=== PATIENT | male | born 1950 | race Hispanic/Latino ===

== ENCOUNTER 2016-08-09 18:25 | Observation (INO) | payer MEDICARE, MEDICAID ==
[2016-03-29 21:13] VITALS: BMI 27.3
[2016-08-09 19:19] LABS: BASO # 0.1 K/uL (0.0-0.2); BASO % 0.6 % (0.0-2.0); EOS # 0.2 K/uL (0.0-0.7); EOS % 1.7 % (0.0-4.0); HEMATOCRIT 42.5 % (35.0-51.0); LYMPH % 20.2 % (20.0-40.0); MEAN CELL VOLUME 87.1 fl (80.0-94.0); MEAN CORPUSCULAR HEMOGLOBIN 29.1 pg (27.0-31.0); MEAN CORPUSCULAR HGB CONC 33.4 g/dL (33.0-37.0); MEAN PLATELET VOLUME 8.2 fl (7.2-11.7); MONO # 0.9 K/uL (0.0-0.8); MONO % 9.6 % (0.0-10.0); NEUT # 6.6 K/uL (1.8-7.0); NEUT % 67.9 % (50.0-75.0); RED CELL DISTRIBUTION WIDTH 14.6 % (11.5-14.5); WHITE BLOOD COUNT 9.7 K/uL (4.8-10.8)
[2016-08-09 19:26] LABS: ALB/GLOB RATIO 1.1 (1.0-2.1); ALKALINE PHOSPHATASE 81 U/L (38-126); ALT/SGPT 23 U/L (21-72); AST/SGOT 29 U/L (17-59); BILIRUBIN,TOTAL 1.3 mg/dl (0.2-1.3); BLOOD UREA NITROGEN 17 mg/dl (9-20); CALCIUM 9.6 mg/dL (8.4-10.2); CARBON DIOXIDE 21 mmol/L (22-30); CHLORIDE 104 mmol/L (98-107); GFR AFRICAN-AMERICAN > 60; GLUCOSE,RANDOM 149 mg/dL (75-110); POTASSIUM 4.9 MMOL/L (3.6-5.0); SODIUM 142 mmol/l (132-148); TOTAL PROTEIN 8.2 G/DL (6.3-8.2)
[2016-08-09 19:41] LABS: PARTIAL THROMBOPLASTIN TIME 30.3 SECONDS (23.3-32.5)
[2016-08-09 19:56] LABS: THYROID STIMULATING HORMONE 1.53 mIU/ML (0.46-4.68)
--- NOTE | 2016-08-09 20:02 | ED PDOC ---
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 Pt reports the palpitations felt like his AFib and resolved of its own. Pt reports some associated shortness of breath but denies any chest pain. Of note, pt reports he recently came to [place] from [place], [place] and states he was informed in [place] that he has high Coumadin levels and his medications were discontinued until further notice. Of note, pt states he had a VA few months ago, is currently on Cardizem and Metroprolol. Currently, pt offers no additional medical complaints. Past Medical History Reviewed: Historical Data, Nursing Documentation, Vital Signs Vital Signs: Last Vital Signs Temp 98.6 F 08/10/16 13:00 Pulse 55 L 08/10/16 13:00 Resp 20 08/10/16 13:00 BP 162/85 H 08/10/16 13:00 Pulse Ox 96 08/10/16 13:00 - Medical History PMH: Atrial Fibrillation (Questionable), Diabetes, Deep Vein Thrombosis ( treated in [facility]), HTN, Hypercholesterolemia, Kidney Stones Denies: CVA Other PMH: VA - Family History Family History: States: Unknown Family Hx, Hypertension - Home Medications Home Medications: Ambulatory Orders Medication Instructions Recorded Metoprolol Tartrate [Lopressor] 100 mg PO BID #30 tab 08/10/16 Clopidogrel [Plavix] 75 mg PO DAILY tab 08/14/16 Rosuvastatin Calcium [Crestor] 20 mg PO HS tab 08/14/16 metFORMIN [glucOPHAGE] 1,000 mg PO BID tab 08/14/16 - Allergies Allergies/Adverse Reactions: Allergies Allergy/AdvReac Type Severity Reaction Status Date / Time aspirin Allergy URTICARIA Verified 08/10/16 18:58 Penicillins Allergy URTICARIA Verified 08/10/16 18:58 SONAL Risk Score for UA/NSTEMI - SONAL Risk Score Age > 64: YES 3 or more CAD Risk Factors: YES Known CAD (Stenosis greater than 50%): YES Aspirin use in past 7 days: NO Severe Angina: NO EKG ST changes greater than 0.5mm: NO Positive Cardiac Marker: NO SONAL Score: 3 Risk %: 13% Review of Systems ROS Statement: Except As Marked, All Systems Reviewed And Found Negative Cardiovascular: Positive for: Palpitations. Negative for: Chest Pain Respiratory: Positive for: Shortness of Breath Physical Exam - Reviewed Nursing Documentation Reviewed: Yes Vital Signs Reviewed: Yes - Physical Exam Appears: Positive for: Well, Non-toxic, No Acute Distress Head Exam: Positive for: ATRAUMATIC, NORMAL INSPECTION, NORMOCEPHALIC Skin: Positive for: Normal Color, Warm, DRY Eye Exam: Positive for: Normal appearance Neck: Positive for: Normal, Painless ROM, Supple Cardiovascular/Chest: Positive for: Regular Rate, Rhythm Respiratory: Positive for: Normal Breath Sounds. Negative for: Respiratory Distress Neurologic/Psych: Positive for: Alert, Oriented - Laboratory Results Result Diagrams: 08/10/16 06:00 08/10/16 06:10 - ECG Interpretation Of ECG: NSR @ 60. O2 Sat by Pulse Oximetry: 97 (RA) Pulse Ox Interpretation: Normal - Radiology X-Ray: Read By Radiologist (No active disease. No significant interval change compared to the prior examination(s).) Medical Decision Making Medical Decision Making: Time: 1909 Impression: Palpitations, AFib, ACS Plan: -- EKG -- DDimer -- PTT -- Prothrombin time -- Urinalysis -- CXR --Reassess Scribe Attestation: Documented by Pauline Bhatia acting as a scribe for Melina Dee MD. Provider Attestation: All medical record entries made by the Scribe were at my direction and personally dictated by me. I have reviewed the chart and agree that the record accurately reflects my personal performance of the history, physical exam, medical decision making, and the department course for this patient. I have also personally directed, reviewed, and agree with the discharge instructions and disposition. Disposition - Clinical Impression Clinical Impression: Palpitations, Atrial fibrillation - Disposition Disposition Time: 21:37 Condition: STABLE
--- NOTE | 2016-08-09 23:06 | CP.PCM.HP ---
History of Present Illness - History of Present Illness History of Present Illness: CC: acute onset Palpitations 66 yo male with PMHx of HTN, A-Fib?, DVT, DM, [place] ( s/p stent placement 2016), TIA (per patient) admitted due to sudden onset chest palpitations which started this afternoon. Pt reports the palpitations felt like ''a machine'' resolved on their own. Pt reports some associated shortness of breath but denies any chest pain or chest pressure.Able to walk 30 min without any dyspnea, no chest pain on exertion or rest, no new cough reported, no edema, no orthopnea. Denies HAMIL[place], syncope, n/v/cp/ abd pain/diarrhea/ new rashes/focal weakness. wt loss, night sweats, dysuria/hematuria/hematochezia. Of note: Patient has a history of STEMI on record, he states not following up with any c d area supervisor post his [place] and stent placement at [facility] Mar 2016. States he went to [place] straight after his discharge from the hospital. Saw a PMD in [place] who was giving his prescriptions to Cardizem and Metroprolol, patient denies taking any other medication at present time. Pt reports he recently came to [place] from [place], [place] and states he was informed in [place] that he has ''high Coumadin levels'' and his medications were discontinued until further notice. ED course: VS: bradycardic 57, stable, afebrile, EKG, DDimer ,TSH, CBC ,CMP ,PTT /PT,Troponins, Urinalysis, CXR PMD: [facility], Dr Garcia [place]: none seen after stenting as per patient PMHx - [place]( stent placed 2016), HTN, DM, HLD, TIA (as per patient), LE DVT Meds - currently only taking Cardizem, Metoprolol per patient; per ECW below MetFORMIN HCl ER 500 MG Atorvastatin Calcium 40 MG Hydrochlorothiazide 25 MG Lisinopril 20 MG Allergies - aspirin, PEN - rash from both Fam Hx - dad scleroderma, mom breast cancer Surgery - Cardiac cath w/ stent (2016),prostate surgery, ''bladder stones removed'', sinus surgery Social - homeless in [place] but not in [place] as per patient, denies drug, tobacco , alcohol use Present on Admission - Present on Admission Any Indicators Present on Admission: No History of DVT/PE: Yes Review of Systems - Review of Systems Review of Systems: see hpi Past Patient History - Past Social History Smoking Status: Never Smoked - CARDIAC Hx Atrial Fibrillation: Yes (Questionable) Hx Hypercholesterolemia: Yes Hx Hypertension: Yes - RENAL Hx Kidney Stones: Yes - ENDOCRINE/METABOLIC Hx Diabetes Mellitus Type 2: Yes - INTEGUMENTARY Other/Comment: Scabies - GENITOURINARY/GYNECOLOGICAL Hx Urinary Tract Infection: Yes Other/Comment: Protatectomy - PSYCHIATRIC Hx Substance Use: No - SURGICAL HISTORY Other/Comment: prostate and bladder surgery - ANESTHESIA Hx Anesthesia: Yes Hx Anesthesia Reactions: No Meds Allergies/Adverse Reactions: Allergies Allergy/AdvReac Type Severity Reaction Status Date / Time aspirin Allergy URTICARIA Verified 11/12/15 09:44 Penicillins Allergy URTICARIA Verified 11/12/15 09:44 Physical Exam - Constitutional Appears: No Acute Distress Additional comments: disheveled - Head Exam Head Exam: ATRAUMATIC - Eye Exam Eye Exam: EOMI Pupil Exam: PERRL - ENT Exam ENT Exam: Mucous Membranes Moist - Neck Exam Neck exam: Positive for: Full Rom. Negative for: Lymphadenopathy, Tenderness - Respiratory Exam Respiratory Exam: Clear to Auscultation Bilateral. absent: Rales, Rhonchi, Wheezes - Cardiovascular Exam Cardiovascular Exam: +S1, +S2 - GI/Abdominal Exam GI & Abdominal Exam: Normal Bowel Sounds, Soft. absent: Tenderness - Extremities Exam Extremities exam: Positive for: pedal pulses present. Negative for: calf tenderness, pedal edema - Neurological Exam Neurological exam: Alert, Oriented x3 - Psychiatric Exam Psychiatric exam: Normal Affect, Normal Mood - Skin Skin Exam: Dry, Warm Results - Vital Signs Recent Vital Signs: Last Vital Signs Temp 97.7 F 08/09/16 20:22 Pulse 57 L 08/09/16 20:22 Resp 17 08/09/16 20:22 BP 137/84 08/09/16 20:22 Pulse Ox 99 08/09/16 20:22 - Labs Result Diagrams: 08/09/16 19:00 08/09/16 19:00 Assessment & Plan - Assessment and Plan (Free Text) Plan: 66 yo male with PMHx of HTN, A-Fib, DVT, DM, [place] ( s/p stent 2016), TIA admitted to [facility] for sudden onset chest palpitations New onset Palpitations admit to telemetry cont. cardiac monitoring VS currently stable Pt. has a h/o recent [place] Mar 2016 s/p stent ED course: VS: bradycardic 57, stable, afebrile, EKG, DDimer ,TSH, CBC ,CMP ,PTT /PT,Troponins, Urinalysis, CXR EKG: NSR 1st Troponin WNL, follow troponins Q8 TSH WNL UDS ordered Last ECHO 04/03 ( post cardiac cath): EF 45-50%, mild AR, TR, MR, AK repeat ECHO in lieu of new onset palpitations and possible nonadherence to medication Consider Cardiology consult A Fib, rate controlled currently NSR c/w home meds cardizem consider cardiology if anticoagulation is to be restarted HTN c/w home med metoprolol DM restarted metformin 500 BID as per ECW, patient was non compliant last A1C: 9.6% accuchecks ACHS Ppx DVT - lovenox 40 SC Diet Diabetic, HH diet
[2016-08-10 00:13] LABS: RBC URINE 1 /hpf (0-3); URINE BILIRUBIN NEGATIVE (NEGATIVE); URINE BLOOD NEGATIVE (NEGATIVE); URINE COLOR YELLOW (YELLOW); URINE GLUCOSE (UA) NEG (Normal); URINE KETONE NEGATIVE (NEGATIVE); URINE LEUKOCYTE ESTERASE NEG Leu/uL (Negative); URINE PROTEIN NEGATIVE (NEGATIVE); URINE UROBILINOGEN 0.2-1.0 mg/dL (0.2-1.0); WBC URINE 1 /hpf (0-5)
--- NOTE | 2016-08-10 07:37 | CARD ---
APPROVED REPORT EKG Measurement Heart [id number] <Conclusion> Normal sinus rhythm Septal infarct, age undetermined Abnormal ECG
[2016-08-10 08:00] LABS: BLOOD UREA NITROGEN 14 mg/dL (7-21); GLUCOSE,RANDOM 126 mg/dL (70-110)
[2016-08-10 08:01] LABS: ALB/GLOB RATIO 1.1 (1.1-1.8); ALKALINE PHOSPHATASE 78 U/L (38-133); ALT/SGPT 26 U/L (7-56); AST/SGOT 21 U/L (15-59); BILIRUBIN,TOTAL 1.4 mg/dL (0.2-1.3); CALCIUM 8.9 mg/dL (8.4-10.5); CARBON DIOXIDE 23 mmol/L (21-33); CHLORIDE 105 mmol/L (98-107); GFR AFRICAN-AMERICAN > 60; SODIUM 141 mmol/L (132-148); TOTAL PROTEIN 6.7 g/dL (5.8-8.3)
[2016-08-10 08:21] LABS: HEMATOCRIT 38.8 % (35.0-51.0); MEAN CELL VOLUME 87.1 fl (80.0-94.0); MEAN CORPUSCULAR HEMOGLOBIN 29.2 pg (27.0-31.0); MEAN CORPUSCULAR HGB CONC 33.5 g/dL (33.0-37.0); RED CELL DISTRIBUTION WIDTH 14.6 % (11.5-14.5); WHITE BLOOD COUNT 7.2 K/uL (4.8-10.8)
--- NOTE | 2016-08-10 08:54 | RAD ---
HISTORY: Palpitations. Portable semi upright study 19:45. COMPARISON: 03/29/2016. FINDINGS: LUNGS: No active pulmonary disease. PLEURA: No significant pleural effusion identified, no pneumothorax apparent. CARDIOVASCULAR: No radiographic findings to suggest acute or significant cardiovascular disease. OSSEOUS STRUCTURES: No significant abnormalities. VISUALIZED UPPER ABDOMEN: Normal. OTHER FINDINGS: None. IMPRESSION: No active disease. No significant interval change compared to the prior examination(s).
[2016-08-10] MEDS: Enoxaparin 40 mg Syringe SC SCH ×2 (09:33→09:38)
--- NOTE | 2016-08-10 10:40 | CARD ---
APPROVED REPORT EXAM: Two-dimensional and M-mode echocardiogram with Doppler and color Doppler. Other Information Quality : GoodRhythm : NSR INDICATION Palpitations 2D DIMENSIONS IVSd1.06 (0.7-1.1cm)LVDd4.32 (3.9-5.9cm) LVOT Diameter3.38 (1.8-2.4cm)PWd1.01 (0.7-1.1cm) IVSs1.52 (0.8-1.2cm)LVDs3.51 (2.5-4.0cm) FS (%) 18.7 %PWs1.39 (0.8-1.2cm) M-Mode DIMENSIONS Left Atrium (MM)3.57 (2.5-4.0cm)IVSd1.29 (0.7-1.1cm) Aortic Root3.77 (2.2-3.7cm)LVDd4.50 (4.0-5.6cm) Aortic Cusp Exc.2.12 (1.5-2.0cm)PWd1.39 (0.7-1.1cm) IVSs2.61 cmFS (%) 54 % LVDs2.05 (2.0-3.8cm)PWs1.99 cm Mitral Valve MV E Nfwgnvek20.6cm/sMV DECEL [id number] A Ovoicuxe26.8cm/s MV RUS60aaT/A ratio1.0MVA (PHT)2.51cm2 TDI Lateral E' Peak V6.11cm/sMedial E' Peak V6.36cm/sE/Lateral E'10.1 E/Medial E'9.7 Pulmonary Valve PV Peak Ddcceubr36.0cm/s LEFT VENTRICLE The left ventricle is normal size. There is normal left ventricular wall thickness. Left ventricle systolic function is normal. The Ejection Fraction is >70%. There is normal LV segmental wall motion. Transmitral Doppler flow pattern is Grade I-abnormal relaxation pattern. RIGHT VENTRICLE The right ventricle is normal size. There is normal right ventricular wall thickness. The right ventricular systolic function is normal. ATRIA The left atrium size is normal. The right atrium size is normal. AORTIC VALVE The aortic valve is mildly sclerotic. There is trace aortic regurgitation. There is no aortic valvular stenosis. MITRAL VALVE The mitral valve is normal in structure. There is no evidence of mitral valve prolapse. There is no mitral valve stenosis. Mitral regurgitation is trace. TRICUSPID VALVE The tricuspid valve is normal in structure and function. There is no tricuspid valve regurgitation noted. PULMONIC VALVE The pulmonary valve is normal in structure and function. There is no pulmonic valvular regurgitation. GREAT VESSELS The aortic root is normal in size. Due to poor image quality, the IVC could not be assessed. PERICARDIAL EFFUSION The pericardium appears normal. <Conclusion> The left ventricle is normal size. There is normal left ventricular wall thickness. There is normal LV segmental wall motion. Left ventricle systolic function is normal. The Ejection Fraction is >70%. Transmitral Doppler flow pattern is Grade I-abnormal relaxation pattern.
[2016-08-10 13:11] VITALS: BP 162/85; PULSE 55; RESP 20; TEMP 98.6
--- NOTE | 2016-08-10 13:13 | CP.PCM.DIS ---
Provider - Provider Date of Admission: 08/09/16 21:37 Attending physician: Rhonda Estevez MD Time Spent in preparation of Discharge (in minutes): 35 Diagnosis - Discharge Diagnosis (1) Palpitations Status: Acute Comment: maintained regular sinus rhythm throughout stay, troponins negative, echo within normal limits. No events of Afib noted. Stopped Cardizem, switched to Metoprolol 100mg BID. Hospital Course - Lab Results Lab Results: Most Recent Lab Values WBC 7.2 K/uL (4.8-10.8) 08/10/16 06:00 RBC 4.46 Mil/uL (4.40-5.90) 08/10/16 06:00 Hgb 13.0 g/dL (12.0-18.0) 08/10/16 06:00 Hct 38.8 % (35.0-51.0) 08/10/16 06:00 MCV 87.1 fl (80.0-94.0) 08/10/16 06:00 MCH 29.2 pg (27.0-31.0) 08/10/16 06:00 MCHC 33.5 g/dL (33.0-37.0) 08/10/16 06:00 RDW 14.6 % (11.5-14.5) H 08/10/16 06:00 Plt Count 259 K/uL (130-400) 08/10/16 06:00 MPV 8.2 fl (7.2-11.7) 08/09/16 19:00 Neut % (Auto) 67.9 % (50.0-75.0) 08/09/16 19:00 Lymph % (Auto) 20.2 % (20.0-40.0) 08/09/16 19:00 Johnston % (Auto) 9.6 % (0.0-10.0) 08/09/16 19:00 Eos % (Auto) 1.7 % (0.0-4.0) 08/09/16 19:00 Baso % (Auto) 0.6 % (0.0-2.0) 08/09/16 19:00 Neut # 6.6 K/uL (1.8-7.0) 08/09/16 19:00 Lymph # 2.0 K/uL (1.0-4.3) 04/23/17 19:00 Johnston # 0.9 K/uL (0.0-0.8) H 08/09/16 19:00 Eos # 0.2 K/uL (0.0-0.7) 08/09/16 19:00 Baso # 0.1 K/uL (0.0-0.2) 08/09/16 19:00 PT 14.7 SECONDS (9.6-11.2) H 08/09/16 19:00 INR 1.41 (0.92-1.08) H 08/09/16 19:00 APTT 30.3 SECONDS (23.3-32.5) 08/09/16 19:00 D-Dimer, Quantitative 0.30 mg/L FEU (0-0.50) 08/09/16 19:00 Sodium 141 mmol/L (132-148) 08/10/16 06:10 Potassium 4.0 mmol/L (3.6-5.0) 08/10/16 06:10 Chloride 105 mmol/L (98-107) 08/10/16 06:10 Carbon Dioxide 23 mmol/L (21-33) 08/10/16 06:10 Anion Gap 17 (10-20) 08/10/16 06:10 BUN 14 mg/dL (7-21) 08/10/16 06:10 Creatinine 0.9 mg/dL (0.5-1.4) 08/10/16 06:10 Est GFR ( Amer) > 60 08/10/16 06:10 Est GFR (Non-Af Amer) > 60 08/10/16 06:10 POC Glucose (mg/dL) 115 mg/dL (65-110) H 08/10/16 11:58 Random Glucose 126 mg/dL (70-110) H 08/10/16 06:10 Calcium 8.9 mg/dL (8.4-10.5) 08/10/16 06:10 Total Bilirubin 1.4 mg/dL (0.2-1.3) H 08/10/16 06:10 AST 21 U/L (15-59) 08/10/16 06:10 ALT 26 U/L (7-56) 08/10/16 06:10 Alkaline Phosphatase 78 U/L (38-133) 08/10/16 06:10 Troponin I 0.0120 ng/mL (0.00-0.120) 08/10/16 11:50 Total Protein 6.7 g/dL (5.8-8.3) 08/10/16 06:10 Albumin 3.5 g/dL (3.0-4.8) 08/10/16 06:10 Globulin 3.2 gm/dL 08/10/16 06:10 Albumin/Globulin Ratio 1.1 (1.1-1.8) 08/10/16 06:10 TSH 3rd Generation 1.53 mIU/ML (0.46-4.68) 08/09/16 19:00 Urine Color Yellow (YELLOW) 08/10/16 00:01 Urine Clarity Clear (Clear) 08/10/16 00:01 Urine pH 5.0 (5.0-8.0) 08/10/16 00:01 Ur Specific [place] 1.023 (1.003-1.030) 08/10/16 00:01 Urine Protein Negative mg/dL (NEGATIVE) 08/10/16 00:01 Urine Glucose (UA) Neg mg/dL (Normal) 08/10/16 00:01 Urine Ketones Negative mg/dL (NEGATIVE) 08/10/16 00:01 Urine Blood Negative (NEGATIVE) 08/10/16 00:01 Urine Nitrate Negative (NEGATIVE) 08/10/16 00:01 Urine Bilirubin Negative (NEGATIVE) 08/10/16 00:01 Urine Urobilinogen 0.2-1.0 mg/dL (0.2-1.0) 08/10/16 00:01 Ur Leukocyte Esterase Neg Mago/uL (Negative) 08/10/16 00:01 Urine RBC (Auto) 1 /hpf (0-3) 08/10/16 00:01 Urine Microscopic WBC 1 /hpf (0-5) 08/10/16 00:01 Urine Opiates Screen Negative (NEGATIVE) 08/10/16 00:01 Urine Methadone Screen Negative (NEGATIVE) 08/10/16 00:01 Ur Barbiturates Screen Negative (NEGATIVE) 08/10/16 00:01 Ur Phencyclidine Scrn Negative (NEGATIVE) 08/10/16 00:01 Ur Amphetamines Screen Negative (NEGATIVE) 08/10/16 00:01 U Benzodiazepines Scrn Negative (NEGATIVE) 08/10/16 00:01 U Oth Cocaine Metabols Negative (NEGATIVE) 08/10/16 00:01 U Cannabinoids Screen Negative (NEGATIVE) 08/10/16 00:01 - Hospital Course Hospital Course: 66 yo male with PMHx of HTN, A-Fib (per pt), DVT, DM, [place] ( s/p stent placement 2015), TIA (per patient) admitted due to sudden onset chest palpitations which started the afternoon prior. During his stay, EKG was done, showed NSR with a prior septal infarct. Labs were ordered, and troponins were found to be negative on 3 occasions. Echo was also done, which showed normal LV size, no LVH , and a LVEF of >70%. During the stay, pt was found to dip into bradycardia with HRs of 50-52. Cardizem was discontinued and Metoprolol 50mg was switched to 100mg BID. He was also given Metformin 500mg BID as his HbA1c was 9.6%. After an uneventful hospital stay, he was discharged in stable condition with directions to follow up with [facility] in 2-3 days. Meds on Discharge: Metoprolol 100mg PO BID Metformin 500mg PO BID Discharge Exam - Head Exam Head Exam: ATRAUMATIC - Eye Exam Eye Exam: EOMI Pupil Exam: PERRL - ENT Exam ENT Exam: Mucous Membranes Moist - Respiratory Exam Respiratory Exam: Clear to PA & Lateral, NORMAL BREATHING PATTERN, UNREMARKABLE - Cardiovascular Exam Cardiovascular Exam: Bradycardia, REGULAR RHYTHM, +S1, +S2. absent: JVD, Systolic Murmur - GI/Abdominal Exam GI & Abdominal Exam: Normal Bowel Sounds, Unremarkable - Extremities Exam Extremities exam: normal inspection, pedal pulses present - Back Exam Back exam: NORMAL INSPECTION - Neurological Exam Neurological exam: Alert, CN II-XII Intact Discharge Plan - Discharge Medications Prescriptions: Metoprolol Tartrate [Lopressor] 100 mg PO BID #30 tab metFORMIN [glucOPHAGE] 500 mg PO BIDWM #60 tab - Follow Up Plan Condition: STABLE Disposition: HOME/ ROUTINE Additional Instructions: stop Cardizem start metoprolol 100mg twice daily continue with Metformin 500mg twice daily Follow up with primary medical doctor at the [facility] in 2-3 days calll [phone] to make an appointment if any worsening palpitations associated with Chest pain, shortness of breath, pain radiating to left arm/jaw, with sweating, report to ED. Referrals: Dorene Garcia [Resident] -
[2016-08-15 10:06] VITALS: O2SAT 97
== END 2016-08-10 14:36 | disposition home or self-care (01) ==
LOC: H.ER 18:25 → H.ERHOLD 21:37 → H.TEL 08-10 00:32
PROVIDERS: ADMIT Family Medicine Geriatric Medicine; ATTEND Family Medicine Geriatric Medicine
DX: R00.2 Palpitations (principal); R00.1 Bradycardia, unspecified; I10 Essential (primary) hypertension; E78.00 Pure hypercholesterolemia, unspecified; I48.91 Unspecified atrial fibrillation; I25.2 Old myocardial infarction; E11.9 Type 2 diabetes mellitus without complications; Z95.5 Presence of coronary angioplasty implant and graft; Z86.73 Personal history of transient ischemic attack (TIA), and cerebral infarction without residual deficits; Z87.442 Personal history of urinary calculi; Z87.440 Personal history of urinary (tract) infections; Z59.0 Homelessness; Z91.14 Patient's other noncompliance with medication regimen
CPT/HCPCS: 36415; 71010; 80053; 81003; 82948; 84443; 84484; 85025; 85027; 85378; 85610; 85730; 93005; 93306; 99285; G0378; G0480

== ENCOUNTER 2016-09-08 01:08 | Inpatient (IN) | payer MEDICARE, MEDICAID ==
[2016-09-08 01:09] VITALS: BMI 27.3
[2016-09-08 02:00] LABS: BASO # 0.1 K/uL (0.0-0.2); BASO % 0.9 % (0.0-2.0); EOS # 0.2 K/uL (0.0-0.7); EOS % 2.4 % (0.0-4.0); HEMATOCRIT 41.6 % (35.0-51.0); LYMPH # 1.9 K/uL (1.0-4.3); LYMPH % 20.9 % (20.0-40.0); MEAN CELL VOLUME 88.2 fl (80.0-94.0); MEAN CORPUSCULAR HEMOGLOBIN 29.1 pg (27.0-31.0); MEAN CORPUSCULAR HGB CONC 32.9 g/dL (33.0-37.0); MEAN PLATELET VOLUME 8.1 fl (7.2-11.7); MONO # 0.9 K/uL (0.0-0.8); MONO % 10.1 % (0.0-10.0); NEUT % 65.7 % (50.0-75.0); RED CELL DISTRIBUTION WIDTH 13.9 % (11.5-14.5); WHITE BLOOD COUNT 9.2 K/uL (4.8-10.8)
[2016-09-08 02:34] LABS: ALB/GLOB RATIO 1.5 (1.0-2.1); ALKALINE PHOSPHATASE 82 U/L (38-126); ALT/SGPT 25 U/L (21-72); AST/SGOT 23 U/L (17-59); BILIRUBIN,TOTAL 1.1 mg/dl (0.2-1.3); BLOOD UREA NITROGEN 22 mg/dl (9-20); CALCIUM 9.6 mg/dL (8.4-10.2); CARBON DIOXIDE 23 mmol/L (22-30); CHLORIDE 101 mmol/L (98-107); GFR AFRICAN-AMERICAN > 60; GLUCOSE,RANDOM 164 mg/dL (75-110); POTASSIUM 4.1 MMOL/L (3.6-5.0); SODIUM 138 mmol/l (132-148); TOTAL PROTEIN 7.6 G/DL (6.3-8.2)
--- NOTE | 2016-09-08 02:40 | ED PDOC ---
HPI: Chest Pain Time Seen by Provider: 09/08/16 01:12 Chief Complaint (Nursing): Palpitations Chief Complaint (Provider): Palpitations and Chest pain History Per: Patient History/Exam Limitations: no limitations Onset/Duration Of Symptoms: Hrs Current Symptoms Are (Timing): Still Present Additional Complaint(s): Agapito Feldman, a 66 year old undomiciled male, who has a PMHx of coronary stent, coronary artery disease and tachycardia presents to the ED for episodes of palpitations and chest pain. He reports that the symptoms started while he was at rest and reports that he has had similar episodes in the past. He has no associated nausea and vomiting. Denies shortness of breath. - Risk Factors TAD Risk Factors: Pos: Hypertension Past Medical History Reviewed: Historical Data, Nursing Documentation, Vital Signs Vital Signs: Last Vital Signs Temp 97.8 F 09/08/16 01:10 Pulse 89 09/08/16 01:45 Resp 17 09/08/16 01:10 BP 142/88 09/08/16 01:10 Pulse Ox 95 09/08/16 03:14 - Medical History PMH: Atrial Fibrillation, CAD, Cardia Arrhythmia, Diabetes, Deep Vein Thrombosis ([facility] in [facility]), HTN, Hypercholesterolemia, Kidney Stones Denies: CVA, HIV Other PMH: Coronary Stent; Dyslipidemia;Tachycardia - Surgical History Surgical History: No Surg Hx, Coronary Stent - Family History Family History: States: Unknown Family Hx, Hypertension - Social History Current smoker - smoking cessation education provided: No Ex-Smoker (has not smoked in the last 12 months): No Alcohol: None Drugs: Cannabis - Home Medications Home Medications: Ambulatory Orders Medication Instructions Recorded Metoprolol Tartrate [Lopressor] 100 mg PO BID #30 tab 08/10/16 Clopidogrel [Plavix] 75 mg PO DAILY tab 08/14/16 Rosuvastatin Calcium [Crestor] 20 mg PO HS tab 08/14/16 metFORMIN [glucOPHAGE] 1,000 mg PO BID tab 08/14/16 Warfarin [Coumadin] 5 mg PO 09/08/16 - Allergies Allergies/Adverse Reactions: Allergies Allergy/AdvReac Type Severity Reaction Status Date / Time aspirin Allergy URTICARIA Verified 09/08/16 02:18 Penicillins Allergy URTICARIA Verified 09/08/16 02:18 Review of Systems ROS Statement: Except As Marked, All Systems Reviewed And Found Negative Cardiovascular: Positive for: Chest Pain, Palpitations Respiratory: Negative for: Shortness of Breath Gastrointestinal: Positive for: Nausea, Vomiting Physical Exam - Reviewed Nursing Documentation Reviewed: Yes Vital Signs Reviewed: Yes - Physical Exam Appears: Positive for: Non-toxic, No Acute Distress Head Exam: Positive for: ATRAUMATIC, NORMAL INSPECTION Skin: Positive for: Normal Color, Warm, Dry Eye Exam: Positive for: Normal appearance, EOMI, PERRL ENT: Positive for: Normal ENT Inspection Neck: Positive for: Normal, Painless ROM, Supple Cardiovascular/Chest: Positive for: Regular Rate, Rhythm, Chest Non Tender. Negative for: Tachycardia Respiratory: Positive for: Normal Breath Sounds. Negative for: Wheezing, Respiratory Distress Gastrointestinal/Abdominal: Positive for: Normal Exam, Bowel Sounds, Soft. Negative for: Tenderness Back: Positive for: Normal Inspection. Negative for: L CVA Tenderness, R CVA Tenderness Extremity: Positive for: Normal ROM. Negative for: Tenderness, Deformity, Swelling Neurologic/Psych: Positive for: Alert, Oriented - Laboratory Results Result Diagrams: 09/08/16 01:56 09/08/16 01:56 - ECG O2 Sat by Pulse Oximetry: 95 (RA) Pulse Ox Interpretation: Normal Medical Decision Making Medical Decision Makin Initial Impression: 66 year old male presenting with chest pain and palpitations in known setting of diabetes, CAD, coronary stent, dyslipidemia and tachycardia. Initial Plan: * EKG * CMP * Troponin * CBC * PTT * Prothrombin time * CXR Portable * Urinalysis * Admit [id number] Patient placed on observation status. Case discussed with Dr. Israel, family practice resident on duty. Condition: fair Scribe Attestation Documented by Miracle Lennon acting as a scribe for Percy Harden MD Provider Attestation: All medical record entries made by the Scribe were at my direction and personally dictated by me. I have reviewed the chart and agree that the record accurately reflects my personal performance of the history, physical exam, medical decision making, and the department course for this patient. I have also personally directed, reviewed, and agree with the discharge instructions and disposition. Disposition - Clinical Impression Clinical Impression: Palpitations, Chest pain - Patient ED Disposition Is Patient to be Admitted: Yes Discussed With DrAnahy: Basil Euceda - Disposition Disposition Time: 02:00 Condition: FAIR - Pt Status Changed To: Hospital Disposition Of: Observation
[2016-09-08 02:51] LABS: PARTIAL THROMBOPLASTIN TIME 26.6 SECONDS (23.3-32.5)
--- NOTE | 2016-09-08 05:25 | CP.PCM.HP ---
History of Present Illness - History of Present Illness History of Present Illness: 66 yo male with PMHx of per [facility] (HTN, Type DM and HLD), but according to pt HTN , A-Fib, DVT, DM, IN ( s/p stent placement 2015), TIA admitted due to sudden onset chest pain and palpitations started while at rest with no other associated symptoms. Pt reports the palpitations resolved on its own. Able to walk 30 min without any dyspnea, no chest pain on exertion or rest, no new cough reported, no edema, no orthopnea. Denies HAMILTON, syncope, n/v/cp/ abd pain/diarrhea/ new rashes/focal weakness. wt loss, night sweats, dysuria/hematuria/hematochezia. 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 States he went to [place] straight after his discharge from the hospital. Saw a PMD in [place] who was giving his prescriptions to Cardizem and Metoprolol , patient denies taking any other medication at present time. Pt reports he recently came to [place] from [place], [place] and states he was informed in [place] that he has ''high Coumadin levels'' and his medications were discontinued until further notice. ED course: VS: bradycardic 57, stable, afebrile, EKG, DDimer ,TSH, CBC ,CMP ,PTT /PT,Troponins, Urinalysis, CXR PMD: INDr Jose Barr - last visit 01/2016 Systems Lead: none seen after stenting as per patient PMHx - IN( stent placed 2015), HTN, DM, HLD, TIA (as per patient), LE DVT Meds - currently only taking Cardizem, Metoprolol per patient; per [facility] below MetFORMIN HCl ER 500 MG Atorvastatin Calcium 40 MG Hydrochlorothiazide 25 MG Lisinopril 20 MG Allergies - aspirin, PEN - rash from both Fam Hx - dad scleroderma, mom breast cancer Surgery - Cardiac cath w/ stent (2015),prostate surgery, ''bladder stones removed'', sinus surgery Social - homeless in [place] but not in [place] as per patient, denies drug, tobacco , alcohol use Present on Admission - Present on Admission Any Indicators Present on Admission: Yes History of DVT/PE: Yes History of Uncontrolled Diabetes: Yes Review of Systems - Review of Systems All systems: reviewed and no additional remarkable complaints except Review of Systems: per HPI Past Patient History - Past Medical History & Family History Past Medical History?: Yes - Past Social History Smoking Status: Never Smoked - CARDIAC Hx Atrial Fibrillation: Yes Hx Cardia Arrhythmia: Yes Hx Hypercholesterolemia: Yes Hx Hypertension: Yes - PULMONARY Hx Respiratory Disorders: No - NEUROLOGICAL Hx Neurological Disorder: No - HEENT Hx HEENT Problems: Yes - RENAL Hx Kidney Stones: Yes - ENDOCRINE/METABOLIC Hx Diabetes Mellitus Type 2: Yes - HEMATOLOGICAL/ONCOLOGICAL Hx AIDS: No Hx Human Immunodeficiency Virus (HIV): No - INTEGUMENTARY Other/Comment: hx Scabies - MUSCULOSKELETAL/RHEUMATOLOGICAL Hx Falls: Yes - GASTROINTESTINAL Hx Gastrointestinal Disorders: No - GENITOURINARY/GYNECOLOGICAL Hx Urinary Tract Infection: Yes Other/Comment: Prostatectomy - PSYCHIATRIC Hx Psychophysiologic Disorder: No Hx Substance Use: No - SURGICAL HISTORY Hx Coronary Stent: Yes - ANESTHESIA Hx Anesthesia: Yes Hx Anesthesia Reactions: No Hx Malignant Hyperthermia: No Has any member of the family had a problem w/ anesthesia?: No Meds Allergies/Adverse Reactions: Allergies Allergy/AdvReac Type Severity Reaction Status Date / Time aspirin Allergy URTICARIA Verified 09/08/16 02:18 Penicillins Allergy URTICARIA Verified 09/08/16 02:18 Physical Exam - Constitutional Appears: No Acute Distress - Head Exam Head Exam: NORMOCEPHALIC - Eye Exam Eye Exam: Normal appearance - ENT Exam ENT Exam: Mucous Membranes Moist - Respiratory Exam Respiratory Exam: Clear to Auscultation Bilateral, NORMAL BREATHING PATTERN. absent: Rhonchi, Wheezes - Cardiovascular Exam Cardiovascular Exam: REGULAR RHYTHM, +S1, +S2 - GI/Abdominal Exam GI & Abdominal Exam: Normal Bowel Sounds, Soft. absent: Tenderness - Extremities Exam Extremities exam: Negative for: calf tenderness, pedal edema - Neurological Exam Neurological exam: Alert, CN II-XII Intact, Oriented x3 Results - Vital Signs Recent Vital Signs: Last Vital Signs Temp 97.8 F 09/08/16 05:11 Pulse 56 L 09/08/16 05:11 Resp 18 09/08/16 05:11 BP 143/84 09/08/16 05:11 Pulse Ox 96 09/08/16 05:11 - Labs Result Diagrams: 09/08/16 01:56 09/08/16 01:56 Labs: Laboratory Results - last 24 hr 09/08/16 09/08/16 09/08/16 01:47 01:56 01:56 WBC 9.2 RBC 4.72 Hgb 13.7 Hct 41.6 MCV 88.2 MCH 29.1 MCHC 32.9 L RDW 13.9 Plt Count 289 MPV 8.1 Neut % (Auto) 65.7 Lymph % (Auto) 20.9 [place] % (Auto) 10.1 H Eos % (Auto) 2.4 Baso % (Auto) 0.9 Neut # 6.0 Lymph # 1.9 [place] # 0.9 H Eos # 0.2 Baso # 0.1 PT INR APTT Sodium 138 Potassium 4.1 Chloride 101 Carbon Dioxide 23 Anion Gap 18 BUN 22 H Creatinine 1.1 Est GFR ( Amer) > 60 Est GFR (Non-Af Amer) > 60 POC Glucose (mg/dL) 172 H Random Glucose 164 H Calcium 9.6 Total Bilirubin 1.1 AST 23 ALT 25 Alkaline Phosphatase 82 Troponin I < 0.0120 Total Protein 7.6 Albumin 4.5 Globulin 3.1 Albumin/Globulin Ratio 1.5 09/08/16 09/08/16 01:56 04:59 WBC RBC Hgb Hct MCV MCH MCHC RDW Plt Count MPV Neut % (Auto) Lymph % (Auto) [place] % (Auto) Eos % (Auto) Baso % (Auto) Neut # Lymph # [place] # Eos # Baso # PT 10.5 INR 1.01 APTT 26.6 Sodium Potassium Chloride Carbon Dioxide Anion Gap BUN Creatinine Est GFR ( Amer) Est GFR (Non-Af Amer) POC Glucose (mg/dL) 172 H Random Glucose Calcium Total Bilirubin AST ALT Alkaline Phosphatase Troponin I Total Protein Albumin Globulin Albumin/Globulin Ratio Assessment & Plan - Assessment and Plan (Free Text) Assessment: 66 yo male with PMHx of per [facility] (HTN, Type DM and HLD), but according to pt HTN , A-Fib, DVT, DM, IN ( s/p stent placement 2015), TIA being admitted for chest pain with associated palpitations rule out ACS. Plan: 1. chest pain with associated palpitation first trop neg No acute changes in EKG f/u Trops X2 chest pain improved nitro with returns 2. Previous history of STEMI, followed with cardiac stenting in 03/2016 but according to pt not taking plavix or warfarin restarted pt on plavix 75mg daily consider cardiology consult 3. HTN Continue home medication Lisinopril 20 daily and hCTZ 25mg daily according to pt he is in Metoprolol 50mg BID, that was started by his PMD in [place]. There was a note in [facility] where a pharmacy called to attempt to have metoprolol refilled but was denied given it was never Rx'ed from our clinic, pt was told make appointment for visit to discuss medication changes but never showed up for appointment 4. Type 2 diabetes not insulin-dependent Metformin 500mg daily f/u Hemoglobin A1C accucheck 5. Hyperlipidemia Continue with home medication Atorvastatin 40mg daily 6. Diet- heart healthy diabetic 7. DVT prophylaxis- Lovenox 40mg SC
[2016-09-08] MEDS ORDERED: Dextrose 50% SYRINGE Inj (50 ml) IV PRN (05:42)
[2016-09-08] MEDS ORDERED: Glucagon Recombinant 1 mg Inj IM PRN (05:42)
[2016-09-08 06:48] LABS: CHOLESTEROL 129 mg/dL (0-199)
[2016-09-08] MEDS: Insulin Regular 100 units/ml SC SCH ×4 (08:36→22:54)
[2016-09-08] MEDS: Enoxaparin 40 mg Syringe SC SCH (08:37)
[2016-09-08 10:37] LABS: URINE BILIRUBIN NEGATIVE (NEGATIVE); URINE BLOOD NEGATIVE (NEGATIVE); URINE COLOR YELLOW (YELLOW); URINE GLUCOSE (UA) NEG (Normal); URINE KETONE NEGATIVE (NEGATIVE); URINE LEUKOCYTE ESTERASE NEG Leu/uL (Negative); URINE PROTEIN NEGATIVE (NEGATIVE); URINE UROBILINOGEN 0.2-1.0 mg/dL (0.2-1.0); WBC URINE 1 /hpf (0-5)
--- NOTE | 2016-09-08 11:01 | RAD ---
HISTORY: chest pain COMPARISON: Chest x-ray performed 08/09/16 TECHNIQUE: Chest, one view. FINDINGS: Examination limited by habitus. LUNGS: No focal consolidation. Please note that chest x-ray has limited sensitivity for the detection of pulmonary masses. PLEURA: No significant pleural effusion identified. No definite pneumothorax . CARDIOVASCULAR: Heart size appears within normal limits. Mildly ectatic aorta. Atherosclerotic calcification of the aorta. OSSEOUS STRUCTURES: Degenerative changes. VISUALIZED UPPER ABDOMEN: Unremarkable. OTHER FINDINGS: None. IMPRESSION: No focal consolidation, significant pleural effusion, or definite pneumothorax identified.
[2016-09-09] MEDS: Insulin Regular 100 units/ml SC SCH ×4 (06:30→21:57)
[2016-09-09 06:50] LABS: HEMATOCRIT 39.7 % (35.0-51.0); MEAN CELL VOLUME 87.3 fl (80.0-94.0); MEAN CORPUSCULAR HEMOGLOBIN 29.7 pg (27.0-31.0); RED CELL DISTRIBUTION WIDTH 13.6 % (11.5-14.5); WHITE BLOOD COUNT 6.4 K/uL (4.8-10.8)
[2016-09-09 07:04] LABS: BLOOD UREA NITROGEN 17 mg/dl (9-20); CALCIUM 9.1 mg/dL (8.4-10.2); CARBON DIOXIDE 22 mmol/L (22-30); CHLORIDE 103 mmol/L (98-107); GFR AFRICAN-AMERICAN > 60; GLUCOSE,RANDOM 122 mg/dL (75-110); POTASSIUM 3.6 MMOL/L (3.6-5.0); SODIUM 137 mmol/l (132-148)
[2016-09-09] MEDS: Enoxaparin 40 mg Syringe SC SCH (08:33)
--- NOTE | 2016-09-09 12:47 | CP.PCM.PN ---
Subjective - Date & Time of Evaluation Date of Evaluation: 09/09/16 Time of Evaluation: 08:40 - Subjective Subjective: 66 y/o M admitted for palpitations seen at bedside in [facility]. Patient is more talkative and awake today. He denies having CP before admission but admits palpitations and that why he decided to come to ED. Patient denies CP , palpitations, SOB, calf pain, headache at this time. Patient is homeless and is planning to go to [facility] after dc from hosp. He states he has a sister and an adopted son but he does not get along well with them. Objective - Vital Signs/Intake and Output Vital Signs (last 24 hours): Temp Pulse Resp BP Pulse Ox 98.3 F 76 20 113/79 94 L 09/09/16 12:27 09/09/16 12:27 09/09/16 12:27 09/09/16 12:27 09/09/16 12:27 - Medications Medications: Current Medications Atorvastatin Calcium (Lipitor) 40 mg PO HS [facility] Last Admin: 09/08/16 21:19 Dose: 40 mg Clopidogrel Bisulfate (Plavix) 75 mg PO DAILY [facility] Last Admin: 09/09/16 08:33 Dose: 75 mg Dextrose (Dextrose 50% Inj) 0 ml IV STAT PRN; Protocol PRN Reason: Hyglycemia Protocol Dextrose (Glutose 15) 0 gm PO ONCE PRN; Protocol PRN Reason: Hypoglycemia Protocol Enoxaparin Sodium (Lovenox) 40 mg SC DAILY [facility] PRN Reason: Protocol Last Admin: 09/09/16 08:33 Dose: 40 mg Glucagon (Glucagen Diagnostic Kit) 0 mg IM STAT PRN; Protocol PRN Reason: Hypoglycemia Protocol Hydrochlorothiazide (Hydrodiuril) 25 mg PO DAILY [facility] Last Admin: 09/09/16 09:33 Dose: Not Given Insulin Human Regular (Humulin R) 0 units SC ACHS [facility] PRN Reason: Protocol Last Admin: 09/09/16 12:02 Dose: 2 unit Lisinopril (Zestril) 20 mg PO DAILY [facility] Last Admin: 09/09/16 09:33 Dose: Not Given Metformin HCl (Glucophage) 500 mg PO DAILY [facility] Last Admin: 09/09/16 08:34 Dose: 500 mg - Labs Labs: 09/09/16 05:30 09/09/16 05:30 PT 10.5 SECONDS (9.6-11.2) 09/08/16 01:56 INR 1.01 (0.92-1.08) 09/08/16 01:56 APTT 26.6 SECONDS (23.3-32.5) 09/08/16 01:56 - Constitutional Appears: Non-toxic, No Acute Distress - Eye Exam Eye Exam: PERRL - ENT Exam ENT Exam: Mucous Membranes Moist - Respiratory Exam Respiratory Exam: Clear to Ausculation Bilateral, NORMAL BREATHING PATTERN - Cardiovascular Exam Cardiovascular Exam: +S1, +S2. absent: Gallop, Murmur - GI/Abdominal Exam GI & Abdominal Exam: Soft, Normal Bowel Sounds. absent: Tenderness - Extremities Exam Extremities Exam: Full ROM - Neurological Exam Neurological Exam: Alert, Awake, Oriented x3 - Psychiatric Exam Psychiatric exam: Normal Affect, Normal Mood - Skin Skin Exam: Normal Color, Warm Assessment and Plan - Assessment and Plan (Free Text) Assessment: 66 yo male with PMHx admitted for palpitations to rule out ACS 1. Palpitations rule out cardiac arrhythmia troponin x3 neg UTox ordered No acute changes in EKG Patient denies CP Paroxistic asymptomatic tachycardia in monitor since yesterday evening with episodes lasting less than one minute Cardiology consulted: Waiting for recs 2. CAD Previous history of STEMI, followed with cardiac stenting in 03/2016 c/w plavix 75mg daily Cardiology consulted Dr Aranda: Will f/u recs 3. HTN Continue home medication Lisinopril 20 daily and hCTZ 25mg daily according to pt he is in Metoprolol 50mg BID, that was started by his PMD in [place]. There was a note in [facility] where a pharmacy called to attempt to have metoprolol refilled but was denied given it was never Rx'ed from our clinic, pt was told make appointment for visit to discuss medication changes but never showed up for appointment 4. Type 2 diabetes not insulin-dependent Hold Metformin 500mg daily for now Hemoglobin 6.6 accucheck 5. Hyperlipidemia Continue with home medication Atorvastatin 40mg daily 6. Diet- heart healthy diabetic 7. DVT prophylaxis- Lovenox 40mg SC
--- NOTE | 2016-09-09 20:06 | CON ---
DATE: 09/09/2016 REASON FOR CONSULTATION: Palpitation and atrial tachycardia, as well as history of coronary artery d isease. HISTORY OF PRESENT ILLNESS: The patient is a 66-year-old male who has a history of coronary stenting in March of last year when he presented with ST elevation myocardial infarction to [place] and wa s transferred to [facility]3] for immediate intervention. It is not clear if the patient received a drug-eluting stent or non-drug eluting stent at that time. I will verify that with the cardiac ca th lab at [facility]3]. The patient at that time was found to have low ejection fraction. The pa medina is diabetic and hypertensive. He presents because of palpitation. The patient denies any dizz iness or syncope. The patient denies retrosternal chest pain. SOCIAL HISTORY: The patient is a nonsmoker, nondrinker. MEDICATIONS: Glucophage 500 mg daily, hydrochlorothiazide 25 mg daily, Lipitor 40 mg daily, Lovenox 40 mg subcutaneous once a day, Plavix 75 mg once a day, Zestril 20 mg once a day. HOME MEDICATIONS: Includes Plavix, Coumadin, Crestor, and metformin. ALLERGIES: THE PATIENT IS REPORTED TO BE ALLERGIC TO ASPIRIN. REVIEW OF SYSTEMS: No fever or chills. No vomiting or diarrhea. PHYSICAL EXAMINATION: GENERAL: The patient is an elderly male who does not appear to be in acute distress. VITAL SIGNS: Blood pressure /79, heart rate 76, temperature 98.3, respirations 20. HEENT: Normocephalic. NECK: No JVD. CHEST: Clear. HEART: S1, S2 regular. ABDOMEN: Soft. EXTREMITIES: No edema. LABORATORY DATA: CBC is within normal limits. Today's SMA-7 is within normal limits, except for a g lucose of 122. One set of troponin is negative. PT, PTT is within normal limits. EKG revealed sinu s rhythm at a rate of 70. Echocardiograph study performed last month on 08/10 revealed ejection frac tion estimated at 70%. DIAGNOSTIC DATA: Review of rhythm strips revealed runs of atrial tachycardia in the 120s. ASSESSMENT: 1. Coronary artery disease status post left anterior descending stenting for acute anterior wall juan cardial infarction at that time. 2. Paroxysmal atrial tachycardia. 3. Diabetes mellitus and hypertension. RECOMMENDATIONS: Continue current Plavix at 75 mg once a day, continue Zestril at 20 mg once a day, hydrochlorothiazide 25 mg once a day. Start Cardizem at 30 mg orally t.i.d. It is not clear to me w hat the indication of Coumadin, except for possible paroxysmal atrial fibrillation or for the fact th at the patient was ALLERGIC TO ASPIRIN and Coumadin has to be initiated instead. I will review with the cardiac pathology laboratory technologist at [facility]3] if the patient has received a drug-eluting stent or not. I w ill also obtain TSH level. Jj Aranda MD cc: [id number] TT: 09/09/2016 20:06:02 Confirmation # [id number] Dictation # [id number] mn
[2016-09-10] MEDS: Insulin Regular 100 units/ml SC SCH ×3 (06:35→17:18)
[2016-09-10] MEDS: Enoxaparin 40 mg Syringe SC SCH (08:28)
--- NOTE | 2016-09-10 09:49 | PQF GENQUE ---
Dr. Estveez, After work up completed:ACS ruled in or ruled out? OR: Other explanation of clinical findings Attending progress note of 09/09; Admitted for palpitations to rule out ACS ;1. Palpitations rule out cardiac arrhythmia ,troponin x3 neg ,UTox ordered ,No acute changes in EKG Patient denies CP; Paroxistic asymptomatic tachycardia in monitor since yesterday evening with episodes lasting less than one minute Cardiology consulted: Waiting for recs Cardiology consult; history of coronary stenting in March of last year when he presented with ST elevation myocardial infarction Diagnostic Data: Review of rhythm strips revealed runs of atrial tachycardia in the 120s. Ass: 1. Coronary artery disease status post left anterior descending stenting for acute anterior wall myocardial infarction at that time. 2. Paroxysmal atrial tachycardia. 3. Diabetes mellitus and hypertension. Bed Type: telemetry U/A toxicology: negative This form is a permanent part of the medical record Clarification of your documentation is requested to better reflect the severity of illness and intensity of treatment of your patient. Indicators present [] Specify: [] [] Specify: [] [] Specify: [] [] Specify: [] Location in the medical record that reflects the above clinical findings: [] Treatment Provided: [] PHYSICIAN'S RESPONSE Based on your medical judgment of the clinical indicators outlined above please clarify the following: [] Practitioner response [] If unable to determine, please check the box, sign and date. Present On Admission (POA) Indicator: [] Present at the time of admission [] Not present at the time of admission [] Clinically Undetermined In responding to this query, please exercise your independent professional judgment. The fact that a question is asked does not imply that any particular answer is desired or expected. Thank you for your clarification on this documentation. If you have any questions please call. * Thank you, Francesca Arrington RN BSN ext. #[phone] MTDD
--- NOTE | 2016-09-10 15:23 | CP.PCM.PN ---
Subjective - Date & Time of Evaluation Date of Evaluation: 09/10/16 Time of Evaluation: 06:55 - Subjective Subjective: 66 y/o M admitted for atrial tachycardia seen at bedside in not acute distress. Patient say he is feeling well. Denies CP, palpitations, SOB, vomiting or headache. Spoke with Dr Aranda this morning and patient wont need plavix or anticoagulation anymore(He reviewed past cardiac cath results). Started on Diltiazem. Objective - Vital Signs/Intake and Output Vital Signs (last 24 hours): Temp Pulse Resp BP Pulse Ox 98.0 F 89 20 111/73 95 09/10/16 08:15 09/10/16 13:00 09/10/16 08:15 09/10/16 13:00 09/10/16 08:15 - Medications Medications: Current Medications Atorvastatin Calcium (Lipitor) 40 mg PO HS [facility] Last Admin: 09/09/16 21:57 Dose: 40 mg Clopidogrel Bisulfate (Plavix) 75 mg PO DAILY [facility] Last Admin: 09/10/16 08:28 Dose: 75 mg Dextrose (Dextrose 50% Inj) 0 ml IV STAT PRN; Protocol PRN Reason: Hyglycemia Protocol Dextrose (Glutose 15) 0 gm PO ONCE PRN; Protocol PRN Reason: Hypoglycemia Protocol Diltiazem HCl (Cardizem) 30 mg PO TID [facility] Last Admin: 09/10/16 13:00 Dose: 30 mg Enoxaparin Sodium (Lovenox) 40 mg SC DAILY [facility] PRN Reason: Protocol Last Admin: 09/10/16 08:28 Dose: 40 mg Glucagon (Glucagen Diagnostic Kit) 0 mg IM STAT PRN; Protocol PRN Reason: Hypoglycemia Protocol Hydrochlorothiazide (Hydrodiuril) 25 mg PO DAILY [facility] Last Admin: 09/10/16 08:28 Dose: 25 mg Insulin Human Regular (Humulin R) 0 units SC [facility] PRN Reason: Protocol Last Admin: 09/10/16 12:30 Dose: 2 unit Lisinopril (Zestril) 20 mg PO DAILY [facility] Last Admin: 09/10/16 08:27 Dose: 20 mg Metformin HCl (Glucophage) 500 mg PO DAILY [facility] Last Admin: 09/09/16 08:34 Dose: 500 mg - Labs Labs: PT 10.5 SECONDS (9.6-11.2) 09/08/16 01:56 INR 1.01 (0.92-1.08) 09/08/16 01:56 APTT 26.6 SECONDS (23.3-32.5) 09/08/16 01:56 - Constitutional Appears: Non-toxic, No Acute Distress - Head Exam Head Exam: NORMAL INSPECTION - Eye Exam Eye Exam: PERRL - ENT Exam ENT Exam: Mucous Membranes Moist - Neck Exam Neck Exam: Full ROM - Respiratory Exam Respiratory Exam: Clear to Ausculation Bilateral, NORMAL BREATHING PATTERN - Cardiovascular Exam Cardiovascular Exam: +S1, +S2. absent: Gallop - GI/Abdominal Exam GI & Abdominal Exam: Soft, Normal Bowel Sounds. absent: Tenderness - Extremities Exam Extremities Exam: Normal Inspection. absent: Calf Tenderness - Neurological Exam Neurological Exam: Alert, Awake, Oriented x3 Neuro motor strength exam: Left Upper Extremity: 4, Right Upper Extremity: 4, Left Lower Extremity: 4, Right Lower Extremity: 4 - Psychiatric Exam Psychiatric exam: Normal Affect, Normal Mood - Skin Skin Exam: Normal Color, Warm Assessment and Plan - Assessment and Plan (Free Text) Assessment: 66 yo male with PMHx admitted for palpitations found to have atrial tachycardia 1. Atrial tachycardia unable to determine if new troponin x3 neg UTox WNL No acute changes in EKG Cardiology consulted: As per Dr Aranda patient does not need anticoag or plavix. (He reviewed past cath results) Start Diltiazem 30mg TID PO 2. HTN controlled c/w Lisinopril 20 daily c/w hCTZ 25mg daily 3. Type 2 diabetes not insulin-dependent Controlled Hold Metformin 500mg daily for now Hemoglobin 6.6 accucheck 4. Hyperlipidemia Continue with home medication Atorvastatin 40mg daily 5. Diet- heart healthy diabetic 6. DVT prophylaxis- Lovenox 40mg SC
[2016-09-10 16:22] VITALS: BP 122/74; PULSE 67; RESP 18; TEMP 98.5; O2SAT 96
--- NOTE | 2016-09-10 16:43 | CP.PCM.DIS ---
Provider - Provider Date of Admission: 09/09/16 14:55 Attending physician: Rhonda Estevez MD Primary care physician: Dorene Garcia Consults: Cardiology Dr Aranda Time Spent in preparation of Discharge (in minutes): 30 Diagnosis - Discharge Diagnosis (1) Atrial tachycardia Status: Chronic Comment: recently diagnosed. Patient does not need anticoagulation. (2) Diabetes Status: Chronic Comment: Controlled. C/w home treatment (3) Chest pain Status: Acute Comment: ACS ruled out Hospital Course - Lab Results Lab Results: Most Recent Lab Values WBC 6.4 K/uL (4.8-10.8) 09/09/16 05:30 RBC 4.55 Mil/uL (4.40-5.90) 09/09/16 05:30 Hgb 13.5 g/dL (12.0-18.0) 09/09/16 05:30 Hct 39.7 % (35.0-51.0) 09/09/16 05:30 MCV 87.3 fl (80.0-94.0) 09/09/16 05:30 MCH 29.7 pg (27.0-31.0) 09/09/16 05:30 MCHC 34.0 g/dL (33.0-37.0) 09/09/16 05:30 RDW 13.6 % (11.5-14.5) 09/09/16 05:30 Plt Count 266 K/uL (130-400) 09/09/16 05:30 MPV 8.1 fl (7.2-11.7) 09/08/16 01:56 Neut % (Auto) 65.7 % (50.0-75.0) 09/08/16 01:56 Lymph % (Auto) 20.9 % (20.0-40.0) 09/08/16 01:56 [place] % (Auto) 10.1 % (0.0-10.0) H 09/08/16 01:56 Eos % (Auto) 2.4 % (0.0-4.0) 09/08/16 01:56 Baso % (Auto) 0.9 % (0.0-2.0) 09/08/16 01:56 Neut # 6.0 K/uL (1.8-7.0) 09/08/16 01:56 Lymph # 1.9 K/uL (1.0-4.3) 09/08/16 01:56 [place] # 0.9 K/uL (0.0-0.8) H 09/08/16 01:56 Eos # 0.2 K/uL (0.0-0.7) 09/08/16 01:56 Baso # 0.1 K/uL (0.0-0.2) 09/08/16 01:56 PT 10.5 SECONDS (9.6-11.2) 09/08/16 01:56 INR 1.01 (0.92-1.08) 09/08/16 01:56 APTT 26.6 SECONDS (23.3-32.5) 09/08/16 01:56 Sodium 137 mmol/l (132-148) 09/09/16 05:30 Potassium 3.6 MMOL/L (3.6-5.0) 09/09/16 05:30 Chloride 103 mmol/L (98-107) 09/09/16 05:30 Carbon Dioxide 22 mmol/L (22-30) 09/09/16 05:30 Anion Gap 16 (10-20) 09/09/16 05:30 BUN 17 mg/dl (9-20) 09/09/16 05:30 Creatinine 0.9 mg/dL (0.8-1.5) 09/09/16 05:30 Est GFR ( Amer) > 60 09/09/16 05:30 Est GFR (Non-Af Amer) > 60 09/09/16 05:30 POC Glucose (mg/dL) 128 mg/dL (65-110) H 09/10/16 05:05 Random Glucose 122 mg/dL (75-110) H 09/09/16 05:30 Hemoglobin A1c 6.6 % (4.2-6.5) H 09/08/16 06:11 Calcium 9.1 mg/dL (8.4-10.2) 09/09/16 05:30 Total Bilirubin 1.1 mg/dl (0.2-1.3) 09/08/16 01:56 AST 23 U/L (17-59) 09/08/16 01:56 ALT 25 U/L (21-72) 09/08/16 01:56 Alkaline Phosphatase 82 U/L (38-126) 09/08/16 01:56 Troponin I < 0.0120 ng/mL (0.00-0.120) 09/08/16 12:50 Total Protein 7.6 G/DL (6.3-8.2) 09/08/16 01:56 Albumin 4.5 g/dL (3.5-5.0) 09/08/16 01:56 Globulin 3.1 gm/dL (2.2-3.9) 09/08/16 01:56 Albumin/Globulin Ratio 1.5 (1.0-2.1) 09/08/16 01:56 Triglycerides 155 mg/DL (0-149) H D 09/08/16 05:20 Cholesterol 129 mg/dL (0-199) 09/08/16 05:20 LDL Cholesterol Direct 79 mg/dL (0-129) 09/08/16 05:20 HDL Cholesterol 26 MG/DL (30-70) L 09/08/16 05:20 TSH 3rd Generation 1.47 mIU/ML (0.46-4.68) 09/09/16 05:30 Urine Color Yellow (YELLOW) 09/08/16 10:21 Urine Clarity Clear (Clear) 09/08/16 10:21 Urine pH 5.0 (5.0-8.0) 09/08/16 10:21 Ur Specific [place] 1.017 (1.003-1.030) 09/08/16 10:21 Urine Protein Negative mg/dL (NEGATIVE) 09/08/16 10:21 Urine Glucose (UA) Neg mg/dL (Normal) 09/08/16 10:21 Urine Ketones Negative mg/dL (NEGATIVE) 09/08/16 10:21 Urine Blood Negative (NEGATIVE) 09/08/16 10:21 Urine Nitrate Negative (NEGATIVE) 09/08/16 10:21 Urine Bilirubin Negative (NEGATIVE) 09/08/16 10:21 Urine Urobilinogen 0.2-1.0 mg/dL (0.2-1.0) 09/08/16 10:21 Ur Leukocyte Esterase Neg [place]/uL (Negative) 09/08/16 10:21 Urine Microscopic WBC 1 /hpf (0-5) 09/08/16 10:21 Urine Opiates Screen Negative (NEGATIVE) 09/09/16 19:52 Urine Methadone Screen Negative (NEGATIVE) 09/09/16 19:52 Ur Barbiturates Screen Negative (NEGATIVE) 09/09/16 19:52 Ur Phencyclidine Scrn Negative (NEGATIVE) 09/09/16 19:52 Ur Amphetamines Screen Negative (NEGATIVE) 09/09/16 19:52 U Benzodiazepines Scrn Negative (NEGATIVE) 09/09/16 19:52 U Oth Cocaine Metabols Negative (NEGATIVE) 09/09/16 19:52 U Cannabinoids Screen Negative (NEGATIVE) 09/09/16 19:52 - Hospital Course Hospital Course: 66 y/o M with PMHx of HTN and DM admitted for palpitations and CP, found to have atrial tachycardia and ACS ruled out is decided to DC from [facility] today after discussing case with Cardiology. Dr Aranda reviewed patient cath records at [facility] and considers patient does not need plavix or anticoags, since he is allergic to aspirin patient will be DC home with same home meds and started Diltiazem 30mg TID for rate control. DC meds: Rosuvastatin Calcium [Crestor] 20 mg PO HS metFORMIN [glucOPHAGE] 1,000 mg PO BID Diltiazem 30mg TID 90 tabs(New) Lisinopril 20mg daily HCTZ 25 mg daily Discharge Exam - Head Exam Head Exam: NORMAL INSPECTION Discharge Plan - Discharge Medications Prescriptions: diltiaZEM [Cardizem] 30 mg PO TID #90 tab - Follow Up Plan Condition: GOOD Disposition: HOME/ ROUTINE Additional Instructions: F/U with PMD Dr Meade September 17 2pm at [facility] Patient does not need anticoagulation Referrals: Dorene Garcia [Primary Care Provider] -
--- NOTE | 2016-09-10 16:49 | PN ---
DATE: 09/10/2016 SUBJECTIVE: The patient denies any chest pain or shortness of breath. He denies any palpitation or dizziness. PHYSICAL EXAMINATION: VITAL SIGNS: Blood pressure 122/74, heart rate 67, temperature 98.5, respirations 18. HEENT: Normocephalic. NECK: No JVD. CHEST: Clear. HEART: S1, S2 regular. EXTREMITIES: No edema. LABORATORIES: Urine drug screen is negative. I did review the patient's PCI at [facility] t was performed in March of last year. The patient received a Multi-Link bare mental stent to the LAD at that time. ASSESSMENT: 1. Paroxysmal atrial tachycardia. 2. Coronary artery disease status post acute myocardial infarction and stenting to the left anterior descending in March of last year. 3. Diabetes mellitus and systemic hypertension. RECOMMENDATIONS: Case was discussed with the medical team, including Dr. Estevez. The patient can be maintained on Cardizem 30 mg p.o. t.i.d., Lipitor 20 mg once a day, hydrochlorothiazide 25 mg once a day, subcutaneous Lovenox at 40 mg once a day, Zestril 20 mg once a day. Discontinue Plavix. Jj Aranda MD cc: [id number] TT: 09/10/2016 16:48:56 Confirmation # [id number] Dictation # [id number]
--- NOTE | 2016-09-11 19:06 | CARD ---
APPROVED REPORT EKG Measurement Heart [id number] AR 146P38 [id number] <Conclusion> Normal sinus rhythm Septal infarct, age undetermined Abnormal ECG
--- NOTE | 2016-09-11 19:12 | CARD ---
APPROVED REPORT EKG Measurement Heart [id number] 124P27 [id number] <Conclusion> Normal sinus rhythm Normal ECG
== END 2016-09-10 18:35 | disposition home or self-care (01) | DRG 310 ==
LOC: H.ER 01:08 → H.ERHOLD 01:43 → H.TEL 04:02 → OBSVTOIN 15:29 → INTOOBSV 15:29 → OBSVTOIN 09-09 14:55 → H.TEL 09-10 11:49
PROVIDERS: ADMIT Family Medicine Geriatric Medicine; ATTEND Family Medicine Geriatric Medicine
DX: I47.1 Supraventricular tachycardia (principal); I10 Essential (primary) hypertension; R00.2 Palpitations; I25.2 Old myocardial infarction; Z59.0 Homelessness; Z95.5 Presence of coronary angioplasty implant and graft; E11.9 Type 2 diabetes mellitus without complications; E78.5 Hyperlipidemia, unspecified; I25.10 Atherosclerotic heart disease of native coronary artery without angina pectoris; E78.00 Pure hypercholesterolemia, unspecified; Z87.442 Personal history of urinary calculi; Z86.718 Personal history of other venous thrombosis and embolism; Z79.01 Long term (current) use of anticoagulants; Z88.6 Allergy status to analgesic agent; Z88.0 Allergy status to penicillin; Z79.02 Long term (current) use of antithrombotics/antiplatelets

== ENCOUNTER 2016-09-14 18:30 | Observation (INO) | payer MEDICARE, MEDICAID ==
[2016-09-14 18:30] VITALS: BMI 27.3
[2016-09-14] MEDS ORDERED: Sodium Chloride 0.9% 500 ML IV STA (19:02)
--- NOTE | 2016-09-14 19:08 | ED PDOC ---
HPI: General Adult Time Seen by Provider: 09/14/16 18:55 Chief Complaint (Nursing): Weakness/Neurological Deficit Chief Complaint (Provider): Weakness History Per: Patient History/Exam Limitations: no limitations Onset/Duration Of Symptoms: Days Have you had recent travel within the past 21 days to any of the following countries: [place], [place], [place] or [place]?: No Current Symptoms Are (Timing): Still Present Additional Complaint(s): Pt. has had off and on low back pain with no injury then. No numbness, tingles. No leg pain. Today he felt weak all over and fell to the ground landing on his buttox. Denies hitting his head. No LOC. Needed help getting up. Denies any vision changes, headaches, dizziness, chest pain, dyspnea, abd pain, nausea, vomit. On coumadin. No dysuria. NIHSS Stroke Scale - Date/Time Evaluation Performed Date Performed: 09/14/16 Time Performed: 19:00 When Was NIHSS Performed: Baseline - How Severe is the Stroke Level of Consciousness: 0=Alert LOC to Questions: 0=Both comments correct LOC to commands: 0=Obeys both correctly Best Gaze: 0=Normal Visual: 0=No visual loss Facial: 0=Normal Motor Arm - Left: 0=No drift Motor Arm - Right: 0=No drift Motor Leg - Left: 0=No drift Motor Leg - Right: 0=No drift Limb Ataxia: 0=Absent Sensory: 0=Normal Best Language: 0=No aphasia Dysarthia: 0=Normal articulation Extinction & Inattention (Neglect): 0=Normal, no object Score: 0 Past Medical History Reviewed: Nursing Documentation, Vital Signs Vital Signs: Last Vital Signs Temp 97.7 F 09/14/16 18:45 Pulse 148 H 09/14/16 18:45 Resp 18 09/14/16 18:45 BP 141/87 09/14/16 18:45 Pulse Ox 99 09/14/16 19:09 - Medical History PMH: Atrial Fibrillation, CAD, Cardia Arrhythmia, Diabetes, HTN, Hypercholesterolemia, Kidney Stones, TIA Denies: CVA, HIV Other PMH: MD - Surgical History Surgical History: Coronary Stent - Family History Family History: States: Unknown Family Hx, Hypertension - Social History Current smoker - smoking cessation education provided: No Alcohol: None Drugs: Denies - Home Medications Home Medications: Ambulatory Orders Medication Instructions Recorded Rosuvastatin Calcium [Crestor] 20 mg PO HS tab 08/14/16 metFORMIN [glucOPHAGE] 1,000 mg PO BID tab 08/14/16 Lisinopril [Zestril] 20 mg PO DAILY tab 09/10/16 diltiaZEM [Cardizem] 30 mg PO TID #90 tab 09/10/16 hydroCHLOROthiazide [Hydrodiuril] 25 mg PO DAILY tab 09/10/16 metFORMIN [glucOPHAGE] 500 mg PO DAILY tab 09/10/16 - Allergies Allergies/Adverse Reactions: Allergies Allergy/AdvReac Type Severity Reaction Status Date / Time aspirin Allergy URTICARIA Verified 09/08/16 02:18 Penicillins Allergy URTICARIA Verified 09/08/16 02:18 Review of Systems ROS Statement: Except As Marked, All Systems Reviewed And Found Negative Constitutional: Positive for: Weakness Musculoskeletal: Positive for: Back Pain Neurological: Positive for: Weakness Physical Exam - Reviewed Nursing Documentation Reviewed: Yes Vital Signs Reviewed: Yes - Physical Exam Appears: Positive for: Non-toxic, No Acute Distress Head Exam: Positive for: ATRAUMATIC, NORMAL INSPECTION, NORMOCEPHALIC Skin: Positive for: Normal Color, Warm, DRY Eye Exam: Positive for: EOMI, Normal appearance, PERRL ENT: Positive for: Normal ENT Inspection Neck: Positive for: Normal, Painless ROM Cardiovascular/Chest: Positive for: Regular Rate, Rhythm. Negative for: Edema Respiratory: Positive for: CNT, Normal Breath Sounds Gastrointestinal/Abdominal: Positive for: Normal Exam, Bowel Sounds, Soft. Negative for: Tenderness Back: Positive for: Normal Inspection. Negative for: L CVA Tenderness, R CVA Tenderness Extremity: Positive for: Normal ROM. 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 Negative for: Motor/Sensory Deficits - Laboratory Results Result Diagrams: 09/14/16 19:44 Interpretation Of Abn Labs: no acute - ECG ECG: Positive for: Interpreted By Me, Viewed By Me ECG Rhythm: Positive for: Normal QRS, Normal ST Segment, Sinus Rhythm O2 Sat by Pulse Oximetry: 99 Pulse Ox Interpretation: Normal - Radiology X-Ray: Interpreted by Me, Viewed By Me X-Ray Interpretation: No Acute Disease - CT Scan/US ct Other Rad Studies (CT/US): Read By Radiologist Other Rad Interpretation: no acute - Progress ED Course And Treament: 2131: Stable. AAOx3. Spoke with [facility] resident. Will admit tele obs. Disposition - Clinical Impression Clinical Impression: Weakness - Patient ED Disposition Is Patient to be Admitted: Yes Counseled Patient/Family Regarding: Studies Performed, Diagnosis - Disposition Disposition Time: 22:12 Condition: FAIR - Pt Status Changed To: Hospital Disposition Of: Observation - POA Present On Arrival: None
[2016-09-14 19:53] LABS: BASO % 0.6 % (0.0-2.0); EOS # 0.2 K/uL (0.0-0.7); EOS % 2.4 % (0.0-4.0); HEMATOCRIT 38.8 % (35.0-51.0); MEAN CELL VOLUME 87.8 fl (80.0-94.0); MEAN CORPUSCULAR HEMOGLOBIN 29.6 pg (27.0-31.0); MEAN CORPUSCULAR HGB CONC 33.8 g/dL (33.0-37.0); MEAN PLATELET VOLUME 7.9 fl (7.2-11.7); MONO # 0.8 K/uL (0.0-0.8); MONO % 10.3 % (0.0-10.0); NEUT # 5.2 K/uL (1.8-7.0); NEUT % 62.7 % (50.0-75.0); NRBC % 0.1 % (0.0-0.0); RED CELL DISTRIBUTION WIDTH 13.7 % (11.5-14.5); WHITE BLOOD COUNT 8.2 K/uL (4.8-10.8)
[2016-09-14 20:28] LABS: PARTIAL THROMBOPLASTIN TIME 26.2 SECONDS (23.3-32.5)
--- NOTE | 2016-09-14 20:32 | CT ---
EXAM: CT Head Without Intravenous Contrast CLINICAL HISTORY: 66 years old, male; Signs and symptoms; Weakness, extremity; Bilateral; Additional info: Headache TECHNIQUE: Axial computed tomography images of the head/brain without intravenous contrast. This CT exam was performed using one or more of the following dose reduction techniques: automated exposure control, adjustment of the mA and/or kV according to patient size, and/or use of iterative reconstruction technique. Coronal and sagittal reformatted images were created and reviewed. EXAM DATE/TIME: 09/14/2016 7:02 PM COMPARISON: There are no prior studies for comparison. FINDINGS: Brain: There is dilatation of sulci gyri and ventricles. There is no midline shift. There is decreased attenuation in periventricular white matter. There are age-indeterminate infarcts in the basal ganglia. There basal ganglia calcifications. There are no focal masses. There are no focal hemorrhages. Cox-white differentiation is visualized. Ventricles: See above Bones: Cranial vault is intact. Soft tissues: unremarkable Sinuses: There is no acute sinusitis. There are bilateral medial antrectomies. Ears and mastoids: Middle ears and left mastoid are unremarkable. There is clouding of the right mastoid tip Orbits: Orbital contents are unremarkable. IMPRESSION: Atrophy and small vessel disease; age indeterminate basal ganglia infarcts, no bleed
--- NOTE | 2016-09-14 21:32 | CP.PCM.HP ---
History of Present Illness - History of Present Illness History of Present Illness: Pt is a 66 y/o male with history of HTN, HLD and Type II diabetes and previous cardiac stent in 2016, pt was recently discharged from [facility] 09/10/16, after a day stay for observation for ACS rule out. Pt presented to ED today with reports of feeling weak all over and back pain as he fell down onto his butt and did not hit his word. During my evaluation of pt, pt reports he fell onto his butt around 2pm today, but decided to come to the ER to be checked out now because he still feel weak all over, he also has not been taking his medications since he was discharged. denies any chest pain, numbness, tingling, visual changes, change in bowel habits. PMD: Present on Admission - Present on Admission Any Indicators Present on Admission: Yes History of Uncontrolled Diabetes: Yes Review of Systems - Review of Systems All systems: reviewed and no additional remarkable complaints except Past Patient History - Past Medical History & Family History Past Medical History?: Yes - Past Social History Alcohol: None Drugs: Denies - CARDIAC Hx Atrial Fibrillation: Yes Hx Cardia Arrhythmia: Yes Hx Hypercholesterolemia: Yes Hx Hypertension: Yes - PULMONARY Hx Respiratory Disorders: No - NEUROLOGICAL Hx Transient Ischemic Attacks (TIA): Yes - HEENT Hx HEENT Problems: Yes - RENAL Hx Kidney Stones: Yes - ENDOCRINE/METABOLIC Hx Diabetes Mellitus Type 2: Yes - HEMATOLOGICAL/ONCOLOGICAL Hx Human Immunodeficiency Virus (HIV): No - INTEGUMENTARY Other/Comment: hx Scabies - MUSCULOSKELETAL/RHEUMATOLOGICAL Hx Falls: Yes - GASTROINTESTINAL Hx Gastrointestinal Disorders: No - GENITOURINARY/GYNECOLOGICAL Hx Urinary Tract Infection: Yes Other/Comment: Prostatectomy - PSYCHIATRIC Hx Psychophysiologic Disorder: No Hx Substance Use: No - SURGICAL HISTORY Hx Coronary Stent: Yes - ANESTHESIA Hx Anesthesia: Yes Hx Anesthesia Reactions: No Hx Malignant Hyperthermia: No Meds Allergies/Adverse Reactions: Allergies Allergy/AdvReac Type Severity Reaction Status Date / Time aspirin Allergy URTICARIA Verified 09/08/16 02:18 Penicillins Allergy URTICARIA Verified 09/08/16 02:18 Physical Exam - Constitutional Appears: Non-toxic, No Acute Distress - Head Exam Head Exam: NORMOCEPHALIC - Eye Exam Eye Exam: Normal appearance - ENT Exam ENT Exam: Mucous Membranes Moist - Respiratory Exam Respiratory Exam: Clear to Auscultation Bilateral, NORMAL BREATHING PATTERN. absent: Rhonchi, Wheezes - Cardiovascular Exam Cardiovascular Exam: REGULAR RHYTHM, +S1, +S2 - GI/Abdominal Exam GI & Abdominal Exam: Normal Bowel Sounds, Soft. absent: Tenderness - Extremities Exam Extremities exam: Negative for: calf tenderness, pedal edema - Neurological Exam Neurological exam: Alert, CN II-XII Intact, Oriented x3 Additional comments: Strength testing- 5/5 in Upper and lower extremity Reflex-intact Results - Vital Signs Recent Vital Signs: Last Vital Signs Temp 97.7 F 09/14/16 18:45 Pulse 148 H 09/14/16 18:45 Resp 18 09/14/16 18:45 BP 141/87 09/14/16 18:45 Pulse Ox 99 09/14/16 21:32 - Labs Result Diagrams: 09/14/16 19:44 09/14/16 19:44 Labs: Laboratory Results - last 24 hr 09/14/16 09/14/16 19:44 19:44 WBC 8.2 RBC 4.42 Hgb 13.1 Hct 38.8 MCV 87.8 MCH 29.6 MCHC 33.8 RDW 13.7 Plt Count 271 MPV 7.9 Neut % (Auto) 62.7 Lymph % (Auto) 24.0 [place] % (Auto) 10.3 H Eos % (Auto) 2.4 Baso % (Auto) 0.6 Neut # 5.2 Lymph # 2.0 [place] # 0.8 Eos # 0.2 Baso # 0.0 PT 10.3 INR 0.99 APTT 26.2 Assessment & Plan - Assessment and Plan (Free Text) Assessment: 66 y/o male with history of HTN, HLD and Type II non-insulin dependent diabetes being admitted for weakness and back pain Plan: weakness PE exam wnl CMP with exception of elevated glucose wnl Pt does not appear dehydrated Ct head-negative for any acute disease process consider PT eval Monitor Acute on Chronic back pain Xray does not show any evidence of fracture in lumbar region pain management as ordered consider PT eval HTN Resume home medication of lisinopril 20mg daily and HCTZ 25mg daily monitor BP HLD Crestor 20mg PO HS Type II Non-Insulin Dependent diabetic Resume home medication Metformin 1000mg BID Accucheck ISS - low dose Previous history of cardiac stent From discharge note on 09/10/16 - pt is no longer on anticoagulation Diet- Heart healthy diabetic DVT prophylaxis- Lovenox 40mg SC
[2016-09-14 21:40] LABS: ALB/GLOB RATIO 1.4 (1.0-2.1); ALKALINE PHOSPHATASE 82 U/L (38-126); ALT/SGPT 21 U/L (21-72); AST/SGOT 28 U/L (17-59); BILIRUBIN,TOTAL 0.6 mg/dl (0.2-1.3); BLOOD UREA NITROGEN 15 mg/dl (9-20); CALCIUM 9.2 mg/dL (8.4-10.2); CARBON DIOXIDE 23 mmol/L (22-30); CHLORIDE 102 mmol/L (98-107); GFR AFRICAN-AMERICAN > 60; GLUCOSE,RANDOM 156 mg/dL (75-110); POTASSIUM 3.9 MMOL/L (3.6-5.0); SODIUM 137 mmol/l (132-148); TOTAL PROTEIN 7.1 G/DL (6.3-8.2)
[2016-09-14] MEDS ORDERED: Dextrose 50% SYRINGE Inj (50 ml) IV PRN (23:20)
[2016-09-14] MEDS ORDERED: Glucagon Recombinant 1 mg Inj IM PRN (23:20)
[2016-09-15 07:08] LABS: HEMATOCRIT 36.9 % (35.0-51.0); MEAN CELL VOLUME 87.9 fl (80.0-94.0); MEAN CORPUSCULAR HEMOGLOBIN 29.1 pg (27.0-31.0); MEAN CORPUSCULAR HGB CONC 33.1 g/dL (33.0-37.0); RED CELL DISTRIBUTION WIDTH 13.4 % (11.5-14.5); WHITE BLOOD COUNT 6.8 K/uL (4.8-10.8)
[2016-09-15] MEDS ORDERED: Insulin Regular 100 units/ml SC SCH (07:30)
[2016-09-15 07:32] LABS: ALB/GLOB RATIO 1.4 (1.0-2.1); ALKALINE PHOSPHATASE 71 U/L (38-126); ALT/SGPT 26 U/L (21-72); AST/SGOT 17 U/L (17-59); BILIRUBIN,TOTAL 0.6 mg/dl (0.2-1.3); BLOOD UREA NITROGEN 12 mg/dl (9-20); CALCIUM 8.5 mg/dL (8.4-10.2); CARBON DIOXIDE 22 mmol/L (22-30); CHLORIDE 106 mmol/L (98-107); GFR AFRICAN-AMERICAN > 60; GLUCOSE,RANDOM 141 mg/dL (75-110); POTASSIUM 3.5 MMOL/L (3.6-5.0); SODIUM 138 mmol/l (132-148); TOTAL PROTEIN 6.4 G/DL (6.3-8.2)
--- NOTE | 2016-09-15 08:05 | CARD ---
APPROVED REPORT EKG Measurement Heart [id number] <Conclusion> Normal sinus rhythm Septal infarct, age undetermined Abnormal ECG
[2016-09-15 08:34] VITALS: BP 120/87; PULSE 67; RESP 16; TEMP 98.3
[2016-09-15 08:35] VITALS: O2SAT 95
[2016-09-15] MEDS ORDERED: Enoxaparin 40 mg Syringe SC SCH (09:00)
[2016-09-15] MEDS ORDERED: Potassium Chloride 20 mEq ER Tab PO ONE ×2 (09:41→09:43)
--- NOTE | 2016-09-15 12:32 | CP.PCM.DIS ---
Provider - Provider Date of Admission: 09/14/16 21:00 Attending physician: Rhonda Estevez MD Primary care physician: Dr Garcia [facility] Time Spent in preparation of Discharge (in minutes): 30 Diagnosis - Discharge Diagnosis (1) Status post fall Status: Acute Comment: head CT, CXR, LUmbar/Spine Xray in ED WNL (2) Weakness Status: Acute Comment: Resolved (3) Atrial tachycardia Status: Chronic Comment: Stable. Cont DIltiazem 30mg TID as prescribed Hospital Course - Lab Results Lab Results: Most Recent Lab Values WBC 6.8 K/uL (4.8-10.8) 09/15/16 06:57 RBC 4.20 Mil/uL (4.40-5.90) L 09/15/16 06:57 Hgb 12.2 g/dL (12.0-18.0) 09/15/16 06:57 Hct 36.9 % (35.0-51.0) 09/15/16 06:57 MCV 87.9 fl (80.0-94.0) 09/15/16 06:57 MCH 29.1 pg (27.0-31.0) 09/15/16 06:57 MCHC 33.1 g/dL (33.0-37.0) 09/15/16 06:57 RDW 13.4 % (11.5-14.5) 09/15/16 06:57 Plt Count 254 K/uL (130-400) 09/15/16 06:57 MPV 7.9 fl (7.2-11.7) 09/14/16 19:44 Neut % (Auto) 62.7 % (50.0-75.0) 09/14/16 19:44 Lymph % (Auto) 24.0 % (20.0-40.0) 09/14/16 19:44 [place] % (Auto) 10.3 % (0.0-10.0) H 09/14/16 19:44 Eos % (Auto) 2.4 % (0.0-4.0) 09/14/16 19:44 Baso % (Auto) 0.6 % (0.0-2.0) 09/14/16 19:44 Neut # 5.2 K/uL (1.8-7.0) 09/14/16 19:44 Lymph # 2.0 K/uL (1.0-4.3) 09/14/16 19:44 [place] # 0.8 K/uL (0.0-0.8) 09/14/16 19:44 Eos # 0.2 K/uL (0.0-0.7) 09/14/16 19:44 Baso # 0.0 K/uL (0.0-0.2) 09/14/16 19:44 PT 10.3 SECONDS (9.6-11.2) 09/14/16 19:44 INR 0.99 (0.92-1.08) 09/14/16 19:44 APTT 26.2 SECONDS (23.3-32.5) 09/14/16 19:44 Sodium 138 mmol/l (132-148) 09/15/16 06:57 Potassium 3.5 MMOL/L (3.6-5.0) L 09/15/16 06:57 Chloride 106 mmol/L (98-107) 09/15/16 06:57 Carbon Dioxide 22 mmol/L (22-30) 09/15/16 06:57 Anion Gap 14 (10-20) 09/15/16 06:57 BUN 12 mg/dl (9-20) 09/15/16 06:57 Creatinine 0.8 mg/dL (0.8-1.5) 09/15/16 06:57 Est GFR ( Amer) > 60 09/15/16 06:57 Est GFR (Non-Af Amer) > 60 09/15/16 06:57 Random Glucose 141 mg/dL (75-110) H 09/15/16 06:57 Calcium 8.5 mg/dL (8.4-10.2) 09/15/16 06:57 Total Bilirubin 0.6 mg/dl (0.2-1.3) 09/15/16 06:57 AST 17 U/L (17-59) D 09/15/16 06:57 ALT 26 U/L (21-72) 09/15/16 06:57 Alkaline Phosphatase 71 U/L (38-126) 09/15/16 06:57 Troponin I < 0.0120 ng/mL (0.00-0.120) 09/14/16 19:44 Total Protein 6.4 G/DL (6.3-8.2) 09/15/16 06:57 Albumin 3.7 g/dL (3.5-5.0) 09/15/16 06:57 Globulin 2.7 gm/dL (2.2-3.9) 09/15/16 06:57 Albumin/Globulin Ratio 1.4 (1.0-2.1) 09/15/16 06:57 - Hospital Course Hospital Course: 66 y/o M with PMhx of atrial tachycardia, HTN, DM presented to ED trey [facility] after a fall because according to him "1 leg failed". Denies CP, Syncope, palpitations, SOB. Patient states he was not taking his meds but he states he would by them tomorrow. He was also feeling week yesterday but it resolved today. Head CT, EKG, Lumbar spine Xray and CXR did not show signs of acute events or fractures. He is homeless but states he was staying at a hotel. Patient does not meet criteria of admission at this time and is decided to DC home after encouraging taking home meds and F/U with PMD and [employer] DC meds: Rosuvastatin Calcium [Crestor] 20 mg PO HS tab metFORMIN [glucOPHAGE] 1,000 mg PO BID tab Lisinopril [Zestril] 20 mg PO DAILY tab diltiaZEM [Cardizem] 30 mg PO TID hydroCHLOROthiazide [Hydrodiuril] 25 mg PO DAILY tab metFORMIN [glucOPHAGE] 500 mg PO DAILY tab Discharge Exam - Head Exam Head Exam: NORMOCEPHALIC - Eye Exam Eye Exam: PERRL - Respiratory Exam Respiratory Exam: Clear to PA & Lateral, NORMAL BREATHING PATTERN - Cardiovascular Exam Cardiovascular Exam: REGULAR RHYTHM, +S1, +S2. absent: Gallop - GI/Abdominal Exam GI & Abdominal Exam: Normal Bowel Sounds, Unremarkable. absent: Distended - Extremities Exam Extremities exam: normal capillary refill - Neurological Exam Neurological exam: Alert, Oriented x3 - Psychiatric Exam Psychiatric exam: Normal Affect, Normal Mood - Skin Skin Exam: Normal Color, Warm Discharge Plan - Follow Up Plan Condition: FAIR Disposition: HOME/ ROUTINE Additional Instructions: F/U with PMD Dr Garcia within 1 week Instructed to take meds as prescribed
--- NOTE | 2016-09-15 14:13 | RAD ---
HISTORY: weakness COMPARISON: 09/08/2016. FINDINGS: LUNGS: The lungs are well inflated and clear. PLEURA: No significant pleural effusion identified, no pneumothorax apparent. CARDIOVASCULAR: The heart is normal in size. Atherosclerotic aortic arch calcifications are present. OSSEOUS STRUCTURES: No significant abnormalities. VISUALIZED UPPER ABDOMEN: Normal. OTHER FINDINGS: None. IMPRESSION: No active pulmonary disease.
--- NOTE | 2016-09-15 15:05 | RAD ---
PROCEDURE: Radiographs of the Lumbar Spine. HISTORY: back pain Posttraumatic event. COMPARISON: No prior. FINDINGS: BONES: No acute fracture. DISC SPACES: Mild multilevel degenerative change. OTHER FINDINGS: Calcified nonaneurysmal abdominal aorta. IMPRESSION: No significant or acute findings to account for/ related to the clinical presentation.
== END 2016-09-15 14:40 | disposition home or self-care (01) ==
LOC: H.ER 18:30 → H.ERHOLD 21:00
PROVIDERS: ADMIT Family Medicine Geriatric Medicine; ATTEND Family Medicine Geriatric Medicine
DX: R53.1 Weakness (principal); E11.9 Type 2 diabetes mellitus without complications; M54.9 Dorsalgia, unspecified; E78.00 Pure hypercholesterolemia, unspecified; E78.5 Hyperlipidemia, unspecified; I10 Essential (primary) hypertension; I25.10 Atherosclerotic heart disease of native coronary artery without angina pectoris; Z95.5 Presence of coronary angioplasty implant and graft; I47.1 Supraventricular tachycardia; Z59.0 Homelessness; W19.XXXA Unspecified fall, initial encounter; Y93.9 Activity, unspecified; Y92.9 Unspecified place or not applicable; Y99.9 Unspecified external cause status; Z91.14 Patient's other noncompliance with medication regimen; I48.91 Unspecified atrial fibrillation; Z87.442 Personal history of urinary calculi
CPT/HCPCS: 70450; 71010; 72114; 80053; 82948; 84484; 85025; 85027; 85610; 85730; 93005; 96360; 96361; 96372; 99284; G0378; J1650; J7040

== ENCOUNTER 2016-09-22 16:59 | Emergency (ER) | payer MEDICARE, MEDICAID ==
[2016-09-22 16:59] VITALS: BMI 27.3
[2016-09-22 17:19] VITALS: O2SAT 99
--- NOTE | 2016-09-22 17:48 | ED PDOC ---
HPI: Psych/Substance Abuse Time Seen by Provider: 09/22/16 17:46 Chief Complaint (Nursing): Psychiatric Evaluation Chief Complaint (Provider): SUICIDAL IDEATION History Per: Patient (66 Y/O MALE H/O DM/CAD/UNDOMICILED HERE FOR SUICIDAL IDEATION. STATES HE HAS NO H/O ATTEMPT IN PAST. IS NOT ON ANY ANTIDEPRESSANT/ ANTI-PSYCHOTIC. STATES HE HAS HAD PLAN OF ATTEMPTED OVERDOSE WITH HEROINE. STATES SYMPTOMS TRIGGERED BY REJECTION BY SISTER. ) Past Medical History Reviewed: Historical Data, Nursing Documentation, Vital Signs Vital Signs: Last Vital Signs Temp 99 F 09/22/16 17:16 Pulse 92 H 09/22/16 17:16 Resp 18 09/22/16 17:16 BP 151/99 H 09/22/16 17:16 Pulse Ox 99 09/22/16 17:16 - Medical History PMH: Atrial Fibrillation, CAD, Cardia Arrhythmia, Diabetes, Deep Vein Thrombosis (treated in [facility]), HTN, Hypercholesterolemia, Kidney Stones, TIA Denies: CVA, HIV - Surgical History Surgical History: Coronary Stent - Family History Family History: States: Unknown Family Hx, Hypertension - Home Medications Home Medications: Ambulatory Orders Medication Instructions Recorded Rosuvastatin Calcium [Crestor] 20 mg PO HS tab 08/14/16 metFORMIN [glucOPHAGE] 1,000 mg PO BID tab 08/14/16 Lisinopril [Zestril] 20 mg PO DAILY tab 09/10/16 diltiaZEM [Cardizem] 30 mg PO TID #90 tab 09/10/16 hydroCHLOROthiazide [Hydrodiuril] 25 mg PO DAILY tab 09/10/16 - Allergies Allergies/Adverse Reactions: Allergies Allergy/AdvReac Type Severity Reaction Status Date / Time aspirin Allergy URTICARIA Verified 09/08/16 02:18 Penicillins Allergy URTICARIA Verified 09/08/16 02:18 Review of Systems ROS Statement: Except As Marked, All Systems Reviewed And Found Negative Physical Exam - Reviewed Nursing Documentation Reviewed: Yes Vital Signs Reviewed: Yes - Physical Exam Appears: Positive for: Well, Non-toxic, No Acute Distress Head Exam: Positive for: ATRAUMATIC, NORMAL INSPECTION, NORMOCEPHALIC Skin: Positive for: Normal Color, Warm, DRY Eye Exam: Positive for: EOMI, Normal appearance, PERRL ENT: Positive for: Normal ENT Inspection Neck: Positive for: Normal, Painless ROM Cardiovascular/Chest: Positive for: Regular Rate, Rhythm Respiratory: Positive for: CNT, Normal Breath Sounds Gastrointestinal/Abdominal: Positive for: Normal Exam, Bowel Sounds, Soft Back: Positive for: Normal Inspection Extremity: Positive for: Normal ROM Neurologic/Psych: Positive for: Alert, Oriented - Laboratory Results Result Diagrams: 09/22/16 17:48 09/22/16 17:48 - ECG O2 Sat by Pulse Oximetry: 99 - Progress ED Course And Treament: seen by Crisis Cleared by Dr. Abraham Diagnosis Adjustment Disorder Disposition - Clinical Impression Clinical Impression: Adjustment disorder - Patient ED Disposition Is Patient to be Admitted: No - Disposition Referrals: [facility] [Outside] Disposition: Routine/Home Disposition Time: 19:35 Condition: FAIR Instructions: Normal Exam (ED), Stress (ED)
[2016-09-22 17:52] LABS: BASO # 0.1 K/uL (0.0-0.2); EOS # 0.1 K/uL (0.0-0.7); EOS % 1.4 % (0.0-4.0); LYMPH # 1.7 K/uL (1.0-4.3); LYMPH % 19.9 % (20.0-40.0); MEAN CELL VOLUME 88.5 fl (80.0-94.0); MEAN CORPUSCULAR HEMOGLOBIN 29.5 pg (27.0-31.0); MEAN CORPUSCULAR HGB CONC 33.3 g/dL (33.0-37.0); MEAN PLATELET VOLUME 7.7 fl (7.2-11.7); MONO # 0.8 K/uL (0.0-0.8); MONO % 9.3 % (0.0-10.0); NEUT # 5.7 K/uL (1.8-7.0); NEUT % 68.4 % (50.0-75.0); WHITE BLOOD COUNT 8.4 K/uL (4.8-10.8)
[2016-09-22 18:08] LABS: ALB/GLOB RATIO 1.3 (1.0-2.1); ALCOHOL SERUM < 10 mg/dl (0-10); ALKALINE PHOSPHATASE 79 U/L (38-126); ALT/SGPT 28 U/L (21-72); AST/SGOT 17 U/L (17-59); BLOOD UREA NITROGEN 13 mg/dl (9-20); CALCIUM 9.2 mg/dL (8.4-10.2); CARBON DIOXIDE 24 mmol/L (22-30); CHLORIDE 104 mmol/L (98-107); GFR AFRICAN-AMERICAN > 60; GLUCOSE,RANDOM 113 mg/dL (75-110); POTASSIUM 3.9 MMOL/L (3.6-5.0); SODIUM 141 mmol/l (132-148); TOTAL PROTEIN 7.9 G/DL (6.3-8.2)
[2016-09-22 20:09] VITALS: BP 144/85; PULSE 81; RESP 17; TEMP 98.2
== END 2016-09-22 19:59 | disposition home or self-care (01) ==
LOC: H.ER 16:59
DX: F43.20 Adjustment disorder, unspecified (principal); Z00.8 Encounter for other general examination
CPT/HCPCS: 80053; 85025; 99283; G0480

== ENCOUNTER 2016-09-24 15:46 | Emergency (ER) | payer MEDICARE, MEDICAID ==
[2016-09-24 15:46] VITALS: BMI 27.3
[2016-09-24 16:03] VITALS: BP 140/85; PULSE 77; RESP 20; TEMP 97.9; O2SAT 97
--- NOTE | 2016-09-24 16:17 | ED PDOC ---
HPI: Back Time Seen by Provider: 09/24/16 16:05 Chief Complaint (Nursing): Back Pain Chief Complaint (Provider): Back pain s/p fall History Per: Patient History/Exam Limitations: no limitations Onset/Duration Of Symptoms: Mins Current Symptoms Are (Timing): Still Present Full Body Front + Back: 1 - Pain Quality Of Discomfort: Sharp Description Of Injury (Context): Slipped on paper and fell Severity: Moderate Pain Scale Rating Of: 7 Previous Symptoms: None Additional Complaint(s): Pt states he was at [employer] and slipped on paper and fell. Pt states he is having low back pain, no similar in the past. PT denies numbness/tingling. Bladder or bowel incontinence. Pt denies pain pain in the past. Denies head injury. Past Medical History Reviewed: Historical Data, Nursing Documentation, Vital Signs Vital Signs: Last Vital Signs Temp 97.9 F 09/24/16 15:59 Pulse 77 09/24/16 15:59 Resp 20 09/24/16 15:59 BP 140/85 09/24/16 15:59 Pulse Ox 97 09/24/16 15:59 - Medical History PMH: Atrial Fibrillation, CAD, Cardia Arrhythmia, Diabetes, Deep Vein Thrombosis (treated in [facility]), HTN, Hypercholesterolemia, Kidney Stones, TIA Denies: CVA, HIV - Surgical History Surgical History: Coronary Stent - Family History Family History: States: Unknown Family Hx, Hypertension - Living Arrangements Living Arrangements: With Family - Social History Current smoker - smoking cessation education provided: No Alcohol: None Drugs: Denies - Home Medications Home Medications: Ambulatory Orders Medication Instructions Recorded Rosuvastatin Calcium [Crestor] 20 mg PO HS tab 08/14/16 metFORMIN [glucOPHAGE] 1,000 mg PO BID tab 08/14/16 Lisinopril [Zestril] 20 mg PO DAILY tab 09/10/16 diltiaZEM [Cardizem] 30 mg PO TID #90 tab 09/10/16 hydroCHLOROthiazide [Hydrodiuril] 25 mg PO DAILY tab 09/10/16 - Allergies Allergies/Adverse Reactions: Allergies Allergy/AdvReac Type Severity Reaction Status Date / Time aspirin Allergy URTICARIA Verified 09/24/16 15:59 Penicillins Allergy URTICARIA Verified 09/24/16 15:59 Review of Systems ROS Statement: Except As Marked, All Systems Reviewed And Found Negative Musculoskeletal: Positive for: Back Pain Physical Exam - Reviewed Nursing Documentation Reviewed: Yes Vital Signs Reviewed: Yes - Physical Exam Appears: Positive for: Well, Non-toxic, No Acute Distress Head Exam: Positive for: ATRAUMATIC, NORMAL INSPECTION, NORMOCEPHALIC Skin: Positive for: Normal Color, Warm, DRY Eye Exam: Positive for: Normal appearance ENT: Positive for: Normal ENT Inspection Neck: Positive for: Normal, Painless ROM Cardiovascular/Chest: Positive for: Regular Rate, Rhythm Respiratory: Positive for: Normal Breath Sounds. Negative for: Accessory Muscle Use, Respiratory Distress Back: Positive for: Vertebral Tenderness. Negative for: Normal Inspection Extremity: Positive for: Normal ROM Neurologic/Psych: Positive for: Alert, Oriented - ECG O2 Sat by Pulse Oximetry: 97 Medical Decision Making Medical Decision Making: LS (-) acute fracture, joint height and space maintained. (+) plaques seen in vessels Disposition - Clinical Impression Clinical Impression: Low back pain - Patient ED Disposition Is Patient to be Admitted: No Counseled Patient/Family Regarding: Diagnosis, Need For Followup, Rx Given - Disposition Referrals: [facility] [Outside] Disposition: Routine/Home Disposition Time: 17:08 Condition: GOOD Additional Instructions: Tylenol for pain. Instructions: Back Pain (ED)
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
== END 2016-09-24 17:32 | disposition home or self-care (01) ==
LOC: H.ER 15:46
DX: M54.5 Low back pain (principal)

== ENCOUNTER 2016-09-24 23:47 | Emergency (ER) | payer MEDICARE, MEDICAID ==
[2016-09-25 00:05] VITALS: BMI 27.0
[2016-09-25 00:08] VITALS: BP 162/101; RESP 16; TEMP 98.5; O2SAT 97
--- NOTE | 2016-09-25 01:08 | ED PDOC ---
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 Patient is well known to the provider from multiple previous visits and is known to show bed seeking behavior. Patient was seen for the same complaints in the ED several hours ago and was discharged. Patient is homeless and notes that he is asymptomatic upon presentation. PCP: Clinic Past Medical History Reviewed: Historical Data, Nursing Documentation, Vital Signs Vital Signs: Last Vital Signs Temp 98.5 F 09/25/16 00:05 Pulse 76 09/25/16 00:05 Resp 16 09/25/16 00:05 BP 162/101 H 09/25/16 00:05 Pulse Ox 97 09/25/16 00:05 - Medical History PMH: Atrial Fibrillation, CAD, Cardia Arrhythmia, Diabetes, Deep Vein Thrombosis (treated in [facility]), HTN, Hypercholesterolemia, Kidney Stones, TIA Denies: CVA, HIV - Surgical History Surgical History: Coronary Stent - Family History Family History: States: Hypertension - Living Arrangements Living Arrangements: Other (Homeless) - Home Medications Home Medications: Ambulatory Orders Medication Instructions Recorded Rosuvastatin Calcium [Crestor] 20 mg PO HS tab 08/14/16 metFORMIN [glucOPHAGE] 1,000 mg PO BID tab 08/14/16 Lisinopril [Zestril] 20 mg PO DAILY tab 09/10/16 diltiaZEM [Cardizem] 30 mg PO TID #90 tab 09/10/16 hydroCHLOROthiazide [Hydrodiuril] 25 mg PO DAILY tab 09/10/16 - Allergies Allergies/Adverse Reactions: Allergies Allergy/AdvReac Type Severity Reaction Status Date / Time aspirin Allergy URTICARIA Verified 09/25/16 00:05 Penicillins Allergy URTICARIA Verified 09/25/16 00:05 Review of Systems ROS Statement: Except As Marked, All Systems Reviewed And Found Negative Cardiovascular: Positive for: Palpitations Physical Exam - Reviewed Nursing Documentation Reviewed: Yes Vital Signs Reviewed: Yes - Physical Exam Appears: Positive for: Non-toxic, No Acute Distress Skin: Positive for: Normal Color Cardiovascular/Chest: Positive for: Regular Rate, Rhythm. Negative for: Murmur Respiratory: Negative for: Respiratory Distress Gastrointestinal/Abdominal: Positive for: Normal Exam Extremity: Positive for: Normal ROM. Negative for: Deformity Neurologic/Psych: Positive for: Alert, Oriented - ECG ECG: Positive for: Interpreted By Me, Viewed By Me ECG Rhythm: Positive for: Sinus Rhythm Rate: 73 O2 Sat by Pulse Oximetry: 97 (RA) Pulse Ox Interpretation: Normal Medical Decision Making Medical Decision Makin Initial impression: palpitations in setting of known AFIB Initial plan: * EKG 0137 Patient is medically stable for discharge. Dx: palpitations Counseling has been provided and patient is in agreement. Return if symptoms persist or acutely worsen. Scribe Attestation: Documented by Araceli Alcala acting as a scribe for Percy Harden MD. Scribe Attestation: All medical record entries made by the Scribe were at my direction and personally dictated by me. I have reviewed the chart and agree that the record accurately reflects my personal performance of the history, physical exam, medical decision making, and the department course for this patient. I have also personally directed, reviewed, and agree with the discharge instructions and disposition. Disposition - Clinical Impression Clinical Impression: Palpitations, Atrial fibrillation - Patient ED Disposition Is Patient to be Admitted: No Counseled Patient/Family Regarding: Studies Performed, Diagnosis - Disposition Disposition: Routine/Home Disposition Time: 01:37 Condition: STABLE Instructions: Palpitations (ED)
[2016-09-25 01:11] VITALS: PULSE 73
--- NOTE | 2016-09-25 14:33 | CARD ---
APPROVED REPORT EKG Measurement Heart [id number] <Conclusion> Normal sinus rhythm Left axis deviation Abnormal ECG
== END 2016-09-25 06:09 | disposition home or self-care (01) ==
LOC: H.ER 23:47
DX: R00.2 Palpitations (principal); I48.91 Unspecified atrial fibrillation

== ENCOUNTER 2016-09-29 16:55 | Emergency (ER) | payer MEDICARE, MEDICAID ==
[2016-09-29 16:55] VITALS: BMI 27.0
[2016-09-29 17:25] VITALS: BP 148/99; PULSE 75; RESP 16; TEMP 98.1; O2SAT 100
--- NOTE | 2016-09-29 18:55 | ED PDOC ---
Lower Extremity Pain/Injury Time Seen by Provider: 09/29/16 17:33 Chief Complaint (Nursing): Hip Pain Chief Complaint (Provider): hip pain History Per: Patient History/Exam Limitations: no limitations Additional Complaint(s): 66yo M in ED for eval of right hip pain x 1 week without acute injury/fall no abd pain, dysuria, hematuira, CP, SOB. pt denies [id number] injury to hip Past Medical History Reviewed: Historical Data, Nursing Documentation, Vital Signs Vital Signs: Last Vital Signs Temp 98.1 F 09/29/16 17:22 Pulse 75 09/29/16 17:22 Resp 16 09/29/16 17:22 BP 148/99 H 09/29/16 17:22 Pulse Ox 100 09/29/16 17:22 - Medical History PMH: Atrial Fibrillation, CAD, Cardia Arrhythmia, Diabetes, Deep Vein Thrombosis (treated in [facility]), HTN, Hypercholesterolemia, Kidney Stones, TIA Denies: CVA, HIV - Surgical History Surgical History: Coronary Stent - Family History Family History: States: Unknown Family Hx, Hypertension - Home Medications Home Medications: Ambulatory Orders Medication Instructions Recorded Rosuvastatin Calcium [Crestor] 20 mg PO HS tab 08/14/16 metFORMIN [glucOPHAGE] 1,000 mg PO BID tab 08/14/16 Lisinopril [Zestril] 20 mg PO DAILY tab 09/10/16 diltiaZEM [Cardizem] 30 mg PO TID #90 tab 09/10/16 hydroCHLOROthiazide [Hydrodiuril] 25 mg PO DAILY tab 09/10/16 Cane 1 each MC DAILY #1 each 09/29/16 - Allergies Allergies/Adverse Reactions: Allergies Allergy/AdvReac Type Severity Reaction Status Date / Time aspirin Allergy URTICARIA Verified 09/25/16 00:05 Penicillins Allergy URTICARIA Verified 09/25/16 00:05 Wells Criteria for PE - Wells Criteria for Pulmonary Embolism Clinical Signs and Symptoms of DVT: No P.E is #1 Diagnosis, or Equally Likely: No Heart Rate >100: No Immobilization at least 3 days;Surgery previous 4 weeks: No Previous, objectively diagnosed PE or DVT: No Hemoptysis: No Malignancy w/treatment within 6 months, or palliative: No Total Score: 0 Review of Systems ROS Statement: Except As Marked, All Systems Reviewed And Found Negative Musculoskeletal: Positive for: Other (hip pain) Physical Exam - Reviewed Nursing Documentation Reviewed: Yes Vital Signs Reviewed: Yes - Physical Exam Appears: Positive for: Well, Non-toxic, No Acute Distress Head Exam: Positive for: ATRAUMATIC, NORMAL INSPECTION, NORMOCEPHALIC Skin: Positive for: Normal Color, Warm, DRY Gastrointestinal/Abdominal: Positive for: Normal Exam, Bowel Sounds, Soft. Negative for: Tenderness Extremity: Positive for: Other (right hip: FROM of HIP no point tenderness. no bruising noted (-) mat test). no calf test. nuerovasc intact) Neurologic/Psych: Positive for: Alert, Oriented - ECG O2 Sat by Pulse Oximetry: 100 - Radiology X-Ray: Interpreted by Dc X-Ray Interpretation: No Acute Disease Medical Decision Making Medical Decision Making: pt with hip injury however no fx noted no discolocation PT will be d/c with Rx for cane. Disposition - Clinical Impression Clinical Impression: Hip pain - Patient ED Disposition Is Patient to be Admitted: No Counseled Patient/Family Regarding: Studies Performed, Diagnosis, Need For Followup, Rx Given - Disposition Referrals: Alicia Bernard MD [Primary Care Provider] - Disposition: Routine/Home Disposition Time: 18:58 Condition: STABLE Prescriptions: Cane 1 each MC DAILY #1 each Instructions: Hip Pain (ED)
--- NOTE | 2016-09-30 11:54 | RAD ---
PROCEDURE: Right Hip Radiographs. HISTORY: Pain. No history of recent/ related trauma provided COMPARISON: September 29, 2016. FINDINGS: BONES: Normal. No fracture. JOINTS: Mild degenerative changes left hip. SOFT TISSUES: Normal. OTHER FINDINGS: None. IMPRESSION: No significant or acute findings to account for/ related to the clinical presentation.
--- NOTE | 2016-09-30 11:54 | RAD ---
PROCEDURE: Left Hip X-ray Radiographs. HISTORY: Pain. No history of recent/ related trauma provided COMPARISON: September 29, 2016. Right hip reported separately FINDINGS: BONES: No acute fracture. JOINTS: Symmetrical degenerative changes both hips without evidence of protrusio, subluxation or dislocation. SOFT TISSUES: Normal. OTHER FINDINGS: Incompletely visualized degenerative changes lumbar spine. IMPRESSION: No acute findings related to/accounting for the clinical presentation.
== END 2016-09-29 19:19 | disposition home or self-care (01) ==
LOC: H.ER 16:55
DX: M25.551 Pain in right hip (principal)

== ENCOUNTER 2017-01-05 08:13 | Emergency (ER) | payer MEDICAID, MEDICARE ==
[2017-01-05 08:14] VITALS: BMI 27.0
[2017-01-05 08:19] VITALS: BP 147/91; PULSE 83; RESP 20; TEMP 99.1; O2SAT 95
[2017-01-05 09:36] LABS: BASO % 0.5 % (0.0-2.0); EOS % 0.2 % (0.0-4.0); HEMATOCRIT 43.6 % (35.0-51.0); LYMPH # 1.2 K/uL (1.0-4.3); LYMPH % 11.5 % (20.0-40.0); MEAN CELL VOLUME 86.2 fl (80.0-94.0); MEAN CORPUSCULAR HEMOGLOBIN 29.3 pg (27.0-31.0); MEAN PLATELET VOLUME 9.3 fl (7.2-11.7); MONO # 0.7 K/uL (0.0-0.8); MONO % 6.3 % (0.0-10.0); NEUT # 8.5 K/uL (1.8-7.0); NEUT % 81.5 % (50.0-75.0); NRBC % 0.1 % (0.0-0.0); RED CELL DISTRIBUTION WIDTH 13.2 % (11.5-14.5); WHITE BLOOD COUNT 10.5 K/uL (4.8-10.8)
[2017-01-05 09:50] LABS: ALB/GLOB RATIO 1.4 (1.0-2.1); ALKALINE PHOSPHATASE 89 U/L (38-126); ALT/SGPT 21 U/L (21-72); AST/SGOT 20 U/L (17-59); BILIRUBIN,TOTAL 1.3 mg/dl (0.2-1.3); BLOOD UREA NITROGEN 13 mg/dl (9-20); CALCIUM 9.4 mg/dL (8.4-10.2); CARBON DIOXIDE 21 mmol/L (22-30); CHLORIDE 102 mmol/L (98-107); GFR AFRICAN-AMERICAN > 60; GLUCOSE,RANDOM 147 mg/dL (75-110); LIPASE 164 U/L (23-300); POTASSIUM 4.2 MMOL/L (3.6-5.0); SODIUM 136 mmol/l (132-148); TOTAL PROTEIN 7.6 G/DL (6.3-8.2)
--- NOTE | 2017-01-05 09:53 | ED PDOC ---
HPI:Nausea, Vomiting, Diarrhea Time Seen by Provider: 01/05/17 09:06 Chief Complaint (Nursing): Headache Chief Complaint (Provider): nausea and vomiting History Per: Patient History/Exam Limitations: no limitations Onset/Duration Of Symptoms: Days (x 1) Additional Complaint(s): Agapito Feldman is a 66 year old non-domiciled male, with a previous medical history of hypertension, CAD and diabetes, who presents to the ED for evaluation after experiencing nausea and vomiting secondary to eating a bad burger. Patient reports symptoms have since resolved and is currently requesting to eat. Patient denies any shortness of breath, nausea, vomiting, chest pain, abdominal pain, headache, dizziness, numbness or tingling. Past Medical History Reviewed: Historical Data, Nursing Documentation, Vital Signs Vital Signs: Last Vital Signs Temp 99.1 F 01/05/17 08:18 Pulse 83 01/05/17 08:18 Resp 20 01/05/17 08:18 BP 147/91 H 01/05/17 08:18 Pulse Ox 95 01/05/17 08:18 - Medical History PMH: Atrial Fibrillation, CAD, Cardia Arrhythmia, Diabetes, Deep Vein Thrombosis (treated in [facility]), HTN, Hypercholesterolemia, Kidney Stones, TIA Denies: CVA, HIV - Surgical History Surgical History: Coronary Stent - Family History Family History: States: Unknown Family Hx, Hypertension - Home Medications Home Medications: Ambulatory Orders Medication Instructions Recorded Rosuvastatin Calcium [Crestor] 20 mg PO HS tab 08/14/16 metFORMIN [glucOPHAGE] 1,000 mg PO BID tab 08/14/16 Lisinopril [Zestril] 20 mg PO DAILY tab 09/10/16 diltiaZEM [Cardizem] 30 mg PO TID #90 tab 09/10/16 hydroCHLOROthiazide [Hydrodiuril] 25 mg PO DAILY tab 09/10/16 Cane 1 each MC DAILY #1 each 09/29/16 - Allergies Allergies/Adverse Reactions: Allergies Allergy/AdvReac Type Severity Reaction Status Date / Time aspirin Allergy URTICARIA Verified 01/05/17 08:24 Penicillins Allergy URTICARIA Verified 01/05/17 08:24 Review of Systems ROS Statement: Except As Marked, All Systems Reviewed And Found Negative Cardiovascular: Negative for: Chest Pain Respiratory: Negative for: Cough, Shortness of Breath Gastrointestinal: Positive for: Nausea, Vomiting. Negative for: Abdominal Pain , Diarrhea Neurological: Negative for: Headache, Dizziness Physical Exam - Reviewed Nursing Documentation Reviewed: Yes Vital Signs Reviewed: Yes - Physical Exam Appears: Positive for: Well, Non-toxic, No Acute Distress Head Exam: Positive for: ATRAUMATIC, NORMAL INSPECTION, NORMOCEPHALIC Skin: Positive for: Normal Color, Warm, DRY Eye Exam: Positive for: EOMI, Normal appearance, PERRL ENT: Positive for: Normal ENT Inspection Neck: Positive for: Normal, Painless ROM Cardiovascular/Chest: Positive for: Regular Rate, Rhythm Respiratory: Positive for: CNT, Normal Breath Sounds Gastrointestinal/Abdominal: Positive for: Normal Exam, Bowel Sounds, Soft Back: Positive for: Normal Inspection Extremity: Positive for: Normal ROM Neurologic/Psych: Positive for: Alert, Oriented - Laboratory Results Result Diagrams: 01/05/17 09:28 01/05/17 09:28 - ECG O2 Sat by Pulse Oximetry: 95 (RA) Pulse Ox Interpretation: Normal - Progress Re-evaluation Time: 11:29 Condition: Re-examined, Improved Medical Decision Making Medical Decision Making: Initial impression: Nausea and vomiting which resolved. Differentials include gastritis and less likely pancreatitis Initial Plan: * labs * lipase * reevaluation --------- Scribe Attestation: Documented by Melina Austin, acting as a scribe for Nieves Wright MD. Provider Scribe Attestation: All medical record entries made by the Scribe were at my direction and personally dictated by me. I have reviewed the chart and agree that the record accurately reflects my personal performance of the history, physical exam, medical decision making, and the department course for this patient. I have also personally directed, reviewed, and agree with the discharge instructions and disposition Disposition - Clinical Impression Clinical Impression: Nausea and vomiting - Patient ED Disposition Is Patient to be Admitted: No Doctor Will See Patient In The: Office Counseled Patient/Family Regarding: Studies Performed, Diagnosis, Need For Followup - Disposition Referrals: [facility] [Outside] Disposition: Routine/Home Disposition Time: 11:30 Condition: GOOD Additional Instructions: Return for worsening. Take your medications. Follow up with your PCP in 2-3 days. Instructions: Acute Nausea and Vomiting (ED)
== END 2017-01-05 13:44 | disposition home or self-care (01) ==
LOC: H.ER 08:13
DX: R11.2 Nausea with vomiting, unspecified (principal); E11.9 Type 2 diabetes mellitus without complications; I10 Essential (primary) hypertension; Z87.442 Personal history of urinary calculi; Z95.5 Presence of coronary angioplasty implant and graft

== ENCOUNTER 2017-03-16 15:44 | Emergency (ER) | payer MEDICARE, MEDICAID ==
[2017-03-16 15:44] VITALS: BMI 27.0
[2017-03-16 15:53] VITALS: BP 163/96; PULSE 76; RESP 18; TEMP 97.6; O2SAT 98
--- NOTE | 2017-03-16 16:30 | ED PDOC ---
HPI: Skin/Bite Injury Time Seen by Provider: 03/16/17 16:03 Chief Complaint (Nursing): Abnormal Skin Integrity Chief Complaint (Provider): rash History Per: Patient Additional Complaint(s): 67 year old male presents with itchy rash to entire body x 1 week. He is currently non-domiciled and states he has had scabies rash in the past and believes he has this now. He states he has noticed small mites on skin as well as bite biswas. He denies fever or chills. Past Medical History Reviewed: Historical Data, Nursing Documentation, Vital Signs Vital Signs: Last Vital Signs Temp 97.6 F 03/16/17 15:49 Pulse 76 03/16/17 15:49 Resp 18 03/16/17 15:49 BP 163/96 H 03/16/17 15:49 Pulse Ox 98 03/16/17 16:42 - Medical History PMH: Atrial Fibrillation, CAD, Cardia Arrhythmia, Diabetes, Deep Vein Thrombosis (treated in [facility]), HTN, Hypercholesterolemia, Kidney Stones, Chronic Kidney Disease, TIA - Surgical History Surgical History: Coronary Stent - Family History Family History: States: No Known Family Hx - Living Arrangements Living Arrangements: Other (non domiciled) - Social History Current smoker - smoking cessation education provided: No Alcohol: None Drugs: Denies - Home Medications Home Medications: Ambulatory Orders Medication Instructions Recorded Atorvastatin [Lipitor] 40 mg PO HS 30 Days tab 02/26/17 Clopidogrel [Plavix] 75 mg PO DAILY 30 Days #30 tab 02/26/17 Lisinopril [Zestril] 20 mg PO DAILY 30 Days tab 02/26/17 MetFORMIN [glucoPHAGE] 1,000 mg PO BID 30 Days #60 tab 02/26/17 diltiaZEM CD [Cardizem CD] 120 mg PO DAILY 30 Days cap 02/26/17 Permethrin [Elimite] 60 gm TP ONCE #1 bottle 03/16/17 - Allergies Allergies/Adverse Reactions: Allergies Allergy/AdvReac Type Severity Reaction Status Date / Time aspirin Allergy URTICARIA Verified 01/05/17 08:24 Penicillins Allergy URTICARIA Verified 01/05/17 08:24 Review of Systems ROS Statement: Except As Marked, All Systems Reviewed And Found Negative Constitutional: Negative for: Fever Skin: Positive for: Rash Physical Exam - Reviewed Nursing Documentation Reviewed: Yes Vital Signs Reviewed: Yes - Physical Exam Appears: Positive for: Well, Non-toxic, No Acute Distress Skin: Positive for: Rash (Maculopapular lesions noted to the entire body with skin excoriations) Cardiovascular/Chest: Positive for: Regular Rate, Rhythm Respiratory: Positive for: Normal Breath Sounds Extremity: Positive for: Normal ROM. Negative for: Pedal Edema Neurologic/Psych: Positive for: Alert, Oriented - ECG O2 Sat by Pulse Oximetry: 98 Pulse Ox Interpretation: Normal Medical Decision Making Medical Decision Making: Impression: scabies rash Plan: Rx elimite cream and benadryl. Advised clinic follow up. Disposition - Clinical Impression Clinical Impression: Scabies - Patient ED Disposition Is Patient to be Admitted: No Counseled Patient/Family Regarding: Diagnosis, Need For Followup, Rx Given - Disposition Referrals: [facility] [Outside] Disposition: Routine/Home Disposition Time: 16:45 Condition: STABLE Additional Instructions: Take prescription medications as directed. Follow-up with clinic. Prescriptions: Permethrin [Elimite] 60 gm TP ONCE #1 bottle Instructions: Scabies (ED) Forms: [employer] (Ukrainian)
== END 2017-03-16 18:12 | disposition home or self-care (01) ==
LOC: H.ER 15:44
DX: B86 Scabies (principal)

== ENCOUNTER 2017-03-25 01:16 | Emergency (ER) | payer MEDICARE, MEDICAID ==
[2017-03-25 01:40] VITALS: BMI 26.6
[2017-03-25 01:48] VITALS: BP 142/104; PULSE 120; RESP 16; TEMP 100.7; O2SAT 96
[2017-03-25] MEDS ORDERED: Permethrin 5% CREAM TOP ONE (02:00)
[2017-03-25] MEDS ORDERED: Sodium Chloride 0.9% 500 ML IV STA (02:20)
[2017-03-25 02:21] LABS: BASO # 0.1 K/uL (0.0-0.2); BASO % 0.4 % (0.0-2.0); EOS # 0.1 K/uL (0.0-0.7); EOS % 0.4 % (0.0-4.0); HEMATOCRIT 45.2 % (35.0-51.0); LYMPH % 6.6 % (20.0-40.0); MEAN CELL VOLUME 87.3 fl (80.0-94.0); MEAN CORPUSCULAR HEMOGLOBIN 28.9 pg (27.0-31.0); MEAN CORPUSCULAR HGB CONC 33.1 g/dL (33.0-37.0); MEAN PLATELET VOLUME 7.6 fl (7.2-11.7); MONO % 6.5 % (0.0-10.0); NEUT # 12.8 K/uL (1.8-7.0); NEUT % 86.1 % (50.0-75.0); PLATELET COUNT 255 K/uL (130-400); RED CELL DISTRIBUTION WIDTH 14.1 % (11.5-14.5); WHITE BLOOD COUNT 14.8 K/uL (4.8-10.8)
--- NOTE | 2017-03-25 02:29 | ED PDOC ---
Syncope/Near Syncope/Dizziness Time Seen by Provider: 03/25/17 01:40 Chief Complaint (Nursing): Weakness/Neurological Deficit Chief Complaint (Provider): Weakness History Per: Patient History/Exam Limitations: no limitations Additional Complaint(s): Agapito Feldman is a 67 year old male with a history of atrial fibrillation, diabetes, CAD, GA, and CVA that presents to the ED after experiencing an episode of weakness, causing him to fall. Patient states that he went to the bathroom and suddenly felt weak, but denies loss of consciousness , nausea, vomiting, diarrhea, or fever. Of Note: Patient was seen in ED 10 days ago and was diagnosed with scabies, but reports that he did not take the Permethrin that he was prescribed. Past Medical History Reviewed: Historical Data, Nursing Documentation, Vital Signs Vital Signs: Last Vital Signs Temp 100.7 F H 03/25/17 01:43 Pulse 120 H 03/25/17 01:43 Resp 16 03/25/17 01:43 BP 142/104 H 03/25/17 01:43 Pulse Ox 96 03/25/17 01:43 - Medical History PMH: Atrial Fibrillation, CAD, Cardia Arrhythmia, Diabetes, Deep Vein Thrombosis (treated in [facility]), HTN, Hypercholesterolemia, Kidney Stones, Chronic Kidney Disease, TIA Denies: CVA, HIV - Surgical History Surgical History: Coronary Stent - Family History Family History: States: Unknown Family Hx, Hypertension - Home Medications Home Medications: Ambulatory Orders Medication Instructions Recorded Atorvastatin [Lipitor] 40 mg PO HS 30 Days tab 02/26/17 Clopidogrel [Plavix] 75 mg PO DAILY 30 Days #30 tab 02/26/17 Lisinopril [Zestril] 20 mg PO DAILY 30 Days tab 02/26/17 MetFORMIN [glucoPHAGE] 1,000 mg PO BID 30 Days #60 tab 02/26/17 diltiaZEM CD [Cardizem CD] 120 mg PO DAILY 30 Days cap 02/26/17 Permethrin [Elimite] 60 gm TP ONCE #1 bottle 03/16/17 - Allergies Allergies/Adverse Reactions: Allergies Allergy/AdvReac Type Severity Reaction Status Date / Time aspirin Allergy URTICARIA Verified 03/25/17 01:40 Penicillins Allergy URTICARIA Verified 03/25/17 01:40 Review of Systems Gastrointestinal: Negative for: Nausea, Vomiting, Diarrhea Neurological: Positive for: Weakness. Negative for: Other (denies LOC) Physical Exam - Reviewed Nursing Documentation Reviewed: Yes Vital Signs Reviewed: Yes - Physical Exam Appears: Positive for: Non-toxic, No Acute Distress Head Exam: Positive for: ATRAUMATIC, NORMOCEPHALIC Skin: Positive for: Normal Color, Warm (Patient is febrile) Eye Exam: Positive for: Normal appearance, EOMI, PERRL Cardiovascular/Chest: Positive for: Regular Rate, Rhythm, Tachycardia. Negative for: Murmur Respiratory: Positive for: Normal Breath Sounds. Negative for: Wheezing Gastrointestinal/Abdominal: Positive for: Normal Exam, Soft. Negative for: Tenderness Back: Positive for: Normal Inspection. Negative for: L CVA Tenderness, R CVA Tenderness Extremity: Positive for: Normal ROM. Negative for: Deformity, Swelling Neurologic/Psych: Positive for: Alert, Oriented. Negative for: Motor/Sensory Deficits - Laboratory Results Result Diagrams: 03/25/17 02:15 03/25/17 02:15 - ECG O2 Sat by Pulse Oximetry: 96 (RA) Pulse Ox Interpretation: Normal Medical Decision Making Medical Decision Making: Impression: 67 year old male with episode of weakness Plan: * EKG * CMP * CBC * PTT * PT * Lactic Acid Plasma * Urine dip * Urinalysis * Blood Culture * Flu Swab * Tylenol 975 mg PO * NaCl 500 mLs at 500 mLs/hr * Permethrin 5% * Reevaluation 4:40 Labs reviewed, no clinically significant abnormalities. Chest X-Ray showed no acute disease. Patient is stable for discharge home. Clinical Impression: Viral Illness Scribe Attestation: Documented by Keira Babin, acting as a scribe for Percy Harden MD. Provider Scribe Attestation: All medical record entries made by the Scribe were at my direction and personally dictated by me. I have reviewed the chart and agree that the record accurately reflects my personal performance of the history, physical exam, medical decision making, and the department course for this patient. I have also personally directed, reviewed, and agree with the discharge instructions and disposition. Disposition - Clinical Impression Clinical Impression: Scabies, Viral illness - Patient ED Disposition Is Patient to be Admitted: No - Disposition Disposition: Routine/Home Disposition Time: 04:40 Condition: STABLE Instructions: Scabies (ED), Viral Syndrome (ED) Forms: [employer] (Somali)
[2017-03-25 02:31] LABS: PARTIAL THROMBOPLASTIN TIME 29.8 Seconds (25.6-37.1)
[2017-03-25 02:54] LABS: ALB/GLOB RATIO 1.2 (1.0-2.1); ALKALINE PHOSPHATASE 90 U/L (38-126); ALT/SGPT 42 U/L (21-72); AST/SGOT 22 U/L (17-59); BILIRUBIN,TOTAL 1.6 mg/dl (0.2-1.3); BLOOD UREA NITROGEN 14 mg/dl (9-20); CALCIUM 8.7 mg/dL (8.4-10.2); CARBON DIOXIDE 24 mmol/L (22-30); CHLORIDE 103 mmol/L (98-107); GFR AFRICAN-AMERICAN > 60; GLUCOSE,RANDOM 149 mg/dL (75-110); POTASSIUM 3.8 MMOL/L (3.6-5.0); SODIUM 137 mmol/l (132-148); TOTAL PROTEIN 7.6 G/DL (6.3-8.2)
[2017-03-25 05:15] LABS: NEUTROPHIL 79 % (42-75); TOTAL CELLS COUNTED 100
[2017-03-25 05:16] LABS: EOSINOPHIL 1 % (0-7)
[2017-03-25 05:23] LABS: RBC URINE 3 /hpf (0-3); URINE BILIRUBIN NEGATIVE (NEGATIVE); URINE BLOOD NEGATIVE (NEGATIVE); URINE COLOR YELLOW (YELLOW); URINE GLUCOSE (UA) NEG (Normal); URINE KETONE TRACE mg/dL (NEGATIVE); URINE LEUKOCYTE ESTERASE NEG Leu/uL (Negative); URINE PROTEIN NEGATIVE (NEGATIVE); URINE UROBILINOGEN 0.2-1.0 mg/dL (0.2-1.0); WBC URINE < 1 /hpf (0-5)
--- NOTE | 2017-03-25 09:13 | RAD ---
HISTORY: weakness COMPARISON: 02/25/2017 FINDINGS: LUNGS: No active pulmonary disease. PLEURA: No significant pleural effusion identified, no pneumothorax apparent. CARDIOVASCULAR: Normal. OSSEOUS STRUCTURES: No significant abnormalities. VISUALIZED UPPER ABDOMEN: Normal. OTHER FINDINGS: None. IMPRESSION: No active disease.
--- NOTE | 2017-03-25 10:43 | CARD ---
APPROVED REPORT EKG Measurement Heart [id number] <Conclusion> Sinus tachycardia Possible Left atrial enlargement Possible septal infarct, age undetermined Abnormal ECG artefact present
== END 2017-03-25 06:00 | disposition home or self-care (01) ==
LOC: H.ER 01:16
DX: R53.1 Weakness (principal)

== ENCOUNTER 2017-03-25 22:11 | Inpatient (IN) | payer MEDICARE, MEDICAID ==
[2017-03-25 22:12] VITALS: BMI 26.6
[2017-03-25 23:03] LABS: BASO % 0.3 % (0.0-2.0); EOS % 0.2 % (0.0-4.0); HEMATOCRIT 41.2 % (35.0-51.0); LYMPH # 1.2 K/uL (1.0-4.3); LYMPH % 8.7 % (20.0-40.0); MEAN CELL VOLUME 87.5 fl (80.0-94.0); MEAN CORPUSCULAR HEMOGLOBIN 28.6 pg (27.0-31.0); MEAN CORPUSCULAR HGB CONC 32.7 g/dL (33.0-37.0); MEAN PLATELET VOLUME 8.1 fl (7.2-11.7); MONO # 1.1 K/uL (0.0-0.8); MONO % 7.6 % (0.0-10.0); NEUT # 11.8 K/uL (1.8-7.0); NEUT % 83.2 % (50.0-75.0); RED CELL DISTRIBUTION WIDTH 14.2 % (11.5-14.5); WHITE BLOOD COUNT 14.1 K/uL (4.8-10.8)
[2017-03-25 23:21] LABS: PARTIAL THROMBOPLASTIN TIME 28.8 Seconds (25.6-37.1)
[2017-03-25] MEDS ORDERED: Sodium Chloride 0.9% 1,000 ML IV STA (23:25)
[2017-03-25 23:27] LABS: RBC URINE 2 /hpf (0-3); URINE BILIRUBIN NEGATIVE (NEGATIVE); URINE BLOOD NEGATIVE (NEGATIVE); URINE COLOR YELLOW (YELLOW); URINE GLUCOSE (UA) 50 mg/dL (Normal); URINE KETONE NEGATIVE (NEGATIVE); URINE LEUKOCYTE ESTERASE NEG Leu/uL (Negative); URINE PROTEIN 30 mg/dL (NEGATIVE); URINE UROBILINOGEN 0.2-1.0 mg/dL (0.2-1.0); WBC URINE 2 /hpf (0-5)
[2017-03-25 23:32] LABS: ALB/GLOB RATIO 1.3 (1.0-2.1); ALCOHOL SERUM < 10 mg/dl (0-10); ALKALINE PHOSPHATASE 80 U/L (38-126); ALT/SGPT 24 U/L (21-72); AST/SGOT 18 U/L (17-59); BILIRUBIN,TOTAL 1.7 mg/dl (0.2-1.3); BLOOD UREA NITROGEN 17 mg/dl (9-20); CALCIUM 8.8 mg/dL (8.4-10.2); CARBON DIOXIDE 22 mmol/L (22-30); CHLORIDE 102 mmol/L (98-107); GFR AFRICAN-AMERICAN > 60; GLUCOSE,RANDOM 148 mg/dL (75-110); POTASSIUM 3.6 MMOL/L (3.6-5.0); SODIUM 136 mmol/l (132-148); TOTAL PROTEIN 7.2 G/DL (6.3-8.2)
[2017-03-25 23:51] LABS: ABG ALLEN TEST YES; ARTERIAL BLOOD GAS HCO3 25.6 mmol/L (21-28); ARTERIAL BLOOD GAS MODE ROOM AIR; ARTERIAL BLOOD GAS PH 7.48 (7.35-7.45); ARTERIAL BLOOD GAS PO2 68 mm/Hg (80-100)
[2017-03-26] MEDS ORDERED: Iodixanol 320 MG/ML 100 ML BOTTLE IV ONE (00:20)
--- NOTE | 2017-03-26 00:56 | ED PDOC ---
HPI: Neurologic - General Time Seen by Provider: 03/25/17 22:15 Chief Complaint (Nursing): Weakness/Neurological Deficit Chief Complaint (Provider): generalized weakness - History of Present Illness Timing/Duration: episodic Severity: mild Associated Symptoms: denies symptoms Allergies/Adverse Reactions: Allergies aspirin Allergy (Verified 03/25/17 01:40) URTICARIA Penicillins Allergy (Verified 03/25/17 01:40) URTICARIA Home Medications: Ambulatory Orders Atorvastatin [Lipitor] 40 mg PO HS 30 Days tab 02/26/17 Clopidogrel [Plavix] 75 mg PO DAILY 30 Days #30 tab 02/26/17 Lisinopril [Zestril] 20 mg PO DAILY 30 Days tab 02/26/17 MetFORMIN [glucoPHAGE] 1,000 mg PO BID 30 Days #60 tab 02/26/17 diltiaZEM CD [Cardizem CD] 120 mg PO DAILY 30 Days cap 02/26/17 Additional Complaint(s): Patients is a 67 year old male with PMHx A Fib, CAD, DM presents to ED for generalized weakness. Patient was seen this am and had extensive work up that was negative. He was thereafter discharged. No associated N/V, fever, cough or SOB. Pt is homeless and admits to not eating "all day." Past Medical History Reviewed: Historical Data, Nursing Documentation, Vital Signs Vital Signs: Last Vital Signs Temp 98.0 F 03/25/17 23:11 Pulse 148 H 03/25/17 23:11 Resp 16 03/25/17 23:11 BP 116/66 03/25/17 23:11 Pulse Ox 97 03/25/17 23:11 - Medical History PMH: Atrial Fibrillation, CAD, Cardia Arrhythmia, Diabetes, Deep Vein Thrombosis (treated in [facility] [place]Note 2]), HTN, Hypercholesterolemia, Kidney Stones, Chronic Kidney Disease, TIA Denies: CVA, HIV - Surgical History Surgical History: Coronary Stent - Family History Family History: States: Unknown Family Hx, Hypertension - Living Arrangements Living Arrangements: Other (undomiciled) - Social History Current smoker - smoking cessation education provided: No Ex-Smoker (has not smoked in the last 12 months): No Alcohol: None Drugs: Denies - Home Medications Home Medications: Ambulatory Orders Medication Instructions Recorded Atorvastatin [Lipitor] 40 mg PO HS 30 Days tab 02/26/17 Clopidogrel [Plavix] 75 mg PO DAILY 30 Days #30 tab 02/26/17 Lisinopril [Zestril] 20 mg PO DAILY 30 Days tab 02/26/17 MetFORMIN [glucoPHAGE] 1,000 mg PO BID 30 Days #60 tab 02/26/17 diltiaZEM CD [Cardizem CD] 120 mg PO DAILY 30 Days cap 02/26/17 - Allergies Allergies/Adverse Reactions: Allergies Allergy/AdvReac Type Severity Reaction Status Date / Time aspirin Allergy URTICARIA Verified 03/25/17 01:40 Penicillins Allergy URTICARIA Verified 03/25/17 01:40 Review of Systems ROS Statement: Except As Marked, All Systems Reviewed And Found Negative Neurological: Positive for: Weakness Physical Exam - Reviewed Nursing Documentation Reviewed: Yes Vital Signs Reviewed: Yes - Physical Exam Appears: Positive for: Well Head Exam: Positive for: ATRAUMATIC, NORMOCEPHALIC Skin: Positive for: Normal Color, Warm, Dry Eye Exam: Positive for: Normal appearance, EOMI, PERRL ENT: Positive for: Normal ENT Inspection Neck: Positive for: Normal, Painless ROM, Supple Cardiovascular/Chest: Positive for: Regular Rate, Rhythm. Negative for: Edema, JVD Respiratory: Positive for: Normal Breath Sounds. Negative for: Crackles, Rales , Wheezing Gastrointestinal/Abdominal: Positive for: Normal Exam, Bowel Sounds, Soft. Negative for: Tenderness Back: Positive for: Normal Inspection. Negative for: L CVA Tenderness, R CVA Tenderness Extremity: Positive for: Normal ROM. Negative for: Tenderness, Pedal Edema Neurologic/Psych: Positive for: Alert, Oriented. Negative for: Motor/Sensory Deficits - Laboratory Results Result Diagrams: 03/25/17 22:59 03/25/17 22:59 - ECG O2 Sat by Pulse Oximetry: 97 - Critical Care Total Time (In Min): 30 Medical Decision Making Medical Decision Makin yo male with generalized weakness Labs, EKG, Chest Xray EKG demonstrates sinus tachcardia 149bpm; ABG CT angio ordered CT Chest Angio shows no PE Pt admist to noncompliance with Cardizem; will initiate Cardizem for tachyarrythmia that is likely SVT however rate remains below 160. DX Tachyarrythmia,A Fib RVR vs PSVT Fair Disposition - Clinical Impression Clinical Impression: Atrial fibrillation, Tachycardia - Patient ED Disposition Is Patient to be Admitted: Yes Discussed With : Marcie Florez - Disposition Disposition Time: 02:00 Condition: FAIR
--- NOTE | 2017-03-26 01:10 | CT ---
EXAM: CT Angiography Chest With Intravenous Contrast CLINICAL HISTORY: 67 years old, male; Pain; Chest pain; Prior surgery; Surgery date: 6+ months; Surgery type: Cardiac stent per patient; Additional info: Chest pain R/O pe TECHNIQUE: Axial computed tomographic angiography images of the chest with intravenous contrast using pulmonary embolism protocol. All CT scans at this facility use one or more dose reduction techniques, viz.: automated exposure control; ma/kV adjustment per patient size (including targeted exams where dose is matched to indication; i.e. head); or iterative reconstruction technique. MIP reconstructed images were created and reviewed. Coronal and sagittal reformatted images were created and reviewed. CONTRAST: 95 mL of [id number] administered intravenously. COMPARISON: No relevant prior studies available. FINDINGS: Limitations: No locksmith view. Motion artifact - mild. Pulmonary arteries: No definite pulmonary embolism. Aorta: [id number] atherosclerotic disease. Ectasia of ascending thoracic aorta, up to 4.6 cm in diameter. Lungs: Mild atelectasis/scarring. No consolidation. 0.5 cm LEFT lower lobe nodule. Pleural space: No significant effusion. No pneumothorax. Heart: Borderline cardiomegaly. No significant pericardial effusion. Coronary artery calcifications/stent. Bones/joints: Degenerative changes of spine. No acute fracture. Soft tissues: Unremarkable. Lymph nodes: No pathologically enlarged lymph nodes. Gallbladder and bile ducts: Gallstones. Kidneys and ureters: Mild scarring LEFT kidney. Probable LEFT renal cyst vs calyceal dilatation/diverticulum. Too small to characterize lesion within LEFT kidney. IMPRESSION: 1. No definite CT evidence of pulmonary embolism. 2. Pulmonary nodules. For low-risk patients, no follow-up is necessary. For high-risk patients (smoking history or other known risk factors) an optional CT at 12 months could be performed. 3. Incidental/non-acute findings are described above.
--- NOTE | 2017-03-26 04:46 | CP.PCM.HP ---
History of Present Illness - History of Present Illness History of Present Illness: 67 year old male presents to ED with complaints of weakness for past few days. He was seen in [place] ED yesterday with similar complaints. He denies recent illness, any headaches, dizziness, changes in vision, chest pain, dyspnea, nausea, vomiting, diarrhea, constipation or pedal edema. He was seen in ED 03/16 dx with scabies, and treated with permethrin during ED visit on 03/25/17. He does not take any medications. He reports hx of hypertension, diabetes. He had stent placed last year at [facility]. He followed up 'a while ago' with a outreach team member in [place]. Does not remember where or the name of the outreach team member. He went to [place] for the winter and that's why he followed up there. PMH: NIDDM2, HTN, HLD, CO, s/p stent in Mar, nephrolithiasis Medications: as per last med rec have been resumed. patient is noncompliant with his medications Allergies: reviewed. Social: nonsmoker, no etoh or illicit drug use. No personal hx of cancer Surgical hx: cardiac cath Apr 03, bladder sx-stone removal, prostate unknown procedure Family Hx: Brother has scleroderma, Mother had breast cancer Present on Admission - Present on Admission Any Indicators Present on Admission: No Review of Systems - Constitutional Constitutional: Frequent Falls, Weakness. absent: Chills, Fever - EENT Eyes: absent: Change in Vision Nose/Mouth/Throat: absent: Nasal Discharge - Cardiovascular Cardiovascular: Dyspnea. absent: Chest Pain, Chest Pain at Rest, Diaphoresis, Dyspnea on Exertion, Edema, Irregular Heart Rhythm, Syncope - Respiratory Respiratory: absent: Cough, Dyspnea - Gastrointestinal Gastrointestinal: absent: Abdominal Pain, Constipation, Diarrhea, Nausea, Vomiting - Genitourinary Genitourinary: absent: Difficulty Urinating, Nocturia - Musculoskeletal Musculoskeletal: absent: Muscle Cramps - Integumentary Integumentary: Rash. absent: Pruritus - Neurological Neurological: Weakness. absent: Burning Sensations, Focal Weakness, Headaches, Syncope Past Patient History - Past Medical History & Family History Past Medical History?: Yes - Past Social History Alcohol: None Drugs: Denies - CARDIAC Hx Cardiac Disorders: Yes (Afib/HTN/cardiac stent/STEMI) - PULMONARY Hx Respiratory Disorders: No - NEUROLOGICAL Hx Transient Ischemic Attacks (TIA): Yes - HEENT Hx HEENT Problems: No - RENAL Hx Chronic Kidney Disease: Yes (kidney stones/ lithotripsy) - ENDOCRINE/METABOLIC Hx Endocrine Disorders: Yes (Type !! DM) - HEMATOLOGICAL/ONCOLOGICAL Hx Human Immunodeficiency Virus (HIV): No - INTEGUMENTARY Hx Dermatological Problems: Yes (scabies (treated 04/04)) - MUSCULOSKELETAL/RHEUMATOLOGICAL Hx Musculoskeletal Disorders: Yes (back pain/ hip pain) - GASTROINTESTINAL Hx Gastrointestinal Disorders: No - GENITOURINARY/GYNECOLOGICAL Hx Genitourinary Disorders: Yes (Enlarged Prostate/Prostate surgery) - PSYCHIATRIC Hx Psychophysiologic Disorder: No Hx Substance Use: No - SURGICAL HISTORY Hx Coronary Stent: Yes - ANESTHESIA Hx Anesthesia: Yes Hx Anesthesia Reactions: No Hx Malignant Hyperthermia: No Meds Allergies/Adverse Reactions: Allergies Allergy/AdvReac Type Severity Reaction Status Date / Time aspirin Allergy URTICARIA Verified 03/25/17 01:40 Penicillins Allergy URTICARIA Verified 03/25/17 01:40 Results - Vital Signs Recent Vital Signs: Last Vital Signs Temp 99.1 F 03/26/17 04:29 Pulse 89 03/26/17 04:29 Resp 20 03/26/17 04:29 BP 144/89 03/26/17 04:29 Pulse Ox 94 L 03/26/17 04:29 - Labs Result Diagrams: 03/25/17 22:59 03/25/17 22:59 Labs: Laboratory Results - last 24 hr 03/25/17 03/25/17 03/25/17 22:59 22:59 22:59 WBC 14.1 H RBC 4.71 Hgb 13.5 Hct 41.2 MCV 87.5 MCH 28.6 MCHC 32.7 L RDW 14.2 Plt Count 232 MPV 8.1 Neut % (Auto) 83.2 H Lymph % (Auto) 8.7 L [place] % (Auto) 7.6 Eos % (Auto) 0.2 Baso % (Auto) 0.3 Neut # 11.8 H Lymph # 1.2 [place] # 1.1 H Eos # 0.0 Baso # 0.0 PT 12.8 INR 1.2 APTT 28.8 pCO2 pO2 HCO3 ABG pH ABG Total CO2 ABG O2 Saturation ABG Base Excess Scott Test ABG Potassium A-a O2 Difference Glucose Lactate Vent Mode FiO2 Sodium 136 Potassium 3.6 Chloride 102 Carbon Dioxide 22 Anion Gap 16 BUN 17 Creatinine 1.1 Est GFR ( Amer) > 60 Est GFR (Non-Af Amer) > 60 Random Glucose 148 H Calcium 8.8 Total Bilirubin 1.7 H AST 18 ALT 24 Alkaline Phosphatase 80 Troponin I 0.0170 Total Protein 7.2 Albumin 4.0 Globulin 3.2 Albumin/Globulin Ratio 1.3 Arterial Blood Potassium Urine Color Urine Clarity Urine pH Ur Specific [place] Urine Protein Urine Glucose (UA) Urine Ketones Urine Blood Urine Nitrate Urine Bilirubin Urine Urobilinogen Ur Leukocyte Esterase Urine RBC (Auto) Urine Microscopic WBC Ur Squamous Epith Cells Urine Opiates Screen Urine Methadone Screen Ur Barbiturates Screen Ur Phencyclidine Scrn Ur Amphetamines Screen U Benzodiazepines Scrn U Oth Cocaine Metabols U Cannabinoids Screen Alcohol, Quantitative < 10 03/25/17 03/25/17 03/25/17 23:20 23:30 23:42 WBC RBC Hgb Hct MCV MCH MCHC RDW Plt Count MPV Neut % (Auto) Lymph % (Auto) [place] % (Auto) Eos % (Auto) Baso % (Auto) Neut # Lymph # [place] # Eos # Baso # PT INR APTT pCO2 32 L pO2 68 L HCO3 25.6 ABG pH 7.48 H ABG Total CO2 24.8 ABG O2 Saturation 98.7 H ABG Base Excess 0.9 Scott Test Yes ABG Potassium 3.3 L A-a O2 Difference 42.0 Glucose 148 H Lactate 0.8 Vent Mode Room air FiO2 21.0 Sodium 132.0 Potassium Chloride 104.0 Carbon Dioxide Anion Gap BUN Creatinine Est GFR ( Amer) Est GFR (Non-Af Amer) Random Glucose Calcium Total Bilirubin AST ALT Alkaline Phosphatase Troponin I Total Protein Albumin Globulin Albumin/Globulin Ratio Arterial Blood Potassium 3.3 L Urine Color Yellow Urine Clarity Clear Urine pH 5.0 Ur Specific [place] 1.024 Urine Protein 30 Urine Glucose (UA) 50 Urine Ketones Negative Urine Blood Negative Urine Nitrate Negative Urine Bilirubin Negative Urine Urobilinogen 0.2-1.0 Ur Leukocyte Esterase Neg Urine RBC (Auto) 2 Urine Microscopic WBC 2 Ur Squamous Epith Cells < 1 Urine Opiates Screen Negative Urine Methadone Screen Negative Ur Barbiturates Screen Negative Ur Phencyclidine Scrn Negative Ur Amphetamines Screen Negative U Benzodiazepines Scrn Negative U Oth Cocaine Metabols Negative U Cannabinoids Screen Negative Alcohol, Quantitative - EKG Data EKG shows normal: Sinus rhythm Rate: Tachycardia - Imaging and Cardiology CT scan - chest Status: Image reviewed by me, Report reviewed by me Additional comment: FINDINGS: Limitations: No heater operator helper view. Motion artifact - mild. Pulmonary arteries: No definite pulmonary embolism. Aorta: [id number] atherosclerotic disease. Ectasia of ascending thoracic aorta, up to 4.6 cm in diameter. Lungs: Mild atelectasis/scarring. No consolidation. 0.5 cm LEFT lower lobe nodule. Pleural space: No significant effusion. No pneumothorax. Heart: Borderline cardiomegaly. No significant pericardial effusion. Coronary artery calcifications/stent. Bones/joints: Degenerative changes of spine. No acute fracture. Soft tissues: Unremarkable. Lymph nodes: No pathologically enlarged lymph nodes. Gallbladder and bile ducts: Gallstones. Kidneys and ureters: Mild scarring LEFT kidney. Probable LEFT renal cyst vs calyceal dilatation/diverticulum. Too small to characterize lesion within LEFT kidney. IMPRESSION: 1. No definite CT evidence of pulmonary embolism. 2. Pulmonary nodules. For low-risk patients, no follow-up is necessary. For high-risk patients (smoking history or other known risk factors) an optional CT at 12 months could be performed. 3. Incidental/non-acute findings are described above. Assessment & Plan (1) SVT (supraventricular tachycardia) Assessment and Plan: 67 year old male presented with complaints of weakness, found to be tachycardia HR 140s. Started on Cardizem drip. CTA of chest was negative for PE. He has mild leukocytosis. Flu was negative. Patient is hemodynamically stable and lying in bed comfortably. HR 80-90s He has cardiac history significant for CAD s/p stent placement, and is non compliant with his medications. Patients weakness likely 2' to tachyarrythmia, rule out thyroid disease , rule out ACS. Last echo was in July: EF >65% Patient does not have outreach team member. Last seen by Manoj Hagan during a previous admission. Admit to telemetry for further cardiac monitoring. Status: Acute (2) Weakness Status: Acute (3) CAD (coronary artery disease) Assessment and Plan: not on medications resume statin, plavix Status: Chronic (4) Non-insulin dependent type 2 diabetes mellitus Assessment and Plan: repeat hga1c, last was 7.5 in Nov '17 resume metformin accuchecks Status: Chronic (5) Hypertension Status: Chronic
--- NOTE | 2017-03-26 08:58 | CARD ---
APPROVED REPORT EKG Measurement Heart [id number] [place] 156P [id number] <Conclusion> Sinus tachycardia Low voltage QRS Borderline ECG
--- NOTE | 2017-03-26 08:59 | CARD ---
APPROVED REPORT EKG Measurement Heart [id number] SC 142P [id number] <Conclusion> Sinus tachycardia Septal infarct, age undetermined Abnormal ECG
--- NOTE | 2017-03-26 08:59 | CARD ---
APPROVED REPORT EKG Measurement Heart [id number] [place] 144P [id number] <Conclusion> Sinus tachycardia Left axis deviation Abnormal ECG
[2017-03-26] MEDS ORDERED: Enoxaparin 40 mg Syringe SC SCH (09:00)
[2017-03-26 10:01] LABS: ALCOHOL SERUM < 10 mg/dl (0-10); MAGNESIUM 1.8 MG/DL (1.6-2.3); PHOSPHOROUS 2.6 mg/dl (2.5-4.5)
[2017-03-26 16:25] LABS: BASO # 0.1 K/uL (0.0-0.2); BASO % 0.7 % (0.0-2.0); EOS # 0.1 K/uL (0.0-0.7); EOS % 0.7 % (0.0-4.0); HEMATOCRIT 40.7 % (35.0-51.0); LYMPH % 10.9 % (20.0-40.0); MEAN CELL VOLUME 87.2 fl (80.0-94.0); MEAN CORPUSCULAR HEMOGLOBIN 29.2 pg (27.0-31.0); MEAN CORPUSCULAR HGB CONC 33.5 g/dL (33.0-37.0); MEAN PLATELET VOLUME 8.1 fl (7.2-11.7); MONO # 0.8 K/uL (0.0-0.8); MONO % 8.8 % (0.0-10.0); NEUT # 7.3 K/uL (1.8-7.0); NEUT % 78.9 % (50.0-75.0); NRBC % 0.1 % (0.0-0.0); WHITE BLOOD COUNT 9.2 K/uL (4.8-10.8)
[2017-03-26 16:52] LABS: ALB/GLOB RATIO 1.1 (1.0-2.1); ALKALINE PHOSPHATASE 76 U/L (38-126); ALT/SGPT 28 U/L (21-72); AST/SGOT 16 U/L (17-59); BILIRUBIN,TOTAL 1.8 mg/dl (0.2-1.3); BLOOD UREA NITROGEN 13 mg/dl (9-20); CALCIUM 8.4 mg/dL (8.4-10.2); CARBON DIOXIDE 24 mmol/L (22-30); CHLORIDE 103 mmol/L (98-107); GFR AFRICAN-AMERICAN > 60; GLUCOSE,RANDOM 124 mg/dL (75-110); POTASSIUM 3.4 MMOL/L (3.6-5.0); SODIUM 137 mmol/l (132-148); TOTAL PROTEIN 6.7 G/DL (6.3-8.2)
[2017-03-26] MEDS ORDERED: Enoxaparin 80 mg Syringe SC SCH (17:00)
--- NOTE | 2017-03-26 21:04 | CON ---
CARDIOLOGY CONSULTATION REASON FOR CONSULTATION: Rapid atrial fibrillation. HISTORY OF PRESENT ILLNESS: The patient is 67 years old male who is unfortunately homeless, has a history of coronary artery disease, underwent a bare metal stenting to the LAD in 03/2016 after he sustained an anterior wall ST-elevation myocardial infarction. The patient presents because of generalized weakness and monitor revealed atrial flutter with 2:1 conduction. The patient denies any chest pain at this time. PAST MEDICAL HISTORY: Hypertension; diabetes mellitus; coronary artery disease, status post LAD stenting last year. SOCIAL HISTORY: The patient is a smoker and occasional drinker. MEDICATIONS: Cardizem infusion at 7 mL per hour, Glucophage 1 g twice a day, Lipitor 40 mg once a day, Lovenox 40 mg subcutaneous once a day, Plavix 75 mg once a day, Zestril 20 mg once a day. REVIEW OF SYSTEMS: No nausea or vomiting. No fever or chills. No productive cough. PHYSICAL EXAMINATION: GENERAL: The patient is an elderly male who does not appear to be in any acute distress. VITAL SIGNS: Blood pressure 125/73, heart rate 82, temperature 99.2. HEENT: Normocephalic. CHEST: Clear. HEART: S1 and S2 regular. ABDOMEN: Soft. EXTREMITIES: Trace leg edema. LABORATORY DATA: SMA-7: Sodium 136, potassium 3.6, chloride 102, CO2 of 22, glucose 148, BUN 17, creatinine 1.1. A total of 2 sets of troponin are not in the elevated range. CBC: WBC 14.1, hemoglobin 15.5, hematocrit 41.2, platelet count 232,000. PT, PTT and INR are within normal limit. A chest CT angio revealed no evidence of pulmonary embolism. Pulmonary nodules were noted. EKGs were read as sinus tachycardia; however, the possibility of atrial flutter with 2:1 conduction cannot be completely ruled out. Echocardiography study performed in 07/2016 revealed normal ejection fraction. ASSESSMENT: 1. Atrial flutter with 2:1 conduction. 2. Coronary artery disease, status post LAD stenting in 03/2016. 3. Hypertension and diabetes mellitus. RECOMMENDATIONS: Continue Plavix 75 mg once a day, Cardizem infusion, Lipitor 40 mg once a day. Change Lovenox to a therapeutic regimen. Obtain TSH level. Jj Aranda MD
[2017-03-26] MEDS: Enoxaparin 80 mg Syringe SC SCH (21:45)
[2017-03-27 07:49] LABS: ALB/GLOB RATIO 1.1 (1.0-2.1); ALKALINE PHOSPHATASE 68 U/L (38-126); ALT/SGPT 29 U/L (21-72); AST/SGOT 19 U/L (17-59); BILIRUBIN,TOTAL 1.5 mg/dl (0.2-1.3); BLOOD UREA NITROGEN 16 mg/dl (9-20); CALCIUM 8.2 mg/dL (8.4-10.2); CARBON DIOXIDE 26 mmol/L (22-30); CHLORIDE 103 mmol/L (98-107); CHOLESTEROL 159 mg/dL (0-199); GFR AFRICAN-AMERICAN > 60; GLUCOSE,RANDOM 124 mg/dL (75-110); POTASSIUM 3.4 MMOL/L (3.6-5.0); SODIUM 136 mmol/l (132-148); TOTAL PROTEIN 6.5 G/DL (6.3-8.2)
[2017-03-27 07:58] LABS: BASO % 0.6 % (0.0-2.0); EOS # 0.1 K/uL (0.0-0.7); EOS % 2.2 % (0.0-4.0); HEMATOCRIT 38.9 % (35.0-51.0); LYMPH # 0.9 K/uL (1.0-4.3); LYMPH % 13.5 % (20.0-40.0); MEAN CELL VOLUME 87.7 fl (80.0-94.0); MEAN CORPUSCULAR HEMOGLOBIN 29.1 pg (27.0-31.0); MEAN CORPUSCULAR HGB CONC 33.2 g/dL (33.0-37.0); MEAN PLATELET VOLUME 8.3 fl (7.2-11.7); MONO # 0.9 K/uL (0.0-0.8); MONO % 13.7 % (0.0-10.0); NEUT # 4.4 K/uL (1.8-7.0); RED CELL DISTRIBUTION WIDTH 14.1 % (11.5-14.5); WHITE BLOOD COUNT 6.3 K/uL (4.8-10.8)
[2017-03-27 08:01] LABS: T4 5.39 ug/dl (5.5-11.0)
[2017-03-27 08:15] LABS: THYROID STIMULATING HORMONE 2.34 mIU/ML (0.46-4.68)
[2017-03-27] MEDS ORDERED: Potassium Chloride 20 mEq ER Tab PO ONE ×2 (08:36→12:54)
[2017-03-27] MEDS: Enoxaparin 80 mg Syringe SC SCH ×2 (09:23→21:21)
--- NOTE | 2017-03-27 10:13 | CP.PCM.PN ---
Subjective - Date & Time of Evaluation Date of Evaluation: 03/27/17 Time of Evaluation: 10:13 - Subjective Subjective: 67 YO M is seen at bedside. Appears to be doing much better and awake today. He is very talkitive. Denies any chest pain , SOB, N/V/D. Has been eating well , denies any overnight events. Objective - Vital Signs/Intake and Output Vital Signs (last 24 hours): Temp Pulse Resp BP Pulse Ox 97.8 F 76 18 102/57 L 94 L 03/27/17 08:00 03/27/17 09:24 03/27/17 08:00 03/27/17 09:24 03/27/17 08:00 Intake and Output: 03/27/17 03/27/17 06:59 18:59 Intake Total 125 Balance 125 - Medications Medications: Current Medications Atorvastatin Calcium (Lipitor) 40 mg PO HS [facility] Last Admin: 03/26/17 21:45 Dose: 40 mg Clopidogrel Bisulfate (Plavix) 75 mg PO DAILY [facility] Last Admin: 03/27/17 09:24 Dose: 75 mg Enoxaparin Sodium (Lovenox) 80 mg SC Q12 [facility] PRN Reason: Protocol Last Admin: 03/27/17 09:23 Dose: 80 mg Diltiazem HCl 125 mg/ Sodium (Chloride) 125 mls @ 7 mls/hr IV .[id number] ONE; 7 MG/HR PRN Reason: Protocol Stop: 03/27/17 17:07 Last Admin: 03/26/17 23:45 Dose: Not Given Lisinopril (Zestril) 20 mg PO DAILY [facility] Last Admin: 03/27/17 09:24 Dose: 20 mg Metformin HCl (Glucophage) 1,000 mg PO BID [facility] Last Admin: 03/27/17 09:23 Dose: 1,000 mg - Labs Labs: 03/27/17 05:30 03/27/17 05:30 PT 12.8 Seconds (9.8-13.1) 03/25/17 22:59 INR 1.2 (0.9-1.2) 03/25/17 22:59 APTT 28.8 Seconds (25.6-37.1) 03/25/17 22:59 - Head Exam Head Exam: NORMAL INSPECTION - Respiratory Exam Respiratory Exam: Clear to Ausculation Bilateral, NORMAL BREATHING PATTERN. absent: Rhonchi, Wheezes - Cardiovascular Exam Cardiovascular Exam: REGULAR RHYTHM, +S1, +S2 - GI/Abdominal Exam GI & Abdominal Exam: Soft, Normal Bowel Sounds. absent: Tenderness - Neurological Exam Neurological Exam: Alert, Awake, Oriented x3 - Skin Additional comments: Lesions noted all over , skin from the previous scabies which he was treated for Assessment and Plan - Assessment and Plan (Free Text) Assessment: 67 year old male presented with complaints of weakness, found to be tachycardia HR 140s. Started on Cardizem drip. Heart rate has came down to the 60's however , seems to have A flutter. CTA of chest was negative for PE. He has mild leukocytosis. Flu was negative. (1)Atrial flutter - Patient has a history of A Fib - Cardiology is on board - Hemodynamically stable resting comfortably with heart rate in 60-70's - Cardizam drip at 7 - Last echo was in July 2016, EF:65 - Continue telemetry - Lovenox 80 SC Q12 - Will follow up with cardiology recommendations (2) Weakness ( improved) Status: Acute - No blood growth in 24 hours. WBC trending down (3) CAD (coronary artery disease) Assessment and Plan: He has cardiac history significant for CAD s/p stent placement, 03/2016. not on medications resume statin, plavix Status: Chronic (4) Non-insulin dependent type 2 diabetes mellitus Assessment and Plan: repeat hga1c, last was 7.5 in Feb resume metformin accuchecks Status: Chronic (5) Hypertension Status: Chronic - Continue home meds (6) Hypokalemia - K+ : 3.4 - 20 KDUR PO dose given - F/U with K+
--- NOTE | 2017-03-28 00:52 | PN ---
DATE: SUBJECTIVE: The patient is currently in sinus rhythm. He denies chest pain. PHYSICAL EXAMINATION: VITAL SIGNS: Blood pressure 110/67, heart rate 59, temperature 97.8, respirations 16. HEENT: Normocephalic. CHEST: Bilateral rhonchi. HEART: S1 and S2 regular. EXTREMITIES: No edema. LABORATORY DATA: SMA-7 is within normal limits except for glucose of 124 and potassium of 3.4. Hemoglobin, hematocrit, white count, and platelet count are within normal limit. ASSESSMENT: 1. Paroxysmal atrial fibrillation/atrial flutter. 2. History of coronary artery disease status post left anterior descending stenting in 03/2016. 3. Hypertension and diabetes mellitus. RECOMMENDATIONS: Continue current therapeutic subcutaneous Lovenox at 80 mg twice a day. Continue Lopressor 25 mg q. 8 hours, Lipitor at 40 mg once a day, Zestril 20 mg once a day. The patient will be evaluated by litigation docket manager. Jj Aranda MD
[2017-03-28 07:52] LABS: HEMATOCRIT 39.1 % (35.0-51.0); MEAN CELL VOLUME 87.8 fl (80.0-94.0); MEAN CORPUSCULAR HEMOGLOBIN 29.3 pg (27.0-31.0); MEAN CORPUSCULAR HGB CONC 33.4 g/dL (33.0-37.0); RED CELL DISTRIBUTION WIDTH 13.8 % (11.5-14.5); WHITE BLOOD COUNT 5.6 K/uL (4.8-10.8)
[2017-03-28 07:58] LABS: BLOOD UREA NITROGEN 15 mg/dl (9-20); CALCIUM 8.3 mg/dL (8.4-10.2); CARBON DIOXIDE 26 mmol/L (22-30); CHLORIDE 104 mmol/L (98-107); GFR AFRICAN-AMERICAN > 60; GLUCOSE,RANDOM 115 mg/dL (75-110); POTASSIUM 3.6 MMOL/L (3.6-5.0); SODIUM 136 mmol/l (132-148)
[2017-03-28] MEDS: Enoxaparin 80 mg Syringe SC SCH ×2 (09:04→21:23)
--- NOTE | 2017-03-28 09:59 | CP.PCM.PN ---
Subjective - Date & Time of Evaluation Date of Evaluation: 03/28/17 Time of Evaluation: 08:56 - Subjective Subjective: Patient seen and examined at bedside. Episode of tachycardia overnight, asymptomatic. Denies any chest pain, palpitations, SOB, N/V/D. Has been eating well. Cardio following patient. Pending EPS consult and Echocardiogram. Drip d/c 'ed yesterday Objective - Vital Signs/Intake and Output Vital Signs (last 24 hours): Temp Pulse Resp BP Pulse Ox 98.0 F 60 18 114/63 96 03/28/17 08:00 03/28/17 09:06 03/28/17 08:00 03/28/17 09:06 03/28/17 08:00 - Medications Medications: Current Medications Atorvastatin Calcium (Lipitor) 40 mg PO HS [facility] Last Admin: 03/27/17 21:17 Dose: 40 mg Clopidogrel Bisulfate (Plavix) 75 mg PO DAILY [facility] Last Admin: 03/28/17 09:05 Dose: 75 mg Enoxaparin Sodium (Lovenox) 80 mg SC Q12 [facility] PRN Reason: Protocol Last Admin: 03/28/17 09:04 Dose: 80 mg Lisinopril (Zestril) 20 mg PO DAILY [facility] Last Admin: 03/28/17 09:06 Dose: 20 mg Metformin HCl (Glucophage) 1,000 mg PO BID [facility] Last Admin: 03/28/17 09:04 Dose: 1,000 mg Metoprolol Tartrate (Lopressor) 25 mg PO Q8@0500,1300,2100 [facility] Last Admin: 03/28/17 04:30 Dose: 25 mg - Labs Labs: 03/28/17 06:30 03/28/17 06:30 PT 12.8 Seconds (9.8-13.1) 03/25/17 22:59 INR 1.2 (0.9-1.2) 03/25/17 22:59 APTT 28.8 Seconds (25.6-37.1) 03/25/17 22:59 - Constitutional Appears: Well, Non-toxic, No Acute Distress - Head Exam Head Exam: ATRAUMATIC, NORMAL INSPECTION, NORMOCEPHALIC - Respiratory Exam Respiratory Exam: Clear to Ausculation Bilateral, NORMAL BREATHING PATTERN - Cardiovascular Exam Cardiovascular Exam: REGULAR RHYTHM, +S1, +S2. absent: Murmur - GI/Abdominal Exam GI & Abdominal Exam: Soft, Normal Bowel Sounds. absent: Tenderness - Neurological Exam Neurological Exam: Alert, Awake, Oriented x3 - Psychiatric Exam Psychiatric exam: Normal Affect, Normal Mood - Skin Skin Exam: Dry, Intact, Normal Color, Warm Assessment and Plan - Assessment and Plan (Free Text) Assessment: 67 year old male presented with complaints of weakness, found to be tachycardia HR 140s. Started on Cardizem drip. Heart rate normalized however, seems to have A flutter. CTA of chest was negative for PE. (1) Atrial flutter - Patient has a history of A Fib - Cardiology is on board - Hemodynamically stable resting comfortably with heart rate in 60-70's - Cardizam drip discontinued yesterday - Last echo was in July 2016, EF:65, repeat pending - Continue telemetry - Lovenox 80 SC Q12 - Will follow up with cardiology recommendations as well as EPS consult, Dr. Mchugh (2) CAD (coronary artery disease) - s/p stent placement, 03/2016. - c/w statin, plavix - heart healthy diet (3) Non-insulin dependent type 2 diabetes mellitus - repeat hga1c pending, last was 7.5 in Feb - c/w metformin - accuchecks - diabetic diet (4) Hypertension - Chronic, stable - Continue home meds (5) Hypokalemia - K+ : 3.6, resolved s/p kdur 20 - continue to monitor
--- NOTE | 2017-03-28 17:33 | PN ---
DATE: SUBJECTIVE: The patient developed rapid atrial fibrillation early this morning that required digoxin 0.25 mg intravenously. PHYSICAL EXAMINATION: VITAL SIGNS: Blood pressure 119/74, heart rate 62, temperature 97.6, respirations 18. HEENT: Normocephalic. CHEST: Minimal rhonchi. HEART: S1 and S2 regular. EXTREMITIES: No edema. LABORATORY DATA: Today's CBC is within normal limits. Today's SMA-7 is within normal limits except for glucose of 115. ASSESSMENT: 1. Paroxysmal atrial fibrillation/atrial flutter. 2. History of coronary artery disease, status post left anterior descending artery stenting in March of last year. 3. Hypertension and diabetes mellitus. RECOMMENDATIONS: Continue current Plavix 75 mg once a day, therapeutic subcutaneous Lovenox 80 mg twice a day, Zestril 20 mg once a day, Lipitor 40 mg once a day. Obtain a 12-lead EKG. Awaiting electrophysiology evaluation. Jj Aranda MD
--- NOTE | 2017-03-29 07:38 | CP.PCM.PN ---
Subjective - Date & Time of Evaluation Date of Evaluation: 03/29/17 Time of Evaluation: 15:41 - Subjective Subjective: 67 YO M seen at bedside resting comfortably. States he is doing well. Slept well and has been eating well. - No overnight events reported - Denies chest pain, SOB, N/V/D Objective - Vital Signs/Intake and Output Vital Signs (last 24 hours): Temp Pulse Resp BP Pulse Ox 98.2 F 54 L 18 118/81 96 03/29/17 04:56 03/29/17 05:00 03/29/17 04:56 03/29/17 05:00 03/29/17 04:56 - Medications Medications: Current Medications Atorvastatin Calcium (Lipitor) 40 mg PO HS [facility] Last Admin: 03/28/17 21:23 Dose: 40 mg Clopidogrel Bisulfate (Plavix) 75 mg PO DAILY [facility] Last Admin: 03/28/17 09:05 Dose: 75 mg Enoxaparin Sodium (Lovenox) 80 mg SC Q12 [facility] PRN Reason: Protocol Last Admin: 03/28/17 21:23 Dose: 80 mg Lisinopril (Zestril) 20 mg PO DAILY [facility] Last Admin: 03/28/17 09:06 Dose: 20 mg Metformin HCl (Glucophage) 1,000 mg PO BID [facility] Last Admin: 03/28/17 17:53 Dose: 1,000 mg Metoprolol Tartrate (Lopressor) 25 mg PO Q8@0500,1300,2100 [facility] Last Admin: 03/29/17 05:00 Dose: Not Given - Labs Labs: 03/28/17 06:30 03/28/17 06:30 PT 12.8 Seconds (9.8-13.1) 03/25/17 22:59 INR 1.2 (0.9-1.2) 03/25/17 22:59 APTT 28.8 Seconds (25.6-37.1) 03/25/17 22:59 - Constitutional Appears: In Acute Distress - Respiratory Exam Respiratory Exam: Clear to Ausculation Bilateral, NORMAL BREATHING PATTERN. absent: Rales, Rhonchi - Cardiovascular Exam Cardiovascular Exam: REGULAR RHYTHM, +S1, +S2 - GI/Abdominal Exam GI & Abdominal Exam: Soft, Normal Bowel Sounds - Extremities Exam Extremities Exam: Full ROM - Neurological Exam Neurological Exam: Alert, Awake, CN II-XII Intact - Skin Skin Exam: Dry, Warm Assessment and Plan - Assessment and Plan (Free Text) Assessment: 67 year old male presented with complaints of weakness, found to be tachycardia HR 140s. Started on Cardizem drip. Heart rate normalized however, seems to have A flutter. CTA of chest was negative for PE. (1) Atrial flutter - Patient has a history of A Fib - Cardiology is on board - Hemodynamically stable resting comfortably with heart rate in 60-70's - Last echo was in July 2016, EF:65, Awaiting repeat ECHO - Continue telemetry - Lovenox 80 SC Q12 - Warfarin 5mg Started - Metoprolol 25 mg Q8 - Will follow up with cardiology recommendations - Electrophysiology consult appreciated - Will most likely discharge home tomorrow on warfarin. F/U with echo (2) CAD (coronary artery disease) - s/p stent placement, 03/2016. - c/w statin, plavix - heart healthy diet (3) Non-insulin dependent type 2 diabetes mellitus - HBA1C: 6.9 - c/w metformin - accuchecks - diabetic diet (4) Hypertension - Chronic, stable - Continue home meds (5) Hypokalemia ( resolved) - K+ : 4.1 (6) DVT prophylaxis On therapeutic lovenox
--- NOTE | 2017-03-29 09:12 | CON ---
DATE: INPATIENT ELECTROPHYSIOLOGY CONSULTATION REASON FOR EVALUATION: 1. Atrial tachycardia. 2. History of atrial fibrillation. REFERRING PHYSICIAN: I was asked to see the patient by Dr. Aranda for the above reasons. HISTORY OF PRESENT ILLNESS: Mr. Gaston Altman is a 67-year-old male with past medical history significant for hypertension, diabetes, coronary artery disease, status post anterior wall myocardial infarction in 03/2016, requiring LAD stenting, who presents to [facility] with tachycardia and chest discomfort. The patient detailed a history of having atrial fibrillation, had been on Coumadin in the past, but is no longer Coumadin secondary to his circumstances. The patient had been living in [place] all his life. Unfortunately, he now is homeless and he is currently requiring living in various shelters. EKG shows narrow complex tachycardia in 140 to 150s, which is currently controlled on Cardizem drip. I have been asked to see him in regards to further evaluation and management. Initial EKGs were thought to be consistent with atrial flutter. The patient is currently without palpitations or chest pains and feels well. He admittedly has not been complaint with medications. SOCIAL HISTORY: The patient is currently nonsmoker, occasionally drinks. No drug abuse. 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 MEDICATIONS: Currently, include Cardizem at a low dose 7 mL/hour, Glucophage 1 g b.i.d., Lipitor 40 mg p.o. at bedtime, Lovenox 40 mg subQ daily, Plavix 75 mg p.o. daily, and Vistaril 20 mg p.o. daily. ALLEGIES: THE PATIENT IS ALLERGIC TO ASPIRIN AND DEVELOPS A SEVERE RASH. REVIEW OF SYSTEMS: Denies any fevers, chills, change in appetite, weight gain, weight loss, visual disturbances, diplopia, blurry vision, nasal discharge, epistaxis, cough, wheezes, sputum production, heat or cold intolerance, polydipsia, or polyphagia. Denies any current chest pain or palpitations. No history of syncope. Abdomen is soft, nontender, and nondistended. Positive bowel sounds. Extremities, no cyanosis or clubbing. Trace lower extremity edema. Peripheral pulses are 2+ and symmetrical in bilateral upper and lower extremities. PHYSICAL EXAMINATION: GENERAL: He is a well-developed, well-nourished, somewhat unkempt, but a very pleasant male, no acute distress. VITAL SIGNS: Pulse rate is 74, blood pressure is 102/57, temperature 97.8. HEENT: Examination of his head is normocephalic and atraumatic. There is no sravan facial asymmetry. Mucous membranes appear moist. NECK: Supple. No jugular venous distention. No carotid bruits. CHEST: Clear to auscultation bilaterally. CARDIOVASCULAR: Regular rate and rhythm. S1 and S2. No S3 or S4. ABDOMEN: Soft, nontender, and nondistended. Positive bowel sounds. EXTREMITIES: No cyanosis or clubbing. Trace lower extremity edema. Peripheral pulses are 2+ and symmetric in bilateral upper and lower extremities. LABORATORY DATA: On review of relevant lab work, the patient has a white count of 6.3, H and H of 12.9 and 38.9, platelets of 219. Potassium 3.4, sodium of 136, BUN and creatinine of 16 and 1.1. Calcium is 8.2, total bilirubin 1.5, ALT and AST are 19 and 29 respectively, alkaline phosphatase is 68, albumin is 3.4. Triglyceride of 161, LDL of 109, HDL of 22, thyroxine is 5.39, but the TSH is within normal limits. The patient is currently in normal sinus rhythm. On telemetry, there are periods of brief tachycardia into the 130s. EKG on presentation shows narrow complex tachycardia at 149 beats per minute. There are superiorly T waves that are likely consistent with a low atrial tachycardia or atypical AVNRT at 149 beats per minute. There are no map-able rhythms that are consistent with flutter at this point, although there is baseline artifact. There is borderline R-wave progression with appearance of R-waves and V3, which may be considered anteroseptal infarct, nonspecific ST-T-wave changes are noted, QT and QTc are 304 and 478 respectively. ASSESSMENT AND PLAN: 1. 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 At this point, we would suggest continue management with medical therapy. I have put in an order to transition from Cardizem to divided-dose metoprolol, being that the blood pressure is somewhat marginal. If the patient's arrhythmia appears to be controlled with medical therapy, which is necessary for coronary artery disease and medical management anyway, we will consider an ablation. I have discussed this with the patient in detail. 2. History of atrial fibrillation. The patient gave the history of being on Coumadin in the past. At this point, given his current situation, anticoagulation will be difficult given his situation despite having an elevated JOVANA VASC score. The patient is atrial tachycardic, which will certainly put him into atrial fibrillation. Further documentation of prior episodes may be necessary. 3. Hypokalemia. We will replace potassium to keep greater than 4.0. 4. History of coronary artery disease and atherosclerotic heart disease. Management as per Dr. Jj Aranda. Thank you for allowing me to participate in the care of your patient. Please do not hesitate to call if you have any questions in regards to his care. Sincerely, Pepe Thayer MD cc: Jj Aranda MD
[2017-03-29] MEDS: Enoxaparin 80 mg Syringe SC SCH ×2 (11:13→20:59)
[2017-03-29 13:50] LABS: BASO # 0.1 K/uL (0.0-0.2); BASO % 1.3 % (0.0-2.0); EOS # 0.2 K/uL (0.0-0.7); EOS % 3.5 % (0.0-4.0); LYMPH # 1.3 K/uL (1.0-4.3); LYMPH % 26.1 % (20.0-40.0); MEAN CELL VOLUME 87.5 fl (80.0-94.0); MEAN CORPUSCULAR HEMOGLOBIN 29.1 pg (27.0-31.0); MEAN CORPUSCULAR HGB CONC 33.3 g/dL (33.0-37.0); MEAN PLATELET VOLUME 8.3 fl (7.2-11.7); MONO # 0.7 K/uL (0.0-0.8); MONO % 14.1 % (0.0-10.0); NEUT # 2.8 K/uL (1.8-7.0); NRBC % 0.2 % (0.0-0.0); WHITE BLOOD COUNT 5.1 K/uL (4.8-10.8)
[2017-03-29 13:55] LABS: ALB/GLOB RATIO 1.1 (1.0-2.1); ALKALINE PHOSPHATASE 77 U/L (38-126); ALT/SGPT 29 U/L (21-72); AST/SGOT 22 U/L (17-59); BLOOD UREA NITROGEN 16 mg/dl (9-20); CALCIUM 9.2 mg/dL (8.4-10.2); CARBON DIOXIDE 22 mmol/L (22-30); CHLORIDE 106 mmol/L (98-107); GFR AFRICAN-AMERICAN > 60; GLUCOSE,RANDOM 106 mg/dL (75-110); POTASSIUM 4.1 MMOL/L (3.6-5.0); SODIUM 138 mmol/l (132-148); TOTAL PROTEIN 7.3 G/DL (6.3-8.2)
--- NOTE | 2017-03-29 19:14 | CARD ---
APPROVED REPORT EXAM: Two-dimensional and M-mode echocardiogram with Doppler and color Doppler. Other Information Quality : GoodRhythm : NSR INDICATION Abnormal EKG/Arrhythmia 2D DIMENSIONS IVSd1.43 (0.7-1.1cm)LVDd4.78 (3.9-5.9cm) LVOT Diameter2.53 (1.8-2.4cm)PWd0.74 (0.7-1.1cm) IVSs1.52 (0.8-1.2cm)LVDs2.91 (2.5-4.0cm) FS (%) 39.1 %PWs1.33 (0.8-1.2cm) LVEF (%)55.0 (>50%) M-Mode DIMENSIONS Left Atrium (MM)3.74 (2.5-4.0cm)IVSd1.29 (0.7-1.1cm) Aortic Root3.82 (2.2-3.7cm)LVDd5.26 (4.0-5.6cm) Aortic Cusp Exc.2.21 (1.5-2.0cm)PWd1.24 (0.7-1.1cm) IVSs2.06 cmFS (%) 47 % LVDs2.76 (2.0-3.8cm)PWs1.71 cm Mitral Valve MV E Jnjvosvp14.5cm/sMV DECEL [id number] A Gugyhdpw06.4cm/s MV [id number]/A ratio0.8MVA (PHT)1.88cm2 TDI Lateral E' Peak V7.01cm/sMedial E' Peak V4.97cm/sE/Lateral E'6.5 E/Medial E'9.2 Pulmonary Valve PV Peak Znblfunt17.4cm/s LEFT VENTRICLE The left ventricle is normal size. There is mild concentric left ventricular hypertrophy. The left ventricular function is normal. The left ventricular ejection fraction is within the normal range. There is normal LV segmental wall motion. Transmitral Doppler flow pattern is Grade I-abnormal relaxation pattern. RIGHT VENTRICLE The right ventricle is normal size. There is normal right ventricular wall thickness. The right ventricular systolic function is normal. ATRIA The left atrium size is normal. The right atrium size is normal. AORTIC VALVE The aortic valve is mildly thickened. There is mild aortic regurgitation. There is no aortic valvular stenosis. MITRAL VALVE The mitral valve is mildly thickened. There is no mitral valve stenosis. There is no mitral valve regurgitation noted. TRICUSPID VALVE The tricuspid valve is normal in structure. There is no tricuspid valve regurgitation noted. PULMONIC VALVE The pulmonary valve is normal in structure. There is no pulmonic valvular regurgitation. GREAT VESSELS The aortic root is mildly enlarged. The IVC was not visualized. PERICARDIAL EFFUSION The pericardium appears normal. <Conclusion> The left ventricle is normal size. There is mild concentric left ventricular hypertrophy. The left ventricular function is normal. The left ventricular ejection fraction is within the normal range. There is normal LV segmental wall motion. Transmitral Doppler flow pattern is Grade I-abnormal relaxation pattern. There is mild aortic regurgitation. The aortic root is mildly enlarged.
--- NOTE | 2017-03-29 21:09 | PN ---
SUBJECTIVE: The patient was evaluated by Dr. Thayer, the power transformer assembler, and his assessment for supraventricular tachycardia which is likely low-rate atrial tachycardia where there is atypical slow atrioventricular nicolasa reentry tachycardia. At this point, suggest continuous management. History of atrial fibrillation with a history of being on Coumadin in the past. At this point and given the current situation, anticoagulation will be difficult given the situation despite having an elevated CHADS score. The patient is in atrial tachycardia which will certainly put into atrial fibrillation. Further documentation of prior episode may be necessary. The patient denies any chest pain at this time. He is in sinus rhythm. OBJECTIVE: VITAL SIGNS: Blood pressure 116/70, heart rate 64, temperature 98.6, respirations 18. HEENT: Normocephalic. CHEST: Clear. HEART: S1 and S2 regular. EXTREMITIES: No edema. LABORATORY DATA: Today's blood sugars are 119 and 157. ASSESSMENT: 1. History of coronary artery disease, status post left anterior descending artery stenting in March of last year. 2. Hypertension and diabetes mellitus. 3. Supraventricular tachycardia. 4. History of atrial fibrillation. RECOMMENDATIONS: As per Electrophysiology evaluation, anticoagulation will be difficult; however, I discussed with the medical team that the patient can be started on Coumadin therapy and given 1 week's supply and if the patient follows up as an outpatient, then can be maintained. The choice of Coumadin is because of the patient has to buy his medications when he gets his social security check with francis money. In the meantime, the patient can be maintained on Lopressor at 25 mg twice a day, Lipitor 40 mg once a day, and Plavix will be discontinued. Jj Aranda MD
[2017-03-30 00:14] VITALS: RESP 18
[2017-03-30] MEDS: Enoxaparin 80 mg Syringe SC SCH (08:47)
--- NOTE | 2017-03-30 11:16 | CP.PCM.DIS ---
Provider - Provider Date of Admission: 03/26/17 03:24 Attending physician: Rhonda Estevez MD Consults: Dr. Pickens @ [facility] 9:30 AM Time Spent in preparation of Discharge (in minutes): 30 Diagnosis - Discharge Diagnosis (1) Atrial flutter Status: Acute (2) SVT (supraventricular tachycardia) Status: Acute Hospital Course - Lab Results Lab Results: Micro Results 03/26/17 09:10 Blood Blood Culture - Preliminary NO GROWTH AFTER 4 DAYS Most Recent Lab Values WBC 5.1 K/uL (4.8-10.8) 03/29/17 13:20 RBC 4.91 Mil/uL (4.40-5.90) 03/29/17 13:20 Hgb 14.3 g/dL (12.0-18.0) 03/29/17 13:20 Hct 43.0 % (35.0-51.0) 03/29/17 13:20 MCV 87.5 fl (80.0-94.0) 03/29/17 13:20 MCH 29.1 pg (27.0-31.0) 03/29/17 13:20 MCHC 33.3 g/dL (33.0-37.0) 03/29/17 13:20 RDW 14.0 % (11.5-14.5) 03/29/17 13:20 Plt Count 263 K/uL (130-400) 03/29/17 13:20 MPV 8.3 fl (7.2-11.7) 03/29/17 13:20 Neut % (Auto) 55.0 % (50.0-75.0) 03/29/17 13:20 Lymph % (Auto) 26.1 % (20.0-40.0) 03/29/17 13:20 Lane % (Auto) 14.1 % (0.0-10.0) H 03/29/17 13:20 Eos % (Auto) 3.5 % (0.0-4.0) 03/29/17 13:20 Baso % (Auto) 1.3 % (0.0-2.0) 03/29/17 13:20 Neut # 2.8 K/uL (1.8-7.0) 03/29/17 13:20 Lymph # 1.3 K/uL (1.0-4.3) 03/29/17 13:20 Lane # 0.7 K/uL (0.0-0.8) 03/29/17 13:20 Eos # 0.2 K/uL (0.0-0.7) 03/29/17 13:20 Baso # 0.1 K/uL (0.0-0.2) 03/29/17 13:20 PT 12.2 Seconds (9.8-13.1) 03/29/17 13:20 INR 1.1 (0.9-1.2) 03/29/17 13:20 APTT 28.8 Seconds (25.6-37.1) 03/25/17 22:59 pCO2 32 mm/Hg (35-45) L 03/25/17 23:42 pO2 68 mm/Hg (80-100) L 03/25/17 23:42 HCO3 25.6 mmol/L (21-28) 03/25/17 23:42 ABG pH 7.48 (7.35-7.45) H 03/25/17 23:42 ABG Total CO2 24.8 mmol/L (22-28) 03/25/17 23:42 ABG O2 Saturation 98.7 % (95-98) H 03/25/17 23:42 ABG Base Excess 0.9 mmol/L (-2.0-3.0) 03/25/17 23:42 Scott Test Yes 03/25/17 23:42 ABG Potassium 3.3 mmol/L (3.6-5.2) L 03/25/17 23:42 A-a O2 Difference 42.0 mm/Hg 03/25/17 23:42 Sodium 132.0 mmol/L (132-148) 03/25/17 23:42 Chloride 104.0 mmol/L (98-107) 03/25/17 23:42 Glucose 148 mg/dL (75-110) H 03/25/17 23:42 Lactate 0.8 mmol/L (0.7-2.1) 03/25/17 23:42 Vent Mode Room air 03/25/17 23:42 FiO2 21.0 % 03/25/17 23:42 Sodium 138 mmol/l (132-148) 03/29/17 13:20 Potassium 4.1 MMOL/L (3.6-5.0) 03/29/17 13:20 Chloride 106 mmol/L (98-107) 03/29/17 13:20 Carbon Dioxide 22 mmol/L (22-30) 03/29/17 13:20 Anion Gap 14 (10-20) 03/29/17 13:20 BUN 16 mg/dl (9-20) 03/29/17 13:20 Creatinine 0.9 mg/dl (0.8-1.5) 03/29/17 13:20 Est GFR ( Amer) > 60 03/29/17 13:20 Est GFR (Non-Af Amer) > 60 03/29/17 13:20 POC Glucose (mg/dL) 130 mg/dL (65-110) H 03/30/17 11:02 Random Glucose 106 mg/dL (75-110) 03/29/17 13:20 Hemoglobin A1c 6.9 % (4.2-6.5) H 03/27/17 05:30 Calcium 9.2 mg/dL (8.4-10.2) 03/29/17 13:20 Phosphorus 2.6 mg/dl (2.5-4.5) 03/26/17 09:00 Magnesium 1.8 MG/DL (1.6-2.3) 03/26/17 09:00 Total Bilirubin 1.0 mg/dl (0.2-1.3) 03/29/17 13:20 AST 22 U/L (17-59) 03/29/17 13:20 ALT 29 U/L (21-72) 03/29/17 13:20 Alkaline Phosphatase 77 U/L (38-126) 03/29/17 13:20 Troponin I 0.0150 ng/mL (0.00-0.120) 03/26/17 16:08 Total Protein 7.3 G/DL (6.3-8.2) 03/29/17 13:20 Albumin 3.8 g/dL (3.5-5.0) 03/29/17 13:20 Globulin 3.5 gm/dL (2.2-3.9) 03/29/17 13:20 Albumin/Globulin Ratio 1.1 (1.0-2.1) 03/29/17 13:20 Triglycerides 161 mg/DL (0-149) H 03/27/17 05:30 Cholesterol 159 mg/dL (0-199) 03/27/17 05:30 LDL Cholesterol Direct 109 mg/dL (0-129) 03/27/17 05:30 HDL Cholesterol 22 MG/DL (30-70) L 03/27/17 05:30 Procalcitonin < 0.05 NG/ML (0.19-0.49) L 03/26/17 09:10 Thyroxine (T4) 5.39 ug/dl (5.5-11.0) L 03/27/17 05:30 TSH 3rd Generation 2.34 mIU/ML (0.46-4.68) 03/27/17 05:30 Arterial Blood Potassium 3.3 mmol/L (3.6-5.2) L 03/25/17 23:42 Urine Color Yellow (YELLOW) 03/25/17 23:20 Urine Clarity Clear (Clear) 03/25/17 23:20 Urine pH 5.0 (5.0-8.0) 03/25/17 23:20 Ur Specific Bath 1.024 (1.003-1.030) 03/25/17 23:20 Urine Protein 30 mg/dL (NEGATIVE) 03/25/17 23:20 Urine Glucose (UA) 50 mg/dL (Normal) 03/25/17 23:20 Urine Ketones Negative mg/dL (NEGATIVE) 03/25/17 23:20 Urine Blood Negative (NEGATIVE) 03/25/17 23:20 Urine Nitrate Negative (NEGATIVE) 03/25/17 23:20 Urine Bilirubin Negative (NEGATIVE) 03/25/17 23:20 Urine Urobilinogen 0.2-1.0 mg/dL (0.2-1.0) 03/25/17 23:20 Ur Leukocyte Esterase Neg Mago/uL (Negative) 03/25/17 23:20 Urine RBC (Auto) 2 /hpf (0-3) 03/25/17 23:20 Urine Microscopic WBC 2 /hpf (0-5) 03/25/17 23:20 Ur Squamous Epith Cells < 1 /hpf (0-5) 03/25/17 23:20 Urine Opiates Screen Negative (NEGATIVE) 03/25/17 23:30 Urine Methadone Screen Negative (NEGATIVE) 03/25/17 23:30 Ur Barbiturates Screen Negative (NEGATIVE) 03/25/17 23:30 Ur Phencyclidine Scrn Negative (NEGATIVE) 03/25/17 23:30 Ur Amphetamines Screen Negative (NEGATIVE) 03/25/17 23:30 U Benzodiazepines Scrn Negative (NEGATIVE) 03/25/17 23:30 U Oth Cocaine Metabols Negative (NEGATIVE) 03/25/17 23:30 U Cannabinoids Screen Negative (NEGATIVE) 03/25/17 23:30 Alcohol, Quantitative < 10 mg/dl (0-10) 03/26/17 09:00 HIV-1 Ab Rapid Screen Non reactive (NON REAC) 03/26/17 10:04 HIV 1&2 Ag/Ab, 4th Gen Nonreactive (Nonreactive) 03/26/17 10:04 Influenza Typ A,B (EIA) Negative for flu a/b (NEGATIVE) 03/26/17 09:00 - Hospital Course Hospital Course: 67 YO M w/ h/o atrial fibrilation was admitted for weakness. Patient has not been taking any of his home medications. He was found to have SVT in the ER and was put on a cardizam drip. Patients heart rate was controlled to 60's -70's on the cardizam drip. Cardiology and Electrophysiology was consulted. Patient was then noted to have Atrial flutter. He was put on therapeutic dosage of Lovenox. Patient had and echo done and showed an EF of 50%. - [facility] on Metoprolol and have given him Warfarin to take, and advised to get blood test done before seeing PMD. Amulatory Orders Lipitor 40 mg HS Lisinopril 20 mg Metformin 500 mg BID ( dose decreased). PAtient has not been taking medication on outpatient and HBA1c inpatient was 6.7 Lopressor 25 mg Q12 Coumadin 5mg PO daily - Plavix has been stopped as per cardiology - PT/INR by 04/01/17 before appointment with PMD - Follow up with PMD on04/05/17 @9:30 AM Discharge Exam - Head Exam Head Exam: ATRAUMATIC, NORMAL INSPECTION, NORMOCEPHALIC - Eye Exam Eye Exam: Normal appearance - Respiratory Exam Respiratory Exam: Clear to PA & Lateral, NORMAL BREATHING PATTERN. absent: Rales, Rhonchi, Wheezes, Respiratory Distress - Cardiovascular Exam Cardiovascular Exam: REGULAR RHYTHM, +S1, +S2 - GI/Abdominal Exam GI & Abdominal Exam: Normal Bowel Sounds, Soft - Neurological Exam Neurological exam: Alert, CN II-XII Intact, Oriented x3 - Skin Skin Exam: Normal Color, Warm Discharge Plan - Discharge Medications Prescriptions: Atorvastatin [Lipitor] 40 mg PO HS 30 Days tab Clopidogrel [Plavix] 75 mg PO DAILY 30 Days #30 tab Lisinopril [Zestril] 20 mg PO DAILY 30 Days tab metFORMIN [glucOPHAGE] 500 mg PO BID 30 Days tab Metoprolol Tartrate [Lopressor] 25 mg PO Q12 30 Days tab Warfarin [Coumadin] 5 mg PO 1800 #11 tab - Follow Up Plan Condition: GOOD Disposition: HOME/ ROUTINE Additional Instructions: Patient has an appointment with Dr. Pickens on 04/05/17 @ 9:30 am. Please get Blood work done on 04/02/17, before and going to see Dr. Pickens ER precautions have been given. Referrals: Brian Pickens DO [Resident] -
[2017-03-30 12:42] VITALS: BP 126/77; PULSE 60; TEMP 98; O2SAT 96
--- NOTE | 2017-03-30 15:11 | PN ---
DATE: SUBJECTIVE: The patient denies chest pain. No reported atrial fibrillation. PHYSICAL EXAMINATION: VITAL SIGNS: Blood pressure 120/71, heart rate 62, temperature 97.9, respirations 18. HEENT: Normocephalic. HEART: S1 and S2, regular. CHEST: Clear. EXTREMITIES: No edema. LABORATORY DATA: Today's blood sugar is 99. Blood culture is negative after 4 days. ASSESSMENT: 1. Supraventricular tachycardia. 2. Coronary artery disease, status post left anterior descending stenting last year. 3. Hypertension and diabetes mellitus. 4. History of atrial fibrillation. RECOMMENDATIONS: Continue metformin 1 g twice a day, Lipitor 40 mg once daily, Lopressor 25 mg once a day, Plavix 75 mg once a day, Zestril 20 mg once a day. Coumadin was given 5 mg yesterday and the patient can be maintained as an outpatient at 5 mg orally daily for a period of one week until he shows in the clinic for followup PT, INR, and if the patient maintains his compliance, then the patient can be maintained on Coumadin therapy. Jj Aranda MD
== END 2017-03-30 17:05 | disposition home or self-care (01) | DRG 310 ==
LOC: H.ER 22:11 → H.ERHOLD 03-26 03:24 → H.TEL 03-26 05:12
PROVIDERS: ADMIT Family Medicine Geriatric Medicine; ATTEND Family Medicine Geriatric Medicine
DX: I47.1 Supraventricular tachycardia (principal); E11.22 Type 2 diabetes mellitus with diabetic chronic kidney disease; E11.59 Type 2 diabetes mellitus with other circulatory complications; I48.0 Paroxysmal atrial fibrillation; I48.92 Unspecified atrial flutter; E78.00 Pure hypercholesterolemia, unspecified; E78.5 Hyperlipidemia, unspecified; E87.6 Hypokalemia; F17.200 Nicotine dependence, unspecified, uncomplicated; I12.9 Hypertensive chronic kidney disease with stage 1 through stage 4 chronic kidney disease, or unspecified chronic kidney disease; I25.10 Atherosclerotic heart disease of native coronary artery without angina pectoris; I25.2 Old myocardial infarction; N18.9 Chronic kidney disease, unspecified; N40.0 Benign prostatic hyperplasia without lower urinary tract symptoms; Z59.0 Homelessness; Z79.01 Long term (current) use of anticoagulants; Z79.02 Long term (current) use of antithrombotics/antiplatelets; Z79.84 Long term (current) use of oral hypoglycemic drugs; Z79.899 Other long term (current) drug therapy; Z80.3 Family history of malignant neoplasm of breast; Z86.73 Personal history of transient ischemic attack (TIA), and cerebral infarction without residual deficits; Z87.442 Personal history of urinary calculi; Z91.14 Patient's other noncompliance with medication regimen; Z95.5 Presence of coronary angioplasty implant and graft; M54.9 Dorsalgia, unspecified; M25.559 Pain in unspecified hip; R91.8 Other nonspecific abnormal finding of lung field

== ENCOUNTER 2017-03-30 20:59 | Emergency (ER) | payer MEDICARE, MEDICAID ==
[2017-03-30 20:59] VITALS: BMI 26.6
[2017-03-30 22:56] LABS: BASO % 0.4 % (0.0-2.0); EOS # 0.1 K/uL (0.0-0.7); EOS % 1.4 % (0.0-4.0); HEMATOCRIT 44.5 % (35.0-51.0); LYMPH # 1.5 K/uL (1.0-4.3); LYMPH % 16.1 % (20.0-40.0); MEAN CELL VOLUME 87.4 fl (80.0-94.0); MEAN CORPUSCULAR HEMOGLOBIN 28.6 pg (27.0-31.0); MEAN CORPUSCULAR HGB CONC 32.8 g/dL (33.0-37.0); MEAN PLATELET VOLUME 9.1 fl (7.2-11.7); MONO # 0.9 K/uL (0.0-0.8); MONO % 9.5 % (0.0-10.0); NEUT # 6.9 K/uL (1.8-7.0); NEUT % 72.6 % (50.0-75.0); WHITE BLOOD COUNT 9.4 K/uL (4.8-10.8)
[2017-03-30 23:09] LABS: ALB/GLOB RATIO 1.3 (1.0-2.1); ALKALINE PHOSPHATASE 86 U/L (38-126); ALT/SGPT 52 U/L (21-72); AST/SGOT 37 U/L (17-59); BLOOD UREA NITROGEN 19 mg/dl (9-20); CALCIUM 9.1 mg/dL (8.4-10.2); CARBON DIOXIDE 21 mmol/L (22-30); CHLORIDE 104 mmol/L (98-107); GFR AFRICAN-AMERICAN > 60; GLUCOSE,RANDOM 139 mg/dL (75-110); POTASSIUM 3.9 MMOL/L (3.6-5.0); SODIUM 137 mmol/l (132-148); TOTAL PROTEIN 7.6 G/DL (6.3-8.2)
--- NOTE | 2017-03-30 23:40 | ED PDOC ---
HPI: Chest Pain Time Seen by Provider: 03/30/17 21:31 Chief Complaint (Nursing): Palpitations Chief Complaint (Provider): palpitations History Per: Patient History/Exam Limitations: no limitations Additional Complaint(s): 67yo M in ER recently discharged today-was admitted for03/28/17: pt complains of left sided chest pain with radiation to left rib area and palpitations. He denies headaches, dizziness, changes in vision, chest pain, dyspnea, nausea, vomiting, diarrhea, constipation or pedal edema. He was seen in ED 03/16/17 dx with scabies, and treated with permethrin during ED visit on 03/25/17. He does not take any medications, is noncompliant with all medications.hx of hypertension, diabetes. stent placed last year at [facility] and denies cardiology f/u . 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 Pt HR stablizewd while admitted and advised to have putpt f.u with cardiology and clinc. PMH: NIDDM2, HTN, HLD, CT, s/p stent in Mar, nephrolithiasis Social: nonsmoker, no etoh or illicit drug use. No personal hx of cancer Surgical hx: cardiac cath Apr 03, bladder sx-stone removal, prostate unknown procedure - Risk Factors PE Risk Factors: Pos: Recent Hospitalization Neg: Extremity Immobilization/Fx, Decreased Mobilty /Activity, Recent Major Surgery, Active Cancer, Previous DVT, Previous PE, CHF, Venous Stasis, Estrogen Usage, , Post-, Recent Major Trauma TAD Risk Factors: Neg: Hypertension, Connective Tissue Disease, Marfan's Syndrome, Enzo- Danlos Syndrome, Aortic Valve Disease, Active , Tumer's Syndrome, First Degree Relative With TAD, Sudden Onset Of Pain, Migration Of Pain, New Neurologic Symptoms Past Medical History Reviewed: Historical Data, Nursing Documentation, Vital Signs Vital Signs: Last Vital Signs Temp 98 F 03/30/17 21:03 Pulse 69 03/31/17 00:19 Resp 16 03/30/17 21:03 BP 140/64 03/31/17 00:19 Pulse Ox 99 03/31/17 00:03 - Medical History PMH: Atrial Fibrillation, CAD, Cardia Arrhythmia, Diabetes, Deep Vein Thrombosis (treated in [facility]), HTN, Hypercholesterolemia, Kidney Stones, Chronic Kidney Disease (kidney stones/ lithotripsy), TIA Denies: CVA, HIV - Surgical History Surgical History: Coronary Stent - Family History Family History: States: Unknown Family Hx, Hypertension - Home Medications Home Medications: Ambulatory Orders Medication Instructions Recorded Atorvastatin [Lipitor] 40 mg PO HS 30 Days tab 03/30/17 Lisinopril [Zestril] 20 mg PO DAILY 30 Days tab 03/30/17 Metoprolol Tartrate [Lopressor] 25 mg PO Q12 30 Days tab 03/30/17 Warfarin [Coumadin] 5 mg PO 1800 #11 tab 03/30/17 metFORMIN [glucOPHAGE] 500 mg PO BID 30 Days tab 03/30/17 - Allergies Allergies/Adverse Reactions: Allergies Allergy/AdvReac Type Severity Reaction Status Date / Time aspirin Allergy URTICARIA Verified 03/25/17 01:40 Penicillins Allergy URTICARIA Verified 03/25/17 01:40 SONAL Risk Score for UA/NSTEMI - SONAL Risk Score Age > 64: YES 3 or more CAD Risk Factors: YES Known CAD (Stenosis greater than 50%): YES Aspirin use in past 7 days: YES Severe Angina: NO EKG ST changes greater than 0.5mm: NO Positive Cardiac Marker: NO SONAL Score: 4 Risk %: 20% Curb-65 Severity Score - CURB-65 Severity Score Confusion: No Bun >19mg/dl (>7mmol/L): No Respiratory Rate greater than/equal to 30: No Systolic BP <90 or Diastolic BP less than/equal 60mmHg: No Age >64: No Curb-65 Score: 0 Percentage 30-day mortality: 0.6% Wells Criteria for PE - Wells Criteria for Pulmonary Embolism Clinical Signs and Symptoms of DVT: No P.E is #1 Diagnosis, or Equally Likely: No Heart Rate >100: No Immobilization at least 3 days;Surgery previous 4 weeks: No Previous, objectively diagnosed PE or DVT: No Hemoptysis: No Malignancy w/treatment within 6 months, or palliative: No Total Score: 0 Review of Systems ROS Statement: Except As Marked, All Systems Reviewed And Found Negative Cardiovascular: Positive for: Chest Pain, Palpitations Physical Exam - Reviewed Nursing Documentation Reviewed: Yes Vital Signs Reviewed: Yes - Physical Exam Appears: Positive for: Well, Non-toxic, No Acute Distress Skin: Positive for: Normal Color, Warm, DRY Cardiovascular/Chest: Positive for: Regular Rate, Rhythm Respiratory: Positive for: CNT, Normal Breath Sounds Neurologic/Psych: Positive for: Alert, Oriented - Laboratory Results Result Diagrams: 03/30/17 22:49 03/30/17 22:49 - ECG ECG: Positive for: Interpreted By Me (viewed by MD Dean) ECG Rhythm: Positive for: Normal QRS, Normal ST Segment, Sinus Rhythm O2 Sat by Pulse Oximetry: 99 - Progress ED Course And Treament: 03/30/17 03/30/17 03/30/17 22:49 22:49 22:25 WBC 9.4 D RBC 5.08 Hgb 14.6 Hct 44.5 MCV 87.4 MCH 28.6 MCHC 32.8 L RDW 14.0 Plt Count 218 MPV 9.1 Neut % (Auto) 72.6 Lymph % (Auto) 16.1 L Colbert % (Auto) 9.5 Eos % (Auto) 1.4 Baso % (Auto) 0.4 Neut # 6.9 Lymph # 1.5 Colbert # 0.9 H Eos # 0.1 Baso # 0.0 Sodium 137 Potassium 3.9 Chloride 104 Carbon Dioxide 21 L Anion Gap 16 BUN 19 Creatinine 1.0 Est GFR ( Amer) > 60 Est GFR (Non-Af Amer) > 60 POC Glucose (mg/dL) 128 H Random Glucose 139 H Calcium 9.1 Total Bilirubin 1.0 AST 37 ALT 52 Alkaline Phosphatase 86 Troponin I < 0.0120 Total Protein 7.6 Albumin 4.2 Globulin 3.3 Albumin/Globulin Ratio 1.3 Medical Decision Making Medical Decision Making: pt looks well , no acute pain at this time. pt examined by MD Dean Pt stable for d.c with outpt f.u with pmd and cardiology. Pt will be givne in ER: metformin, lopressor zestril and lipitor. pt advised to fill Rx pt was d.c with from inpt stay. however pt is refusing coumadin. pt instructed on why coumadin is indicated but is refusing in ER. pt has a Rx advised to to take Rx. pt is AA0x3 Temp Pulse Resp BP Pulse Ox 98 F 71 16 138/78 99 03/30/17 21:03 03/30/17 22:07 03/30/17 21:03 03/30/17 21:03 03/30/17 23:48 Disposition - Clinical Impression Clinical Impression: Chest pain - Patient ED Disposition Is Patient to be Admitted: No Counseled Patient/Family Regarding: Studies Performed, Diagnosis, Need For Followup - Disposition Referrals: [facility] [Outside] Disposition: Routine/Home Disposition Time: 00:02 Condition: STABLE Instructions: Chest Pain (ED) Forms: [facility] (German)
[2017-03-31 00:19] VITALS: BP 140/64
[2017-03-31 00:27] VITALS: PULSE 68; RESP 17; TEMP 97.8; O2SAT 98
--- NOTE | 2017-04-01 19:31 | CARD ---
APPROVED REPORT EKG Measurement Heart [id number] <Conclusion> Normal sinus rhythm Normal ECG
== END 2017-03-31 00:37 | disposition home or self-care (01) ==
LOC: H.ER 20:59
DX: R07.9 Chest pain, unspecified (principal); E11.22 Type 2 diabetes mellitus with diabetic chronic kidney disease; N18.9 Chronic kidney disease, unspecified; Z86.718 Personal history of other venous thrombosis and embolism; Z87.442 Personal history of urinary calculi; Z95.5 Presence of coronary angioplasty implant and graft; Z88.0 Allergy status to penicillin

== ENCOUNTER 2017-04-09 20:31 | Inpatient (IN) | payer MEDICARE, MEDICAID ==
[2017-04-09 20:31] VITALS: BMI 26.6
[2017-04-09] MEDS ORDERED: Permethrin 5% CREAM TOP ONE (20:51)
--- NOTE | 2017-04-09 21:28 | ED PDOC ---
Syncope/Near Syncope/Dizziness Time Seen by Provider: 04/09/17 20:40 Chief Complaint (Nursing): Syncope Chief Complaint (Provider): Syncope History Per: Patient, EMS History/Exam Limitations: no limitations Onset/Duration Of Symptoms: Hrs (prior to arrival) Number Of Syncopal Episodes: 1 Activity At Onset Of Symptoms: Walking (on his way to the senior care) Associated Symptoms Preceding Syncopal Episode: No Predromal Symptoms (Sudden Onset) Seizure Or Post-ictal Symptoms: None Fall Associated With With Symptoms: No Pain Scale Rating Of: 0 Additional Complaint(s): Agapito Feldman is a 67 year old male, with a past medical history of CAD with stent, multiple TIA, CT, HTN, diabetes, and hypercholesterolemia, who was brought to the emergency department by EMS for syncope onset prior to arrival. Patient states he was on his way to the senior care when he "conked out," he reports that witnesses did not describe seizure activity. He thinks the episode lasted less than a minute. He denies any predromal symptoms, tongue biting, or urine incontinence. Patient has had cough for the last x2 days, states it is nonproductive but feels chest congestion with mild rhinorrhea. Last oral intake was at 5pm. Patient is non compliant with medication due to finance. He denies any fever, diarrhea, chest pain or shortness of breath. PMD: None provided. Past Medical History Reviewed: Historical Data, Nursing Documentation, Vital Signs Vital Signs: Last Vital Signs Temp 99.0 F 04/09/17 20:32 Pulse 109 H 04/09/17 20:32 Resp 16 04/09/17 20:32 BP 167/101 H 04/09/17 20:32 Pulse Ox 100 04/09/17 20:32 - Medical History PMH: Atrial Fibrillation, CAD, Cardia Arrhythmia, Diabetes, Deep Vein Thrombosis (treated in [facility]), HTN, Hypercholesterolemia, Kidney Stones, Chronic Kidney Disease (kidney stones/ lithotripsy), TIA Denies: CVA, HIV - Surgical History Surgical History: Coronary Stent Other surgeries: cystoscopy for stones, large clot in left leg, prostate removed. - Family History Family History: States: Unknown Family Hx, Hypertension Denies: Other Other Family History: breast CA - Social History Current smoker - smoking cessation education provided: No Alcohol: None Drugs: Denies - Home Medications Home Medications: Ambulatory Orders Medication Instructions Recorded Atorvastatin [Lipitor] 40 mg PO HS 30 Days tab 03/30/17 Lisinopril [Zestril] 20 mg PO DAILY 30 Days tab 03/30/17 Metoprolol Tartrate [Lopressor] 25 mg PO Q12 30 Days tab 03/30/17 Warfarin [Coumadin] 5 mg PO 1800 #11 tab 03/30/17 metFORMIN [glucOPHAGE] 500 mg PO BID 30 Days tab 03/30/17 - Allergies Allergies/Adverse Reactions: Allergies Allergy/AdvReac Type Severity Reaction Status Date / Time aspirin Allergy URTICARIA Verified 03/25/17 01:40 Penicillins Allergy URTICARIA Verified 03/25/17 01:40 Review of Systems ROS Statement: Except As Marked, All Systems Reviewed And Found Negative Constitutional: Negative for: Fever ENT: Positive for: Other (chest congestion, mild rhinorrhea) Cardiovascular: Negative for: Chest Pain Respiratory: Positive for: Cough (nonproductive). Negative for: Shortness of Breath Gastrointestinal: Negative for: Diarrhea Genitourinary Male: Negative for: Incontinence Skin: Positive for: Rash (Patient reports rash consistent with scabies which he has had in the past. itchy and red localized to hip, arms, legs and back) Neurological: Positive for: Other (syncope) Physical Exam - Reviewed Nursing Documentation Reviewed: Yes Vital Signs Reviewed: Yes - Physical Exam Appears: Positive for: No Acute Distress (somewhat dissheveled) Head Exam: Positive for: NORMOCEPHALIC (superficial abrasions LEFT forehead) Skin: Positive for: Warm, Dry, Rash (abrasion in linear pattern to bilateral hips/groins/forearms/hands/lower legs and feet) Eye Exam: Positive for: EOMI, PERRL ENT: Positive for: Pharynx Is (clear, tacky mucus membranes) Neck: Positive for: Painless ROM, Supple Cardiovascular/Chest: Positive for: Regular Rate, Rhythm, Chest Non Tender Respiratory: Positive for: Normal Breath Sounds. Negative for: Respiratory Distress Gastrointestinal/Abdominal: Positive for: Soft. Negative for: Tenderness Back: Positive for: Normal Inspection. Negative for: Decreased ROM Extremity: Positive for: Normal ROM. Negative for: Capillary Refill Lymphatic: Negative for: Adenopathy Neurologic/Psych: Positive for: Alert. Negative for: Motor/Sensory Deficits - Laboratory Results Result Diagrams: 04/13/17 12:07 04/12/17 05:50 - ECG ECG: Positive for: Interpreted By Me ECG Rhythm: Positive for: Normal QRS, Normal ST Segment, Sinus Rhythm O2 Sat by Pulse Oximetry: 100 (RA) Pulse Ox Interpretation: Normal - Radiology X-Ray Interpretation: Infiltrates (RML) - Progress Re-evaluation Time: 22:30 Condition: Unchanged Medical Decision Making Medical Decision Making: Initial Impression: syncope. Differential includes but not limited to: traumatic brain injury, arrhythmia, dehydration, ACS, electrolyte abnormality. Initial Plan: --Type and screen --Head w/o contrast [CT] --EKG --Alcohol serum --Comp Metabolic Panel --Drug screen, urine --Magnesium --Phosphorus --Troponin I --Urine dipstick --CBC w/ differential --PTT --PT --Chest portable [RAD] --Permethrin 5% Cream 1 applic TOP --reevaluation 22:[address] FINDINGS: Brain: Diffuse prominence of the sulci and ventricular system consistent with atrophy. Hypodensity throughout the white matter consistent with chronic small vessel disease. Old right basal ganglia lacunar infarct. No mass, mass effect, or midline shift. No hemorrhage. Ventricles: No hydrocephalus. Bones/joints: Unremarkable. No acute fracture. Soft tissues: Unremarkable. Sinuses: Diffuse mucosal thickening right maxillary sinus. Mucosal thickening right sphenoid sinus. Opacification left sphenoid sinus. Sinus surgery. Correlate with history. Mastoid air cells: Partial opacification right mastoid air cells. No mastoid effusion. IMPRESSION: No acute intracranial abnormality. Scribe Attestation: Documented by Elie Silva, acting as a scribe for Tiffanie Tracey MD Provider Scribe Attestation: All medical record entries made by the Scribe were at my direction and personally dictated by me. I have reviewed the chart and agree that the record accurately reflects my personal performance of the history, physical exam, medical decision making, and the department course for this patient. I have also personally directed, reviewed, and agree with the discharge instructions and disposition. Disposition - Clinical Impression Clinical Impression: Syncope, Scabies, Pneumonia Discussed With : Kami Oh Comment: FP resident Doctor Will See Patient In The: ED Counseled Patient/Family Regarding: Studies Performed, Diagnosis - Disposition Disposition Time: 22:30 Condition: FAIR - Pt Status Changed To: Hospital Disposition Of: Observation - POA Present On Arrival: Falls Or Trauma
[2017-04-09] MEDS ORDERED: levoFLOXacin 750 mg in D5W 150 ML BAG IVPB STA (22:02)
[2017-04-09 22:09] LABS: BASO # 0.1 K/uL (0.0-0.2); BASO % 0.8 % (0.0-2.0); EOS # 0.1 K/uL (0.0-0.7); HEMOGLOBIN 13.6 g/dL (12.0-18.0); LYMPH # 0.8 K/uL (1.0-4.3); LYMPH % 12.5 % (20.0-40.0); MEAN CELL VOLUME 87.5 fl (80.0-94.0); MEAN CORPUSCULAR HGB CONC 33.1 g/dL (33.0-37.0); MEAN PLATELET VOLUME 7.7 fl (7.2-11.7); MONO # 1.2 K/uL (0.0-0.8); MONO % 17.4 % (0.0-10.0); NEUT # 4.5 K/uL (1.8-7.0); NEUT % 67.3 % (50.0-75.0); NRBC % 0.1 % (0.0-0.0); RBC 4.7 Mil/uL (4.40-5.90); RED CELL DISTRIBUTION WIDTH 14.2 % (11.5-14.5); WHITE BLOOD COUNT 6.6 K/uL (4.8-10.8)
[2017-04-09] MEDS ORDERED: levoFLOXacin 750 mg in D5W 750 MG/150 ML BAG IVPB ONE ×2 (22:15→22:21)
--- NOTE | 2017-04-09 22:28 | CT ---
EXAM: CT Head Without Intravenous Contrast CLINICAL HISTORY: 67 years old, male; Signs and symptoms; Syncope and collapse TECHNIQUE: Axial computed tomography images of the head/brain without intravenous contrast. All CT scans at this facility use one or more dose reduction techniques, viz.: automated exposure control; ma/kV adjustment per patient size (including targeted exams where dose is matched to indication; i.e. head); or iterative reconstruction technique. Coronal and sagittal reformatted images were created and reviewed. COMPARISON: CT - HEAD W/O CONTRAST 2016-09-14 19:55 FINDINGS: Brain: Diffuse prominence of the sulci and ventricular system consistent with atrophy. Hypodensity throughout the white matter consistent with chronic small vessel disease. Old right basal ganglia lacunar infarct. No mass, mass effect, or midline shift. No hemorrhage. Ventricles: No hydrocephalus. Bones/joints: Unremarkable. No acute fracture. Soft tissues: Unremarkable. Sinuses: Diffuse mucosal thickening right maxillary sinus. Mucosal thickening right sphenoid sinus. Opacification left sphenoid sinus. Sinus surgery. Correlate with history. Mastoid air cells: Partial opacification right mastoid air cells. No mastoid effusion. IMPRESSION: No acute intracranial abnormality.
[2017-04-09 22:31] LABS: ALB/GLOB RATIO 1.3 (1.0-2.1); ALBUMIN 4.2 g/dL (3.5-5.0); ALT/SGPT 28 U/L (21-72); AST/SGOT 18 U/L (17-59); BLOOD UREA NITROGEN 13 mg/dl (9-20); CALCIUM 9.1 mg/dL (8.4-10.2); GFR AFRICAN-AMERICAN > 60; GFR NON-AFRICAN AMERICAN > 60; MAGNESIUM 1.9 MG/DL (1.6-2.3)
[2017-04-09 22:33] LABS: INR 1.1 (0.9-1.2); PARTIAL THROMBOPLASTIN TIME 33.2 Seconds (25.6-37.1); PROTHROMBIN TIME 12.3 Seconds (9.8-13.1)
[2017-04-09 22:52] LABS: BARBITURATES, UR NEGATIVE (NEGATIVE); BENZODIAZEPINES, UR NEGATIVE (NEGATIVE); OPIATES, UR NEGATIVE (NEGATIVE); PHENCYCLIDINE, UR NEGATIVE (NEGATIVE)
--- NOTE | 2017-04-09 23:22 | CP.PCM.HP ---
<AdrianoKami - Last Filed: 04/10/17 01:03> History of Present Illness - History of Present Illness History of Present Illness: 67 yr old M brought to ED by ambulance for syncope. PMHx includes A-fib, NIDDM type 2, HTNH, HLD, CAD and [place] s/p stent Mar 2016. Patient reports he was walking to "[facility] [facility] when I just clonked out". Reports bumping his left forehead onto the sidewalk, denies any urinary or fecal incontinence, denies fever, nausea, diarrhea, sweating, pain anywhere. Reports non-productive cough and overall weakness x 2 days, itching and rash of lower extremities. Denies seizure history or any one witnessing his fall today. Patient reports he is not taking his medications as prescribed due to financial difficulties and homelessness, he has not followed up in clinic since 10/14/16. PCP: [facility] -last visit 10/14/16 PMHx: A-fib, NIDDM type 2, HTNH, HLD, CAD and [place] s/p stent Mar 2016 SurgHx: Cardiac cath Mar 2016, bladder surgery-stone removed?, unknown prostate procedure FMHx: Mother had breast cancer, brother had scleroderma SocHx: Denies smoking, alcohol or drugs, Homeless, no contact with family Medications: nonadherent to: Lipitor 40mg QHS, Lisinopril 20mg PO QD, Metformin 500mg PO BID, Lopressore 25mg PO BID, Coumadin 5mg PO QD Allergies: Penicillin-urticaria, Aspirin-urticaria ED course: BP 167/101 mmHg, P 109 bpm, Temp 99 F, Resp 16 bpm, O2 sat 100% on room air Head CT without contrast: no acute intracranial abnormality EKG: Normal sinus rhythm, no ST-T changes CXR: new small infiltrate in right lower lobe compared to CXR done 03/25/17 Labs: CBC wnl, coags wnl, CMP wnl, troponin negative, serum alcohol < 10, Type and screen sent, BCx sent Utox: negative ED tx: Levofloxacin 750mg IV once, Vancomycin 1 gm IV once, 1L NS bolus Present on Admission - Present on Admission Any Indicators Present on Admission: No History of DVT/PE: No History of Uncontrolled Diabetes: No Urinary Catheter: No Decubitus Ulcer Present: No Decubitus Ulcer Stage: I Review of Systems - Review of Systems All systems: reviewed and no additional remarkable complaints except (for what is mentioned in the HPI) - Constitutional Constitutional: absent: Chills, Fever - EENT Eyes: absent: Blurred Vision, Loss of Vision Ears: absent: Ear Pain, Tinnitus Nose/Mouth/Throat: absent: Hoarsness, Sore Throat - Cardiovascular Cardiovascular: absent: Chest Pain, Leg Edema - Respiratory Respiratory: Cough. absent: Dyspnea, Hemoptysis - Gastrointestinal Gastrointestinal: absent: Abdominal Pain, Change in Bowel Habits, Change in Stool Character - Genitourinary Genitourinary: absent: Dysuria, Hematuria, Urinary Incontinence - Musculoskeletal Musculoskeletal: Arthralgias. absent: Abnormal Gait, Back Pain - Neurological Neurological: absent: Disequilibrium, Numbness, Headaches, Loss of Vision - Psychiatric Psychiatric: absent: Anxiety, Change in Appetite, Confusion - Hematologic/Lymphatic Hematologic: Easy Bleeding, Easy Bruising Past Patient History - Past Medical History & Family History Past Medical History?: Yes - Past Social History Alcohol: None Drugs: Denies - CARDIAC Hx Atrial Fibrillation: Yes Hx Cardia Arrhythmia: Yes Hx Hypercholesterolemia: Yes Hx Hypertension: Yes - PULMONARY Hx Respiratory Disorders: No - NEUROLOGICAL Hx Transient Ischemic Attacks (TIA): Yes - HEENT Hx HEENT Problems: No - RENAL Hx Chronic Kidney Disease: Yes (kidney stones/ lithotripsy) Hx Kidney Stones: Yes - ENDOCRINE/METABOLIC Hx Endocrine Disorders: Yes (Type !! DM) - HEMATOLOGICAL/ONCOLOGICAL Hx Human Immunodeficiency Virus (HIV): No - INTEGUMENTARY Hx Dermatological Problems: Yes (scabies (treated 04/04)) - MUSCULOSKELETAL/RHEUMATOLOGICAL Hx Musculoskeletal Disorders: Yes (back pain/ hip pain) - GASTROINTESTINAL Hx Gastrointestinal Disorders: No - GENITOURINARY/GYNECOLOGICAL Hx Genitourinary Disorders: Yes (Enlarged Prostate/Prostate surgery) - PSYCHIATRIC Hx Psychophysiologic Disorder: No Hx Substance Use: No - SURGICAL HISTORY Hx Coronary Stent: Yes - ANESTHESIA Hx Anesthesia: Yes Hx Anesthesia Reactions: No Hx Malignant Hyperthermia: No Meds Allergies/Adverse Reactions: Allergies Allergy/AdvReac Type Severity Reaction Status Date / Time aspirin Allergy URTICARIA Verified 03/25/17 01:40 Penicillins Allergy URTICARIA Verified 03/25/17 01:40 Physical Exam - Constitutional Appears: No Acute Distress, Unkempt - Head Exam Head Exam: ATRAUMATIC, NORMOCEPHALIC - Eye Exam Eye Exam: EOMI, PERRL Pupil Exam: NORMAL ACCOMODATION - ENT Exam ENT Exam: Mucous Membranes Moist, Normal Exam - Neck Exam Neck exam: Positive for: Full Rom. Negative for: Lymphadenopathy, Meningismus, Thyromegaly - Respiratory Exam Respiratory Exam: Decreased Breath Sounds (in bilateral lower lobes), NORMAL BREATHING PATTERN - Cardiovascular Exam Cardiovascular Exam: REGULAR RHYTHM, +S1, +S2 - GI/Abdominal Exam GI & Abdominal Exam: Normal Bowel Sounds, Soft. absent: Distended, Tenderness - Extremities Exam Extremities exam: Positive for: full ROM, joint swelling. Negative for: pedal edema Additional comments: Scabies in bilateral LE - Back Exam Back exam: absent: CVA tenderness (L), CVA tenderness (R) - Neurological Exam Neurological exam: Alert, CN II-XII Intact, Oriented x3 - Psychiatric Exam Psychiatric exam: Flat Affect, Normal Mood - Skin Skin Exam: Dry, Intact, Warm - Expanded Skin Exam Expanded Type of lesion: Abrasion, Rash (bilateral lower extremity scabies) Results - Vital Signs Recent Vital Signs: Last Vital Signs Temp 99.0 F 04/09/17 20:32 Pulse 109 H 04/09/17 20:32 Resp 16 04/09/17 20:32 BP 167/101 H 04/09/17 20:32 Pulse Ox 100 04/09/17 22:53 - Labs Result Diagrams: 04/09/17 22:05 04/09/17 22:05 Labs: Laboratory Results - last 24 hr 04/09/17 04/09/17 04/09/17 22:05 22:05 22:05 WBC 6.6 RBC 4.70 Hgb 13.6 Hct 41.1 MCV 87.5 MCH 29.0 MCHC 33.1 RDW 14.2 Plt Count 309 MPV 7.7 Neut % (Auto) 67.3 Lymph % (Auto) 12.5 L [place] % (Auto) 17.4 H Eos % (Auto) 2.0 Baso % (Auto) 0.8 Neut # 4.5 Lymph # 0.8 L [place] # 1.2 H Eos # 0.1 Baso # 0.1 PT 12.3 INR 1.1 APTT 33.2 Sodium 136 Potassium 3.8 Chloride 99 Carbon Dioxide 24 Anion Gap 17 BUN 13 Creatinine 1.0 Est GFR ( Amer) > 60 Est GFR (Non-Af Amer) > 60 POC Glucose (mg/dL) Random Glucose 126 H Calcium 9.1 Phosphorus 3.3 Magnesium 1.9 Total Bilirubin 0.9 AST 18 ALT 28 Alkaline Phosphatase 89 Troponin I < 0.0120 Total Protein 7.4 Albumin 4.2 Globulin 3.2 Albumin/Globulin Ratio 1.3 Urine Opiates Screen Urine Methadone Screen Ur Barbiturates Screen Ur Phencyclidine Scrn Ur Amphetamines Screen U Benzodiazepines Scrn U Oth Cocaine Metabols U Cannabinoids Screen Alcohol, Quantitative < 10 Blood Type Antibody Screen BBK History Checked 04/09/17 04/09/17 04/09/17 22:05 22:11 22:11 WBC RBC Hgb Hct MCV MCH MCHC RDW Plt Count MPV Neut % (Auto) Lymph % (Auto) [place] % (Auto) Eos % (Auto) Baso % (Auto) Neut # Lymph # [place] # Eos # Baso # PT INR APTT Sodium Potassium Chloride Carbon Dioxide Anion Gap BUN Creatinine Est GFR ( Amer) Est GFR (Non-Af Amer) POC Glucose (mg/dL) 99 Random Glucose Calcium Phosphorus Magnesium Total Bilirubin AST ALT Alkaline Phosphatase Troponin I Total Protein Albumin Globulin Albumin/Globulin Ratio Urine Opiates Screen Negative Urine Methadone Screen Negative Ur Barbiturates Screen Negative Ur Phencyclidine Scrn Negative Ur Amphetamines Screen Negative U Benzodiazepines Scrn Negative U Oth Cocaine Metabols Negative U Cannabinoids Screen Negative Alcohol, Quantitative Blood Type B POSITIVE Antibody Screen Negative BBK History Checked No verified bt Assessment & Plan - Assessment and Plan (Free Text) Assessment: 67 yr old M admitted for pneumonia and syncope. PMHx includes A-fib, NIDDM type 2, HTNH, HLD, CAD and [place] s/p stent Mar 2016. 1. Syncope -stable, 1 episode, no seizure like activity witnessed, likely secondary to mal- nutrition -Head CT without contrast: no acute intracranial abnormality -EKG: Normal sinus rhythm, no ST-T changes -Echo 03/27/17: Normal LV size and function, EF= 50%; -f/u B12, folate, carotid doppler 2. CAP -stable, CXR shows small infiltrate on RLL -in ED given : Levofloxacin 750mg IV once stat, Vancomycin 1 gm IV once stat, -Ceftriaxone 1 gm IV QD, Azithromycin 500mg IV QD -repeat CXR before discharge 3. HTN -uncontrolled -resume home meds: Lisinopril 20mg PO QD, Lopressor 25mg PO BID -monitor BP 3. Afib -controlled without mediction -consider resuming Coumadin, patient was taking a dose of 5mg PO QD 4. NIDDM Type 2 -controlled -03/27/17: HbA1c 6.9, lipids Triglycerides 161, Cholesterol 159, LDL 109, HDL 22 -continue with home meds: Metformin 500 mg PO BID, Lipitor 40mg QHS -blood glucose ACHS 5. Scabies -controlled with Permethrin 5% topical 6. DVT prophylaxis -Lovenox 40mg SC QD - Date & Time Date: 04/09/17 Time: 23:15 <Lin Waldron - Last Filed: 04/10/17 09:42> Physical Exam - Additional Findings Additional findings: Attending note Attestation Patient admitted overnight. Ed chart, admitting H & P, cat scan, cxr reviewed. Agree with present plan. Results - Vital Signs Recent Vital Signs: Last Vital Signs Temp 99.0 F 04/10/17 08:08 Pulse 70 04/10/17 08:43 Resp 20 04/10/17 08:08 BP 116/70 04/10/17 08:43 Pulse Ox 97 04/10/17 08:08 - Labs Result Diagrams: 04/09/17 22:05 04/09/17 22:05 Labs: Laboratory Results - last 24 hr 04/09/17 04/09/17 04/09/17 22:05 22:05 22:05 WBC 6.6 RBC 4.70 Hgb 13.6 Hct 41.1 MCV 87.5 MCH 29.0 MCHC 33.1 RDW 14.2 Plt Count 309 MPV 7.7 Neut % (Auto) 67.3 Lymph % (Auto) 12.5 L [place] % (Auto) 17.4 H Eos % (Auto) 2.0 Baso % (Auto) 0.8 Neut # 4.5 Lymph # 0.8 L [place] # 1.2 H Eos # 0.1 Baso # 0.1 PT 12.3 INR 1.1 APTT 33.2 Sodium 136 Potassium 3.8 Chloride 99 Carbon Dioxide 24 Anion Gap 17 BUN 13 Creatinine 1.0 Est GFR ( Amer) > 60 Est GFR (Non-Af Amer) > 60 POC Glucose (mg/dL) Random Glucose 126 H Calcium 9.1 Phosphorus 3.3 Magnesium 1.9 Total Bilirubin 0.9 AST 18 ALT 28 Alkaline Phosphatase 89 Troponin I < 0.0120 Total Protein 7.4 Albumin 4.2 Globulin 3.2 Albumin/Globulin Ratio 1.3 Vitamin B12 Urine Opiates Screen Urine Methadone Screen Ur Barbiturates Screen Ur Phencyclidine Scrn Ur Amphetamines Screen U Benzodiazepines Scrn U Oth Cocaine Metabols U Cannabinoids Screen Alcohol, Quantitative < 10 Blood Type Antibody Screen BBK History Checked 04/09/17 04/09/17 04/09/17 22:05 22:11 22:11 WBC RBC Hgb Hct MCV MCH MCHC RDW Plt Count MPV Neut % (Auto) Lymph % (Auto) [place] % (Auto) Eos % (Auto) Baso % (Auto) Neut # Lymph # [place] # Eos # Baso # PT INR APTT Sodium Potassium Chloride Carbon Dioxide Anion Gap BUN Creatinine Est GFR ( Amer) Est GFR (Non-Af Amer) POC Glucose (mg/dL) 99 Random Glucose Calcium Phosphorus Magnesium Total Bilirubin AST ALT Alkaline Phosphatase Troponin I Total Protein Albumin Globulin Albumin/Globulin Ratio Vitamin B12 Urine Opiates Screen Negative Urine Methadone Screen Negative Ur Barbiturates Screen Negative Ur Phencyclidine Scrn Negative Ur Amphetamines Screen Negative U Benzodiazepines Scrn Negative U Oth Cocaine Metabols Negative U Cannabinoids Screen Negative Alcohol, Quantitative Blood Type B POSITIVE Antibody Screen Negative BBK History Checked No verified bt 04/10/17 04/10/17 05:30 06:29 WBC RBC Hgb Hct MCV MCH MCHC RDW Plt Count MPV Neut % (Auto) Lymph % (Auto) [place] % (Auto) Eos % (Auto) Baso % (Auto) Neut # Lymph # [place] # Eos # Baso # PT INR APTT Sodium Potassium Chloride Carbon Dioxide Anion Gap BUN Creatinine Est GFR ( Amer) Est GFR (Non-Af Amer) POC Glucose (mg/dL) 125 H Random Glucose Calcium Phosphorus Magnesium Total Bilirubin AST ALT Alkaline Phosphatase Troponin I Total Protein Albumin Globulin Albumin/Globulin Ratio Vitamin B12 237 L Urine Opiates Screen Urine Methadone Screen Ur Barbiturates Screen Ur Phencyclidine Scrn Ur Amphetamines Screen U Benzodiazepines Scrn U Oth Cocaine Metabols U Cannabinoids Screen Alcohol, Quantitative Blood Type Antibody Screen BBK History Checked
[2017-04-10] MEDS ORDERED: Glucagon Recombinant 1 mg Inj IM PRN (01:14)
[2017-04-10] MEDS ORDERED: Dextrose 50% SYRINGE Inj (50 ml) IV PRN (01:14)
[2017-04-10] MEDS ORDERED: Sodium Chloride 3% for Inhalation 4 ML VIAL.NEB IH PRN (07:16)
[2017-04-10] MEDS: Enoxaparin 40 mg Syringe SC SCH (08:42)
[2017-04-10] MEDS ORDERED: levoFLOXacin 750 mg in D5W 750 MG/150 ML BAG IVPB SCH (09:00)
[2017-04-10] MEDS ORDERED: Azithromycin 500 MG in Sodium Chloride 0.9% 250 ML IVPB SCH (09:00)
[2017-04-10] MEDS ORDERED: levoFLOXacin 750 mg in D5W 150 ML BAG IVPB SCH (09:00)
--- NOTE | 2017-04-10 09:45 | CP.PCM.PN ---
<Deni Jackson - Last Filed: 04/10/17 13:24> Subjective - Date & Time of Evaluation Date of Evaluation: 04/10/17 Time of Evaluation: 09:30 - Subjective Subjective: 67 YO M seen at bedside. Slept well overnight. Has just been seen after eating his breakfast, states his appetite is decreased. Continues to have a dry cough. denies any fever, chills, nausea, vomiting, palpitations Objective - Vital Signs/Intake and Output Vital Signs (last 24 hours): Temp Pulse Resp BP Pulse Ox 99.0 F 70 20 116/70 97 04/10/17 08:08 04/10/17 08:43 04/10/17 08:08 04/10/17 08:43 04/10/17 08:08 - Medications Medications: Current Medications Atorvastatin Calcium (Lipitor) 40 mg PO HS [facility] Dextrose (Dextrose 50% Inj) 0 ml IV STAT PRN; Protocol PRN Reason: Hypoglycemia Protocol Dextrose (Glutose 15) 0 gm PO ONCE PRN; Protocol PRN Reason: Hypoglycemia Protocol Enoxaparin Sodium (Lovenox) 40 mg SC DAILY [facility] PRN Reason: Protocol Last Admin: 04/10/17 08:42 Dose: 40 mg Glucagon (Glucagen Diagnostic Kit) 0 mg IM STAT PRN; Protocol PRN Reason: Hypoglycemia Protocol Levofloxacin/Dextrose (Levaquin 750mg) 750 mg in 150 mls @ 100 mls/hr IVPB [facility] Lisinopril (Zestril) 20 mg PO DAILY [facility] Last Admin: 04/10/17 08:43 Dose: 20 mg Metformin HCl (Glucophage) 500 mg PO BID [facility] Last Admin: 04/10/17 08:41 Dose: 500 mg Metoprolol Tartrate (Lopressor) 25 mg PO Q12 [facility] Last Admin: 04/10/17 08:41 Dose: 25 mg - Labs Labs: 04/09/17 22:05 04/09/17 22:05 PT 12.3 Seconds (9.8-13.1) 04/09/17 22:05 INR 1.1 (0.9-1.2) 04/09/17 22:05 APTT 33.2 Seconds (25.6-37.1) 04/09/17 22:05 - Constitutional Appears: No Acute Distress - Head Exam Head Exam: NORMAL INSPECTION - Respiratory Exam Respiratory Exam: Clear to Ausculation Bilateral, NORMAL BREATHING PATTERN. absent: Wheezes - Cardiovascular Exam Cardiovascular Exam: REGULAR RHYTHM, +S1, +S2 - GI/Abdominal Exam GI & Abdominal Exam: Soft, Normal Bowel Sounds. absent: Tenderness - Extremities Exam Extremities Exam: Full ROM. absent: Calf Tenderness - Back Exam Back Exam: NORMAL INSPECTION - Neurological Exam Neurological Exam: Alert, Awake, Oriented x3 - Skin Skin Exam: Warm Additional comments: Scabies b/l lower extremities Assessment and Plan - Assessment and Plan (Free Text) Assessment: 67 yr old M admitted for pneumonia and syncope. PMHx includes A-fib, NIDDM type 2, HTNH, HLD, CAD and [place] s/p stent Mar 2016. 1. Syncope -stable, 1 episode, no seizure like activity witnessed, likely secondary to mal- nutrition -Head CT without contrast: no acute intracranial abnormality -EKG: Normal sinus rhythm, no ST-T changes -Echo 03/27/17: Normal LV size and function, EF= 50%; - B12: 237, will supplement -f/u folate - F/U with extremity Doppler U/S 2. CAP -stable, CXR shows small infiltrate on RLL -in ED given : Levofloxacin 750mg IV once stat, Vancomycin 1 gm IV once stat, - C/W Levofloxacin 750mg, - F/U with chest CT -repeat CXR before discharge 3. HTN -uncontrolled -resume home meds: Lisinopril 20mg PO QD, Lopressor 25mg PO BID -monitor BP 3. Afib -controlled without mediation - Consider restart anticoagulation. Patient has been non complient with warfarin 4. NIDDM Type 2 -controlled -03/27/17: HbA1c 6.9, lipids Triglycerides 161, Cholesterol 159, LDL 109, HDL 22 -continue with home meds: Metformin 500 mg PO BID, Lipitor 40mg QHS -blood glucose ACHS 5. Scabies -controlled with Permethrin 5% topical 6. DVT prophylaxis -Lovenox 40mg SC QD <Lin Waldron - Last Filed: 04/11/17 09:17> Objective - Vital Signs/Intake and Output Vital Signs (last 24 hours): Temp Pulse Resp BP Pulse Ox 98.3 F 62 18 138/96 H 97 04/11/17 08:13 04/11/17 08:46 04/11/17 08:13 04/11/17 08:46 04/11/17 08:13 Intake and Output: 04/11/17 04/11/17 06:59 18:59 Intake Total 860 Output Total 700 Balance 160 - Medications Medications: Current Medications Acetaminophen (Tylenol 325mg Tab) 650 mg PO Q6 PRN PRN Reason: Fever >100.4 F Last Admin: 04/11/17 03:39 Dose: 650 mg Atorvastatin Calcium (Lipitor) 40 mg PO [facility] Last Admin: 04/10/17 21:04 Dose: 40 mg Cyanocobalamin (Vitamin B12 1000 Mcg Tab) 1,000 mcg PO DAILY [facility] Last Admin: 04/11/17 08:46 Dose: 1,000 mcg Dextrose (Dextrose 50% Inj) 0 ml IV STAT PRN; Protocol PRN Reason: Hypoglycemia Protocol Dextrose (Glutose 15) 0 gm PO ONCE PRN; Protocol PRN Reason: Hypoglycemia Protocol Enoxaparin Sodium (Lovenox) 40 mg SC DAILY [facility] PRN Reason: Protocol Last Admin: 04/11/17 08:46 Dose: 40 mg Glucagon (Glucagen Diagnostic Kit) 0 mg IM STAT PRN; Protocol PRN Reason: Hypoglycemia Protocol Levofloxacin/Dextrose (Levaquin 750mg) 750 mg in 150 mls @ 100 mls/hr IVPB HS [facility] Last Admin: 04/10/17 21:03 Dose: 100 mls/hr Sodium Chloride (Sodium Chloride 0.9%) 1,000 mls @ 125 mls/hr IV .Q8H [facility] Stop: 04/12/17 05:05 Last Admin: 04/11/17 06:16 Dose: 125 mls/hr Sodium Chloride (Sodium Chloride 0.9%) 1,000 mls @ 999 mls/hr IV .Q1H1M [facility] Stop: 04/12/17 05:07 Last Admin: 04/11/17 05:41 Dose: 999 mls/hr Vancomycin HCl 1 gm/ Sodium (Chloride) 250 mls @ 166.667 mls/hr IVPB Q12 [facility] PRN Reason: Protocol Lisinopril (Zestril) 20 mg PO DAILY [facility] Last Admin: 04/11/17 08:46 Dose: 20 mg Metformin HCl (Glucophage) 500 mg PO BID [facility] Last Admin: 04/11/17 08:45 Dose: 500 mg - Labs Labs: 04/11/17 04:00 04/11/17 04:00 PT 13.5 Seconds (9.8-13.1) H 04/10/17 14:40 INR 1.2 (0.9-1.2) 04/10/17 14:40 APTT 33.2 Seconds (25.6-37.1) 04/09/17 22:05 Attending/Attestation - Attestation I have personally seen and examined this patient.: Yes I have fully participated in the care of the patient.: Yes I have reviewed all pertinent clinical information, including history, physical exam and plan: Yes Notes (Text): 04/11/17 09:12 Patient seen and examined. Case discussed with resident. Agreed to get cat scan chest without contrast to further delineate infiltrate vs atelectasis vs effusion on CXR. Will get venous doppler upper andlower extremities to r/o dvt. Also Psychiatric consult ordered for evaluation. Concern for non compliance for treatment despite having insurance that should cover treatment. [place] and cannot afford medications despite giving a history of extensive travel etc. Consider thought disorder.
--- NOTE | 2017-04-10 09:50 | RAD ---
HISTORY: syncope COMPARISON: No prior. FINDINGS: LUNGS: Right basilar atelectasis and/or infiltrate. PLEURA: Questionable small right pleural effusion. No pneumothorax apparent. CARDIOVASCULAR: Atherosclerotic aortic calcifications. Cardiomediastinal silhouette unchanged. OSSEOUS STRUCTURES: Unchanged. VISUALIZED UPPER ABDOMEN: Normal. OTHER FINDINGS: None. IMPRESSION: Right basilar atelectasis, infiltrate and/or small pleural effusion.
--- NOTE | 2017-04-10 11:59 | CP.PCM.CON ---
History of Present Illness - History of Present Illness History of Present Illness: Psychiatry consult note CC: "I clonked out." HPI: 67 yr old M brought to ED by ambulance for syncope. PMHx includes A-fib, NIDDM type 2, HTNH, HLD, CAD and MN s/p stent Mar 2016. Patient reports he was walking to "[place] when I just clonked out". Reports bumping his left forehead onto the sidewalk, denies seizure history or any one witnessing his fall today. Patient reports he is not taking his medications as prescribed due to financial difficulties and homelessness, he has not followed up in clinic since 10/14/16. Patient denies depression/anxiety/hallucinations/paranoia/delusions/obsessions/ compulsions. A + O x 3. When asked why he did not take his medications, he clearly stated to the mortgage or loan underwriter that it was because he did not have enough money. NO SI/HI. Patient denies psychiatric complaints. PCP: [facility] -last visit 10/14/16 PPHx: Denies all past psychiatric history PMHx: A-fib, NIDDM type 2, HTNH, HLD, CAD and MN s/p stent Mar 2016 SurgHx: Cardiac cath Mar 2016, bladder surgery-stone removed?, unknown prostate procedure FMHx: Mother had breast cancer, brother had scleroderma SocHx: Denies smoking, alcohol or drugs, Homeless, no contact with family Medications: nonadherent to: Lipitor 40mg QHS, Lisinopril 20mg PO QD, Metformin 500mg PO BID, Lopressore 25mg PO BID, Coumadin 5mg PO QD Allergies: Penicillin-urticaria, Aspirin-urticaria ED course: BP 167/101 mmHg, P 109 bpm, Temp 99 F, Resp 16 bpm, O2 sat 100% on room air Head CT without contrast: no acute intracranial abnormality EKG: Normal sinus rhythm, no ST-T changes CXR: new small infiltrate in right lower lobe compared to CXR done 03/25/17 Labs: CBC wnl, coags wnl, CMP wnl, troponin negative, serum alcohol < 10, Type and screen sent, BCx sent Utox: negative ED tx: Levofloxacin 750mg IV once, Vancomycin 1 gm IV once, 1L NS bolus MSE: A + O x 3, calm, cooperative, good eye contact, mood/affect-neutral, thought process-coherent, no overt delusions, no SI/HI. Impression: 67 yo male w/ no acute psychiatric complaints nor any psychiatric history. Patient does not need any acute psychiatric medications or inpatient psychiatric admission. Patient may have some mild neurocognitive impairment. Past Patient History - Past Medical History & Family History Past Medical History?: Yes - Past Social History Alcohol: None Drugs: Denies - CARDIAC Hx Atrial Fibrillation: Yes Hx Cardia Arrhythmia: Yes Hx Hypercholesterolemia: Yes Hx Hypertension: Yes - PULMONARY Hx Respiratory Disorders: No - NEUROLOGICAL Hx Transient Ischemic Attacks (TIA): Yes - HEENT Hx HEENT Problems: No - RENAL Hx Chronic Kidney Disease: Yes (kidney stones/ lithotripsy) Hx Kidney Stones: Yes - ENDOCRINE/METABOLIC Hx Endocrine Disorders: Yes (Type !! DM) - HEMATOLOGICAL/ONCOLOGICAL Hx Human Immunodeficiency Virus (HIV): No - INTEGUMENTARY Hx Dermatological Problems: Yes (scabies (treated 04/04)) - MUSCULOSKELETAL/RHEUMATOLOGICAL Hx Musculoskeletal Disorders: Yes (back pain/ hip pain) - GASTROINTESTINAL Hx Gastrointestinal Disorders: No - GENITOURINARY/GYNECOLOGICAL Hx Genitourinary Disorders: Yes (Enlarged Prostate/Prostate surgery) - PSYCHIATRIC Hx Psychophysiologic Disorder: No Hx Substance Use: No - SURGICAL HISTORY Hx Coronary Stent: Yes - ANESTHESIA Hx Anesthesia: Yes Hx Anesthesia Reactions: No Hx Malignant Hyperthermia: No Meds Allergies/Adverse Reactions: Allergies Allergy/AdvReac Type Severity Reaction Status Date / Time aspirin Allergy URTICARIA Verified 03/25/17 01:40 Penicillins Allergy URTICARIA Verified 03/25/17 01:40 - Medications Medications: Current Medications Atorvastatin Calcium (Lipitor) 40 mg PO HS MILDRED Dextrose (Dextrose 50% Inj) 0 ml IV STAT PRN; Protocol PRN Reason: Hypoglycemia Protocol Dextrose (Glutose 15) 0 gm PO ONCE PRN; Protocol PRN Reason: Hypoglycemia Protocol Enoxaparin Sodium (Lovenox) 40 mg SC DAILY MILDRED PRN Reason: Protocol Last Admin: 04/10/17 08:42 Dose: 40 mg Glucagon (Glucagen Diagnostic Kit) 0 mg IM STAT PRN; Protocol PRN Reason: Hypoglycemia Protocol Levofloxacin/Dextrose (Levaquin 750mg) 750 mg in 150 mls @ 100 mls/hr IVPB HS MILDRED Lisinopril (Zestril) 20 mg PO DAILY [facility] Last Admin: 04/10/17 08:43 Dose: 20 mg Metformin HCl (Glucophage) 500 mg PO BID [facility] Last Admin: 04/10/17 08:41 Dose: 500 mg Metoprolol Tartrate (Lopressor) 25 mg PO Q12 [facility] Last Admin: 04/10/17 08:41 Dose: 25 mg Results - Vital Signs Recent Vital Signs: Last Vital Signs Temp 99.0 F 04/10/17 08:08 Pulse 70 04/10/17 08:43 Resp 20 04/10/17 08:08 BP 116/70 04/10/17 08:43 Pulse Ox 97 04/10/17 08:08 - Labs Result Diagrams: 04/09/17 22:05 04/09/17 22:05 Labs: Laboratory Results - last 24 hr 04/09/17 04/09/17 04/09/17 22:05 22:05 22:05 WBC 6.6 RBC 4.70 Hgb 13.6 Hct 41.1 MCV 87.5 MCH 29.0 MCHC 33.1 RDW 14.2 Plt Count 309 MPV 7.7 Neut % (Auto) 67.3 Lymph % (Auto) 12.5 L [place] % (Auto) 17.4 H Eos % (Auto) 2.0 Baso % (Auto) 0.8 Neut # 4.5 Lymph # 0.8 L [place] # 1.2 H Eos # 0.1 Baso # 0.1 PT 12.3 INR 1.1 APTT 33.2 Sodium 136 Potassium 3.8 Chloride 99 Carbon Dioxide 24 Anion Gap 17 BUN 13 Creatinine 1.0 Est GFR ( Amer) > 60 Est GFR (Non-Af Amer) > 60 POC Glucose (mg/dL) Random Glucose 126 H Calcium 9.1 Phosphorus 3.3 Magnesium 1.9 Total Bilirubin 0.9 AST 18 ALT 28 Alkaline Phosphatase 89 Troponin I < 0.0120 Total Protein 7.4 Albumin 4.2 Globulin 3.2 Albumin/Globulin Ratio 1.3 Vitamin B12 Urine Opiates Screen Urine Methadone Screen Ur Barbiturates Screen Ur Phencyclidine Scrn Ur Amphetamines Screen U Benzodiazepines Scrn U Oth Cocaine Metabols U Cannabinoids Screen Alcohol, Quantitative < 10 Blood Type Antibody Screen BBK History Checked 04/09/17 04/09/17 04/09/17 22:05 22:11 22:11 WBC RBC Hgb Hct MCV MCH MCHC RDW Plt Count MPV Neut % (Auto) Lymph % (Auto) [place] % (Auto) Eos % (Auto) Baso % (Auto) Neut # Lymph # [place] # Eos # Baso # PT INR APTT Sodium Potassium Chloride Carbon Dioxide Anion Gap BUN Creatinine Est GFR ( Amer) Est GFR (Non-Af Amer) POC Glucose (mg/dL) 99 Random Glucose Calcium Phosphorus Magnesium Total Bilirubin AST ALT Alkaline Phosphatase Troponin I Total Protein Albumin Globulin Albumin/Globulin Ratio Vitamin B12 Urine Opiates Screen Negative Urine Methadone Screen Negative Ur Barbiturates Screen Negative Ur Phencyclidine Scrn Negative Ur Amphetamines Screen Negative U Benzodiazepines Scrn Negative U Oth Cocaine Metabols Negative U Cannabinoids Screen Negative Alcohol, Quantitative Blood Type B POSITIVE Antibody Screen Negative BBK History Checked No verified bt 04/10/17 04/10/17 04/10/17 05:30 06:29 11:15 WBC RBC Hgb Hct MCV MCH MCHC RDW Plt Count MPV Neut % (Auto) Lymph % (Auto) [place] % (Auto) Eos % (Auto) Baso % (Auto) Neut # Lymph # [place] # Eos # Baso # PT INR APTT Sodium Potassium Chloride Carbon Dioxide Anion Gap BUN Creatinine Est GFR ( Amer) Est GFR (Non-Af Amer) POC Glucose (mg/dL) 125 H 117 H Random Glucose Calcium Phosphorus Magnesium Total Bilirubin AST ALT Alkaline Phosphatase Troponin I Total Protein Albumin Globulin Albumin/Globulin Ratio Vitamin B12 237 L Urine Opiates Screen Urine Methadone Screen Ur Barbiturates Screen Ur Phencyclidine Scrn Ur Amphetamines Screen U Benzodiazepines Scrn U Oth Cocaine Metabols U Cannabinoids Screen Alcohol, Quantitative Blood Type Antibody Screen BBK History Checked
--- NOTE | 2017-04-10 12:45 | CT ---
PROCEDURE: CT Chest without contrast HISTORY: infilterate vs pleural effusion COMPARISON: Correlations made to chest radiograph performed earlier the same day. TECHNIQUE: Contiguous axial images were obtained through the chest without intravenous contrast enhancement. Sagittal and coronal reconstructions were performed. Radiation dose (DLP): 641.1 mGy-cm. This CT exam was performed using one or more of the following dose reduction techniques: Automated exposure control, adjustment of the mA and/or kV according to patient size, and/or use of iterative reconstruction technique. FINDINGS: LUNGS: Bibasilar atelectasis/scarring. No focal consolidation. Visualized airway clear. MEDIASTINUM: Calcific atherosclerosis. No aneurysm. Normal sized heart. Main pulmonary artery unremarkable. No vascular congestion. No lymphadenopathy. PLEURA: No pleural fluid. No pneumothorax. BONES: Old left posterior lateral 9th and 10th rib fractures. No destructive lesion. UPPER ABDOMEN: Cholelithiasis without gallbladder wall thickening or pericholecystic fluid. OTHER FINDINGS: None. IMPRESSION: Bibasilar atelectasis/ scarring. No focal consolidation or pleural effusion.
[2017-04-10 15:19] LABS: INR 1.2 (0.9-1.2); PROTHROMBIN TIME 13.5 Seconds (9.8-13.1)
[2017-04-10] MEDS: levoFLOXacin 750 mg in D5W 750 MG/150 ML BAG IVPB SCH (21:03)
[2017-04-11 04:52] LABS: BASO % 0.5 % (0.0-2.0); EOS % 0.5 % (0.0-4.0); HEMOGLOBIN 13.5 g/dL (12.0-18.0); LYMPH # 0.8 K/uL (1.0-4.3); LYMPH % 12.7 % (20.0-40.0); MEAN CELL VOLUME 87.8 fl (80.0-94.0); MEAN CORPUSCULAR HEMOGLOBIN 28.7 pg (27.0-31.0); MEAN CORPUSCULAR HGB CONC 32.7 g/dL (33.0-37.0); MEAN PLATELET VOLUME 8.5 fl (7.2-11.7); MONO # 1.1 K/uL (0.0-0.8); MONO % 18.4 % (0.0-10.0); NEUT # 4.1 K/uL (1.8-7.0); NEUT % 67.9 % (50.0-75.0); NRBC % 0.1 % (0.0-0.0); RBC 4.71 Mil/uL (4.40-5.90); RED CELL DISTRIBUTION WIDTH 14.2 % (11.5-14.5)
[2017-04-11] MEDS ORDERED: Sodium Chloride 0.9% 1,000 ML IV SCH (05:15)
[2017-04-11 05:28] LABS: ALB/GLOB RATIO 1.2 (1.0-2.1); ALBUMIN 3.9 g/dL (3.5-5.0); ALT/SGPT 34 U/L (21-72); AST/SGOT 21 U/L (17-59); BLOOD UREA NITROGEN 16 mg/dl (9-20); CALCIUM 8.7 mg/dL (8.4-10.2); GFR AFRICAN-AMERICAN > 60; GFR NON-AFRICAN AMERICAN > 60
[2017-04-11] MEDS: Sodium Chloride 0.9% 1,000 ML IV SCH ×3 (06:16→21:20)
[2017-04-11] MEDS: Enoxaparin 40 mg Syringe SC SCH (08:46)
--- NOTE | 2017-04-11 10:05 | CARD ---
APPROVED REPORT EKG Measurement Heart [id number] CO [id number] <Conclusion> Normal sinus rhythm Normal ECG
--- NOTE | 2017-04-11 10:50 | CP.PCM.CON ---
History of Present Illness - History of Present Illness History of Present Illness: This 67-year-old man, a hypertensive and diabetic who has been living in a homeless fpc was brought to the emergency room after a blackout. During a recent hospitalization approximately 12-15 days back the patient had had multiple bouts of supraventricular tachycardia with a heart rate as high as 148 bpm. The patient denies any palpitations and does not recall having blacked out though he does recall waking up and being brought to the emergency room. He has a history of having required coronary stenting approximately a year to year and a half back. He denies symptoms of congestive cardiac failure. He denies taking eyedrops for glaucoma and in fact had ran out of all his medicines (because he could not afford them) when he came to the hospital this time. Physical examination shows an elderly man who is alert awake and coherent at this time. Has superficial abrasions on his 47 from his recent fall during the blackout. His telemetric shows periods of supraventricular tachycardia at a rate of 130 to 145 bpm which occurred abruptly and are interrupted by periods of sinus bradycardia as low as 47-50 bpm His blood pressure was 122/74 mmHg and there was no orthostatic change to his blood pressure. His jugular venous pressure was not elevated and there was no edema over his lower extremities. The pedal pulses were feeble but distinct present. There were no carotid bruits. The apex was no fistula is the first and second heart sounds were normal there was a brief ejection systolic murmur in the aortic area second heart sound was well heard. There were no rales. His abdomen was soft his liver and spleen are not palpable. His electrocardiogram at admission showed sinus rhythm with a normal EKG pattern. Review off his electrocardiograms during his last hospitalization couple of weeks back show bouts of supraventricular tachycardia. Echocardiogram done at that time and earlier in July of this year show a normal left ventricular systolic function with sclerotic aortic leaflets. His labs show normal BUN/creatinine and normal electrolytes and normal CBC. Impression: Bouts of supraventricular tachycardia with a syncopal episode. The patient has shown periods of significant bradycardia with heart rate as low as 47 bpm after beta blockers were given for his tachycardic spells. The beta blockers are being withheld in an attempt to identify if bradycardic episodes occur without interference off beta blockers. At this point the patient is hemodynamically stable. Past Patient History - Past Medical History & Family History Past Medical History?: Yes - Past Social History Alcohol: None Drugs: Denies - CARDIAC Hx Atrial Fibrillation: Yes Hx Cardia Arrhythmia: Yes Hx Hypercholesterolemia: Yes Hx Hypertension: Yes - PULMONARY Hx Respiratory Disorders: No - NEUROLOGICAL Hx Transient Ischemic Attacks (TIA): Yes - HEENT Hx HEENT Problems: No - RENAL Hx Chronic Kidney Disease: Yes (kidney stones/ lithotripsy) Hx Kidney Stones: Yes - ENDOCRINE/METABOLIC Hx Endocrine Disorders: Yes (Type !! DM) - HEMATOLOGICAL/ONCOLOGICAL Hx Human Immunodeficiency Virus (HIV): No - INTEGUMENTARY Hx Dermatological Problems: Yes (scabies (treated 04/04)) - MUSCULOSKELETAL/RHEUMATOLOGICAL Hx Musculoskeletal Disorders: Yes (back pain/ hip pain) - GASTROINTESTINAL Hx Gastrointestinal Disorders: No - GENITOURINARY/GYNECOLOGICAL Hx Genitourinary Disorders: Yes (Enlarged Prostate/Prostate surgery) - PSYCHIATRIC Hx Psychophysiologic Disorder: No Hx Substance Use: No - SURGICAL HISTORY Hx Coronary Stent: Yes - ANESTHESIA Hx Anesthesia: Yes Hx Anesthesia Reactions: No Hx Malignant Hyperthermia: No Meds Allergies/Adverse Reactions: Allergies Allergy/AdvReac Type Severity Reaction Status Date / Time aspirin Allergy URTICARIA Verified 03/25/17 01:40 Penicillins Allergy URTICARIA Verified 03/25/17 01:40 - Medications Medications: Current Medications Acetaminophen (Tylenol 325mg Tab) 650 mg PO Q6 PRN PRN Reason: Fever >100.4 F Last Admin: 04/11/17 03:39 Dose: 650 mg Atorvastatin Calcium (Lipitor) 40 mg PO [facility] Last Admin: 04/10/17 21:04 Dose: 40 mg Cyanocobalamin (Vitamin B12 1000 Mcg Tab) 1,000 mcg PO DAILY COUNTS [facility]CLUDE 234 BEDS AT [facility] Last Admin: 04/11/17 08:46 Dose: 1,000 mcg Dextrose (Dextrose 50% Inj) 0 ml IV STAT PRN; Protocol PRN Reason: Hypoglycemia Protocol Dextrose (Glutose 15) 0 gm PO ONCE PRN; Protocol PRN Reason: Hypoglycemia Protocol Enoxaparin Sodium (Lovenox) 40 mg SC DAILY COUNTS INCLUDE 234 BEDS AT THE [facility] PRN Reason: Protocol Last Admin: 04/11/17 08:46 Dose: 40 mg Glucagon (Glucagen Diagnostic Kit) 0 mg IM STAT PRN; Protocol PRN Reason: Hypoglycemia Protocol Levofloxacin/Dextrose (Levaquin 750mg) 750 mg in 150 mls @ 100 mls/hr IVPB [facility] Last Admin: 04/10/17 21:03 Dose: 100 mls/hr Sodium Chloride (Sodium Chloride 0.9%) 1,000 mls @ 125 mls/hr IV .Q8H MILDRED Stop: 04/12/17 05:05 Last Admin: 04/11/17 06:16 Dose: 125 mls/hr Sodium Chloride (Sodium Chloride 0.9%) 1,000 mls @ 999 mls/hr IV .Q1H1M MILDRED Stop: 04/12/17 05:07 Last Admin: 04/11/17 05:41 Dose: 999 mls/hr Vancomycin HCl 1 gm/ Sodium (Chloride) 250 mls @ 166.667 mls/hr IVPB Q12 COUNTS INCLUDE 234 BEDS AT THE [facility] PRN Reason: Protocol Last Admin: 04/11/17 10:22 Dose: 166.667 mls/hr Lisinopril (Zestril) 20 mg PO DAILY COUNTS [facility]CLUDE 234 BEDS AT THE [facility] Last Admin: 04/11/17 08:46 Dose: 20 mg Metformin HCl (Glucophage) 500 mg PO BID COUNTS INCLUDE 234 BEDS AT THE [facility] Last Admin: 04/11/17 08:45 Dose: 500 mg Results - Vital Signs Recent Vital Signs: Last Vital Signs Temp 98.3 F 04/11/17 08:13 Pulse 62 04/11/17 08:46 Resp 18 04/11/17 08:13 BP 138/96 H 04/11/17 08:46 Pulse Ox 97 04/11/17 08:13 - Labs Result Diagrams: 04/11/17 04:00 04/11/17 04:00 Labs: Laboratory Results - last 24 hr 04/10/17 04/10/17 04/10/17 11:15 14:40 16:19 WBC RBC Hgb Hct MCV MCH MCHC RDW Plt Count MPV Neut % (Auto) Lymph % (Auto) [place] % (Auto) Eos % (Auto) Baso % (Auto) Neut # Lymph # [place] # Eos # Baso # PT 13.5 H INR 1.2 Sodium Potassium Chloride Carbon Dioxide Anion Gap BUN Creatinine Est GFR ( Amer) Est GFR (Non-Af Amer) POC Glucose (mg/dL) 117 H 93 Random Glucose Lactic Acid Calcium Total Bilirubin AST ALT Alkaline Phosphatase Total Protein Albumin Globulin Albumin/Globulin Ratio 04/10/17 04/11/17 04/11/17 22:53 04:00 04:00 WBC 6.0 RBC 4.71 Hgb 13.5 Hct 41.4 MCV 87.8 MCH 28.7 MCHC 32.7 L RDW 14.2 Plt Count 247 MPV 8.5 Neut % (Auto) 67.9 Lymph % (Auto) 12.7 L [place] % (Auto) 18.4 H Eos % (Auto) 0.5 Baso % (Auto) 0.5 Neut # 4.1 Lymph # 0.8 L [place] # 1.1 H Eos # 0.0 Baso # 0.0 PT INR Sodium 132 Potassium 4.1 Chloride 99 Carbon Dioxide 22 Anion Gap 15 BUN 16 Creatinine 1.1 Est GFR ( Amer) > 60 Est GFR (Non-Af Amer) > 60 POC Glucose (mg/dL) 98 Random Glucose 127 H Lactic Acid Calcium 8.7 Total Bilirubin 1.4 H AST 21 ALT 34 Alkaline Phosphatase 80 Total Protein 7.3 Albumin 3.9 Globulin 3.4 Albumin/Globulin Ratio 1.2 04/11/17 04/11/17 05:44 10:00 WBC RBC Hgb Hct MCV MCH MCHC RDW Plt Count MPV Neut % (Auto) Lymph % (Auto) [place] % (Auto) Eos % (Auto) Baso % (Auto) Neut # Lymph # [place] # Eos # Baso # PT INR Sodium Potassium Chloride Carbon Dioxide Anion Gap BUN Creatinine Est GFR ( Amer) Est GFR (Non-Af Amer) POC Glucose (mg/dL) 109 Random Glucose Lactic Acid 0.8 Calcium Total Bilirubin AST ALT Alkaline Phosphatase Total Protein Albumin Globulin Albumin/Globulin Ratio
--- NOTE | 2017-04-11 10:50 | CP.PCM.PN ---
Addendum entered and electronically signed by Amelia Page MD 04/11/17 11:42 : Team spoke to Infectious Disease attending physical education specialist, Dr. Bunch. Advised to continue with current antibiotics and to add Aztreonam 1gm Q12. Correction from previously written note- pt is receiving vancomycin 1gm Q12. Pt's antibiotics are: Levofloxacin 750 mg IVPB daily Vancomycin 1gm IVPB Q12 Aztreonam 1gm IVPB Q12. Original Note: <Amelia Page - Last Filed: 04/11/17 10:46> Subjective - Date & Time of Evaluation Date of Evaluation: 04/11/17 Time of Evaluation: 10:10 - Subjective Subjective: Pt was seen and evaluated at bedside, appears comfortable in bed. Overnight, he spiked fever to 101.2, and had several (at least 3) episodes of tachycardia to max of 135 bpm. Pt states he did not feel feverish, and denies palpitations of chest discomfort. Denies headache, dizziness, shortness of breath, chest pain, abdominal pain, diarrhea, constipation, leg/calf swelling/pain. Objective - Vital Signs/Intake and Output Vital Signs (last 24 hours): Temp Pulse Resp BP Pulse Ox 98.3 F 62 18 138/96 H 97 04/11/17 08:13 04/11/17 08:46 04/11/17 08:13 04/11/17 08:46 04/11/17 08:13 Intake and Output: 04/11/17 04/11/17 06:59 18:59 Intake Total 860 Output Total 700 Balance 160 - Medications Medications: Current Medications Acetaminophen (Tylenol 325mg Tab) 650 mg PO Q6 PRN PRN Reason: Fever >100.4 F Last Admin: 04/11/17 03:39 Dose: 650 mg Atorvastatin Calcium (Lipitor) 40 mg PO HS [facility] Last Admin: 04/10/17 21:04 Dose: 40 mg Cyanocobalamin (Vitamin B12 1000 Mcg Tab) 1,000 mcg PO DAILY [facility] Last Admin: 04/11/17 08:46 Dose: 1,000 mcg Dextrose (Dextrose 50% Inj) 0 ml IV STAT PRN; Protocol PRN Reason: Hypoglycemia Protocol Dextrose (Glutose 15) 0 gm PO ONCE PRN; Protocol PRN Reason: Hypoglycemia Protocol Enoxaparin Sodium (Lovenox) 40 mg SC DAILY [facility] PRN Reason: Protocol Last Admin: 04/11/17 08:46 Dose: 40 mg Glucagon (Glucagen Diagnostic Kit) 0 mg IM STAT PRN; Protocol PRN Reason: Hypoglycemia Protocol Levofloxacin/Dextrose (Levaquin 750mg) 750 mg in 150 mls @ 100 mls/hr IVPB HS [facility] Last Admin: 04/10/17 21:03 Dose: 100 mls/hr Sodium Chloride (Sodium Chloride 0.9%) 1,000 mls @ 125 mls/hr IV .Q8H [facility] Stop: 04/12/17 05:05 Last Admin: 04/11/17 06:16 Dose: 125 mls/hr Sodium Chloride (Sodium Chloride 0.9%) 1,000 mls @ 999 mls/hr IV .Q1H1M [facility] Stop: 04/12/17 05:07 Last Admin: 04/11/17 05:41 Dose: 999 mls/hr Vancomycin HCl 1 gm/ Sodium (Chloride) 250 mls @ 166.667 mls/hr IVPB Q12 [facility] PRN Reason: Protocol Last Admin: 04/11/17 10:22 Dose: 166.667 mls/hr Lisinopril (Zestril) 20 mg PO DAILY [facility] Last Admin: 04/11/17 08:46 Dose: 20 mg Metformin HCl (Glucophage) 500 mg PO BID [facility] Last Admin: 04/11/17 08:45 Dose: 500 mg - Labs Labs: 04/11/17 04:00 04/11/17 04:00 PT 13.5 Seconds (9.8-13.1) H 04/10/17 14:40 INR 1.2 (0.9-1.2) 04/10/17 14:40 APTT 33.2 Seconds (25.6-37.1) 04/09/17 22:05 - Constitutional Appears: No Acute Distress, Unkempt - Head Exam Head Exam: NORMOCEPHALIC Additional comments: abrasion on L forehead - Eye Exam Eye Exam: Normal appearance - ENT Exam ENT Exam: Mucous Membranes Moist - Respiratory Exam Respiratory Exam: Clear to Ausculation Bilateral, NORMAL BREATHING PATTERN. absent: Respiratory Distress - Cardiovascular Exam Cardiovascular Exam: REGULAR RHYTHM, +S1, +S2 - GI/Abdominal Exam GI & Abdominal Exam: Soft, Normal Bowel Sounds. absent: Tenderness - Extremities Exam Extremities Exam: absent: Calf Tenderness, Joint Swelling Additional comments: evidence of scabies bilaterally lower extremities - Back Exam Back Exam: NORMAL INSPECTION - Neurological Exam Neurological Exam: Alert, Awake - Skin Skin Exam: Warm Additional comments: evidence of scabies on bilateral lower extremities Assessment and Plan - Assessment and Plan (Free Text) Assessment: 67 yo M with PMH A-fib, NIDDM2, HTN, HLD, CAD and [place] s/p stent 03/2016, admitted due to syncope. Spiking fever to 101.5 in the past 24 hrs, and having bouts of labile heart rates ranging from 60s to 130s. Plan: 1. Syncope -Stable, 1 episode, no seizure like activity witnessed, likely secondary to malnutrition -Head CT without contrast: no acute intracranial abnormality -EKG: Normal sinus rhythm, no ST-T changes -Echo 03/27/17: Normal LV size and function, EF= 50% -B12: 237, being supplemented -Folate pending -Pending extremity Doppler U/S 2. Fever of unknown etiology -Presumed CAP less likely at this time due to CT findings of pleural effusion rather than infiltrate -Levofloxacin 750 mg IVPB daily -Vancomycin 1gm IVPB daily -F/u blood culture, urine culture -ID consult 3. Tachycardia -Heart range ranges from 60s to 130s -Secondary to infection vs a.fib vs sick sinus vs other -Metoprolol held -EKG shows normal sinus rhythm -Cardiology consult 4. Afib -Controlled without mediation -Consider restart anticoagulation. Patient has been non compliant with warfarin. 5. CAP -See #2, less likely due to chest CT findings -Consider repeat CXR before discharge 6. Hypertension -Uncontrolled on admission -Resume home meds: Lisinopril 20mg PO QD -Hold Lopressor (metoprolol) 25mg PO BID -Monitor BP 7. NIDDM Type 2 -Controlled -03/27/17: HbA1c 6.9, lipids Triglycerides 161, Cholesterol 159, LDL 109, HDL 22 -Continue with home meds: Metformin 500 mg PO BID, Lipitor 40mg QHS -Fingersticks ACHS 8. Scabies -Controlled with Permethrin 5% topical 9. DVT prophylaxis -Lovenox 40mg SC QD <Lin Waldron - Last Filed: 04/12/17 08:10> Objective - Vital Signs/Intake and Output Vital Signs (last 24 hours): Temp Pulse Resp BP Pulse Ox 98.0 F 128 H 18 129/87 94 L 04/12/17 05:00 04/12/17 05:00 04/12/17 05:00 04/12/17 05:00 04/12/17 05:00 - Medications Medications: Current Medications Acetaminophen (Tylenol 325mg Tab) 650 mg PO Q6 PRN PRN Reason: Fever >100.4 F Last Admin: 04/11/17 03:39 Dose: 650 mg Atorvastatin Calcium (Lipitor) 40 mg PO HS [facility] Last Admin: 04/11/17 21:20 Dose: 40 mg Cyanocobalamin (Vitamin B12 1000 Mcg Tab) 1,000 mcg PO DAILY [facility] Last Admin: 04/11/17 08:46 Dose: 1,000 mcg Dextrose (Dextrose 50% Inj) 0 ml IV STAT PRN; Protocol PRN Reason: Hypoglycemia Protocol Dextrose (Glutose 15) 0 gm PO ONCE PRN; Protocol PRN Reason: Hypoglycemia Protocol Enoxaparin Sodium (Lovenox) 40 mg SC DAILY [facility] PRN Reason: Protocol Last Admin: 04/11/17 08:46 Dose: 40 mg Glucagon (Glucagen Diagnostic Kit) 0 mg IM STAT PRN; Protocol PRN Reason: Hypoglycemia Protocol Levofloxacin/Dextrose (Levaquin 750mg) 750 mg in 150 mls @ 100 mls/hr IVPB HS [facility] Last Admin: 04/11/17 21:21 Dose: 100 mls/hr Vancomycin HCl 1 gm/ Sodium (Chloride) 250 mls @ 166.667 mls/hr IVPB Q12 [facility] PRN Reason: Protocol Last Admin: 04/11/17 21:22 Dose: 166.667 mls/hr Aztreonam 1 gm/ Sodium (Chloride) 100 mls @ 100 mls/hr IVPB Q12 [facility] PRN Reason: Protocol Last Admin: 04/11/17 21:21 Dose: 100 mls/hr Lisinopril (Zestril) 20 mg PO DAILY [facility] Last Admin: 04/11/17 08:46 Dose: 20 mg Metformin HCl (Glucophage) 500 mg PO BID [facility] Last Admin: 04/11/17 16:22 Dose: 500 mg - Labs Labs: 04/12/17 05:50 04/12/17 05:50 PT 13.5 Seconds (9.8-13.1) H 04/10/17 14:40 INR 1.2 (0.9-1.2) 04/10/17 14:40 APTT 33.2 Seconds (25.6-37.1) 04/09/17 22:05 Attending/Attestation - Attestation I have personally seen and examined this patient.: Yes I have fully participated in the care of the patient.: Yes I have reviewed all pertinent clinical information, including history, physical exam and plan: Yes Notes (Text): 04/12/17 08:09 ATTENDING NOTE/ ATTESTATION PATIENT SEEN AND EXAMINED. CASE DISCUSSED WITH RESIDENT. AGREE WITH FINDINGS AND PLAN.
--- NOTE | 2017-04-11 11:45 | US ---
PROCEDURE: Upper Extremity Venous Duplex Exam HISTORY: high risk, h/o sycnope PRIORS: None. TECHNIQUE: Bilateral upper extremity, internal jugular, subclavian, axillary, brachial, ulnar, radial, basilic and upper cephalic veins were evaluated. Flow was assessed with color Doppler, compressibility, assessment of phasic flow and augmentation response. FINDINGS: RIGHT: 1. Internal Jugular Vein: Compressibility - Fully compressible: Thrombus - None : Flow - Phasic 2. Subclavian Vein:Compressibility - Fully compressible: Thrombus - None : Flow - Phasic 3. Axillary Vein: Compressibility - Fully compressible: Thrombus - None 4. Brachial Vein: Compressibility - Fully compressible: Thrombus - None 5. Ulnar Vein:Compressibility - Fully compressible: Thrombus - None 6. Radial Vein:Compressibility - Fully compressible: Thrombus - None 7. Cephalic Vein: Compressibility - Fully compressible: thrombus - None 8. Basilic Vein:Compressibility - Fully compressible: thrombus - None LEFT: 1. Internal Jugular Vein: Compressibility - Fully compressible: Thrombus - None : Flow - Phasic 2. Subclavian Vein:Compressibility - Fully compressible: Thrombus - None : Flow - Phasic 3. Axillary Vein: Compressibility - Fully compressible: Thrombus - None 4. Brachial Vein: Compressibility - Fully compressible: Thrombus - None 5. Ulnar Vein:Compressibility - Fully compressible: Thrombus - None 6. Radial Vein:Compressibility - Fully compressible: Thrombus - None 7. Cephalic Vein: Compressibility - Fully compressible: thrombus - None 8. Basilic Vein:Compressibility - Fully compressible: thrombus - None OTHER FINDINGS: Right: None. Left: None. IMPRESSION: No evidence of deep venous thrombosis in the bilateral upper extremities.
--- NOTE | 2017-04-11 11:45 | US ---
PROCEDURE: Bilateral lower extremity venous duplex Doppler. HISTORY: high risk, sycnope COMPARISON: None available. TECHNIQUE: Bilateral common femoral, superficial femoral, popliteal and posterior tibial veins were evaluated. Flow was assessed with color Doppler, compressibility, assessment of phasic flow and augmentation response. FINDINGS: COMMON FEMORAL VEIN: Right CFV: Unremarkable. Left CFV: Unremarkable. SUPERFICIAL FEMORAL VEIN: Right SFV: Unremarkable. Left SFV: Unremarkable. POPLITEAL VEIN: Right Popliteal: Unremarkable. Left Popliteal: Unremarkable. POSTERIOR TIBIAL VEIN: Right PTV: Unremarkable. Left PTV: Unremarkable. OTHER FINDINGS: None. IMPRESSION: No evidence of deep venous thrombosis.
--- NOTE | 2017-04-11 11:48 | US ---
HISTORY: cholelithiasis fever COMPARISON: None. TECHNIQUE: Sonographic evaluation of the right upper quadrant of the abdomen. FINDINGS: LIVER: Measures 16.4 cm in length. Increased echogenicity of the liver parenchyma. No mass. No intrahepatic bile duct dilatation. GALLBLADDER: Minimal cholelithiasis versus tumefactive sludge without gallbladder wall thickening or pericholecystic fluid. Sonographic Meyer sign was not elicited. COMMON BILE DUCT: Measures 5 Mm. No stones. No dilatation. PANCREAS: Unremarkable as visualized. No mass. No ductal dilatation. RIGHT KIDNEY: Measures 11.6 x 5.0 x 6.0 cm in length. Normal echogenicity. No calculus, mass, or hydronephrosis. AORTA: No aneurysmal dilatation. IVC: Unremarkable. OTHER FINDINGS: None . IMPRESSION: Hepatic steatosis. Minimal cholelithiasis versus tumefactive sludge without sonographic evidence of acute cholecystitis.
[2017-04-11] MEDS: Aztreonam 1 GM in Sodium Chloride 0.9% 100 ML IVPB SCH ×2 (12:30→21:21)
--- NOTE | 2017-04-11 13:26 | CP.PCM.CON ---
History of Present Illness - History of Present Illness History of Present Illness: Infectious Disease Consult Note- asked to see this patient at the request of family practice team for fever. HPI- History obtained mostly from the medical chart. Patient is a 67 year old male with PMH of DM II, HTN, CAD s/p stent 2015 who was admitted due to syncope. I'm asked to evaluate the patient because pt. spiked temp of 101 the other day. so far all cultures are negative and no sign of any infiltrate on chest imaging report. pt. resting comfortably and denies any cough or sob, denies any [place], denies any chills, denies any abd. pain or any diarrhea . denies any dysurea. was informed by [facility] practice team that since pt. was recently d/c from hospital and admission cxr was ? infiltrate pt. was started on levaquin and vanco to cover for HAp and hence I advised to add aztreonam as well in light of the PCn allergy. Review of Systems - Review of Systems Review of Systems: ROS- as stated in HPI Past Patient History - Past Medical History & Family History Past Medical History?: Yes - Past Social History Alcohol: None Drugs: Denies Home Situation {Lives}: Homeless - CARDIAC Hx Atrial Fibrillation: Yes Hx Cardia Arrhythmia: Yes Hx Hypercholesterolemia: Yes Hx Hypertension: Yes - PULMONARY Hx Respiratory Disorders: No - NEUROLOGICAL Hx Transient Ischemic Attacks (TIA): Yes - HEENT Hx HEENT Problems: No - RENAL Hx Chronic Kidney Disease: Yes (kidney stones/ lithotripsy) Hx Kidney Stones: Yes - ENDOCRINE/METABOLIC Hx Endocrine Disorders: Yes (Type !! DM) - HEMATOLOGICAL/ONCOLOGICAL Hx Human Immunodeficiency Virus (HIV): No - INTEGUMENTARY Hx Dermatological Problems: Yes (scabies (treated 04/04)) - MUSCULOSKELETAL/RHEUMATOLOGICAL Hx Musculoskeletal Disorders: Yes (back pain/ hip pain) - GASTROINTESTINAL Hx Gastrointestinal Disorders: No - GENITOURINARY/GYNECOLOGICAL Hx Genitourinary Disorders: Yes (Enlarged Prostate/Prostate surgery) - PSYCHIATRIC Hx Psychophysiologic Disorder: No Hx Substance Use: No - SURGICAL HISTORY Hx Coronary Stent: Yes - ANESTHESIA Hx Anesthesia: Yes Hx Anesthesia Reactions: No Hx Malignant Hyperthermia: No Meds Allergies/Adverse Reactions: Allergies Allergy/AdvReac Type Severity Reaction Status Date / Time aspirin Allergy URTICARIA Verified 03/25/17 01:40 Penicillins Allergy URTICARIA Verified 03/25/17 01:40 - Medications Medications: Current Medications Acetaminophen (Tylenol 325mg Tab) 650 mg PO Q6 PRN PRN Reason: Fever >100.4 F Last Admin: 04/11/17 03:39 Dose: 650 mg Atorvastatin Calcium (Lipitor) 40 mg PO HS [facility] Last Admin: 04/10/17 21:04 Dose: 40 mg Cyanocobalamin (Vitamin B12 1000 Mcg Tab) 1,000 mcg PO DAILY [facility] Last Admin: 04/11/17 08:46 Dose: 1,000 mcg Dextrose (Dextrose 50% Inj) 0 ml IV STAT PRN; Protocol PRN Reason: Hypoglycemia Protocol Dextrose (Glutose 15) 0 gm PO ONCE PRN; Protocol PRN Reason: Hypoglycemia Protocol Enoxaparin Sodium (Lovenox) 40 mg SC DAILY [facility] PRN Reason: Protocol Last Admin: 04/11/17 08:46 Dose: 40 mg Glucagon (Glucagen Diagnostic Kit) 0 mg IM STAT PRN; Protocol PRN Reason: Hypoglycemia Protocol Levofloxacin/Dextrose (Levaquin 750mg) 750 mg in 150 mls @ 100 mls/hr IVPB [facility] Last Admin: 04/10/17 21:03 Dose: 100 mls/hr Sodium Chloride (Sodium Chloride 0.9%) 1,000 mls @ 125 mls/hr IV .Q8H [facility] Stop: 04/12/17 05:05 Last Admin: 04/11/17 06:16 Dose: 125 mls/hr Sodium Chloride (Sodium Chloride 0.9%) 1,000 mls @ 999 mls/hr IV .Q1H1M [facility] Stop: 04/12/17 05:07 Last Admin: 04/11/17 05:41 Dose: 999 mls/hr Vancomycin HCl 1 gm/ Sodium (Chloride) 250 mls @ 166.667 mls/hr IVPB Q12 [facility] PRN Reason: Protocol Last Admin: 04/11/17 10:22 Dose: 166.667 mls/hr Aztreonam 1 gm/ Sodium (Chloride) 100 mls @ 100 mls/hr IVPB Q12 [facility] PRN Reason: Protocol Lisinopril (Zestril) 20 mg PO DAILY [facility] Last Admin: 04/11/17 08:46 Dose: 20 mg Metformin HCl (Glucophage) 500 mg PO BID [facility] Last Admin: 04/11/17 08:45 Dose: 500 mg Physical Exam - Constitutional Appears: No Acute Distress - Head Exam Head Exam: ATRAUMATIC - Eye Exam Pupil Exam: PERRL - ENT Exam ENT Exam: Normal Oropharynx - Neck Exam Neck exam: Positive for: Full Rom - Respiratory Exam Respiratory Exam: NORMAL BREATHING PATTERN Additional comments: no wheezing minimal decrease breath sounds at bases - Cardiovascular Exam Cardiovascular Exam: REGULAR RHYTHM, +S1, +S2 - GI/Abdominal Exam GI & Abdominal Exam: Normal Bowel Sounds, Soft Additional comments: NT, ND - Extremities Exam Additional comments: no edema b/l LE - Neurological Exam Neurological exam: Alert, Oriented x3 Results - Vital Signs Recent Vital Signs: Last Vital Signs Temp 98.6 F 04/11/17 12:22 Pulse 61 04/11/17 12:22 Resp 20 04/11/17 12:22 BP 132/75 04/11/17 12:22 Pulse Ox 95 04/11/17 12:22 - Labs Result Diagrams: 04/13/17 12:07 04/12/17 05:50 Labs: Laboratory Results - last 24 hr 04/10/17 04/10/17 04/10/17 14:40 16:19 22:53 WBC RBC Hgb Hct MCV MCH MCHC RDW Plt Count MPV Neut % (Auto) Lymph % (Auto) Pitkin % (Auto) Eos % (Auto) Baso % (Auto) Neut # Lymph # Pitkin # Eos # Baso # ESR PT 13.5 H INR 1.2 Sodium Potassium Chloride Carbon Dioxide Anion Gap BUN Creatinine Est GFR ( Amer) Est GFR (Non-Af Amer) POC Glucose (mg/dL) 93 98 Random Glucose Lactic Acid Calcium Total Bilirubin AST ALT Alkaline Phosphatase Total Protein Albumin Globulin Albumin/Globulin Ratio 04/11/17 04/11/17 04/11/17 04:00 04:00 05:44 WBC 6.0 RBC 4.71 Hgb 13.5 Hct 41.4 MCV 87.8 MCH 28.7 MCHC 32.7 L RDW 14.2 Plt Count 247 MPV 8.5 Neut % (Auto) 67.9 Lymph % (Auto) 12.7 L Pitkin % (Auto) 18.4 H Eos % (Auto) 0.5 Baso % (Auto) 0.5 Neut # 4.1 Lymph # 0.8 L Pitkin # 1.1 H Eos # 0.0 Baso # 0.0 ESR PT INR Sodium 132 Potassium 4.1 Chloride 99 Carbon Dioxide 22 Anion Gap 15 BUN 16 Creatinine 1.1 Est GFR ( Amer) > 60 Est GFR (Non-Af Amer) > 60 POC Glucose (mg/dL) 109 Random Glucose 127 H Lactic Acid Calcium 8.7 Total Bilirubin 1.4 H AST 21 ALT 34 Alkaline Phosphatase 80 Total Protein 7.3 Albumin 3.9 Globulin 3.4 Albumin/Globulin Ratio 1.2 04/11/17 04/11/17 04/11/17 10:00 10:00 12:15 WBC RBC Hgb Hct MCV MCH MCHC RDW Plt Count MPV Neut % (Auto) Lymph % (Auto) Pitkin % (Auto) Eos % (Auto) Baso % (Auto) Neut # Lymph # Pitkin # Eos # Baso # ESR 34 H PT INR Sodium Potassium Chloride Carbon Dioxide Anion Gap BUN Creatinine Est GFR ( Amer) Est GFR (Non-Af Amer) POC Glucose (mg/dL) 84 Random Glucose Lactic Acid 0.8 Calcium Total Bilirubin AST ALT Alkaline Phosphatase Total Protein Albumin Globulin Albumin/Globulin Ratio Microbiology 04/10/17 16:30 Blood Blood Culture - Preliminary NO GROWTH AFTER 3 DAYS 04/09/17 22:00 Blood Blood Culture - Preliminary NO GROWTH AFTER 3 DAYS 04/11/17 04:00 Blood Blood Culture - Preliminary NO GROWTH AFTER 48 HOURS 04/11/17 09:00 Urine,Clean Catch Urine Culture - Final No Growth (<1,000 CFU/ML) Accession No. : [id number] Patient Name / ID : CAR RAINYE V / [id number] Exam Date : 04/10/2017 10:57:54 ( Approved ) Study Comment : Sex / Age : M / 67Y Creator : Dany Givens MD Dictator : Dany Givens MD Coil Strapper : Preschool Lead Teacher : Dany Givens MD Approver2 : Report Date : 04/10/2017 12:40:15 My Comment : PROCEDURE: CT Chest without contrast HISTORY: infilterate vs pleural effusion COMPARISON: Correlations made to chest radiograph performed earlier the same day. TECHNIQUE: Contiguous axial images were obtained through the chest without intravenous contrast enhancement. Sagittal and coronal reconstructions were performed. Radiation dose (DLP): 641.1 mGy-cm. This CT exam was performed using one or more of the following dose reduction techniques: Automated exposure control, adjustment of the mA and/or kV according to patient size, and/or use of iterative reconstruction technique. FINDINGS: LUNGS: Bibasilar atelectasis/scarring. No focal consolidation. Visualized airway clear. MEDIASTINUM: Calcific atherosclerosis. No aneurysm. Normal sized heart. Main pulmonary artery unremarkable. No vascular congestion. No lymphadenopathy. PLEURA: No pleural fluid. No pneumothorax. BONES: Old left posterior lateral 9th and 10th rib fractures. No destructive lesion. UPPER ABDOMEN: Cholelithiasis without gallbladder wall thickening or pericholecystic fluid. OTHER FINDINGS: None. IMPRESSION: Bibasilar atelectasis/ scarring. No focal consolidation or pleural effusion. Accession No. : [id number] Patient Name / ID : CAR RAINEY V / [id number] Exam Date : 04/11/2017 10:42:12 ( Approved ) Study Comment : Sex / Age : M / 67Y Creator : Dany Givens MD Dictator : Dany Givens MD Coil Strapper : Preschool Lead Teacher : Dany Givens MD Approver2 : Report Date : 04/11/2017 11:42:34 My Comment : HISTORY: cholelithiasis fever COMPARISON: None. TECHNIQUE: Sonographic evaluation of the right upper quadrant of the abdomen. FINDINGS: LIVER: Measures 16.4 cm in length. Increased echogenicity of the liver parenchyma. No mass. No intrahepatic bile duct dilatation. GALLBLADDER: Minimal cholelithiasis versus tumefactive sludge without gallbladder wall thickening or pericholecystic fluid. Sonographic Meyer sign was not elicited. COMMON BILE DUCT: Measures 5 Mm. No stones. No dilatation. PANCREAS: Unremarkable as visualized. No mass. No ductal dilatation. RIGHT KIDNEY: Measures 11.6 x 5.0 x 6.0 cm in length. Normal echogenicity. No calculus, mass, or hydronephrosis. AORTA: No aneurysmal dilatation. IVC: Unremarkable. OTHER FINDINGS: None . IMPRESSION: Hepatic steatosis. Minimal cholelithiasis versus tumefactive sludge without sonographic evidence of acute cholecystitis. Assessment & Plan (1) Syncope Status: Acute (2) Atrial fibrillation Status: Acute (3) DM2 (diabetes mellitus, type 2) Status: Acute (4) Fever Status: Acute - Assessment and Plan (Free Text) Assessment: A/P- 67 year old homeless male with HTN, CAD s/p stent 2015, DM II admitted with syncope. 2 days after admission pt. spiked temp to 101 x2. etiology of the fever unclear at this time. chest CT - no infiltrate and no effusion as per report. abd US- biliary sludge but no acute cholecystitis as per report. B/L LE and UE US negative for dvt. blood cx - neg x 3 UA and urine cx- neg HIV ab from 03/26/2017-neg influenza - neg Plan- check sputum cx. perhaps pt. had viral URI as cause of fever. look for noninfectious etiology of fever such as rhumatolohic etiology. check RF and MAYI panel. since chect CT reoirt rules out any infiltrated or effusion and since all cx are negative so far, advise to d/c IV vanco and aztreonam and levaquin monitor temp off abx. check ECHO if not already done to rule out IE. check HIV ab again as well. Thank you for allowing me to take part in the care of this patient.
--- NOTE | 2017-04-11 18:01 | CP.PCM.PCO ---
Addendum Addendum: 04/11/17 17:57 I am called by nurse and notified that patient has HR: 130 asymptomatic. Bedside exam confirmed sinus tachy, asymptomatic patient for about [address] min[address] [facility] [address] Ham called by me and discussed plan of treatment due to pt has possible Sick sinus syndrome and BB are hold since this morning . Prior EKG, Vasovagal maneuvers done and HR: 67. Adenosine order stopped. Patient continues asymptomatic. Hr Controlled at this moment.
[2017-04-11] MEDS: levoFLOXacin 750 mg in D5W 750 MG/150 ML BAG IVPB SCH (21:21)
[2017-04-12 00:41] LABS: SQUAMOUS EPITHIAL < 1 /hpf (0-5); URINE BILIRUBIN NEGATIVE (NEGATIVE); URINE BLOOD NEGATIVE (NEGATIVE); URINE CLARITY CLEAR (Clear); URINE COLOR YELLOW (YELLOW); URINE GLUCOSE (UA) NEG (Normal); URINE LEUKOCYTE ESTERASE NEG Leu/uL (Negative); URINE NITRATE NEGATIVE (NEGATIVE); URINE PROTEIN NEGATIVE (NEGATIVE); URINE UROBILINOGEN 0.2-1.0 mg/dL (0.2-1.0)
[2017-04-12 06:08] LABS: HEMOGLOBIN 13.1 g/dL (12.0-18.0); MEAN CELL VOLUME 87.3 fl (80.0-94.0); MEAN CORPUSCULAR HEMOGLOBIN 28.8 pg (27.0-31.0); MEAN CORPUSCULAR HGB CONC 32.9 g/dL (33.0-37.0); RBC 4.56 Mil/uL (4.40-5.90); RED CELL DISTRIBUTION WIDTH 14.1 % (11.5-14.5)
[2017-04-12 06:24] LABS: WHITE BLOOD COUNT 2.9 K/uL (4.8-10.8)
[2017-04-12 07:22] LABS: ALBUMIN 3.4 g/dL (3.5-5.0); ALT/SGPT 32 U/L (21-72); AST/SGOT 25 U/L (17-59); BLOOD UREA NITROGEN 15 mg/dl (9-20); CALCIUM 8.2 mg/dL (8.4-10.2); GFR AFRICAN-AMERICAN > 60; GFR NON-AFRICAN AMERICAN > 60
--- NOTE | 2017-04-12 07:24 | CP.PCM.PCO ---
Addendum Addendum: 04/12/17 07:20 I am called 6:45 to be notified that patient has been about 40 minutes in sinus tachycardia 140' asymptomatic. patient seen and examined bedside pleasant sleeping. denies any SOB, chest pain. Vagal maneuvers done and Hr converted to 76. Not needed Adenosine at this moment. Sinus tachy or SVT reverted with vagal maneuvers. Patient asymptomatic, Hr controlled for now.
--- NOTE | 2017-04-12 08:37 | CARD ---
APPROVED REPORT EKG Measurement Heart [id number] <Conclusion> Sinus tachycardia Left axis deviation Septal infarct, age undetermined Abnormal ECG
[2017-04-12] MEDS: Aztreonam 1 GM in Sodium Chloride 0.9% 100 ML IVPB SCH ×2 (08:59→21:04)
[2017-04-12] MEDS: Enoxaparin 40 mg Syringe SC SCH (09:00)
--- NOTE | 2017-04-12 10:39 | CP.PCM.PN ---
Subjective - Date & Time of Evaluation Date of Evaluation: 04/12/17 Time of Evaluation: 10:00 - Subjective Subjective: Pt remains asymptomatic Telemetry shows brief periods of PSVT at rates of 130-145 BPM (Responded to vagal manuevres) Remains hemodynamically stable while in bed Discussed with residents Will have EP evaluate pt , before considering perm pacing Objective - Vital Signs/Intake and Output Vital Signs (last 24 hours): Temp Pulse Resp BP Pulse Ox 98 F 66 20 143/83 96 04/12/17 08:00 04/12/17 09:00 04/12/17 08:00 04/12/17 09:00 04/12/17 08:00 - Medications Medications: Current Medications Acetaminophen (Tylenol 325mg Tab) 650 mg PO Q6 PRN PRN Reason: Fever >100.4 F Last Admin: 04/11/17 03:39 Dose: 650 mg Atorvastatin Calcium (Lipitor) 40 mg PO [facility] Last Admin: 04/11/17 21:20 Dose: 40 mg Cyanocobalamin (Vitamin B12 1000 Mcg Tab) 1,000 mcg PO DAILY [facility] Last Admin: 04/12/17 09:00 Dose: 1,000 mcg Dextrose (Dextrose 50% Inj) 0 ml IV STAT PRN; Protocol PRN Reason: Hypoglycemia Protocol Dextrose (Glutose 15) 0 gm PO ONCE PRN; Protocol PRN Reason: Hypoglycemia Protocol Enoxaparin Sodium (Lovenox) 40 mg SC DAILY [facility] PRN Reason: Protocol Last Admin: 04/12/17 09:00 Dose: 40 mg Glucagon (Glucagen Diagnostic Kit) 0 mg IM STAT PRN; Protocol PRN Reason: Hypoglycemia Protocol Levofloxacin/Dextrose (Levaquin 750mg) 750 mg in 150 mls @ 100 mls/hr IVPB [facility] Last Admin: 04/11/17 21:21 Dose: 100 mls/hr Vancomycin HCl 1 gm/ Sodium (Chloride) 250 mls @ 166.667 mls/hr IVPB Q12 [facility] PRN Reason: Protocol Last Admin: 04/12/17 09:06 Dose: 166.667 mls/hr Aztreonam 1 gm/ Sodium (Chloride) 100 mls @ 100 mls/hr IVPB Q12 [facility] PRN Reason: Protocol Last Admin: 04/12/17 08:59 Dose: 100 mls/hr Lisinopril (Zestril) 20 mg PO DAILY [facility] Last Admin: 04/12/17 09:00 Dose: 20 mg Metformin HCl (Glucophage) 500 mg PO BID [facility] Last Admin: 04/12/17 09:00 Dose: 500 mg - Labs Labs: 04/12/17 05:50 04/12/17 05:50 PT 13.5 Seconds (9.8-13.1) H 04/10/17 14:40 INR 1.2 (0.9-1.2) 04/10/17 14:40 APTT 33.2 Seconds (25.6-37.1) 04/09/17 22:05
--- NOTE | 2017-04-12 11:07 | CP.PCM.PN ---
<Deni Jackson - Last Filed: 04/12/17 12:59> Subjective - Date & Time of Evaluation Date of Evaluation: 04/12/17 Time of Evaluation: 07:30 - Subjective Subjective: 67 YO M seen resting comfortably. Slept well overnight. Denies any chest pain , palpatation, nausea, vomiting. Patients heart rate was in the 130's-140's overnight which responded to vagal maneuvers. Objective - Vital Signs/Intake and Output Vital Signs (last 24 hours): Temp Pulse Resp BP Pulse Ox 98 F 66 20 143/83 96 04/12/17 08:00 04/12/17 09:00 04/12/17 08:00 04/12/17 09:00 04/12/17 08:00 - Medications Medications: Current Medications Acetaminophen (Tylenol 325mg Tab) 650 mg PO Q6 PRN PRN Reason: Fever >100.4 F Last Admin: 04/11/17 03:39 Dose: 650 mg Atorvastatin Calcium (Lipitor) 40 mg PO [facility] Last Admin: 04/11/17 21:20 Dose: 40 mg Cyanocobalamin (Vitamin B12 1000 Mcg Tab) 1,000 mcg PO DAILY [facility] Last Admin: 04/12/17 09:00 Dose: 1,000 mcg Dextrose (Dextrose 50% Inj) 0 ml IV STAT PRN; Protocol PRN Reason: Hypoglycemia Protocol Dextrose (Glutose 15) 0 gm PO ONCE PRN; Protocol PRN Reason: Hypoglycemia Protocol Enoxaparin Sodium (Lovenox) 40 mg SC DAILY [facility] PRN Reason: Protocol Last Admin: 04/12/17 09:00 Dose: 40 mg Glucagon (Glucagen Diagnostic Kit) 0 mg IM STAT PRN; Protocol PRN Reason: Hypoglycemia Protocol Levofloxacin/Dextrose (Levaquin 750mg) 750 mg in 150 mls @ 100 mls/hr IVPB [facility] Last Admin: 04/11/17 21:21 Dose: 100 mls/hr Vancomycin HCl 1 gm/ Sodium (Chloride) 250 mls @ 166.667 mls/hr IVPB Q12 [facility] PRN Reason: Protocol Last Admin: 04/12/17 09:06 Dose: 166.667 mls/hr Aztreonam 1 gm/ Sodium (Chloride) 100 mls @ 100 mls/hr IVPB Q12 [facility] PRN Reason: Protocol Last Admin: 04/12/17 08:59 Dose: 100 mls/hr Lisinopril (Zestril) 20 mg PO DAILY [facility] Last Admin: 04/12/17 09:00 Dose: 20 mg Metformin HCl (Glucophage) 500 mg PO BID [facility] Last Admin: 04/12/17 09:00 Dose: 500 mg - Labs Labs: 04/12/17 05:50 04/12/17 05:50 PT 13.5 Seconds (9.8-13.1) H 04/10/17 14:40 INR 1.2 (0.9-1.2) 04/10/17 14:40 APTT 33.2 Seconds (25.6-37.1) 04/09/17 22:05 - Constitutional Appears: No Acute Distress - Head Exam Head Exam: NORMAL INSPECTION - Respiratory Exam Respiratory Exam: Clear to Ausculation Bilateral, NORMAL BREATHING PATTERN. absent: Rhonchi, Wheezes - Cardiovascular Exam Cardiovascular Exam: REGULAR RHYTHM, +S1, +S2 - GI/Abdominal Exam GI & Abdominal Exam: Soft, Normal Bowel Sounds - Extremities Exam Extremities Exam: Full ROM, Normal Inspection - Neurological Exam Neurological Exam: Alert, Awake, CN II-XII Intact, Oriented x3 - Skin Additional comments: Evidance of scabies on b/l lower extremities Assessment and Plan - Assessment and Plan (Free Text) Assessment: 67 yo M with PMH A-fib, NIDDM2, HTN, HLD, CAD and [place] s/p stent 03/2016, admitted due to syncope. Spiking fever to 101.5 in the past 24 hrs, and having bouts of labile heart rates ranging from 60s to 130s. Plan: 1. Syncope -Stable, 1 episode, no seizure like activity witnessed, likely secondary to malnutrition -Head CT without contrast: no acute intracranial abnormality -EKG: Normal sinus rhythm, no ST-T changes -Echo 03/27/17: Normal LV size and function, EF= 50% -B12: 237, being supplemented -Folate pending -Pending extremity Doppler negative 2. Fever of unknown etiology -Presumed CAP less likely at this time due to CT findings of pleural effusion rather than infiltrate -Levofloxacin 750 mg IVPB daily -Vancomycin 1gm IVPB daily - Blood cultures x 4 negative more then 24 hours, urine cultures negative -ID consult 3. Tachycardia -Secondary to infection vs a.fib vs sick sinus vs SVT - Telemetry shows brief periods of PSVT - Responding to vagal stimuli -Heart range ranges from 60s to 130s -Metoprolol held -EKG shows normal sinus rhythm -Cardiology consult - Will possibly need ablation vs perment pacing 4. Afib -Controlled without mediation -Consider restart anticoagulation. Patient has been non compliant with warfarin. 5. CAP -See #2, less likely due to chest CT findings -Consider repeat CXR before discharge 6. Hypertension -Uncontrolled on admission -Resume home meds: Lisinopril 20mg PO QD -Hold Lopressor (metoprolol) 25mg PO BID becuase of possible sick sinus syndrome -Monitor BP 7. NIDDM Type 2 -Controlled -03/27/17: HbA1c 6.9, lipids Triglycerides 161, Cholesterol 159, LDL 109, HDL 22 - Hold Metformin to prevent nephrotoxicity -Fingersticks ACHS 8. Scabies -Controlled with Permethrin 5% topical 9. DVT prophylaxis -Lovenox 40mg SC QD <Lin Waldron - Last Filed: 04/13/17 08:11> Objective - Vital Signs/Intake and Output Vital Signs (last 24 hours): Temp Pulse Resp BP Pulse Ox 98.9 F 70 18 122/70 97 04/13/17 05:34 04/13/17 05:34 04/13/17 05:34 04/13/17 05:34 04/13/17 05:34 - Medications Medications: Current Medications Acetaminophen (Tylenol 325mg Tab) 650 mg PO Q6 PRN PRN Reason: Fever >100.4 F Last Admin: 04/11/17 03:39 Dose: 650 mg Atorvastatin Calcium (Lipitor) 40 mg PO HS [facility] Last Admin: 04/12/17 21:04 Dose: 40 mg Cyanocobalamin (Vitamin B12 1000 Mcg Tab) 1,000 mcg PO DAILY [facility] Last Admin: 04/12/17 09:00 Dose: 1,000 mcg Dextrose (Dextrose 50% Inj) 0 ml IV STAT PRN; Protocol PRN Reason: Hypoglycemia Protocol Dextrose (Glutose 15) 0 gm PO ONCE PRN; Protocol PRN Reason: Hypoglycemia Protocol Enoxaparin Sodium (Lovenox) 40 mg SC DAILY [facility] PRN Reason: Protocol Last Admin: 04/12/17 09:00 Dose: 40 mg Glucagon (Glucagen Diagnostic Kit) 0 mg IM STAT PRN; Protocol PRN Reason: Hypoglycemia Protocol Levofloxacin/Dextrose (Levaquin 750mg) 750 mg in 150 mls @ 100 mls/hr IVPB [facility] Last Admin: 04/12/17 21:04 Dose: 100 mls/hr Vancomycin HCl 1 gm/ Sodium (Chloride) 250 mls @ 166.667 mls/hr IVPB Q12 [facility] PRN Reason: Protocol Last Admin: 04/12/17 21:05 Dose: 166.667 mls/hr Aztreonam 1 gm/ Sodium (Chloride) 100 mls @ 100 mls/hr IVPB Q12 [facility] PRN Reason: Protocol Last Admin: 04/12/17 21:04 Dose: 100 mls/hr Lisinopril (Zestril) 20 mg PO DAILY [facility] Last Admin: 04/12/17 09:00 Dose: 20 mg Metformin HCl (Glucophage) 500 mg PO BID [facility] Last Admin: 04/12/17 09:00 Dose: 500 mg - Labs Labs: 04/12/17 05:50 04/12/17 05:50 PT 13.5 Seconds (9.8-13.1) H 04/10/17 14:40 INR 1.2 (0.9-1.2) 04/10/17 14:40 APTT 33.2 Seconds (25.6-37.1) 04/09/17 22:05 Attending/Attestation - Attestation I have personally seen and examined this patient.: Yes I have fully participated in the care of the patient.: Yes I have reviewed all pertinent clinical information, including history, physical exam and plan: Yes Notes (Text): 04/13/17 ATTENDING NOTE - ATTESTATION Patient seen and examined. Case discussed with resident. Case also discussed with Senior Analyst sap plant maintenance consultant Dr. Ham. Patient with paroxsymal episodes of tachycardia. Continuous Weld Pipe Mill Supervisor will discuss with EP Senior Analyst then decided treatment course, i.e. albation, pacemaker, medications. Patient did have episode of bradycardia while in hospital but was on beta jonna at that time. Agree with findings and plan.
[2017-04-12] MEDS: levoFLOXacin 750 mg in D5W 750 MG/150 ML BAG IVPB SCH (21:04)
[2017-04-13] MEDS: Enoxaparin 40 mg Syringe SC SCH (09:32)
[2017-04-13] MEDS: Aztreonam 1 GM in Sodium Chloride 0.9% 100 ML IVPB SCH (09:36)
[2017-04-13] MEDS ORDERED: SODIUM CHLORIDE 0.9% IVPB ONE (11:45)
[2017-04-13] MEDS ORDERED: SINCALIDE IVPB ONE (11:45)
[2017-04-13 12:23] LABS: FOLATE 7.7 ng/mL
[2017-04-13 12:33] LABS: BASO % 0.5 % (0.0-2.0); EOS # 0.1 K/uL (0.0-0.7); EOS % 1.6 % (0.0-4.0); HEMOGLOBIN 13.3 g/dL (12.0-18.0); LYMPH # 1.1 K/uL (1.0-4.3); LYMPH % 33.4 % (20.0-40.0); MEAN CELL VOLUME 85.7 fl (80.0-94.0); MEAN CORPUSCULAR HEMOGLOBIN 28.9 pg (27.0-31.0); MEAN CORPUSCULAR HGB CONC 33.7 g/dL (33.0-37.0); MEAN PLATELET VOLUME 7.9 fl (7.2-11.7); MONO # 0.5 K/uL (0.0-0.8); MONO % 14.6 % (0.0-10.0); NEUT # 1.6 K/uL (1.8-7.0); NEUT % 49.9 % (50.0-75.0); NRBC % 0.3 % (0.0-0.0); RBC 4.6 Mil/uL (4.40-5.90); WHITE BLOOD COUNT 3.2 K/uL (4.8-10.8)
--- NOTE | 2017-04-13 13:02 | CP.PCM.PN ---
Subjective - Date & Time of Evaluation Date of Evaluation: 04/13/17 Time of Evaluation: 11:40 - Subjective Subjective: Pt continues to show recurrent bouts of PSVT Today, in addition he showed brief period of sinus bradycardia at HR of 47 BPM Remains asymptomatic and hemodynamically stable while laying down in bed Discussed with Dr. Willson (EP) Have requested him to see pt. Objective - Vital Signs/Intake and Output Vital Signs (last 24 hours): Temp Pulse Resp BP Pulse Ox 97.5 F L 66 18 143/83 97 04/13/17 12:05 04/13/17 12:05 04/13/17 12:05 04/13/17 12:05 04/13/17 12:05 - Medications Medications: Current Medications Acetaminophen (Tylenol 325mg Tab) 650 mg PO Q6 PRN PRN Reason: Fever >100.4 F Last Admin: 04/11/17 03:39 Dose: 650 mg Atorvastatin Calcium (Lipitor) 40 mg PO [facility] Last Admin: 04/12/17 21:04 Dose: 40 mg Cyanocobalamin (Vitamin B12 1000 Mcg Tab) 1,000 mcg PO DAILY [facility] Last Admin: 04/13/17 09:25 Dose: Not Given Dextrose (Dextrose 50% Inj) 0 ml IV STAT PRN; Protocol PRN Reason: Hypoglycemia Protocol Dextrose (Glutose 15) 0 gm PO ONCE PRN; Protocol PRN Reason: Hypoglycemia Protocol Enoxaparin Sodium (Lovenox) 40 mg SC DAILY [facility] PRN Reason: Protocol Last Admin: 04/13/17 09:32 Dose: 40 mg Glucagon (Glucagen Diagnostic Kit) 0 mg IM STAT PRN; Protocol PRN Reason: Hypoglycemia Protocol Levofloxacin/Dextrose (Levaquin 750mg) 750 mg in 150 mls @ 100 mls/hr IVPB HS [facility] Last Admin: 04/12/17 21:04 Dose: 100 mls/hr Vancomycin HCl 1 gm/ Sodium (Chloride) 250 mls @ 166.667 mls/hr IVPB Q12 [facility] PRN Reason: Protocol Last Admin: 04/13/17 09:37 Dose: 166.667 mls/hr Aztreonam 1 gm/ Sodium (Chloride) 100 mls @ 100 mls/hr IVPB Q12 [facility] PRN Reason: Protocol Last Admin: 04/13/17 09:36 Dose: 100 mls/hr Sincalide 1.63 mcg/ Sodium (Chloride) 100 mls @ 2 mls/hr IVPB ONCE ONE Stop: 04/15/17 13:44 Lisinopril (Zestril) 20 mg PO DAILY [facility] Last Admin: 04/13/17 09:25 Dose: Not Given Metformin HCl (Glucophage) 500 mg PO BID [facility] Last Admin: 04/12/17 09:00 Dose: 500 mg - Labs Labs: 04/13/17 12:07 04/12/17 05:50 PT 13.5 Seconds (9.8-13.1) H 04/10/17 14:40 INR 1.2 (0.9-1.2) 04/10/17 14:40 APTT 33.2 Seconds (25.6-37.1) 04/09/17 22:05
--- NOTE | 2017-04-13 15:00 | CP.PCM.PN ---
<Deni Jackson - Last Filed: 04/13/17 16:30> Subjective - Date & Time of Evaluation Date of Evaluation: 04/13/17 Time of Evaluation: 07:30 - Subjective Subjective: 67 YO M seen resting comfortably overnight. Patient's heart rate overnight remained 60-70's. Denies any overnight events. Has remained NPO overnight. Objective - Vital Signs/Intake and Output Vital Signs (last 24 hours): Temp Pulse Resp BP Pulse Ox 97.5 F L 66 18 143/83 100 04/13/17 12:05 04/13/17 12:05 04/13/17 12:05 04/13/17 12:05 04/13/17 14:08 Intake and Output: 04/13/17 04/13/17 06:59 18:59 Intake Total 350 Balance 350 - Medications Medications: Current Medications Acetaminophen (Tylenol 325mg Tab) 650 mg PO Q6 PRN PRN Reason: Fever >100.4 F Last Admin: 04/11/17 03:39 Dose: 650 mg Atorvastatin Calcium (Lipitor) 40 mg PO HS [facility] Last Admin: 04/12/17 21:04 Dose: 40 mg Cyanocobalamin (Vitamin B12 1000 Mcg Tab) 1,000 mcg PO DAILY [facility] Last Admin: 04/13/17 09:25 Dose: Not Given Dextrose (Dextrose 50% Inj) 0 ml IV STAT PRN; Protocol PRN Reason: Hypoglycemia Protocol Dextrose (Glutose 15) 0 gm PO ONCE PRN; Protocol PRN Reason: Hypoglycemia Protocol Enoxaparin Sodium (Lovenox) 40 mg SC DAILY [facility] PRN Reason: Protocol Last Admin: 04/13/17 09:32 Dose: 40 mg Glucagon (Glucagen Diagnostic Kit) 0 mg IM STAT PRN; Protocol PRN Reason: Hypoglycemia Protocol Levofloxacin/Dextrose (Levaquin 750mg) 750 mg in 150 mls @ 100 mls/hr IVPB HS [facility] Last Admin: 04/12/17 21:04 Dose: 100 mls/hr Vancomycin HCl 1 gm/ Sodium (Chloride) 250 mls @ 166.667 mls/hr IVPB Q12 [facility] PRN Reason: Protocol Last Admin: 04/13/17 09:37 Dose: 166.667 mls/hr Aztreonam 1 gm/ Sodium (Chloride) 100 mls @ 100 mls/hr IVPB Q12 [facility] PRN Reason: Protocol Last Admin: 04/13/17 09:36 Dose: 100 mls/hr Sincalide 1.63 mcg/ Sodium (Chloride) 100 mls @ 2 mls/hr IVPB ONCE ONE Stop: 04/15/17 13:44 Lisinopril (Zestril) 20 mg PO DAILY [facility] Last Admin: 04/13/17 09:25 Dose: Not Given Metformin HCl (Glucophage) 500 mg PO BID [facility] Last Admin: 04/12/17 09:00 Dose: 500 mg - Labs Labs: 04/13/17 12:07 04/12/17 05:50 PT 13.5 Seconds (9.8-13.1) H 04/10/17 14:40 INR 1.2 (0.9-1.2) 04/10/17 14:40 APTT 33.2 Seconds (25.6-37.1) 04/09/17 22:05 - Constitutional Appears: No Acute Distress - Head Exam Head Exam: NORMAL INSPECTION - Respiratory Exam Respiratory Exam: Clear to Ausculation Bilateral. absent: Rales, Rhonchi, Wheezes - Cardiovascular Exam Cardiovascular Exam: REGULAR RHYTHM, +S1, +S2 - GI/Abdominal Exam GI & Abdominal Exam: Soft, Normal Bowel Sounds. absent: Tenderness - Extremities Exam Extremities Exam: Normal Inspection. absent: Calf Tenderness - Neurological Exam Neurological Exam: Alert, Awake, CN II-XII Intact, Oriented x3 - Skin Additional comments: b/l lower extremity scabies Assessment and Plan - Assessment and Plan (Free Text) Assessment: 67 yo M with PMH A-fib, NIDDM2, HTN, HLD, CAD and [place] s/p stent 03/2016, admitted due to syncope. Spiking fever to 101.5 in the past 24 hrs, and having bouts of labile heart rates ranging from 60s to 130s. Plan: 1. Syncope -Stable, 1 episode, no seizure like activity witnessed, likely secondary to malnutrition -Head CT without contrast: no acute intracranial abnormality -EKG: Normal sinus rhythm, no ST-T changes -Echo 03/27/17: Normal LV size and function, EF= 50% -B12: 237, being supplemented -Folate: 7.7 -Duplex Doppler extremity U/S negative 2. Fever of unknown etiology - Has remained afebrile overnight -Presumed CAP less likely at this time due to CT findings of pleural effusion rather than infiltrate -Levofloxacin 750 mg IVPB daily -Vancomycin 1gm IVPB daily - Aztreonam 1 gm Q12 - Blood cultures x 4 negative more then 24 hours, urine cultures negative - HIDA will be done in the morning -ID consult appreciated 3. Tachycardia -Secondary to infection vs a.fib vs sick sinus vs SVT - Telemetry shows brief periods of PSVT - Responding to vagal stimuli -Heart range ranges from 60s to 130s -Metoprolol held -EKG shows normal sinus rhythm -Cardiology consult - Will possibly need ablation vs perment pacing - Electronic Warfare Operator will be consulted 4. Afib -Controlled without medication -Consider restart anticoagulation. Patient has been non compliant with warfarin. - Electronic Warfare Operator will be consulted 5. CAP -See #2, less likely due to chest CT findings -Consider repeat CXR before discharge 6. Hypertension -Uncontrolled on admission -Resume home meds: Lisinopril 20mg PO QD -Hold Lopressor (metoprolol) 25mg PO BID becuase of possible sick sinus syndrome -Monitor BP 7. NIDDM Type 2 -Controlled -03/27/17: HbA1c 6.9, lipids Triglycerides 161, Cholesterol 159, LDL 109, HDL 22 - Hold Metformin to prevent nephrotoxicity -Fingersticks ACHS 8. Scabies -Controlled with Permethrin 5% topical 9. DVT prophylaxis -Lovenox 40mg SC QD <Lin Waldron - Last Filed: 04/14/17 07:35> Objective - Vital Signs/Intake and Output Vital Signs (last 24 hours): Temp Pulse Resp BP Pulse Ox 98.7 F 68 18 142/75 96 04/14/17 05:00 04/14/17 05:00 04/14/17 05:00 04/14/17 05:00 04/14/17 05:00 - Medications Medications: Current Medications Acetaminophen (Tylenol 325mg Tab) 650 mg PO Q6 PRN PRN Reason: Fever >100.4 F Last Admin: 04/11/17 03:39 Dose: 650 mg Atorvastatin Calcium (Lipitor) 40 mg PO HS [facility] Last Admin: 04/13/17 21:41 Dose: 40 mg Cyanocobalamin (Vitamin B12 1000 Mcg Tab) 1,000 mcg PO DAILY [facility] Last Admin: 04/13/17 09:25 Dose: Not Given Dextrose (Dextrose 50% Inj) 0 ml IV STAT PRN; Protocol PRN Reason: Hypoglycemia Protocol Dextrose (Glutose 15) 0 gm PO ONCE PRN; Protocol PRN Reason: Hypoglycemia Protocol Enoxaparin Sodium (Lovenox) 40 mg SC DAILY [facility] PRN Reason: Protocol Last Admin: 04/13/17 09:32 Dose: 40 mg Glucagon (Glucagen Diagnostic Kit) 0 mg IM STAT PRN; Protocol PRN Reason: Hypoglycemia Protocol Sincalide 1.63 mcg/ Sodium (Chloride) 100 mls @ 2 mls/hr IVPB ONCE ONE Stop: 04/15/17 13:44 Lisinopril (Zestril) 20 mg PO DAILY [facility] Last Admin: 04/13/17 09:25 Dose: Not Given Metformin HCl (Glucophage) 500 mg PO BID [facility] Last Admin: 04/12/17 09:00 Dose: 500 mg - Labs Labs: 04/14/17 05:50 04/14/17 05:50 PT 13.5 Seconds (9.8-13.1) H 04/10/17 14:40 INR 1.2 (0.9-1.2) 04/10/17 14:40 APTT 33.2 Seconds (25.6-37.1) 04/09/17 22:05 Attending/Attestation - Attestation I have personally seen and examined this patient.: Yes I have fully participated in the care of the patient.: Yes I have reviewed all pertinent clinical information, including history, physical exam and plan: Yes Notes (Text): 04/14/17 07:33 Attending Note - ATTESTATION - Patient seen and examined. Case discussed with resident. Patient is awake alert , NAD. Awaiting follow up by Manager Of Photography regarding treatment of paroxsmyal tachycardia. Consider Ablation, pacemaker, medications. ID following as well. Agree with plan.
--- NOTE | 2017-04-13 15:29 | PQF GENQUE ---
, Decubitus Ulcer ruled in or ruled out? If ruled in site? OR: Other explanation of clinical finding H and P; Present on Admission : Any Indicators Present on Admission: No Decubitus Ulcer Present: No POA; Decubitus Ulcer Stage: I Skin Exam: Dry, Intact, Warm - Expanded Skin Exam * Type of lesion: Abrasion, Rash (bilateral lower extremity scabies This form is a permanent part of the medical record Clarification of your documentation is requested to better reflect the severity of illness and intensity of treatment of your patient. Indicators present [] Specify: [] [] Specify: [] [] Specify: [] [] Specify: [] Location in the medical record that reflects the above clinical findings: [] Treatment Provided: [] PHYSICIAN'S RESPONSE Based on your medical judgment of the clinical indicators outlined above please clarify the following: [] Practitioner response [] If unable to determine, please check the box, sign and date. Present On Admission (POA) Indicator: [] Present at the time of admission [] Not present at the time of admission [] Clinically Undetermined In responding to this query, please exercise your independent professional judgment. The fact that a question is asked does not imply that any particular answer is desired or expected. Thank you for your clarification on this documentation. If you have any questions please call. * Thank you, Francesca Arrington RN ext. #[phone] [facility]
[2017-04-14 06:21] LABS: HEMOGLOBIN 13.4 g/dL (12.0-18.0); MEAN CELL VOLUME 87.5 fl (80.0-94.0); MEAN CORPUSCULAR HEMOGLOBIN 28.7 pg (27.0-31.0); MEAN CORPUSCULAR HGB CONC 32.8 g/dL (33.0-37.0); RBC 4.66 Mil/uL (4.40-5.90); RED CELL DISTRIBUTION WIDTH 14.1 % (11.5-14.5); WHITE BLOOD COUNT 3.4 K/uL (4.8-10.8)
[2017-04-14 06:27] LABS: ALB/GLOB RATIO 1.1 (1.0-2.1); ALBUMIN 3.6 g/dL (3.5-5.0); ALT/SGPT 38 U/L (21-72); AST/SGOT 28 U/L (17-59); BLOOD UREA NITROGEN 15 mg/dl (9-20); CALCIUM 8.4 mg/dL (8.4-10.2); GFR AFRICAN-AMERICAN > 60; GFR NON-AFRICAN AMERICAN > 60
--- NOTE | 2017-04-14 07:38 | CP.PCM.PN ---
Addendum entered and electronically signed by Deni Jackson MD 04/14/17 12:48 : Patient started on Cardizam 30mg TID as per EP. Will follow up with w/ EP recommendations regarding pacemaker. Original Note: <Deni Jackson - Last Filed: 04/14/17 12:44> Subjective - Date & Time of Evaluation Date of Evaluation: 04/14/17 Time of Evaluation: 07:38 - Subjective Subjective: - PAtient seen and examined at bedside after his HIDA scan. He appears to be doing well. Denies any overnight events Heart rate remained in the 60-70's. Remained afebrile. - Awaiting Electrophysiologisit Consult. Objective - Vital Signs/Intake and Output Vital Signs (last 24 hours): Temp Pulse Resp BP Pulse Ox 98.7 F 68 18 142/75 96 04/14/17 05:00 04/14/17 05:00 04/14/17 05:00 04/14/17 05:00 04/14/17 05:00 - Medications Medications: Current Medications Acetaminophen (Tylenol 325mg Tab) 650 mg PO Q6 PRN PRN Reason: Fever >100.4 F Last Admin: 04/11/17 03:39 Dose: 650 mg Atorvastatin Calcium (Lipitor) 40 mg PO HS [facility] Last Admin: 04/13/17 21:41 Dose: 40 mg Cyanocobalamin (Vitamin B12 1000 Mcg Tab) 1,000 mcg PO DAILY [facility] Last Admin: 04/13/17 09:25 Dose: Not Given Dextrose (Dextrose 50% Inj) 0 ml IV STAT PRN; Protocol PRN Reason: Hypoglycemia Protocol Dextrose (Glutose 15) 0 gm PO ONCE PRN; Protocol PRN Reason: Hypoglycemia Protocol Enoxaparin Sodium (Lovenox) 40 mg SC DAILY [facility] PRN Reason: Protocol Last Admin: 04/13/17 09:32 Dose: 40 mg Glucagon (Glucagen Diagnostic Kit) 0 mg IM STAT PRN; Protocol PRN Reason: Hypoglycemia Protocol Lisinopril (Zestril) 20 mg PO DAILY [facility] Last Admin: 04/13/17 09:25 Dose: Not Given Metformin HCl (Glucophage) 500 mg PO BID [facility] Last Admin: 04/12/17 09:00 Dose: 500 mg - Labs Labs: 04/14/17 05:50 04/14/17 05:50 PT 13.5 Seconds (9.8-13.1) H 04/10/17 14:40 INR 1.2 (0.9-1.2) 04/10/17 14:40 APTT 33.2 Seconds (25.6-37.1) 04/09/17 22:05 - Constitutional Appears: No Acute Distress - Head Exam Head Exam: NORMAL INSPECTION - Respiratory Exam Respiratory Exam: Clear to Ausculation Bilateral, NORMAL BREATHING PATTERN. absent: Rhonchi, Wheezes, Respiratory Distress - Cardiovascular Exam Cardiovascular Exam: REGULAR RHYTHM, +S1, +S2 - GI/Abdominal Exam GI & Abdominal Exam: Soft, Normal Bowel Sounds. absent: Tenderness - Extremities Exam Extremities Exam: Normal Capillary Refill - Neurological Exam Neurological Exam: Alert, Awake, CN II-XII Intact Assessment and Plan - Assessment and Plan (Free Text) Assessment: Assessment: 67 yo M with PMH A-fib, NIDDM2, HTN, HLD, CAD and [place] s/p stent 03/2016, admitted due to syncope. Has remained afebrile in past 48 hours, and having bouts of labile heart rates ranging from 60s to 130s. Awaiting cardio recommendations. Plan: 1. Syncope -Stable, 1 episode, no seizure like activity witnessed, likely secondary to malnutrition -Head CT without contrast: no acute intracranial abnormality -EKG: Normal sinus rhythm, no ST-T changes -Echo 03/27/17: Normal LV size and function, EF= 50% -B12: 237, being supplemented -Folate: 7.7 -Duplex Doppler extremity U/S negative 2. Fever of unknown etiology (resolved) - Has remained afebrile overnight -Presumed CAP less likely at this time due to CT findings of pleural effusion rather than infiltrate - STOP Vanco, Aztrenoam Levofloxacin 750 mg IVPB daily. No WBC - Blood cultures x 4 negative more then 24 hours, urine cultures negative. No white count. - HIDA has been done this morning -ID consult appreciated 3. Tachycardia -Secondary to infection vs a.fib vs sick sinus vs SVT - Telemetry shows brief periods of PSVT - Responding to vagal stimuli -Heart range ranges from 60s to 130s -Metoprolol held -EKG shows normal sinus rhythm -Cardiology consult - Will possibly need ablation vs perment pacing - Line O Scribe Operator will be consulted 4. Afib -Controlled without medication -Consider restart anticoagulation. Patient has been non compliant with warfarin. - Awaiting Line O Scribe Operator consult 5. CAP -See #2, less likely due to chest CT findings -STOP antibiotics, no white count afebrile more then 48 hours. No white count 6. Hypertension -Uncontrolled on admission -Resume home meds: Lisinopril 20mg PO QD -Hold Lopressor (metoprolol) 25mg PO BID because of possible sick sinus syndrome -Monitor BP 7. NIDDM Type 2 -Controlled -03/27/17: HbA1c 6.9, lipids Triglycerides 161, Cholesterol 159, LDL 109, HDL 22 - Hold Metformin to prevent nephrotoxicity -Fingersticks ACHS 8. Scabies -Controlled with Permethrin 5% topical 9. DVT prophylaxis -Lovenox 40mg SC QD <Lin Waldron - Last Filed: 04/16/17 07:40> Objective - Vital Signs/Intake and Output Vital Signs (last 24 hours): Temp Pulse Resp BP Pulse Ox 98.0 F 56 L 18 118/66 95 04/16/17 05:27 04/16/17 05:27 04/16/17 05:27 04/16/17 05:27 04/16/17 05:27 - Medications Medications: Current Medications Acetaminophen (Tylenol 325mg Tab) 650 mg PO Q6 PRN PRN Reason: Fever >100.4 F Last Admin: 04/11/17 03:39 Dose: 650 mg Atorvastatin Calcium (Lipitor) 40 mg PO HS [facility] Last Admin: 04/15/17 21:01 Dose: 40 mg Cyanocobalamin (Vitamin B12 1000 Mcg Tab) 1,000 mcg PO DAILY [facility] Last Admin: 04/15/17 09:37 Dose: 1,000 mcg Dextrose (Dextrose 50% Inj) 0 ml IV STAT PRN; Protocol PRN Reason: Hypoglycemia Protocol Dextrose (Glutose 15) 0 gm PO ONCE PRN; Protocol PRN Reason: Hypoglycemia Protocol Diltiazem HCl (Cardizem) 30 mg PO TID [facility] Last Admin: 04/15/17 17:09 Dose: 30 mg Enoxaparin Sodium (Lovenox) 40 mg SC DAILY [facility] PRN Reason: Protocol Last Admin: 04/15/17 09:37 Dose: 40 mg Glucagon (Glucagen Diagnostic Kit) 0 mg IM STAT PRN; Protocol PRN Reason: Hypoglycemia Protocol Lisinopril (Zestril) 20 mg PO DAILY [facility] Last Admin: 04/15/17 09:38 Dose: 20 mg Metformin HCl (Glucophage) 500 mg PO BID [facility] Last Admin: 04/12/17 09:00 Dose: 500 mg - Labs Labs: 04/14/17 05:50 04/14/17 05:50 PT 13.5 Seconds (9.8-13.1) H 04/10/17 14:40 INR 1.2 (0.9-1.2) 04/10/17 14:40 APTT 33.2 Seconds (25.6-37.1) 04/09/17 22:05 Attending/Attestation - Attestation I have personally seen and examined this patient.: Yes I have fully participated in the care of the patient.: Yes I have reviewed all pertinent clinical information, including history, physical exam and plan: Yes Notes (Text): 04/16/17 07:39 ATTENDING NOTE - ATTESTATION Patient seen and examined . CAse discussed with resident. Agree with findings and plan.
--- NOTE | 2017-04-14 09:19 | CARD ---
APPROVED REPORT EKG Measurement Heart [id number] CT 172P [id number] <Conclusion> Sinus tachycardia Otherwise normal ECG
[2017-04-14] MEDS: Enoxaparin 40 mg Syringe SC SCH (09:30)
[2017-04-15 05:48] LABS: TB ANTIGEN MINUS NIL <0.00 IU/mL
--- NOTE | 2017-04-15 09:34 | CON ---
DATE: 04/14/2017 INPATIENT ELECTROPHYSIOLOGY CONSULTATION TYPE OF CONSULTATION: Electrophysiology. I have been personally asked to see this patient in regards to his electrophysiology issues by Dr. Robert Ham in regards to management of supraventricular tachycardia, history of atrial fibrillation and presyncope. Thank you very much for this consult. HISTORY OF PRESENT ILLNESS: Mr. Agapito Feldman is a very pleasant 67-year-old male, brought in to [facility] on 04/09/2017 after apparent syncopal episodes. The patient has a history of paroxysmal atrial fibrillation, diabetes, hypertension, coronary artery disease, myocardial infarction, status post stent in 2016. He reports he was at the [facility], at which point he felt weak and dizzy and says that he "conked out." On interview here, it is not so clear that he actually passed out or perhaps nearly passed out. He reports bumping his head. Denies urinary or fecal incontinence. Denies fevers, chills or chest discomfort. The patient had been admitted previously in September of 2016, at that point I did see him for management of atrial tachyarrhythmias. PAST MEDICAL HISTORY: Significant for atrial fibrillation, diabetes, hypertension, hyperlipidemia, the aforementioned stent. The patient had a cardiac catheterization in December of 2015, some sort of bladder surgery as well, unknown prostate procedure. FAMILY HISTORY: Negative for premature coronary artery disease or sudden cardiac . SOCIAL HISTORY: Negative for tobacco, EtOH or drug abuse. He is homeless without family contacts. 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 MEDICATIONS: Which he is not taking includes Lipitor 40 mg at bedtime, lisinopril 20 mg q. day, metformin 500 mg b.i.d., Lopressor 25 mg b.i.d. as well as Coumadin, all of which he is not taking. REVIEW OF SYSTEMS: A 12-point review of systems had been reviewed. As mentioned previously, denies any chills, fevers, visual disturbances, ear pain, hoarseness, sore throat, cough, chest pain, lower extremity swelling, dyspnea, hemoptysis, abdominal pain, change in bowel habits, dysuria, arthralgias, dysequilibrium. No change in appetite or confusion. No bleeding issues. PHYSICAL EXAMINATION: GENERAL: He is a poorly kempt, pleasant male, in no acute distress. VITAL SIGNS: Temperature is 97.5, blood pressure is 142/80, mean blood pressure of 100, respirations of 20. HEENT: Examination of his head is normocephalic, atraumatic. There is no sravan facial asymmetry. He is alert and oriented x3, appears very appropriate. NECK: Examination of his neck is supple. No jugular venous distention or carotid bruits. CHEST: Clear to auscultation bilaterally. CARDIOVASCULAR: Regular rate and rhythm. S1 and S2. No S3 or S4. ABDOMEN: Soft, nontender and nondistended. Positive bowel sounds. EXTREMITIES: No cyanosis, clubbing or edema. Peripheral pulses are intact and symmetric in bilateral upper and lower extremities. On review of current medications, the patient was on atorvastatin calcium 40 mg p.o. at bedtime, enoxaparin 40 mg subcu daily, lisinopril 20 mg p.o. daily, metformin 500 mg b.i.d., Cardizem had been ordered by myself 30 mg p.o. t.i.d. LABORATORY DATA: EKG which was done on 04/11/2017 shows an episode of narrow complex tachycardia at 132 beats per minute. Appeared to be in atrial tachycardia of abnormal P-wave axis with negative P-waves in II, III, aVF. Negative P-waves in the lateral precordial leads, which I suspect may be from a left-sided atrial tachycardia. Echocardiogram is pending. On review of relevant lab work, the patient has a white count of 3.2, H and H of 13.3 and 39.5, platelets of 238. Sodium of 135, potassium of 3.8, BUN and creatinine of 15 and 0.9. ALT, AST of 28 and 38, albumin of 3.6. ASSESSMENT AND PLAN: 1. 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 This cannot be proven unless we have him undergo an electrophysiology study. Initially, he was managed on metoprolol, which resulted in some control of the tachycardia, but resulted also in baseline bradycardia. I have switched him over to small divided dose of Cardizem. We will monitor for any worsening bradycardia and to see if there is control of his atrial tachycardia. The social situation is problematic in the management of his condition. I have brought the option of him undergoing an ablation for this condition. At this point, the patient feels that he is "feeling okay now" and therefore is not currently considering this option, but we will consider it further. Alternatively, we may consider permanent pacemaker placement for chronotropic support in medical management in an effort to suppress tachycardia. Again, he is considering this option. I will let the managing team know what his decision will be. 2. History of atrial fibrillation, likely initiated by left atrial tachycardias. At this point, the patient is not an anticoagulation candidate secondary to his social situation. He is unable to take medications and therefore not able to undergo anticoagulation. 3. Presyncope/syncope of unclear etiology, maybe secondary to supraventricular tachycardia versus possible vasovagal episode. Thank you for allowing me to participate in the care of your patient. Please do not hesitate to call if you have any questions in regards to his care. Yours sincerely, Pepe Thayer MD
[2017-04-15] MEDS: Enoxaparin 40 mg Syringe SC SCH (09:37)
--- NOTE | 2017-04-15 17:49 | CP.PCM.PN ---
Subjective - Date & Time of Evaluation Date of Evaluation: 04/15/17 Time of Evaluation: 07:30 - Subjective Subjective: - Patient was seen and evaluated at bedside. Appears to be doing well. Denies any overnight activities, patients heart rate ranged between 60-94. Have discussed with the patient the benifits and arms abot the pacemaker. Patient has agreed to have to procedure done. Spoke with Dr. Willson, will attempt to schedule procedure for wednesday. - Patient states he has been having diarrhea since he finished his course of IV antibiotics. Watery clear in color, no blood noted. Has 2-3 episodes a day. - Denies chest pain , SOB, N/V Objective - Vital Signs/Intake and Output Vital Signs (last 24 hours): Temp Pulse Resp BP Pulse Ox 98 F 94 H 16 104/61 99 04/15/17 16:33 04/15/17 17:09 04/15/17 17:09 04/15/17 17:09 04/15/17 17:09 - Medications Medications: Current Medications Acetaminophen (Tylenol 325mg Tab) 650 mg PO Q6 PRN PRN Reason: Fever >100.4 F Last Admin: 04/11/17 03:39 Dose: 650 mg Atorvastatin Calcium (Lipitor) 40 mg PO HS [facility] Last Admin: 04/14/17 21:02 Dose: 40 mg Cyanocobalamin (Vitamin B12 1000 Mcg Tab) 1,000 mcg PO DAILY [facility] Last Admin: 04/15/17 09:37 Dose: 1,000 mcg Dextrose (Dextrose 50% Inj) 0 ml IV STAT PRN; Protocol PRN Reason: Hypoglycemia Protocol Dextrose (Glutose 15) 0 gm PO ONCE PRN; Protocol PRN Reason: Hypoglycemia Protocol Diltiazem HCl (Cardizem) 30 mg PO TID [facility] Last Admin: 04/15/17 17:09 Dose: 30 mg Enoxaparin Sodium (Lovenox) 40 mg SC DAILY [facility] PRN Reason: Protocol Last Admin: 04/15/17 09:37 Dose: 40 mg Glucagon (Glucagen Diagnostic Kit) 0 mg IM STAT PRN; Protocol PRN Reason: Hypoglycemia Protocol Lisinopril (Zestril) 20 mg PO DAILY [facility] Last Admin: 04/15/17 09:38 Dose: 20 mg Metformin HCl (Glucophage) 500 mg PO BID [facility] Last Admin: 04/12/17 09:00 Dose: 500 mg - Labs Labs: 04/14/17 05:50 04/14/17 05:50 PT 13.5 Seconds (9.8-13.1) H 04/10/17 14:40 INR 1.2 (0.9-1.2) 04/10/17 14:40 APTT 33.2 Seconds (25.6-37.1) 04/09/17 22:05 - Constitutional Appears: No Acute Distress - Head Exam Head Exam: NORMAL INSPECTION - Respiratory Exam Respiratory Exam: Clear to Ausculation Bilateral. absent: Rhonchi, Wheezes, Respiratory Distress - Cardiovascular Exam Cardiovascular Exam: REGULAR RHYTHM, +S1, +S2 - GI/Abdominal Exam GI & Abdominal Exam: Soft, Normal Bowel Sounds. absent: Tenderness - Extremities Exam Extremities Exam: Normal Capillary Refill. absent: Pedal Edema, Tenderness - Neurological Exam Neurological Exam: Alert, Awake, CN II-XII Intact, Oriented x3 - Skin Skin Exam: Warm Assessment and Plan - Assessment and Plan (Free Text) Assessment: 67 yo M with PMH A-fib, NIDDM2, HTN, HLD, CAD and [place] s/p stent 03/2016, admitted due to syncope. Afebrile > 72 hours. Has had heart rate ranging from 60 -140 during this admission. Plan: 1. Syncope possibly secondary to irregular rhythm -Stable, 1 episode, no seizure like activity witnessed, likely secondary to malnutrition -Head CT without contrast: no acute intracranial abnormality -EKG: Normal sinus rhythm, no ST-T changes -Echo 03/27/17: Normal LV size and function, EF= 50% -Duplex Doppler extremity U/S negative 2. Fever of unknown orgin ( Resolved) - Has remained afebrile over 72 hours -Presumed CAP less likely at this time due to CT findings of pleural effusion rather than infiltrate - D/C Levofloxacin and Aztreonam - Blood cultures x 4 negative more then 24 hours, urine cultures negative -ID consult appreciated 3. Tachycardia -Secondary to infection vs a.fib vs sick sinus vs SVT - Telemetry shows brief periods of PSVT - Responding to vagal stimuli -Heart range ranges from 60s to 130s -Metoprolol held -EKG shows normal sinus rhythm -Cardiology consult - Diltiazam 30 mg TID - Patient agrees with pacemaker placement, will be placed tentatively on wednesday 4. Afib - Diltiazam 30 mg TID -Consider restart anticoagulation. Patient has been non compliant with warfarin. - Director And Professor will be consulted 5. Hypertension -Uncontrolled on admission -Resume home meds: Lisinopril 20mg PO QD -Hold Lopressor (metoprolol) 25mg PO BID because of possible sick sinus syndrome -Monitor BP 7. NIDDM Type 2 -Controlled -03/27/17: HbA1c 6.9, lipids Triglycerides 161, Cholesterol 159, LDL 109, HDL 22 - Hold Metformin to prevent nephrotoxicity -Fingersticks ACHS 8. Scabies -Controlled with Permethrin 5% topical 9. Diarrhea - h/o recent antibiotic usage - Check stool for ova parasites, C Diff 9. DVT prophylaxis -Lovenox 40mg SC QD
--- NOTE | 2017-04-16 08:36 | PQF GENQUE ---
Dr. Reyes, Medical Record documentation :presumed CAP less likley. Please clarify the status of this condition:i.e. >>Possible Pneumonia versus >>Pneumonia was ruled out 04/15 progress note: Fever of unknown orgin ( Resolved) - Has remained afebrile over 72 hours -Presumed CAP less likely at this time due to CT findings of pleural effusion rather than infiltrate - D/C Levofloxacin and Aztreonam - Blood cultures x 4 negative more then 24 hours, urine cultures negative -ID consult appreciated This form is a permanent part of the medical record Clarification of your documentation is requested to better reflect the severity of illness and intensity of treatment of your patient. Indicators present [] Specify: [] [] Specify: [] [] Specify: [] [] Specify: [] Location in the medical record that reflects the above clinical findings: [] Treatment Provided: [] PHYSICIAN'S RESPONSE Based on your medical judgment of the clinical indicators outlined above please clarify the following: [] Practitioner response [] If unable to determine, please check the box, sign and date. Present On Admission (POA) Indicator: [] Present at the time of admission [] Not present at the time of admission [] Clinically Undetermined In responding to this query, please exercise your independent professional judgment. The fact that a question is asked does not imply that any particular answer is desired or expected. Thank you for your clarification on this documentation. If you have any questions please call. * Thank you, Francesca Arrington RN ext. #[phone] MTDD
[2017-04-16] MEDS: Enoxaparin 40 mg Syringe SC SCH (09:20)
--- NOTE | 2017-04-16 15:09 | CP.PCM.PN ---
Subjective - Date & Time of Evaluation Date of Evaluation: 04/16/17 Time of Evaluation: 15:04 - Subjective Subjective: - Patient seen and examined at bedside. Seems to be doing well. Slept well overnight. Continues to have 2-3 episodes of non bloody diarrhea a day. Denies any fever chills, nausea, vomiting. - Spoke with Dr. Willson: Patient scheduled for Pacemaker on wednesday/ wednesday. Objective - Vital Signs/Intake and Output Vital Signs (last 24 hours): Temp Pulse Resp BP Pulse Ox 97.6 F 66 18 113/66 95 04/16/17 12:15 04/16/17 13:14 04/16/17 13:14 04/16/17 13:14 04/16/17 13:14 - Medications Medications: Current Medications Acetaminophen (Tylenol 325mg Tab) 650 mg PO Q6 PRN PRN Reason: Fever >100.4 F Last Admin: 04/11/17 03:39 Dose: 650 mg Atorvastatin Calcium (Lipitor) 40 mg PO HS [facility] Last Admin: 04/15/17 21:01 Dose: 40 mg Cyanocobalamin (Vitamin B12 1000 Mcg Tab) 1,000 mcg PO DAILY [facility] Last Admin: 04/16/17 09:19 Dose: 1,000 mcg Dextrose (Dextrose 50% Inj) 0 ml IV STAT PRN; Protocol PRN Reason: Hypoglycemia Protocol Dextrose (Glutose 15) 0 gm PO ONCE PRN; Protocol PRN Reason: Hypoglycemia Protocol Diltiazem HCl (Cardizem) 30 mg PO TID [facility] Last Admin: 04/16/17 13:14 Dose: 30 mg Enoxaparin Sodium (Lovenox) 40 mg SC DAILY [facility] PRN Reason: Protocol Last Admin: 04/16/17 09:20 Dose: 40 mg Glucagon (Glucagen Diagnostic Kit) 0 mg IM STAT PRN; Protocol PRN Reason: Hypoglycemia Protocol Lisinopril (Zestril) 20 mg PO DAILY [facility] Last Admin: 04/16/17 09:20 Dose: 20 mg Metformin HCl (Glucophage) 500 mg PO BID [facility] Last Admin: 04/12/17 09:00 Dose: 500 mg - Labs Labs: 04/14/17 05:50 04/14/17 05:50 PT 13.5 Seconds (9.8-13.1) H 04/10/17 14:40 INR 1.2 (0.9-1.2) 04/10/17 14:40 APTT 33.2 Seconds (25.6-37.1) 04/09/17 22:05 - Constitutional Appears: No Acute Distress, Unkempt - Head Exam Head Exam: NORMAL INSPECTION - Respiratory Exam Respiratory Exam: Clear to Ausculation Bilateral, NORMAL BREATHING PATTERN. absent: Rhonchi, Wheezes - Cardiovascular Exam Cardiovascular Exam: REGULAR RHYTHM, +S1, +S2 - GI/Abdominal Exam GI & Abdominal Exam: Soft, Normal Bowel Sounds. absent: Tenderness - Extremities Exam Extremities Exam: Normal Capillary Refill. absent: Calf Tenderness - Back Exam Back Exam: NORMAL INSPECTION - Neurological Exam Neurological Exam: Alert, Awake, CN II-XII Intact, Oriented x3 - Skin Skin Exam: Warm Assessment and Plan - Assessment and Plan (Free Text) Assessment: 67 yo M with PMH A-fib, NIDDM2, HTN, HLD, CAD and [place] s/p stent 03/2016, admitted due to syncope. Afebrile > 72 hours. Has had heart rate ranging from 60 -140 during this admission. Plan: 1. Syncope possibly secondary to irregular rhythm -Stable, 1 episode, no seizure like activity witnessed, likely secondary to malnutrition -Head CT without contrast: no acute intracranial abnormality -EKG: Normal sinus rhythm, no ST-T changes -Echo 03/27/17: Normal LV size and function, EF= 50% -Duplex Doppler extremity U/S negative 2. Fever of unknown orgin ( Resolved) - Has remained afebrile over 72 hours -Presumed CAP less likely at this time due to CT findings of pleural effusion rather than infiltrate - Blood cultures x 4 negative more then 24 hours, urine cultures negative - D/C antibiotics -ID consult appreciated 3. Tachycardia ( Controlled) -Secondary to infection vs a.fib vs sick sinus vs SVT - Telemetry shows brief periods of PSVT - Responding to vagal stimuli -Heart range ranges from 60s to 130s -Metoprolol held -EKG shows normal sinus rhythm -Cardiology consult - Diltiazam 30 mg TID - Patient agrees with pacemaker placement, will be placed tentatively on Wednesday /Wednesday 4. Afib - Diltiazam 30 mg TID -Consider restart anticoagulation. Patient has been non compliant with warfarin. -Patient is scheduled for a pacemaker on on wednesday/ Wednesday 5. Hypertension -Uncontrolled on admission -Resume home meds: Lisinopril 20mg PO QD -Hold Lopressor (metoprolol) 25mg PO BID because of possible sick sinus syndrome -Monitor BP 7. NIDDM Type 2 -Controlled -03/27/17: HbA1c 6.9, lipids Triglycerides 161, Cholesterol 159, LDL 109, HDL 22 - Hold Metformin to prevent nephrotoxicity -Fingersticks ACHS 8. Scabies -Controlled with Permethrin 5% topical 9. Diarrhea s/p IV antibiotics - Afebrile, - h/o recent antibiotic usage - Check stool for ova parasites, C Diff - F/U with CMP 9. DVT prophylaxis -Lovenox 40mg SC QD
--- NOTE | 2017-04-17 07:07 | CP.PCM.PN ---
Subjective - Date & Time of Evaluation Date of Evaluation: 04/17/17 Time of Evaluation: 07:45 - Subjective Subjective: 67 YO M seen at bedside, appears to be doing well this morning. Continues to have wattery diarrhea however, the number of eppisodes of decreased. Denies any chest pain, SOB, nausea, vomiting, fever. - Heart rate overnight in tele ranged from 67-90 Objective - Vital Signs/Intake and Output Vital Signs (last 24 hours): Temp Pulse Resp BP Pulse Ox 98.1 F 58 L 18 121/72 95 04/17/17 05:00 04/17/17 05:00 04/17/17 05:00 04/17/17 05:00 04/17/17 05:00 - Medications Medications: Current Medications Acetaminophen (Tylenol 325mg Tab) 650 mg PO Q6 PRN PRN Reason: Fever >100.4 F Last Admin: 04/11/17 03:39 Dose: 650 mg Atorvastatin Calcium (Lipitor) 40 mg PO HS [facility] Last Admin: 04/16/17 21:03 Dose: 40 mg Cyanocobalamin (Vitamin B12 1000 Mcg Tab) 1,000 mcg PO DAILY [facility] Last Admin: 04/16/17 09:19 Dose: 1,000 mcg Dextrose (Dextrose 50% Inj) 0 ml IV STAT PRN; Protocol PRN Reason: Hypoglycemia Protocol Dextrose (Glutose 15) 0 gm PO ONCE PRN; Protocol PRN Reason: Hypoglycemia Protocol Diltiazem HCl (Cardizem) 30 mg PO TID [facility] Last Admin: 04/16/17 16:37 Dose: 30 mg Enoxaparin Sodium (Lovenox) 40 mg SC DAILY [facility] PRN Reason: Protocol Last Admin: 04/16/17 09:20 Dose: 40 mg Glucagon (Glucagen Diagnostic Kit) 0 mg IM STAT PRN; Protocol PRN Reason: Hypoglycemia Protocol Lisinopril (Zestril) 20 mg PO DAILY [facility] Last Admin: 04/16/17 09:20 Dose: 20 mg Metformin HCl (Glucophage) 500 mg PO BID [facility] Last Admin: 04/12/17 09:00 Dose: 500 mg - Labs Labs: 04/14/17 05:50 04/14/17 05:50 PT 13.5 Seconds (9.8-13.1) H 04/10/17 14:40 INR 1.2 (0.9-1.2) 04/10/17 14:40 APTT 33.2 Seconds (25.6-37.1) 04/09/17 22:05 - Constitutional Appears: No Acute Distress, Unkempt - Head Exam Head Exam: NORMAL INSPECTION - Respiratory Exam Respiratory Exam: Clear to Ausculation Bilateral. absent: Rhonchi, Wheezes - Cardiovascular Exam Cardiovascular Exam: REGULAR RHYTHM, +S1, +S2 - GI/Abdominal Exam GI & Abdominal Exam: Soft, Normal Bowel Sounds. absent: Tenderness - Extremities Exam Extremities Exam: Normal Capillary Refill - Neurological Exam Neurological Exam: Alert, Awake, CN II-XII Intact, Normal Gait, Oriented x3 - Skin Skin Exam: Warm Assessment and Plan - Assessment and Plan (Free Text) Assessment: 67 yo M with PMH A-fib, NIDDM2, HTN, HLD, CAD and [place] s/p stent 03/2016, admitted due to syncope. Afebrile > 72 hours. Has had heart rate ranging from 60 -140 during this admission. Plan: 1. Syncope possibly secondary to irregular rhythm -Stable no eppisodes of syncope since admission - Will receive pacemaker on 2. Tachycardia ( Controlled) - Has remained controlled with the diltiazam -Secondary to infection vs a.fib vs sick sinus vs SVT -Heart range ranges from 60s to 130s - Diltiazam 30 mg TID - Patient agrees with pacemaker placement, will be placed tentatively on Wednesday 3. Afib - Diltiazam 30 mg TID -Consider restart anticoagulation. Patient has been non compliant with warfarin. -Patient is scheduled for a pacemaker on on Wednesday 4. Hypertension -Resume home meds: Lisinopril 20mg PO QD - Diltiazam 30 mg TID -Hold Lopressor (metoprolol) 25mg PO BID because of possible sick sinus syndrome 5. NIDDM Type 2 -Controlled -03/27/17: HbA1c 6.9 - Hold Metformin -Fingersticks ACHS 6. Scabies -Controlled with Permethrin 5% topical 7. Diarrhea s/p IV antibiotics - Afebrile, - No white count - C diff negative - Check stool for ova parasites 8. DVT prophylaxis -Lovenox 40mg SC QD
[2017-04-17 07:28] LABS: ALB/GLOB RATIO 1.1 (1.0-2.1); ALBUMIN 3.7 g/dL (3.5-5.0); ALT/SGPT 41 U/L (21-72); AST/SGOT 25 U/L (17-59); BLOOD UREA NITROGEN 15 mg/dl (9-20); CALCIUM 8.6 mg/dL (8.4-10.2); GFR AFRICAN-AMERICAN > 60; GFR NON-AFRICAN AMERICAN > 60
[2017-04-17 07:46] LABS: BASO % 0.6 % (0.0-2.0); EOS # 0.3 K/uL (0.0-0.7); EOS % 4.9 % (0.0-4.0); HEMOGLOBIN 13.4 g/dL (12.0-18.0); LYMPH # 1.5 K/uL (1.0-4.3); LYMPH % 23.7 % (20.0-40.0); MEAN CELL VOLUME 85.6 fl (80.0-94.0); MEAN CORPUSCULAR HEMOGLOBIN 29.1 pg (27.0-31.0); MEAN PLATELET VOLUME 8.3 fl (7.2-11.7); MONO # 0.5 K/uL (0.0-0.8); MONO % 8.7 % (0.0-10.0); NEUT # 3.9 K/uL (1.8-7.0); NEUT % 62.1 % (50.0-75.0); NRBC % 0.3 % (0.0-0.0); RBC 4.6 Mil/uL (4.40-5.90); WHITE BLOOD COUNT 6.3 K/uL (4.8-10.8)
[2017-04-17] MEDS: Enoxaparin 40 mg Syringe SC SCH (09:47)
--- NOTE | 2017-04-18 10:57 | CP.PCM.PN ---
Subjective - Date & Time of Evaluation Date of Evaluation: 04/18/17 Time of Evaluation: 11:56 - Subjective Subjective: CC: pending pacemaker 2/2 poss. sick sinus NAEO, appears to be doing well this morning. Diarrhea resolved. Ambulating, needs shower and shave today Denies any chest pain, SOB, nausea, vomiting, fever. HR 50s overnight while sleeping, asymptomatic, good recovery, avg HR 60s Objective - Vital Signs/Intake and Output Vital Signs (last 24 hours): Temp Pulse Resp BP Pulse Ox 97.4 F L 68 18 120/67 98 04/18/17 08:00 04/18/17 08:52 04/18/17 08:52 04/18/17 08:52 04/18/17 08:52 - Medications Medications: Current Medications Acetaminophen (Tylenol 325mg Tab) 650 mg PO Q6 PRN PRN Reason: Fever >100.4 F Last Admin: 04/11/17 03:39 Dose: 650 mg Atorvastatin Calcium (Lipitor) 40 mg PO HS [facility] Last Admin: 04/17/17 21:13 Dose: 40 mg Cyanocobalamin (Vitamin B12 1000 Mcg Tab) 1,000 mcg PO DAILY [facility] Last Admin: 04/18/17 08:53 Dose: 1,000 mcg Dextrose (Dextrose 50% Inj) 0 ml IV STAT PRN; Protocol PRN Reason: Hypoglycemia Protocol Dextrose (Glutose 15) 0 gm PO ONCE PRN; Protocol PRN Reason: Hypoglycemia Protocol Diltiazem HCl (Cardizem) 30 mg PO TID [facility] Last Admin: 04/18/17 08:52 Dose: 30 mg Glucagon (Glucagen Diagnostic Kit) 0 mg IM STAT PRN; Protocol PRN Reason: Hypoglycemia Protocol Lisinopril (Zestril) 20 mg PO DAILY [facility] Last Admin: 04/18/17 08:52 Dose: 20 mg Metformin HCl (Glucophage) 500 mg PO BID [facility] Last Admin: 04/12/17 09:00 Dose: 500 mg - Labs Labs: 04/17/17 06:30 04/17/17 06:30 PT 13.5 Seconds (9.8-13.1) H 04/10/17 14:40 INR 1.2 (0.9-1.2) 04/10/17 14:40 APTT 33.2 Seconds (25.6-37.1) 04/09/17 22:05 - Constitutional Appears: No Acute Distress, Unkempt - Head Exam Head Exam: ATRAUMATIC - Eye Exam Eye Exam: EOMI Pupil Exam: PERRL - ENT Exam ENT Exam: Mucous Membranes Moist - Neck Exam Neck Exam: Full ROM - Respiratory Exam Respiratory Exam: Clear to Ausculation Bilateral - Cardiovascular Exam Cardiovascular Exam: REGULAR RHYTHM, +S1, +S2 - GI/Abdominal Exam GI & Abdominal Exam: Soft, Normal Bowel Sounds. absent: Tenderness - Extremities Exam Extremities Exam: Normal Inspection. absent: Pedal Edema, Tenderness - Neurological Exam Neurological Exam: Alert, Awake, Oriented x3 - Skin Skin Exam: Dry, Normal Color, Warm Assessment and Plan - Assessment and Plan (Free Text) Plan: 67 yo M with PMH A-fib, NIDDM2, HTN, HLD, CAD and [place] s/p stent 03/2016, admitted due to syncope. Has had heart rate ranging from 60-140 during this admission, possibile sick sinus, pending pacemaker. Syncope possibly secondary to irregular rhythm -Stable no eppisodes of syncope since admission - Will receive pacemaker on Tachycardia ( Controlled) - Has remained controlled with the diltiazam -Secondary to infection vs a.fib vs sick sinus vs SVT -Heart range ranges from 60s to 130s - Diltiazam 30 mg TID - Patient agrees with pacemaker placement, will be placed tentatively on Wednesday Afib - Diltiazam 30 mg TID -Consider restart anticoagulation. Patient has been non compliant with warfarin. -Patient is scheduled for a pacemaker on on Wednesday Hypertension -Resume home meds: Lisinopril 20mg PO QD - Diltiazam 30 mg TID -Hold Lopressor (metoprolol) 25mg PO BID because of possible sick sinus syndrome NIDDM Type 2 -Controlled -03/27/17: HbA1c 6.9 - Hold Metformin -Fingersticks ACHS Scabies -Controlled with Permethrin 5% topical Diarrhea s/p IV antibiotics - Afebrile, - No white count - C diff negative - stool for ova parasites: no growth DVT prophylaxis -Lovenox 40mg SC QD -Has had heart rate ranging from 60-140 during this admission.
--- NOTE | 2017-04-19 07:58 | CP.PCM.PN ---
Subjective - Date & Time of Evaluation Date of Evaluation: 04/19/17 Time of Evaluation: 07:15 - Subjective Subjective: Patient seen and examined bedside. Patient reports feeling fine. Patient denies episodes of palpitation, chest pain, SOB, abd pain, diarrhea. On telemetry. no arrhythmia detected. HR: 60. Pending pacemaker placement, possible tomorrow Objective - Vital Signs/Intake and Output Vital Signs (last 24 hours): Temp Pulse Resp BP Pulse Ox 98.2 F 66 18 117/71 96 04/19/17 05:00 04/19/17 05:00 04/19/17 05:00 04/19/17 05:00 04/19/17 05:00 Intake and Output: 04/19/17 04/19/17 06:59 18:59 Intake Total 200 Balance 200 - Medications Medications: Current Medications Acetaminophen (Tylenol 325mg Tab) 650 mg PO Q6 PRN PRN Reason: Fever >100.4 F Last Admin: 04/11/17 03:39 Dose: 650 mg Atorvastatin Calcium (Lipitor) 40 mg PO HS [facility] Last Admin: 04/18/17 21:40 Dose: 40 mg Cyanocobalamin (Vitamin B12 1000 Mcg Tab) 1,000 mcg PO DAILY [facility] Last Admin: 04/18/17 08:53 Dose: 1,000 mcg Dextrose (Dextrose 50% Inj) 0 ml IV STAT PRN; Protocol PRN Reason: Hypoglycemia Protocol Dextrose (Glutose 15) 0 gm PO ONCE PRN; Protocol PRN Reason: Hypoglycemia Protocol Diltiazem HCl (Cardizem) 30 mg PO TID [facility] Last Admin: 04/18/17 17:32 Dose: 30 mg Glucagon (Glucagen Diagnostic Kit) 0 mg IM STAT PRN; Protocol PRN Reason: Hypoglycemia Protocol Lisinopril (Zestril) 20 mg PO DAILY [facility] Last Admin: 04/18/17 08:52 Dose: 20 mg Metformin HCl (Glucophage) 500 mg PO BID [facility] Last Admin: 04/12/17 09:00 Dose: 500 mg - Labs Labs: 04/17/17 06:30 04/17/17 06:30 PT 13.5 Seconds (9.8-13.1) H 04/10/17 14:40 INR 1.2 (0.9-1.2) 04/10/17 14:40 APTT 33.2 Seconds (25.6-37.1) 04/09/17 22:05 - Constitutional Appears: Non-toxic, No Acute Distress - Head Exam Head Exam: ATRAUMATIC, NORMOCEPHALIC - Eye Exam Eye Exam: Normal appearance - ENT Exam ENT Exam: Normal Exam - Respiratory Exam Respiratory Exam: Clear to Ausculation Bilateral. absent: Rales, Rhonchi, Wheezes - Cardiovascular Exam Cardiovascular Exam: REGULAR RHYTHM, +S1, +S2 - GI/Abdominal Exam GI & Abdominal Exam: Soft, Normal Bowel Sounds. absent: Tenderness - Extremities Exam Extremities Exam: Normal Inspection. absent: Pedal Edema - Neurological Exam Neurological Exam: Alert, Awake - Psychiatric Exam Psychiatric exam: Normal Mood - Skin Skin Exam: Intact Assessment and Plan - Assessment and Plan (Free Text) Plan: 67 yo M with PMH A-fib, NIDDM2, HTN, HLD, CAD and [place] s/p stent 03/2016, admitted due to syncope. Has had heart rate ranging from 60-140 during this admission, possible sick sinus, pending pacemaker. 1) Syncope possibly secondary to irregular rhythm -Stable no episodes of syncope since admission - Will receive pacemaker on 2) Tachycardia ( Controlled) - Has remained controlled with the diltiazam -Secondary to infection vs a.fib vs sick sinus vs SVT -Heart range ranges from 60s to 130s - Diltiazam 30 mg TID - Patient agrees with pacemaker placement, will be placed tentatively on Wednesday 3) Afib - Diltiazem 30 mg TID -Consider restart anticoagulation. Patient has been non compliant with warfarin. -Patient is scheduled for a pacemaker on on Wednesday 4) Hypertension -Resume home meds: Lisinopril 20mg PO QD - Diltiazam 30 mg TID -Hold Lopressor (metoprolol) 25mg PO BID because of possible sick sinus syndrome 5) NIDDM Type 2 -Controlled -03/27/17: HbA1c 6.9 - Hold Metformin -Fingersticks ACHS 6) Scabies -Controlled with Permethrin 5% topical 7) Diarrhea s/p IV antibiotics -resolved - C diff negative - stool for ova parasites: no growth 8) DVT prophylaxis -Lovenox 40mg SC QD -Has had heart rate ranging from 60-140 during this admission.
[2017-04-20 05:45] LABS: HEMOGLOBIN 13.2 g/dL (12.0-18.0); MEAN CELL VOLUME 85.6 fl (80.0-94.0); MEAN CORPUSCULAR HEMOGLOBIN 29.3 pg (27.0-31.0); MEAN CORPUSCULAR HGB CONC 34.2 g/dL (33.0-37.0); RBC 4.5 Mil/uL (4.40-5.90); RED CELL DISTRIBUTION WIDTH 13.6 % (11.5-14.5); WHITE BLOOD COUNT 6.9 K/uL (4.8-10.8)
[2017-04-20 06:24] LABS: BLOOD UREA NITROGEN 15 mg/dl (9-20); CALCIUM 8.8 mg/dL (8.4-10.2); GFR AFRICAN-AMERICAN > 60; GFR NON-AFRICAN AMERICAN > 60; MAGNESIUM 1.9 MG/DL (1.6-2.3)
--- NOTE | 2017-04-20 09:02 | CP.PCM.PN ---
Subjective - Date & Time of Evaluation Date of Evaluation: 04/20/17 Time of Evaluation: 09:01 - Subjective Subjective: Family Medicine Progress Note - Dr. Estevez 67 year old male seen and evaluated at bedside. Patient hemodynamically stable and NAD. Denies any acute events overnight. Per nursing, HR = 56 this AM so cardiazem was held. Patient aware he is scheduled for pacemaker placement with Dr. Thayer today. NPO confirmed. Denies chest pain, palpitations, SOB, abd pain , N/V/F/D/C. Objective - Vital Signs/Intake and Output Vital Signs (last 24 hours): Temp Pulse Resp BP Pulse Ox 97.6 F 56 L 20 129/78 96 04/20/17 08:00 04/20/17 08:00 04/20/17 08:00 04/20/17 08:00 04/20/17 08:00 - Medications Medications: Current Medications Acetaminophen (Tylenol 325mg Tab) 650 mg PO Q6 PRN PRN Reason: Fever >100.4 F Last Admin: 04/11/17 03:39 Dose: 650 mg Atorvastatin Calcium (Lipitor) 40 mg PO HS [facility] Last Admin: 04/19/17 22:29 Dose: 40 mg Cyanocobalamin (Vitamin B12 1000 Mcg Tab) 1,000 mcg PO DAILY [facility] Last Admin: 04/19/17 11:09 Dose: 1,000 mcg Dextrose (Dextrose 50% Inj) 0 ml IV STAT PRN; Protocol PRN Reason: Hypoglycemia Protocol Dextrose (Glutose 15) 0 gm PO ONCE PRN; Protocol PRN Reason: Hypoglycemia Protocol Diltiazem HCl (Cardizem) 30 mg PO TID [facility] Last Admin: 04/19/17 16:37 Dose: 30 mg Glucagon (Glucagen Diagnostic Kit) 0 mg IM STAT PRN; Protocol PRN Reason: Hypoglycemia Protocol Lisinopril (Zestril) 20 mg PO DAILY [facility] Last Admin: 04/19/17 11:08 Dose: Not Given Metformin HCl (Glucophage) 500 mg PO BID [facility] Last Admin: 04/12/17 09:00 Dose: 500 mg - Labs Labs: 04/20/17 04:20 04/20/17 04:20 PT 13.5 Seconds (9.8-13.1) H 04/10/17 14:40 INR 1.2 (0.9-1.2) 04/10/17 14:40 APTT 33.2 Seconds (25.6-37.1) 04/09/17 22:05 - Constitutional Appears: Well, Non-toxic, No Acute Distress - Head Exam Head Exam: ATRAUMATIC, NORMOCEPHALIC - Eye Exam Eye Exam: EOMI, Normal appearance Pupil Exam: NORMAL ACCOMODATION, PERRL - ENT Exam ENT Exam: Mucous Membranes Moist, Normal Exam - Neck Exam Neck Exam: Normal Inspection. absent: Tenderness - Respiratory Exam Respiratory Exam: Clear to Ausculation Bilateral, NORMAL BREATHING PATTERN. absent: Rales, Rhonchi, Wheezes - Cardiovascular Exam Cardiovascular Exam: Bradycardia, REGULAR RHYTHM, +S1, +S2 - GI/Abdominal Exam GI & Abdominal Exam: Soft, Normal Bowel Sounds. absent: Tenderness - Rectal Exam Rectal Exam: Deferred - Extremities Exam Extremities Exam: Full ROM, Normal Inspection. absent: Pedal Edema, Tenderness - Neurological Exam Neurological Exam: Alert, Awake - Psychiatric Exam Psychiatric exam: Normal Affect, Normal Mood - Skin Skin Exam: Intact, Normal Color, Warm Assessment and Plan - Assessment and Plan (Free Text) Plan: 67 yo M with PMH A-fib, NIDDM2, HTN, HLD, CAD and [place] s/p stent 03/2016, admitted due to syncope. Has had heart rate ranging from 60-140 during this admission, possible sick sinus, pending pacemaker placement with Dr. Thayer today 1) Syncope possibly secondary to irregular rhythm -Stable no episodes of syncope since admission -Plan for pacemaker placement by Dr. Thayer at [facility] today; NPO confirmed 2) Tachycardia (Controlled) - Has remained controlled with the diltiazem -Secondary to infection vs a.fib vs sick sinus vs SVT -Heart range ranges from 60s to 130s -Diltiazam 30 mg TID -HR @ 56 today, diltiazem held this AM -Patient agrees with pacemaker placement, will be placed today; NPO confirmed 3) Afib - Diltiazem 30 mg TID, held 2/2 low HR -Consider restart anticoagulation. Patient has been non compliant with warfarin. -Patient is scheduled for a pacemaker placement today; NPO confirmed 4) Hypertension -Resume home meds: Lisinopril 20mg PO QD -Diltiazam 30 mg TID -Hold Lopressor (metoprolol) 25mg PO BID because of possible sick sinus syndrome 5) NIDDM Type 2 -Controlled -03/27/17: HbA1c 6.9 - Hold Metformin -Fingersticks ACHS 6) Scabies -Controlled with Permethrin 5% topical 7) Diarrhea s/p IV antibiotics -resolved - C diff negative - stool for ova parasites: no growth -3 BM yesterday 8) DVT prophylaxis -Lovenox 40mg SC QD -Held today for pacemaker placement -Has had heart rate ranging from 60-140 during this admission
[2017-04-20] MEDS ORDERED: Lactated Ringer's 1,000 ML IV SCH ×2 (15:30→17:45)
[2017-04-20] MEDS ORDERED: Bupivacaine 0.5% Inj(30mL) ONE (15:41)
[2017-04-20] MEDS ORDERED: Bacitracin Ointment 30 GM TUBE ONE (15:41)
[2017-04-20] MEDS ORDERED: Lidocaine 1% Inj (20ml) ONE (15:41)
[2017-04-20] MEDS ORDERED: ceFAZolin IV 1 gm in Dextrose 0 GM/0 ML BAG IVPB ONE (15:45)
[2017-04-20] MEDS ORDERED: Midazolam 2 MG/2 ML VIAL ONE (15:54)
[2017-04-20] MEDS ORDERED: Lactated Ringer's 1,000 ML IV ONE (16:00)
[2017-04-20] MEDS ORDERED: Liquid Adhesive TOP ONE (17:19)
[2017-04-20] MEDS ORDERED: BENZOIN 60 ML TINCTURE TP ONE (17:20)
--- NOTE | 2017-04-20 18:49 | RAD ---
HISTORY: post ppm COMPARISON: 04/09/2017 FINDINGS: LUNGS: No active pulmonary disease. PLEURA: No significant pleural effusion identified, no pneumothorax apparent. CARDIOVASCULAR: No radiographic findings to suggest acute or significant cardiovascular disease. Position/ configuration of pacemaker device: Satisfactory. OSSEOUS STRUCTURES: No significant abnormalities. VISUALIZED UPPER ABDOMEN: Normal. OTHER FINDINGS: None. IMPRESSION: Satisfactory position of recently placed pacemaker. No pneumothorax. No active pulmonary or cardiovascular disease.
[2017-04-20] MEDS: Oxycodone/Acetaminophen 5/325 mg Tab PO PRN (23:51)
--- NOTE | 2017-04-21 01:56 | OP ---
PROCEDURE DATE: 04/20/2017 PROCEDURE: Implantation of dual-chamber permanent pacemaker. PREPROCEDURE DIAGNOSIS: Tachy-hilda syndrome. BRIEF HISTORY: Mr. Agapito Feldman is a 67-year-old male with past medical history significant for atrial fibrillation, myocardial infarction, diabetes, hypertension, and hyperlipidemia, who presents to [facility] after an apparent syncopal episode. Patient has had paroxysms of atrial fibrillation/atrial tachycardia. He was admitted for further evaluation and management. Patient had episode of what appeared to be atrial tachycardia when treated medically with beta blockers, had episodic bradycardia. Given the clinical scenario of known coronary artery disease and history of myocardial infarction, it was felt the patient would benefit from chronotropic support in the form of a permanent pacemaker with maximizing medical therapy in the form of increased beta blockade. Patient medically seen and considered this option, finally patient was agreeable; therefore, he was scheduled today, 04/20/2017, for the aforementioned procedure. Informed consent was received for the procedure as well as anesthesia. DESCRIPTION OF PROCEDURE: Patient was brought into the room in a postabsorptive state. The left pectoral area was draped and prepped in a sterile fashion. Lidocaine 2% solution was injected into the surgical site. A 3.5-cm incision was made two fingerbreadths below the clavicle using blunt dissection and electrocautery. The fascial planes were dissected. The cephalic vein was identified. The cephalic vein cutdown was performed with minimal difficulty. Access was successfully achieved. An 0.35 guidewire was inserted via this access point. A 9-[place]gu[place]an SafeSheath was then inserted with a Spring Wire without difficulty. The right ventricular lead which is a 5076, 58-cm [employer], serial #[id number], was inserted by the sheath manipulator into the right ventricular apex without difficulty. From this position, the R waves measured 11.1, impendence of 1029, threshold is 1.0 volt at 0.5 milliseconds. Using retained access, an additional 0.035 guidewire was inserted by the sheath and the sheath was . A 7-[place]gu[place]an SafeSheath was then inserted over the second guidewire. A 5076, 52-cm lead, serial #[id number], was inserted via the sheath and manipulated into the right atrial appendage without difficulty. Sensing on this lead, P wave measured 7.3, threshold is 0.5 volts at 0.3 milliseconds with impedance of 806 ohms. Both leads were then tied down using 0-silk suture. Additional ligatures were applied to achieve hemostasis. A submuscular pocket was made with blunt dissection and electrocautery. The submuscular pocket was irrigated using Bacitracin solution. The pulse generator which is a sonarDesigna MRI DR device, serial #[id number], was inserted via the sheath and placed in the subpectoral pocket. Device was visualized under fluoroscopy. The leads and device appeared to be in proper position. Two layers of 2-0 Vicryl suture were then used to close both the superficial fascial and skin layer. Final skin layer was brought together using Benzoin and Steri-Strips. Patient tolerated the procedure well, was taken out of the room in satisfactory condition. Patient now be re-titrated back on beta blockers from a post-pacemaker standpoint as well as postoperative checks which include chest x-ray, 12-lead EKG as well as device check in the morning are within normal limits. Patient may be targeted for discharge. Thank you for allowing me to participate in the care of your patient. Please do not hesitate to call if you have any questions in regards to his care. Yours sincerely, Pepe Thayer MD cc: Robert Ham MD; Rhonda Estevez MD
[2017-04-21 05:59] LABS: BLOOD UREA NITROGEN 16 mg/dl (9-20); CALCIUM 9.1 mg/dL (8.4-10.2); GFR AFRICAN-AMERICAN > 60; GFR NON-AFRICAN AMERICAN > 60
--- NOTE | 2017-04-21 06:51 | CP.PCM.PN ---
Subjective - Date & Time of Evaluation Date of Evaluation: 04/21/17 Time of Evaluation: 06:51 - Subjective Subjective: Family Medicine Progress Note - Dr. Romulo Phillips Objective - Vital Signs/Intake and Output Vital Signs (last 24 hours): Temp Pulse Resp BP Pulse Ox 97.6 F 78 18 136/87 95 04/21/17 04:52 04/21/17 04:52 04/21/17 04:52 04/21/17 04:52 04/21/17 04:52 Intake and Output: 04/20/17 04/21/17 18:59 06:59 Intake Total 800 Balance 800 - Medications Medications: Current Medications Acetaminophen (Tylenol 325mg Tab) 650 mg PO Q6 PRN PRN Reason: Fever >100.4 F Last Admin: 04/11/17 03:39 Dose: 650 mg Atorvastatin Calcium (Lipitor) 40 mg PO HS [facility] Last Admin: 04/20/17 23:44 Dose: 40 mg Cyanocobalamin (Vitamin B12 1000 Mcg Tab) 1,000 mcg PO DAILY [facility] Last Admin: 04/20/17 10:13 Dose: Not Given Dextrose (Dextrose 50% Inj) 0 ml IV STAT PRN; Protocol PRN Reason: Hypoglycemia Protocol Dextrose (Glutose 15) 0 gm PO ONCE PRN; Protocol PRN Reason: Hypoglycemia Protocol Diltiazem HCl (Cardizem) 30 mg PO TID [facility] Last Admin: 04/20/17 10:12 Dose: Not Given Enoxaparin Sodium (Lovenox) 40 mg SC DAILY [facility] PRN Reason: Protocol Glucagon (Glucagen Diagnostic Kit) 0 mg IM STAT PRN; Protocol PRN Reason: Hypoglycemia Protocol Lactated Ringer's (Lactated Ringer's) 1,000 mls @ 50 mls/hr IV .Q20H [facility] Lactated Ringer's (Lactated Ringer's) 1,000 mls @ 50 mls/hr IV .Q20H [facility] Lisinopril (Zestril) 20 mg PO DAILY [facility] Last Admin: 04/20/17 23:44 Dose: 20 mg Metformin HCl (Glucophage) 500 mg PO BID [facility] Last Admin: 04/12/17 09:00 Dose: 500 mg Oxycodone/Acetaminophen (Percocet 5/325 Mg Tab) 1 tab PO Q6 PRN PRN Reason: Pain, moderate (4-7) Stop: 04/23/17 23:45 Last Admin: 04/20/17 23:51 Dose: 1 tab - Labs Labs: 04/20/17 04:20 04/21/17 04:30 PT 13.5 Seconds (9.8-13.1) H 04/10/17 14:40 INR 1.2 (0.9-1.2) 04/10/17 14:40 APTT 33.2 Seconds (25.6-37.1) 04/09/17 22:05
--- NOTE | 2017-04-21 07:02 | CP.PCM.DIS ---
Provider - Provider Date of Admission: 04/10/17 20:20 Attending physician: Rhonda Estevez MD Primary care physician: [facility] Consults: [facility] - Dr. Pickens Time Spent in preparation of Discharge (in minutes): 30 Hospital Course - Lab Results Lab Results: Micro Results 04/13/17 20:30 Blood-Venous Blood Culture - Final NO GROWTH AFTER 5 DAYS 04/13/17 20:30 Blood-Venous Gram Stain - Final TEST NOT PERFORMED 04/16/17 10:00 Stool Ova and Parasite Concentrate Exam - Final 04/16/17 10:00 Stool Stool Culture - Final NO SALMONELLA, SHIGELLA OR CAMPYLOBACTER ISOLATED. 04/11/17 04:00 Blood Blood Culture - Final NO GROWTH AFTER 5 DAYS 04/11/17 04:00 Blood Gram Stain - Final TEST NOT PERFORMED 04/10/17 16:30 Blood Blood Culture - Final NO GROWTH AFTER 5 DAYS 04/10/17 16:30 Blood Gram Stain - Final TEST NOT PERFORMED 04/09/17 22:00 Blood Blood Culture - Final NO GROWTH AFTER 5 DAYS 04/09/17 22:00 Blood Gram Stain - Final TEST NOT PERFORMED 04/11/17 09:00 Urine,Clean Catch Urine Culture - Final No Growth (<1,000 CFU/ML) Most Recent Lab Values WBC 6.9 K/uL (4.8-10.8) 04/20/17 04:20 RBC 4.50 Mil/uL (4.40-5.90) 04/20/17 04:20 Hgb 13.2 g/dL (12.0-18.0) 04/20/17 04:20 Hct 38.5 % (35.0-51.0) 04/20/17 04:20 MCV 85.6 fl (80.0-94.0) 04/20/17 04:20 MCH 29.3 pg (27.0-31.0) 04/20/17 04:20 MCHC 34.2 g/dL (33.0-37.0) 04/20/17 04:20 RDW 13.6 % (11.5-14.5) 04/20/17 04:20 Plt Count 288 K/uL (130-400) 04/20/17 04:20 MPV 8.3 fl (7.2-11.7) 04/17/17 06:30 Neut % (Auto) 62.1 % (50.0-75.0) 04/17/17 06:30 Lymph % (Auto) 23.7 % (20.0-40.0) 04/17/17 06:30 [place] % (Auto) 8.7 % (0.0-10.0) 04/17/17 06:30 Eos % (Auto) 4.9 % (0.0-4.0) H 04/17/17 06:30 Baso % (Auto) 0.6 % (0.0-2.0) 04/17/17 06:30 Neut # 3.9 K/uL (1.8-7.0) 04/17/17 06:30 Lymph # 1.5 K/uL (1.0-4.3) 04/17/17 06:30 [place] # 0.5 K/uL (0.0-0.8) 04/17/17 06:30 Eos # 0.3 K/uL (0.0-0.7) 04/17/17 06:30 Baso # 0.0 K/uL (0.0-0.2) 04/17/17 06:30 ESR 34 mm/hr (0-20) H 04/11/17 10:00 PT 13.5 Seconds (9.8-13.1) H 04/10/17 14:40 INR 1.2 (0.9-1.2) 04/10/17 14:40 APTT 33.2 Seconds (25.6-37.1) 04/09/17 22:05 Sodium 140 mmol/l (132-148) 04/21/17 04:30 Potassium 4.2 MMOL/L (3.6-5.0) 04/21/17 04:30 Chloride 103 mmol/L (98-107) 04/21/17 04:30 Carbon Dioxide 26 mmol/L (22-30) 04/21/17 04:30 Anion Gap 15 (10-20) 04/21/17 04:30 BUN 16 mg/dl (9-20) 04/21/17 04:30 Creatinine 1.0 mg/dl (0.8-1.5) 04/21/17 04:30 Est GFR ( Amer) > 60 04/21/17 04:30 Est GFR (Non-Af Amer) > 60 04/21/17 04:30 POC Glucose (mg/dL) 105 mg/dL (65-110) 04/21/17 05:08 Random Glucose 123 mg/dL (75-110) H 04/21/17 04:30 Lactic Acid 0.8 MMOL/L (0.7-2.1) 04/11/17 10:00 Calcium 9.1 mg/dL (8.4-10.2) 04/21/17 04:30 Phosphorus 3.6 mg/dl (2.5-4.5) 04/20/17 04:20 Magnesium 2.0 MG/DL (1.6-2.3) 04/21/17 04:30 Total Bilirubin 0.9 mg/dl (0.2-1.3) 04/17/17 06:30 AST 25 U/L (17-59) 04/17/17 06:30 ALT 41 U/L (21-72) 04/17/17 06:30 Alkaline Phosphatase 84 U/L (38-126) 04/17/17 06:30 Troponin I < 0.0120 ng/mL (0.00-0.120) 04/09/17 22:05 C-React Prot High Sens > 15.00 mg/L (1.00-3.00) H 04/11/17 10:00 Total Protein 7.0 G/DL (6.3-8.2) 04/17/17 06:30 Albumin 3.7 g/dL (3.5-5.0) 04/17/17 06:30 Globulin 3.4 gm/dL (2.2-3.9) 04/17/17 06:30 Albumin/Globulin Ratio 1.1 (1.0-2.1) 04/17/17 06:30 Vitamin B12 237 pg/mL (239-931) L 04/10/17 05:30 Folate 7.7 ng/mL 04/10/17 05:30 Procalcitonin 0.07 NG/ML (0.19-0.49) L 04/11/17 11:30 Urine Color Yellow (YELLOW) 04/11/17 21:41 Urine Clarity Clear (Clear) 04/11/17 21:41 Urine pH 6.0 (5.0-8.0) 04/11/17 21:41 Ur Specific [place] 1.012 (1.003-1.030) 04/11/17 21:41 Urine Protein Negative mg/dL (NEGATIVE) 04/11/17 21:41 Urine Glucose (UA) Neg mg/dL (Normal) 04/11/17 21:41 Urine Ketones Trace mg/dL (NEGATIVE) 04/11/17 21:41 Urine Blood Negative (NEGATIVE) 04/11/17 21:41 Urine Nitrate Negative (NEGATIVE) 04/11/17 21:41 Urine Bilirubin Negative (NEGATIVE) 04/11/17 21:41 Urine Urobilinogen 0.2-1.0 mg/dL (0.2-1.0) 04/11/17 21:41 Ur Leukocyte Esterase Neg Mago/uL (Negative) 04/11/17 21:41 Urine RBC (Auto) 3 /hpf (0-3) 04/11/17 21:41 Urine Microscopic WBC 1 /hpf (0-5) 04/11/17 21:41 Ur Squamous Epith Cells < 1 /hpf (0-5) 04/11/17 21:41 Urine Opiates Screen Negative (NEGATIVE) 04/09/17 22:11 Urine Methadone Screen Negative (NEGATIVE) 04/09/17 22:11 Ur Barbiturates Screen Negative (NEGATIVE) 04/09/17 22:11 Ur Phencyclidine Scrn Negative (NEGATIVE) 04/09/17 22:11 Ur Amphetamines Screen Negative (NEGATIVE) 04/09/17 22:11 U Benzodiazepines Scrn Negative (NEGATIVE) 04/09/17 22:11 U Oth Cocaine Metabols Negative (NEGATIVE) 04/09/17 22:11 U Cannabinoids Screen Negative (NEGATIVE) 04/09/17 22:11 Alcohol, Quantitative < 10 mg/dl (0-10) 04/09/17 22:05 Rheum Arthritis Panel Negative (NEGATIVE) 04/13/17 20:30 MAYI Screen Negative (Negative) 04/13/17 20:30 C. difficile Ag & Toxin Negative (NEGATIVE) 04/16/17 10:00 HIV 1&2 Ag/Ab, 4th Gen Nonreactive (Nonreactive) 04/13/17 20:30 TB Test (QFT) Nil 0.05 IU/mL 04/13/17 11:00 TB Test Mitogen - Nil 2.03 IU/mL 04/13/17 11:00 TB Test TB - Nil <0.00 IU/mL 04/13/17 11:00 TB Test (QFT) Negative (Negative) 04/13/17 11:00 Blood Type B POSITIVE 04/09/17 22:05 Antibody Screen Negative 04/09/17 22:05 BBK History Checked No verified bt 04/09/17 22:05 - Hospital Course Hospital Course: 67 year old male patient PMHx NIDDM, HTN, HLD, CAD and PA s/p stent placement Mar 2016, hx of scabies admitted from [facility] ED for pneumonia and syncope. Per patient, has history of atrial fibrillation but was not seen during hospital stay. Patient was found to have paroxysmal episodes of tachycardia; underwent implantation of dual-chamber permanent pacemaker with uneventful post-operative course. Patient will be re-titrated back on beta blockers, and will be discharged home on Metoprolol Tartrate 25mg PO q12. Patient will continue home medications and restart metformin upon discharge. Follow up in clinic with Dr. Pickens 04/29/16. Discharge Exam - Head Exam Head Exam: ATRAUMATIC, NORMAL INSPECTION, NORMOCEPHALIC - Eye Exam Eye Exam: EOMI, Normal appearance Pupil Exam: NORMAL ACCOMODATION, PERRL - ENT Exam ENT Exam: Mucous Membranes Moist, Normal External Ear Exam - Neck Exam Neck exam: Full Rom, Normal Inspection - Respiratory Exam Respiratory Exam: Clear to PA & Lateral, NORMAL BREATHING PATTERN, UNREMARKABLE. absent: Rales, Rhonchi, Wheezes, Respiratory Distress - Cardiovascular Exam Cardiovascular Exam: RRR, +S1, +S2 - GI/Abdominal Exam GI & Abdominal Exam: Normal Bowel Sounds, Soft, Unremarkable. absent: Tenderness - Extremities Exam Extremities exam: full ROM, normal inspection - Neurological Exam Neurological exam: Alert - Psychiatric Exam Psychiatric exam: Normal Affect, Normal Mood - Skin Skin Exam: Intact, Normal Color, Warm Discharge Plan - Discharge Medications Prescriptions: Atorvastatin [Lipitor] 40 mg PO HS 30 Days #30 tab Cyanocobalamin [Vitamin B12 1000 mcg Tab] 1,000 mcg PO DAILY #30 tab Lisinopril [Zestril] 20 mg PO DAILY 30 Days #30 tab metFORMIN [glucOPHAGE] 500 mg PO BID 30 Days #60 tab Metoprolol Tartrate [Lopressor] 25 mg PO Q12 30 Days #60 tab - Follow Up Plan Condition: FAIR Disposition: HOME/ ROUTINE Patient education suggested?: Yes Instructions: Syncope (DC), Syncope (GEN), Community Acquired Pneumonia (DC) Additional Instructions: Follow up appointment with Dr. Pickens on Apr 29 at 1:00pm at [facility] [[email or web address]] in [place] Referrals: [facility] at [place] [Outside]
[2017-04-21] MEDS ORDERED: Enoxaparin 40 mg Syringe SC SCH (09:00)
--- NOTE | 2017-04-21 12:19 | CARD ---
APPROVED REPORT EKG Measurement Heart [id number] <Conclusion> Normal sinus rhythm Normal ECG
--- NOTE | 2017-04-21 12:43 | CP.PCM.PN ---
Subjective - Date & Time of Evaluation Date of Evaluation: 04/21/17 Time of Evaluation: 12:43 - Subjective Subjective: Family Medicine Progress Note - Dr. Estevez 67 year old male seen and evaluated at bedside s/p pacemaker placement. Patient hemodynamically stable and NAD. No acute events overnight. Admits to mild soreness to his left chest otherwise no complaints. Denies chest pain, palpitations, SOB, abd pain, N/V/F/D/C. Objective - Vital Signs/Intake and Output Vital Signs (last 24 hours): Temp Pulse Resp BP Pulse Ox 98.1 F 82 18 144/80 96 04/21/17 08:00 04/21/17 09:00 04/21/17 08:40 04/21/17 08:40 04/21/17 08:40 - Medications Medications: Current Medications Acetaminophen (Tylenol 325mg Tab) 650 mg PO Q6 PRN PRN Reason: Fever >100.4 F Last Admin: 04/11/17 03:39 Dose: 650 mg Atorvastatin Calcium (Lipitor) 40 mg PO HS [facility] Last Admin: 04/20/17 23:44 Dose: 40 mg Cyanocobalamin (Vitamin B12 1000 Mcg Tab) 1,000 mcg PO DAILY [facility] Last Admin: 04/21/17 08:41 Dose: 1,000 mcg Dextrose (Dextrose 50% Inj) 0 ml IV STAT PRN; Protocol PRN Reason: Hypoglycemia Protocol Dextrose (Glutose 15) 0 gm PO ONCE PRN; Protocol PRN Reason: Hypoglycemia Protocol Diltiazem HCl (Cardizem) 30 mg PO TID [facility] Last Admin: 04/21/17 08:40 Dose: 30 mg Enoxaparin Sodium (Lovenox) 40 mg SC DAILY [facility] PRN Reason: Protocol Last Admin: 04/21/17 08:38 Dose: 40 mg Glucagon (Glucagen Diagnostic Kit) 0 mg IM STAT PRN; Protocol PRN Reason: Hypoglycemia Protocol Lactated Ringer's (Lactated Ringer's) 1,000 mls @ 50 mls/hr IV .Q20H [facility] Lisinopril (Zestril) 20 mg PO DAILY [facility] Last Admin: 04/21/17 08:39 Dose: 20 mg Metformin HCl (Glucophage) 500 mg PO BID [facility] Last Admin: 04/12/17 09:00 Dose: 500 mg Oxycodone/Acetaminophen (Percocet 5/325 Mg Tab) 1 tab PO Q6 PRN PRN Reason: Pain, moderate (4-7) Stop: 04/23/17 23:45 Last Admin: 04/20/17 23:51 Dose: 1 tab - Labs Labs: 04/20/17 04:20 04/21/17 04:30 PT 13.5 Seconds (9.8-13.1) H 04/10/17 14:40 INR 1.2 (0.9-1.2) 04/10/17 14:40 APTT 33.2 Seconds (25.6-37.1) 04/09/17 22:05
[2017-04-21 12:48] VITALS: O2SAT 95
--- NOTE | 2017-04-21 13:02 | RAD ---
PROCEDURE: Pacemaker placement HISTORY: FLUOROSCOPY COMPARISON: None TECHNIQUE: Standard protocol for this study/examination Total fluoroscopic time (continuous mode) utilized during the procedure: 317.6 seconds. FINDINGS: Submitted images from the current procedure: 2.0 IMPRESSION: Total exam DLP: (mGy): 49.90
[2017-04-21] MEDS: Oxycodone/Acetaminophen 5/325 mg Tab PO PRN (13:53)
[2017-04-21 15:24] VITALS: PULSE 89; RESP 20; TEMP 97.5
--- NOTE | 2017-04-21 17:28 | CP.PCM.DIS ---
Provider - Provider Date of Admission: 04/10/17 20:20 Attending physician: Rhonda Estevez MD Primary care physician: [facility] Consults: [facility] - Dr. Pickens Time Spent in preparation of Discharge (in minutes): 30 Hospital Course - Lab Results Lab Results: Micro Results 04/13/17 20:30 Blood-Venous Blood Culture - Final NO GROWTH AFTER 5 DAYS 04/13/17 20:30 Blood-Venous Gram Stain - Final TEST NOT PERFORMED 04/16/17 10:00 Stool Ova and Parasite Concentrate Exam - Final 04/16/17 10:00 Stool Stool Culture - Final NO SALMONELLA, SHIGELLA OR CAMPYLOBACTER ISOLATED. 04/11/17 04:00 Blood Blood Culture - Final NO GROWTH AFTER 5 DAYS 04/11/17 04:00 Blood Gram Stain - Final TEST NOT PERFORMED 04/10/17 16:30 Blood Blood Culture - Final NO GROWTH AFTER 5 DAYS 04/10/17 16:30 Blood Gram Stain - Final TEST NOT PERFORMED 04/09/17 22:00 Blood Blood Culture - Final NO GROWTH AFTER 5 DAYS 04/09/17 22:00 Blood Gram Stain - Final TEST NOT PERFORMED 04/11/17 09:00 Urine,Clean Catch Urine Culture - Final No Growth (<1,000 CFU/ML) Most Recent Lab Values WBC 6.9 K/uL (4.8-10.8) 04/20/17 04:20 RBC 4.50 Mil/uL (4.40-5.90) 04/20/17 04:20 Hgb 13.2 g/dL (12.0-18.0) 04/20/17 04:20 Hct 38.5 % (35.0-51.0) 04/20/17 04:20 MCV 85.6 fl (80.0-94.0) 04/20/17 04:20 MCH 29.3 pg (27.0-31.0) 04/20/17 04:20 MCHC 34.2 g/dL (33.0-37.0) 04/20/17 04:20 RDW 13.6 % (11.5-14.5) 04/20/17 04:20 Plt Count 288 K/uL (130-400) 04/20/17 04:20 MPV 8.3 fl (7.2-11.7) 04/17/17 06:30 Neut % (Auto) 62.1 % (50.0-75.0) 04/17/17 06:30 Lymph % (Auto) 23.7 % (20.0-40.0) 04/17/17 06:30 [place] % (Auto) 8.7 % (0.0-10.0) 04/17/17 06:30 Eos % (Auto) 4.9 % (0.0-4.0) H 04/17/17 06:30 Baso % (Auto) 0.6 % (0.0-2.0) 04/17/17 06:30 Neut # 3.9 K/uL (1.8-7.0) 04/17/17 06:30 Lymph # 1.5 K/uL (1.0-4.3) 04/17/17 06:30 [place] # 0.5 K/uL (0.0-0.8) 04/17/17 06:30 Eos # 0.3 K/uL (0.0-0.7) 04/17/17 06:30 Baso # 0.0 K/uL (0.0-0.2) 04/17/17 06:30 ESR 34 mm/hr (0-20) H 04/11/17 10:00 PT 13.5 Seconds (9.8-13.1) H 04/10/17 14:40 INR 1.2 (0.9-1.2) 04/10/17 14:40 APTT 33.2 Seconds (25.6-37.1) 04/09/17 22:05 Sodium 140 mmol/l (132-148) 04/21/17 04:30 Potassium 4.2 MMOL/L (3.6-5.0) 04/21/17 04:30 Chloride 103 mmol/L (98-107) 04/21/17 04:30 Carbon Dioxide 26 mmol/L (22-30) 04/21/17 04:30 Anion Gap 15 (10-20) 04/21/17 04:30 BUN 16 mg/dl (9-20) 04/21/17 04:30 Creatinine 1.0 mg/dl (0.8-1.5) 04/21/17 04:30 Est GFR ( Amer) > 60 04/21/17 04:30 Est GFR (Non-Af Amer) > 60 04/21/17 04:30 POC Glucose (mg/dL) 124 mg/dL (65-110) H 04/21/17 15:49 Random Glucose 123 mg/dL (75-110) H 04/21/17 04:30 Lactic Acid 0.8 MMOL/L (0.7-2.1) 04/11/17 10:00 Calcium 9.1 mg/dL (8.4-10.2) 04/21/17 04:30 Phosphorus 3.6 mg/dl (2.5-4.5) 04/20/17 04:20 Magnesium 2.0 MG/DL (1.6-2.3) 04/21/17 04:30 Total Bilirubin 0.9 mg/dl (0.2-1.3) 04/17/17 06:30 AST 25 U/L (17-59) 04/17/17 06:30 ALT 41 U/L (21-72) 04/17/17 06:30 Alkaline Phosphatase 84 U/L (38-126) 04/17/17 06:30 Troponin I < 0.0120 ng/mL (0.00-0.120) 04/09/17 22:05 C-React Prot High Sens > 15.00 mg/L (1.00-3.00) H 04/11/17 10:00 Total Protein 7.0 G/DL (6.3-8.2) 04/17/17 06:30 Albumin 3.7 g/dL (3.5-5.0) 04/17/17 06:30 Globulin 3.4 gm/dL (2.2-3.9) 04/17/17 06:30 Albumin/Globulin Ratio 1.1 (1.0-2.1) 04/17/17 06:30 Vitamin B12 237 pg/mL (239-931) L 04/10/17 05:30 Folate 7.7 ng/mL 04/10/17 05:30 Procalcitonin 0.07 NG/ML (0.19-0.49) L 04/11/17 11:30 Urine Color Yellow (YELLOW) 04/11/17 21:41 Urine Clarity Clear (Clear) 04/11/17 21:41 Urine pH 6.0 (5.0-8.0) 04/11/17 21:41 Ur Specific [place] 1.012 (1.003-1.030) 04/11/17 21:41 Urine Protein Negative mg/dL (NEGATIVE) 04/11/17 21:41 Urine Glucose (UA) Neg mg/dL (Normal) 04/11/17 21:41 Urine Ketones Trace mg/dL (NEGATIVE) 04/11/17 21:41 Urine Blood Negative (NEGATIVE) 04/11/17 21:41 Urine Nitrate Negative (NEGATIVE) 04/11/17 21:41 Urine Bilirubin Negative (NEGATIVE) 04/11/17 21:41 Urine Urobilinogen 0.2-1.0 mg/dL (0.2-1.0) 04/11/17 21:41 Ur Leukocyte Esterase Neg Mago/uL (Negative) 04/11/17 21:41 Urine RBC (Auto) 3 /hpf (0-3) 04/11/17 21:41 Urine Microscopic WBC 1 /hpf (0-5) 04/11/17 21:41 Ur Squamous Epith Cells < 1 /hpf (0-5) 04/11/17 21:41 Urine Opiates Screen Negative (NEGATIVE) 04/09/17 22:11 Urine Methadone Screen Negative (NEGATIVE) 04/09/17 22:11 Ur Barbiturates Screen Negative (NEGATIVE) 04/09/17 22:11 Ur Phencyclidine Scrn Negative (NEGATIVE) 04/09/17 22:11 Ur Amphetamines Screen Negative (NEGATIVE) 04/09/17 22:11 U Benzodiazepines Scrn Negative (NEGATIVE) 04/09/17 22:11 U Oth Cocaine Metabols Negative (NEGATIVE) 04/09/17 22:11 U Cannabinoids Screen Negative (NEGATIVE) 04/09/17 22:11 Alcohol, Quantitative < 10 mg/dl (0-10) 04/09/17 22:05 Rheum Arthritis Panel Negative (NEGATIVE) 04/13/17 20:30 MAYI Screen Negative (Negative) 04/13/17 20:30 C. difficile Ag & Toxin Negative (NEGATIVE) 04/16/17 10:00 HIV 1&2 Ag/Ab, 4th Gen Nonreactive (Nonreactive) 04/13/17 20:30 TB Test (QFT) Nil 0.05 IU/mL 04/13/17 11:00 TB Test Mitogen - Nil 2.03 IU/mL 04/13/17 11:00 TB Test TB - Nil <0.00 IU/mL 04/13/17 11:00 TB Test (QFT) Negative (Negative) 04/13/17 11:00 Blood Type B POSITIVE 04/09/17 22:05 Antibody Screen Negative 04/09/17 22:05 BBK History Checked No verified bt 04/09/17 22:05 - Hospital Course Hospital Course: 67 year old male patient PMHx NIDDM, HTN, HLD, CAD and [place] s/p stent placement Mar 2016, hx of scabies admitted from [facility] ED for pneumonia and syncope. Per patient, has history of atrial fibrillation but was not seen during hospital stay. Patient was found to have paroxysmal episodes of tachycardia; underwent implantation of dual-chamber permanent pacemaker with uneventful post-operative course. Patient will be re-titrated back on beta blockers, and will continue with Metoprolol Tartrate 25mg PO q12. Patient will be discharged to TCU for continued physical therapy. Patient will continue home medications and restart metformin upon discharge. Follow up in clinic with Dr. Pickens 04/29/16. Discharge Exam - Head Exam Head Exam: NORMOCEPHALIC - Eye Exam Eye Exam: EOMI, Normal appearance Pupil Exam: NORMAL ACCOMODATION, PERRL - ENT Exam ENT Exam: Mucous Membranes Moist, Normal Exam - Neck Exam Neck exam: Full Rom, Normal Inspection - Respiratory Exam Respiratory Exam: Clear to PA & Lateral, NORMAL BREATHING PATTERN. absent: Rales, Rhonchi, Wheezes - Cardiovascular Exam Cardiovascular Exam: RRR, +S1, +S2 - GI/Abdominal Exam GI & Abdominal Exam: Normal Bowel Sounds, Soft, Unremarkable. absent: Tenderness - Rectal Exam Rectal Exam: Deferred - Extremities Exam Extremities exam: full ROM - Neurological Exam Neurological exam: Alert - Psychiatric Exam Psychiatric exam: Normal Affect, Normal Mood - Skin Skin Exam: Dry, Intact, Normal Color, Warm Discharge Plan - Discharge Medications Prescriptions: Atorvastatin [Lipitor] 40 mg PO HS 30 Days #30 tab Cyanocobalamin [Vitamin B12 1000 mcg Tab] 1,000 mcg PO DAILY #30 tab Lisinopril [Zestril] 20 mg PO DAILY 30 Days #30 tab metFORMIN [glucOPHAGE] 500 mg PO BID 30 Days #60 tab Metoprolol Tartrate [Lopressor] 25 mg PO Q12 30 Days #60 tab - Follow Up Plan Condition: FAIR Disposition: REHAB FACILITY/REHAB UNIT Patient education suggested?: Yes Instructions: Syncope (DC), Syncope (GEN), Community Acquired Pneumonia (DC) Additional Instructions: Follow up appointment with Dr. Pickens on Apr 29 at 1:00pm at [facility] in [place] Referrals: [facility] [place] [Outside]
[2017-04-21 20:06] VITALS: BP 113/72
== END 2017-04-21 21:30 | DRG 243 ==
LOC: H.ER 20:31 → H.ERHOLD 22:45 → H.TEL 04-10 00:45 → OBSVTOIN 04-10 20:20 → H.TEL 04-13 11:25
PROVIDERS: ADMIT Family Medicine Geriatric Medicine; ATTEND Family Medicine Geriatric Medicine
PROC: 02H63JZ Insertion of Pacemaker Lead into Right Atrium, Percutaneous Approach (ICD-10-PCS; 2017-04-20)
PROC: 02HK3JZ Insertion of Pacemaker Lead into Right Ventricle, Percutaneous Approach (ICD-10-PCS; 2017-04-20)
PROC: 0JH606Z Insertion of Pacemaker, Dual Chamber into Chest Subcutaneous Tissue and Fascia, Open Approach (ICD-10-PCS; principal; 2017-04-20 15:30)
DX: I49.5 Sick sinus syndrome (principal); I47.1 Supraventricular tachycardia; K52.1 Toxic gastroenteritis and colitis; E46 Unspecified protein-calorie malnutrition; E11.22 Type 2 diabetes mellitus with diabetic chronic kidney disease; I48.0 Paroxysmal atrial fibrillation; B86 Scabies; J98.11 Atelectasis; I25.10 Atherosclerotic heart disease of native coronary artery without angina pectoris; E78.5 Hyperlipidemia, unspecified; I12.9 Hypertensive chronic kidney disease with stage 1 through stage 4 chronic kidney disease, or unspecified chronic kidney disease; N18.9 Chronic kidney disease, unspecified; T36.8X5A Adverse effect of other systemic antibiotics, initial encounter; N40.0 Benign prostatic hyperplasia without lower urinary tract symptoms; I25.2 Old myocardial infarction; Z91.14 Patient's other noncompliance with medication regimen; Z86.73 Personal history of transient ischemic attack (TIA), and cerebral infarction without residual deficits; Z95.5 Presence of coronary angioplasty implant and graft; Z87.442 Personal history of urinary calculi; Z79.84 Long term (current) use of oral hypoglycemic drugs; Z79.01 Long term (current) use of anticoagulants; Z88.6 Allergy status to analgesic agent; Z88.0 Allergy status to penicillin; Z59.0 Homelessness

== ENCOUNTER 2017-04-21 17:33 | Inpatient (IN) | payer OTHER, MEDICAID ==
[2017-04-21] MEDS ORDERED: Oxycodone/Acetaminophen 5/325 mg Tab PO PRN (22:25)
[2017-04-21] MEDS ORDERED: Dextrose 50% SYRINGE Inj (50 ml) IV PRN (22:27)
[2017-04-21] MEDS ORDERED: Glucagon Recombinant 1 mg Inj IM PRN (22:27)
[2017-04-22] MEDS: Oxycodone/Acetaminophen 5/325 mg Tab PO PRN (00:39)
[2017-04-22 08:00] VITALS: RESP 20
[2017-04-22] MEDS: Enoxaparin 40 mg Syringe SC SCH (08:51)
--- NOTE | 2017-04-22 10:01 | CP.PCM.HP ---
History of Present Illness - History of Present Illness History of Present Illness: CC: in [facility] for physical therapy HPI: 67 YO Male with PMH of NIDDM, HTN, HLD, CAD and SD s/p stent placement Mar 2016, is admitted to TCU from telemetry for continued medical management and physical therapy. Pt was admitted to [facility] on 04/18 for syncope. During his admission, pt was found to have paroxysmal episodes of tachycardia and underwent implantation of dual-chamber pacemaker with Dr. Wheat. Pt had an uneventful post-operative course. Seen and examined this AM, pt is feeling well and working with PT. Endorses occasional chest discomfort around the area of the pacemaker. Denies headache, dizziness, n/v/d/c and remains afebrile. PCP: [facility] PMHx: juan camarena (not seen during this admission), NIDDM type 2, HTN, HLD, CAD and SD s/p stent Mar 2016 SurgHx: Cardiac cath Mar 2016, bladder surgery-stone removed?, unknown prostate procedure FMHx: Mother had breast cancer, brother had scleroderma SocHx: Denies smoking, alcohol or drugs, Homeless, no contact with family Medications: nonadherent to: Lipitor 40mg QHS, Lisinopril 20mg PO QD, Metformin 500mg PO BID, Lopressore 25mg PO BID Allergies: Penicillin-urticaria, Aspirin-urticaria Present on Admission - Present on Admission Any Indicators Present on Admission: Yes Review of Systems - Constitutional Constitutional: absent: Chills, Fever, Headache, Malaise - EENT Eyes: absent: Discharge, Pain - Cardiovascular Cardiovascular: Chest Pain (mild soreness around incision site ). absent: Dyspnea - Respiratory Respiratory: absent: Cough, Dyspnea - Gastrointestinal Gastrointestinal: absent: Abdominal Pain, Diarrhea, Nausea, Vomiting - Genitourinary Genitourinary: absent: Difficulty Urinating, Dysuria - Musculoskeletal Musculoskeletal: absent: Arthralgias, Back Pain, Muscle Weakness - Neurological Neurological: absent: Dizziness, Numbness, Headaches - Psychiatric Psychiatric: absent: Anxiety, Confusion - Endocrine Endocrine: absent: Fatigue, Palpitations Past Patient History - Past Medical History & Family History Past Medical History?: Yes - Past Social History Smoking Status: Never Smoked Alcohol: None Drugs: Denies Home Situation {Lives}: Homeless - CARDIAC Hx Atrial Fibrillation: Yes Hx Cardia Arrhythmia: Yes Hx Heart Attack: Yes Hx Hypercholesterolemia: Yes Hx Hypertension: Yes Hx Pacemaker: Yes (recently inserted) - PULMONARY Hx Respiratory Disorders: No - NEUROLOGICAL Hx Transient Ischemic Attacks (TIA): Yes - HEENT Hx HEENT Problems: No - RENAL Hx Chronic Kidney Disease: Yes (kidney stones/ lithotripsy) Hx Kidney Stones: Yes - ENDOCRINE/METABOLIC Hx Endocrine Disorders: Yes (Type !! DM) Hx Diabetes Mellitus Type 2: Yes - HEMATOLOGICAL/ONCOLOGICAL Hx AIDS: No Hx Human Immunodeficiency Virus (HIV): No - INTEGUMENTARY Hx Dermatological Problems: Yes (scabies (treated 04/04)) - MUSCULOSKELETAL/RHEUMATOLOGICAL Hx Musculoskeletal Disorders: Yes (back pain/ hip pain) Hx Falls: Yes (recent fall) - GASTROINTESTINAL Hx Gastrointestinal Disorders: No Hx Fatty Liver Disease: Yes - GENITOURINARY/GYNECOLOGICAL Hx Genitourinary Disorders: Yes (Enlarged Prostate/Prostate surgery) Hx Prostate Problems: Yes - PSYCHIATRIC Hx Psychophysiologic Disorder: No Hx Substance Use: No - SURGICAL HISTORY Hx Coronary Stent: Yes Other/Comment: unclear prostate surgery, cystoscopy - ANESTHESIA Hx Anesthesia: Yes Hx Anesthesia Reactions: No Hx Malignant Hyperthermia: No Meds Allergies/Adverse Reactions: Allergies Allergy/AdvReac Type Severity Reaction Status Date / Time aspirin Allergy URTICARIA Verified 03/25/17 01:40 Penicillins Allergy URTICARIA Verified 03/25/17 01:40 Physical Exam - Head Exam Head Exam: ATRAUMATIC, NORMOCEPHALIC - Eye Exam Eye Exam: EOMI, Normal appearance - ENT Exam ENT Exam: Mucous Membranes Moist - Neck Exam Neck exam: Positive for: Full Rom - Respiratory Exam Respiratory Exam: Clear to Auscultation Bilateral, NORMAL BREATHING PATTERN. absent: Wheezes - Cardiovascular Exam Cardiovascular Exam: REGULAR RHYTHM, +S1, +S2 Additional comments: Pacemaker site noted, site is clean, dry and intact Mild tenderness to palpation around the area - GI/Abdominal Exam GI & Abdominal Exam: Normal Bowel Sounds, Soft. absent: Distended, Tenderness - Extremities Exam Extremities exam: Positive for: normal inspection. Negative for: pedal edema, tenderness - Back Exam Back exam: NORMAL INSPECTION. absent: CVA tenderness (L), CVA tenderness (R) - Neurological Exam Neurological exam: Alert, Oriented x3 - Psychiatric Exam Psychiatric exam: Normal Affect, Normal Mood - Skin Skin Exam: Dry, Intact, Normal Color, Warm Results - Vital Signs Recent Vital Signs: Last Vital Signs Temp 97.2 F L 04/22/17 08:00 Pulse 60 04/22/17 08:50 Resp 20 04/22/17 08:00 BP 115/70 04/22/17 08:50 Pulse Ox 98 04/22/17 08:00 - Labs Labs: Laboratory Results - last 24 hr 04/21/17 22:27 POC Glucose (mg/dL) 118 H Assessment & Plan - Assessment and Plan (Free Text) Assessment: Assessment/Plan: 67 YO Male with PMH of NIDDM, HTN, HLD, CAD and SD s/p stent placement Mar 2016 , is admitted to TCU from telemetry for continued medical management and physical therapy. 1) Deconditioning -likely due to inactivity and bedrest during hospital stay -continue physical therapy 2) Hx of tachycardia -resolved -likely 2/2 to sick sinus syndrome -HR is stable, rate is 60's-80's -s/p pacemaker placement by Dr. Thayer -continue Metoprolol Tartrate 25mg per cardio 3) Chest discomfort -chest pain around pacemaker insertion site, mild tenderness to palpation -likely 2/2 to procedure -continue Tylenol and Percocet for mild/moderate pain 4) Hx of a. fib and arrhythmia -hx of a.fib per pt but no documented episode noted -regular rate and rhythm today -will continue to monitor 5) Hypertension -controlled -continue Lisinopril 20mg and Lopressor (metoprolol) 25mg PO BID -pt allergic to ASA -continue to monitor 6) NIDDM Type 2 -Controlled -03/27/17: HbA1c 6.9 -continue Metformin 500mg BID -Fingersticks ACHS 7) HLD -stable -continue atorvastatin 40mg daily 8) DVT prophylaxis -Lovenox 40mg SC QD
[2017-04-23] MEDS: Oxycodone/Acetaminophen 5/325 mg Tab PO PRN ×2 (00:04→11:20)
[2017-04-23] MEDS: Enoxaparin 40 mg Syringe SC SCH (09:17)
[2017-04-24] MEDS: Oxycodone/Acetaminophen 5/325 mg Tab PO PRN ×2 (01:31→12:54)
[2017-04-24] MEDS: Enoxaparin 40 mg Syringe SC SCH (08:41)
[2017-04-25] MEDS: Enoxaparin 40 mg Syringe SC SCH (08:28)
--- NOTE | 2017-04-26 10:11 | CP.PCM.PN ---
Subjective - Date & Time of Evaluation Date of Evaluation: 04/26/17 Time of Evaluation: 10:08 - Subjective Subjective: No acute overnight events. Pt seen in bed sleeping. Pt states that last episode of emesis was over 24 hrs ago, no longer endorsing nausea. Pt states that he has some discomfort around the pacemaker incision site, but improving. Working with PT and is comfortable. Denies headache, dizziness, n/v/d/c and remains afebrile. Objective - Vital Signs/Intake and Output Vital Signs (last 24 hours): Temp Pulse Resp BP Pulse Ox 97.5 F L 60 20 129/78 97 04/26/17 07:56 04/26/17 08:23 04/26/17 07:56 04/26/17 08:23 04/26/17 07:56 - Medications Medications: Current Medications Acetaminophen (Tylenol 325mg Tab) 650 mg PO Q6 PRN PRN Reason: for pains 1-3, fever >100.4 Last Admin: 04/25/17 05:57 Dose: 650 mg Atorvastatin Calcium (Lipitor) 40 mg PO HS [facility] Last Admin: 04/25/17 22:00 Dose: 40 mg Cyanocobalamin (Vitamin B12 1000 Mcg Tab) 1,000 mcg PO DAILY [facility] Last Admin: 04/26/17 08:23 Dose: 1,000 mcg Dextrose (Dextrose 50% Inj) 0 ml IV STAT PRN; Protocol PRN Reason: Hypoglycemia Protocol Dextrose (Glutose 15) 0 gm PO ONCE PRN; Protocol PRN Reason: Hypoglycemia Protocol Glucagon (Glucagen Diagnostic Kit) 0 mg IM STAT PRN; Protocol PRN Reason: Hypoglycemia Protocol Lisinopril (Zestril) 20 mg PO DAILY [facility] Last Admin: 04/26/17 08:23 Dose: 20 mg Metformin HCl (Glucophage) 500 mg PO DAILY [facility] Last Admin: 04/26/17 08:23 Dose: 500 mg Metoprolol Tartrate (Lopressor) 25 mg PO Q12 [facility] Last Admin: 04/26/17 08:23 Dose: 25 mg Ondansetron HCl (Zofran Inj) 4 mg IVP Q6 PRN PRN Reason: Nausea/Vomiting - Constitutional Appears: No Acute Distress - Head Exam Head Exam: ATRAUMATIC, NORMAL INSPECTION - Eye Exam Eye Exam: EOMI, Normal appearance - ENT Exam ENT Exam: Mucous Membranes Moist - Neck Exam Neck Exam: Full ROM - Respiratory Exam Respiratory Exam: Clear to Ausculation Bilateral, NORMAL BREATHING PATTERN. absent: Wheezes - Cardiovascular Exam Cardiovascular Exam: REGULAR RHYTHM, +S1, +S2. absent: Murmur Additional comments: small incision for pacemaker in the Left subclavicular area. No erythema, no edema, mild tenderness to palpation. - GI/Abdominal Exam GI & Abdominal Exam: Soft, Normal Bowel Sounds. absent: Tenderness - Extremities Exam Extremities Exam: Full ROM. absent: Calf Tenderness, Pedal Edema - Neurological Exam Neurological Exam: Alert, Awake, Oriented x3 - Psychiatric Exam Psychiatric exam: Normal Affect, Normal Mood - Skin Skin Exam: Dry, Intact, Normal Color, Warm Assessment and Plan - Assessment and Plan (Free Text) Assessment: Assessment/Plan: 67 YO Male with PMH of NIDDM, HTN, HLD, CAD, [place] s/p stent placement Mar 2016, s /p duel chamber pacemaker (04/21/17) is admitted to TCU from telemetry for continued medical management and physical therapy. 1) Deconditioning -likely due to inactivity and bedrest during hospital stay -Pt working with PT, ambulating -continue PT/OT 2) Hx of tachycardia -resolved -likely 2/2 to sick sinus syndrome -HR is stable, rate is 60's-80's -s/p pacemaker placement by Dr. Thayer -continue Metoprolol Tartrate 25mg per cardio 3) Chest discomfort -improving -chest pain around pacemaker insertion site, mild tenderness to palpation -likely 2/2 to procedure -continue Tylenol and Percocet for mild/moderate pain 4) Hx of a. fib and arrhythmia -hx of a.fib per pt but no documented episode noted -regular rate and rhythm today -will continue to monitor 5) Hypertension -controlled -continue Lisinopril 20mg and Lopressor (metoprolol) 25mg PO BID -pt allergic to ASA -continue to monitor 6) NIDDM Type 2 -Controlled -03/27/17: HbA1c 6.9 -decreased Metformin 500mg daily -Fingersticks ACHS 7) HLD -stable -continue atorvastatin 40mg daily 8) Fatigue -chronic -Likely 2/2 to low vitamin B1 -B12 level, 237 -continue cyanocobalamin PO daily -Cyanocobalamine IM weekly 9) DVT prophylaxis -Lovenox 40mg SC QD
--- NOTE | 2017-04-26 14:20 | CP.PCM.CON ---
History of Present Illness - History of Present Illness History of Present Illness: 67 y/o male with PMH of NIDDM, HTN, HLD, CAD and [place] s/p pacemaker March 2017 and stent placement Mar 2016 seen at bedside in TCU after consultation for painful elongated toenails. Pt states it hurts to walk or to wear shoes. States he is unable to cut them himself at home because they get very thickened. Denies F/C/N/V/CP/SOB at present SurgHx: Cardiac pacemaker Mar 2017, cath Mar 2016, bladder surgery, prostate surgery FMHx: Mother had breast cancer, brother had scleroderma SocHx: Denies smoking, alcohol or drugs. Homeless at present Allergies: aspirin, PCNs Review of Systems - Review of Systems All systems: reviewed and no additional remarkable complaints except (per HPI) Past Patient History - Past Medical History & Family History Past Medical History?: Yes - Past Social History Smoking Status: Never Smoked Alcohol: None Drugs: Denies Home Situation {Lives}: Homeless - CARDIAC Hx Hypercholesterolemia: Yes Hx Hypertension: Yes - PULMONARY Hx Respiratory Disorders: No - NEUROLOGICAL Hx Transient Ischemic Attacks (TIA): Yes - HEENT Hx HEENT Problems: No - RENAL Hx Chronic Kidney Disease: Yes (kidney stones/ lithotripsy) Hx Kidney Stones: Yes - ENDOCRINE/METABOLIC Hx Endocrine Disorders: Yes (Type !! DM) Hx Diabetes Mellitus Type 2: Yes - HEMATOLOGICAL/ONCOLOGICAL Hx AIDS: No Hx Human Immunodeficiency Virus (HIV): No - INTEGUMENTARY Hx Dermatological Problems: Yes (scabies (treated 04/04)) - MUSCULOSKELETAL/RHEUMATOLOGICAL Hx Musculoskeletal Disorders: Yes (back pain/ hip pain) Hx Falls: Yes (recent fall) - GASTROINTESTINAL Hx Gastrointestinal Disorders: No Hx Fatty Liver Disease: Yes - GENITOURINARY/GYNECOLOGICAL Hx Genitourinary Disorders: Yes (Enlarged Prostate/Prostate surgery) Hx Prostate Problems: Yes - PSYCHIATRIC Hx Psychophysiologic Disorder: No Hx Substance Use: No - SURGICAL HISTORY Hx Coronary Stent: Yes Other/Comment: unclear prostate surgery, cystoscopy - ANESTHESIA Hx Anesthesia: Yes Hx Anesthesia Reactions: No Hx Malignant Hyperthermia: No Meds Allergies/Adverse Reactions: Allergies Allergy/AdvReac Type Severity Reaction Status Date / Time aspirin Allergy URTICARIA Verified 03/25/17 01:40 Penicillins Allergy URTICARIA Verified 03/25/17 01:40 - Medications Medications: Current Medications Acetaminophen (Tylenol 325mg Tab) 650 mg PO Q6 PRN PRN Reason: for pains 1-3, fever >100.4 Last Admin: 04/25/17 05:57 Dose: 650 mg Atorvastatin Calcium (Lipitor) 40 mg PO HS [facility] Last Admin: 04/25/17 22:00 Dose: 40 mg Cyanocobalamin (Vitamin B12 1000 Mcg Tab) 1,000 mcg PO DAILY [facility] Last Admin: 04/26/17 08:23 Dose: 1,000 mcg Dextrose (Dextrose 50% Inj) 0 ml IV STAT PRN; Protocol PRN Reason: Hypoglycemia Protocol Dextrose (Glutose 15) 0 gm PO ONCE PRN; Protocol PRN Reason: Hypoglycemia Protocol Glucagon (Glucagen Diagnostic Kit) 0 mg IM STAT PRN; Protocol PRN Reason: Hypoglycemia Protocol Lisinopril (Zestril) 20 mg PO DAILY [facility] Last Admin: 04/26/17 08:23 Dose: 20 mg Metformin HCl (Glucophage) 500 mg PO DAILY [facility] Last Admin: 04/26/17 08:23 Dose: 500 mg Metoprolol Tartrate (Lopressor) 25 mg PO Q12 [facility] Last Admin: 04/26/17 08:23 Dose: 25 mg Ondansetron HCl (Zofran Inj) 4 mg IVP Q6 PRN PRN Reason: Nausea/Vomiting Physical Exam - Constitutional Appears: Well, Non-toxic, No Acute Distress - Extremities Exam Additional comments: Lower extremity focused exam: Vasc: DP/PT pulses 2/4. Temp gradient warm to cool. CFT < 3 sec to all digits. Derm: Dystrophic thickened toenails x 10. No open lesions, no erythema, no ecchymosis, skin well hydrated. Neuro: Protective sensation grossly intact Ortho: tenderness to palpation of toenails x 10 - Neurological Exam Neurological exam: Alert, Oriented x3 - Psychiatric Exam Psychiatric exam: Normal Affect, Normal Mood Results - Vital Signs Recent Vital Signs: Last Vital Signs Temp 97.5 F L 04/26/17 07:56 Pulse 70 04/26/17 10:48 Resp 20 04/26/17 07:56 BP 130/80 04/26/17 10:48 Pulse Ox 98 04/26/17 10:48 - Labs Labs: Laboratory Results - last 24 hr 04/25/17 04/25/17 04/25/17 10:49 15:55 20:45 POC Glucose (mg/dL) 114 H 110 111 H 04/26/17 06:09 POC Glucose (mg/dL) 104 Assessment & Plan - Assessment and Plan (Free Text) Assessment: 67 y/o male with PMHx of NIDDM, HTN, HLD, CAD and [place] s/p pacemaker March 2017 and stent placement Mar 2016 with painful dystrophic elongated toenails x 10 Plan: Pt seen and evaluated at bedside Discussedf with attending Dr. Townsend Aseptic debridement of toenails x 10 with sterile nippers Pt tolerated procedure without incident Cleaned nails with alcohol pads Podiatry to sign off at this time Thank you for this consult
[2017-04-27 08:45] LABS: HEMOGLOBIN 13.9 g/dL (12.0-18.0); MEAN CELL VOLUME 86.6 fl (80.0-94.0); MEAN CORPUSCULAR HEMOGLOBIN 29.1 pg (27.0-31.0); MEAN CORPUSCULAR HGB CONC 33.6 g/dL (33.0-37.0); RBC 4.77 Mil/uL (4.40-5.90); RED CELL DISTRIBUTION WIDTH 13.5 % (11.5-14.5); WHITE BLOOD COUNT 7.4 K/uL (4.8-10.8)
--- NOTE | 2017-04-28 08:55 | CP.PCM.PN ---
Subjective - Date & Time of Evaluation Date of Evaluation: 04/28/17 Time of Evaluation: 08:52 - Subjective Subjective: No acute overnight events. Pt continue to work with PT and OT. Endorses discomfort around the pacemaker incision site when lifting L hand but states that it has gotten better over the last couple of days. Denies chest pain, dyspnea, palpitations, headache, dizziness, n/v/d/c and remains afebrile. Comfortable. Objective - Vital Signs/Intake and Output Vital Signs (last 24 hours): Temp Pulse Resp BP Pulse Ox 97.7 F 66 20 122/85 98 04/28/17 08:43 04/28/17 08:43 04/28/17 08:43 04/28/17 08:43 04/28/17 08:43 - Medications Medications: Current Medications Acetaminophen (Tylenol 325mg Tab) 650 mg PO Q6 PRN PRN Reason: for pains 1-3, fever >100.4 Last Admin: 04/25/17 05:57 Dose: 650 mg Atorvastatin Calcium (Lipitor) 40 mg PO HS [facility] Last Admin: 04/27/17 21:05 Dose: 40 mg Cyanocobalamin (Vitamin B12 1000 Mcg Tab) 1,000 mcg PO DAILY [facility] Last Admin: 04/27/17 08:19 Dose: 1,000 mcg Dextrose (Dextrose 50% Inj) 0 ml IV STAT PRN; Protocol PRN Reason: Hypoglycemia Protocol Dextrose (Glutose 15) 0 gm PO ONCE PRN; Protocol PRN Reason: Hypoglycemia Protocol Glucagon (Glucagen Diagnostic Kit) 0 mg IM STAT PRN; Protocol PRN Reason: Hypoglycemia Protocol Lisinopril (Zestril) 20 mg PO DAILY [facility] Last Admin: 04/27/17 08:18 Dose: 20 mg Metformin HCl (Glucophage) 500 mg PO DAILY [facility] Last Admin: 04/27/17 08:18 Dose: 500 mg Metoprolol Tartrate (Lopressor) 25 mg PO Q12 [facility] Last Admin: 04/27/17 21:05 Dose: 25 mg Ondansetron HCl (Zofran Inj) 4 mg IVP Q6 PRN PRN Reason: Nausea/Vomiting - Labs Labs: 04/27/17 08:10 - Constitutional Appears: No Acute Distress - Head Exam Head Exam: ATRAUMATIC, NORMAL INSPECTION - Eye Exam Eye Exam: EOMI, Normal appearance - ENT Exam ENT Exam: Mucous Membranes Moist - Neck Exam Neck Exam: Full ROM - Respiratory Exam Respiratory Exam: Clear to Ausculation Bilateral, NORMAL BREATHING PATTERN. absent: Rales, Wheezes - Cardiovascular Exam Cardiovascular Exam: REGULAR RHYTHM, +S1, +S2. absent: Murmur Additional comments: Steri strips intact, no erythem and no edema around site - GI/Abdominal Exam GI & Abdominal Exam: Soft, Normal Bowel Sounds. absent: Tenderness - Extremities Exam Extremities Exam: Full ROM. absent: Calf Tenderness, Pedal Edema, Tenderness - Back Exam Back Exam: NORMAL INSPECTION. absent: CVA tenderness (L), CVA tenderness (R) - Neurological Exam Neurological Exam: Alert, Awake, Oriented x3 - Psychiatric Exam Psychiatric exam: Normal Affect, Normal Mood - Skin Skin Exam: Dry, Intact, Normal Color, Warm Assessment and Plan - Assessment and Plan (Free Text) Assessment: Assessment/Plan: 67 YO Male with PMH of NIDDM, HTN, HLD, CAD, [place] s/p stent placement Mar 2016, s /p duel chamber pacemaker (04/21/17) is admitted to TCU from telemetry for continued medical management and physical therapy. 1) Deconditioning -likely due to inactivity and bedrest during hospital stay -Pt working with PT and OT, ambulating -continue PT/OT 2) Hx of tachycardia -resolved -likely 2/2 to sick sinus syndrome -HR is stable, rate is 60's-80's -s/p pacemaker placement by Dr. Thayer -continue Metoprolol Tartrate 25mg per cardio 3) Chest discomfort -improving -chest pain around pacemaker insertion site, mild tenderness to palpation -likely 2/2 to procedure -continue Tylenol and Percocet for mild/moderate pain 4) Hx of a. fib and arrhythmia -hx of a.fib per pt but no documented episode noted -regular rate and rhythm today -will continue to monitor 5) Hypertension -controlled -continue Lisinopril 20mg and Lopressor (metoprolol) 25mg PO BID -pt allergic to ASA -continue to monitor 6) NIDDM Type 2 -Controlled -03/27/17: HbA1c 6.9 -continue Metformin 500mg daily -Fingersticks ACHS 7) HLD -stable -continue atorvastatin 40mg daily 8) Fatigue -chronic -Likely 2/2 to low vitamin B12 -B12 level, 237 -continue cyanocobalamin PO daily -Cyanocobalamine IM weekly 9) DVT prophylaxis -Lovenox 40mg SC QD
[2017-04-29 08:10] VITALS: BP 136/80; PULSE 62; TEMP 97; O2SAT 97
--- NOTE | 2017-04-29 13:37 | CP.PCM.DIS ---
Provider - Provider Date of Admission: 04/21/17 21:44 Attending physician: Rhonda Estevez MD Time Spent in preparation of Discharge (in minutes): 20 Hospital Course - Lab Results Lab Results: Most Recent Lab Values WBC 7.4 K/uL (4.8-10.8) 04/27/17 08:10 RBC 4.77 Mil/uL (4.40-5.90) 04/27/17 08:10 Hgb 13.9 g/dL (12.0-18.0) 04/27/17 08:10 Hct 41.3 % (35.0-51.0) 04/27/17 08:10 MCV 86.6 fl (80.0-94.0) 04/27/17 08:10 MCH 29.1 pg (27.0-31.0) 04/27/17 08:10 MCHC 33.6 g/dL (33.0-37.0) 04/27/17 08:10 RDW 13.5 % (11.5-14.5) 04/27/17 08:10 Plt Count 284 K/uL (130-400) 04/27/17 08:10 POC Glucose (mg/dL) 96 mg/dL (65-110) 04/29/17 05:14 - Hospital Course Hospital Course: 67 YO Male with PMH of NIDDM, HTN, HLD, CAD, [place] s/p stent placement Mar 2016, s/ p duel chamber pacemaker (04/21/17) is admitted to TCU from telemetry for continued medical management and physical therapy. Pt received PT/OT while at TCU, and worked on gait, balance and strength. Pt hemodynamically stable, afebrile. Pt is being transferred to subacute rehab to continue PT/OT. D/c to [facility] with follow up with Dr. Pickens 05/18/17 @ 9:20. Discharge Exam - Head Exam Head Exam: ATRAUMATIC, NORMAL INSPECTION - Eye Exam Eye Exam: EOMI, Normal appearance - ENT Exam ENT Exam: Mucous Membranes Dry - Neck Exam Neck exam: Full Rom - Respiratory Exam Respiratory Exam: Clear to PA & Lateral, NORMAL BREATHING PATTERN. absent: Wheezes - Cardiovascular Exam Cardiovascular Exam: REGULAR RHYTHM, +S1, +S2 - GI/Abdominal Exam GI & Abdominal Exam: Normal Bowel Sounds, Soft. absent: Tenderness - Extremities Exam Extremities exam: full ROM, normal inspection - Back Exam Back exam: NORMAL INSPECTION - Neurological Exam Neurological exam: Alert, Oriented x3 - Psychiatric Exam Psychiatric exam: Normal Affect, Normal Mood - Skin Skin Exam: Dry, Intact, Normal Color, Warm Discharge Plan - Discharge Medications Prescriptions: Atorvastatin [Lipitor] 40 mg PO HS 30 Days #30 tab Cyanocobalamin [Vitamin B12 1000 mcg Tab] 1,000 mcg PO DAILY #30 tab Lisinopril [Zestril] 20 mg PO DAILY 30 Days #30 tab Metformin HCl [Glucophage] 500 mg PO DAILY #30 tablet Metoprolol Tartrate [Lopressor] 25 mg PO Q12 30 Days #60 tab - Follow Up Plan Condition: GOOD Disposition: REHAB FACILITY/REHAB UNIT Patient education suggested?: Yes Instructions: Pacemaker (DC), Fall Prevention (DC) Additional Instructions: Follow up in [facility], Dr. Pickens 05/18/17 @ 9:20. Referrals: [facility] [Outside]
== END 2017-04-29 11:50 | DRG 950 ==
LOC: H.TCU 21:44
PROVIDERS: ADMIT Family Medicine Geriatric Medicine; ATTEND Family Medicine Geriatric Medicine
PROC: F07Z9ZZ Gait Training/Functional Ambulation Treatment (ICD-10-PCS; principal; 2017-04-21)
PROC: F07 Physical Rehabilitation and Diagnostic Audiology, Rehabilitation, Motor Treatment (ICD-10-PCS; 2017-04-21)
PROC: F07L6ZZ Therapeutic Exercise Treatment of Musculoskeletal System - Lower Back / Lower Extremity (ICD-10-PCS; 2017-04-21)
DX: Z48.812 Encounter for surgical aftercare following surgery on the circulatory system (principal); E11.9 Type 2 diabetes mellitus without complications; I25.10 Atherosclerotic heart disease of native coronary artery without angina pectoris; Z59.0 Homelessness; Z95.5 Presence of coronary angioplasty implant and graft; Z95.0 Presence of cardiac pacemaker; Z88.6 Allergy status to analgesic agent; Z88.0 Allergy status to penicillin; I10 Essential (primary) hypertension; E78.5 Hyperlipidemia, unspecified; I25.2 Old myocardial infarction; R07.9 Chest pain, unspecified; R53.83 Other fatigue; L60.3 Nail dystrophy

== ENCOUNTER 2017-05-28 17:15 | Observation (INO) | payer MEDICARE, MEDICAID ==
--- NOTE | 2017-05-28 18:59 | CT ---
PROCEDURE: CT HEAD WITHOUT CONTRAST. HISTORY: BLE weakness COMPARISON: None available. TECHNIQUE: Axial computed tomography images were obtained through the head/brain without intravenous contrast. Radiation dose: Total exam DLP = 876.86 mGy-cm. This CT exam was performed using one or more of the following dose reduction techniques: Automated exposure control, adjustment of the mA and/or kV according to patient size, and/or use of iterative reconstruction technique. FINDINGS: HEMORRHAGE: None BRAIN: No mass effect or edema. Mild atrophy. Moderate to severe patchy and confluent deep and subcortical and periventricular white matter lucency consistent with microvascular ischemic change. Old right basal ganglia lacunar infarcts. No evidence of acute infarct. VENTRICLES: Unremarkable. No hydrocephalus. CALVARIUM: Unremarkable. PARANASAL SINUSES: Chronic sphenoid sinusitis. MASTOID AIR CELLS: Unremarkable as visualized. No inflammatory changes. OTHER FINDINGS: None. IMPRESSION: No intracranial mass, hemorrhage or evidence of acute infarct. Moderate to severe chronic white matter ischemic change. Old right basal ganglia lacunar infarct. Chronic sphenoid sinusitis.
--- NOTE | 2017-05-28 19:08 | ED PDOC ---
HPI: General Adult Time Seen by Provider: 05/28/17 17:57 Chief Complaint (Nursing): Weakness/Neurological Deficit Chief Complaint (Provider): BLE weakness History Per: Patient History/Exam Limitations: no limitations Onset/Duration Of Symptoms: Days (1) Additional Complaint(s): Pt reports bilateral leg weakness while walking, was discharged from [facility] today after being admitted for s/p pacemaker placement. Denies fever, CP, SOB, nausea, vomiting, diarrhea, paresthesias. Past Medical History Reviewed: Nursing Documentation, Vital Signs Vital Signs: Last Vital Signs Temp 96.7 F L 05/28/17 17:21 Pulse 86 05/28/17 17:21 Resp 17 05/28/17 17:21 BP 152/99 H 05/28/17 17:21 Pulse Ox 97 05/28/17 19:09 - Medical History PMH: Atrial Fibrillation, CAD, Cardia Arrhythmia, Diabetes, Deep Vein Thrombosis (treated in [facility]), HTN, Hypercholesterolemia, Kidney Stones, Chronic Kidney Disease (kidney stones/ lithotripsy), TIA Denies: CVA, HIV - Surgical History Surgical History: Coronary Stent, Pacemaker - Family History Family History: States: Unknown Family Hx, Hypertension - Home Medications Home Medications: Ambulatory Orders Medication Instructions Recorded Atorvastatin [Lipitor] 40 mg PO HS 30 Days #30 tab 04/29/17 Cyanocobalamin [Vitamin B12 1000 1,000 mcg PO DAILY #30 tab 04/29/17 mcg Tab] Lisinopril [Zestril] 20 mg PO DAILY 30 Days #30 tab 04/29/17 Metformin HCl [Glucophage] 500 mg PO DAILY #30 tablet 04/29/17 Metoprolol Tartrate [Lopressor] 25 mg PO Q12 30 Days #60 tab 04/29/17 - Allergies Allergies/Adverse Reactions: Allergies Allergy/AdvReac Type Severity Reaction Status Date / Time aspirin Allergy URTICARIA Verified 05/28/17 17:21 Penicillins Allergy URTICARIA Verified 05/28/17 17:21 Review of Systems Constitutional: Negative for: Fever, Chills Eyes: Negative for: Vision Change Cardiovascular: Negative for: Chest Pain, Palpitations Respiratory: Negative for: Cough, Shortness of Breath Gastrointestinal: Negative for: Nausea, Vomiting, Abdominal Pain, Diarrhea Genitourinary Male: Negative for: Dysuria, Hematuria Skin: Negative for: Rash, Lesions Neurological: Positive for: Weakness (BLE). Negative for: Numbness, Headache, Dizziness - ECG O2 Sat by Pulse Oximetry: 97 Medical Decision Making Medical Decision Makin:15 Patient to be signed out to Dr. Wilburn pending bloodwork Disposition - Clinical Impression Clinical Impression: Weakness Discussed With : Mark Wilburn Doctor Will See Patient In The: ED - Disposition Disposition: Transfer of Care Disposition Time: 19:15 Condition: FAIR Instructions: Weakness (ED) Forms: [employer] (Latvian) Patient Signed Over To: Mark Wilburn
--- NOTE | 2017-05-28 19:20 | ED PDOC ---
- Laboratory Results Result Diagrams: 05/28/17 19:16 05/28/17 19:16 - ECG ECG: Positive for: Interpreted By Me, Viewed By Me ECG Rhythm: Positive for: Normal QRS, Sinus Rhythm (normal). Negative for: ST/ T Changes Rate: 74 O2 Sat by Pulse Oximetry: 97 (RA) Pulse Ox Interpretation: Normal Medical Decision Making Medical Decision Makin:15 Patient signed over to the provider by Dr. Dee pending blood work. Time: --18:57 Reassess --PROCEDURE: CT HEAD WITHOUT CONTRAST. FINDINGS: HEMORRHAGE: None BRAIN: No mass effect or edema. Mild atrophy. Moderate to severe patchy and confluent deep and subcortical and periventricular white matter lucency consistent with microvascular ischemic change. Old right basal ganglia lacunar infarcts. No evidence of acute infarct. VENTRICLES: Unremarkable. No hydrocephalus. CALVARIUM: Unremarkable. PARANASAL SINUSES: Chronic sphenoid sinusitis. MASTOID AIR CELLS: Unremarkable as visualized. No inflammatory changes. OTHER FINDINGS: None. IMPRESSION: No intracranial mass, hemorrhage or evidence of acute infarct. Moderate to severe chronic white matter ischemic change. Old right basal ganglia lacunar infarct. Chronic sphenoid sinusitis. 9PM Re-evaluated patient at bedside who has been sleeping since 7PM. Patient states he has no complaints at this time. States that he is homeless and while he was walking in the street, he felt weak and felt that he might fall down and stated that he needed to come to the ER to avoid injuring himself. I walked with the patient in the ER back and forth without any unsteadiness or gait disturbance at this time. I asked the patient where he lives and he states that he is homeless and has no place to go and currently has all of his possessions with him in a carry-on. Patient states that it is too late in the night to go to the senior care and is worried about falling or passing out in the street. Discussed the case with Dr. Otero of , at this time we cannot provide for safe discharge planning and patient is high risk of injury from syncope/pre- syncope/fall. Will admit in Tele Obs overnight. Scribe Attestation: Documented by Emmanuel Mays acting as a scribe for Mark Wilburn MD. Provider Attestation: All medical record entries made by the Scribe were at my direction and personally dictated by me. I have reviewed the chart and agree that the record accurately reflects my personal performance of the history, physical exam, medical decision making, and the department course for this patient. I have also personally directed, reviewed, and agree with the discharge instructions and disposition. Disposition - Clinical Impression Clinical Impression: Weakness - POA Present On Arrival: None - Disposition Disposition: Hospitalized as Observation Patient Disposition Time: 22:00 Condition: FAIR Instructions: Weakness (ED) Forms: [employer] (Greenlandic)
[2017-05-28 19:22] LABS: BASO % 0.3 % (0.0-2.0); EOS # 0.1 K/uL (0.0-0.7); EOS % 0.8 % (0.0-4.0); HEMOGLOBIN 14.9 g/dL (12.0-18.0); LYMPH # 1.4 K/uL (1.0-4.3); LYMPH % 11.6 % (20.0-40.0); MEAN CELL VOLUME 87.6 fl (80.0-94.0); MEAN CORPUSCULAR HGB CONC 33.1 g/dL (33.0-37.0); MEAN PLATELET VOLUME 7.9 fl (7.2-11.7); MONO # 0.9 K/uL (0.0-0.8); MONO % 7.7 % (0.0-10.0); NEUT # 9.8 K/uL (1.8-7.0); NEUT % 79.6 % (50.0-75.0); NRBC % 0.2 % (0.0-0.0); RBC 5.14 Mil/uL (4.40-5.90); WHITE BLOOD COUNT 12.4 K/uL (4.8-10.8)
[2017-05-28 19:50] LABS: ALB/GLOB RATIO 1.3 (1.0-2.1); ALBUMIN 4.5 g/dL (3.5-5.0); ALT/SGPT 32 U/L (21-72); AST/SGOT 20 U/L (17-59); BLOOD UREA NITROGEN 15 mg/dl (9-20); CALCIUM 9.4 mg/dL (8.4-10.2); GFR AFRICAN-AMERICAN > 60; GFR NON-AFRICAN AMERICAN > 60
[2017-05-28 19:53] LABS: URINE BILIRUBIN NEGATIVE (NEGATIVE); URINE CLARITY CLEAR (Clear); URINE COLOR YELLOW (YELLOW); URINE GLUCOSE (UA) NEG (Normal)
[2017-05-28 19:54] LABS: SQUAMOUS EPITHIAL 1 /hpf (0-5); URINE BLOOD TRACE (NEGATIVE); URINE LEUKOCYTE ESTERASE NEGATIVE Leu/uL (Negative); URINE NITRATE NEGATIVE (NEGATIVE); URINE PROTEIN >=300 mg/dL (NEGATIVE); URINE UROBILINOGEN 0.2 mg/dL (0.2-1.0)
[2017-05-28 19:55] LABS: URINE AMORPHOUS SEDIMENT FEW /ul (<OCC); URINE BACTERIA FEW (<OCC)
[2017-05-28] MEDS ORDERED: Sodium Chloride 0.9% 1,000 ML IV STA (21:06)
[2017-05-28 22:01] LABS: PROTHROMBIN TIME 11.8 Seconds (9.8-13.1)
[2017-05-28 22:02] LABS: INR 1.1 (0.9-1.2); PARTIAL THROMBOPLASTIN TIME 31.4 Seconds (25.6-37.1)
--- NOTE | 2017-05-28 22:03 | CP.PCM.HP ---
<Robert Otero - Last Filed: 05/28/17 23:44> History of Present Illness - History of Present Illness History of Present Illness: 67 yo ,m, Homeless, PMhx/o NIDDM, HTN, HLD, CAD( [place] s/p stent placement Mar 2016 ), A fib s/p dual chamber pacemaker 04/21/17 present to ED c/o b/l leg weakness and gait imbalance. Patient was discharged today from acute rehab clinic [facility]. Reports that he was walking on the street in the afternoon coming outside from the library and noticed b/l legs weakness and almost fall, but continued walking slow down to the hospital with difficulty and loss of balance. Patient denies syncope, lightheadedness, headache, confusion, blurry vision, fever, cough, chest pain, SOB, sweating, numbness, slurred speech. Reports that he was able to walk w/o difficulty before discharge today and is afraid to fall on the street and he can not go to a longterm today PCP: [facility]. Last visit 09/2016 PMHx: NIDDM, HTN, HLD, CAD( [place] s/p stent placement Mar 2016), A fib s/p dual chamber pacemaker 04/21/17 SurgHx: Cardiac cath Mar 2016, bladder surgery-stone removed?, unknown prostate procedure. implantation of dual-chamber pacemaker with Dr. Wheat 04/21/17 FMHx: Mother had breast cancer, brother had scleroderma SocHx: Denies smoking, alcohol or drugs, Homeless, no contact with family Medications: Lipitor 40mg QHS, Lisinopril 20mg PO QD, Metformin 500mg PO BID, Lopressor 25mg PO BID Allergies: Penicillin-urticaria, Aspirin-urticaria ED Course VS: normal Labs: CBC 12.4>14.9<256 CMP: normal. Troponin negative. UA:( proteinuria, hematuria, few bacteria) but no nitrate,leukocyte sterase and no leukocyturia Imaging: EKG: NSR: HR 74. CT Head: Old Right basal ganglia lacunar infartct. Mod -sev white matter ischemia changes. No intracranial hemorrhage. CXR: pacemaker dual chamber present. Cardiomegaly. Pending final report. Meds: none Present on Admission - Present on Admission Any Indicators Present on Admission: No History of DVT/PE: No History of Uncontrolled Diabetes: No Urinary Catheter: No Review of Systems - Constitutional Constitutional: As Per HPI, Weakness - EENT Eyes: As Per HPI - Cardiovascular Cardiovascular: As Per HPI - Respiratory Respiratory: As Per HPI - Gastrointestinal Gastrointestinal: As Per HPI - Musculoskeletal Musculoskeletal: As Per HPI Past Patient History - Past Medical History & Family History Past Medical History?: Yes - Past Social History Smoking Status: Never Smoked - CARDIAC Hx Atrial Fibrillation: Yes Hx Cardia Arrhythmia: Yes Hx Hypercholesterolemia: Yes Hx Hypertension: Yes Hx Pacemaker: Yes - PULMONARY Hx Respiratory Disorders: No - NEUROLOGICAL Hx Transient Ischemic Attacks (TIA): Yes - HEENT Hx HEENT Problems: No - RENAL Hx Chronic Kidney Disease: Yes (kidney stones/ lithotripsy) Hx Kidney Stones: Yes - ENDOCRINE/METABOLIC Hx Endocrine Disorders: Yes (Type !! DM) Hx Diabetes Mellitus Type 2: Yes - HEMATOLOGICAL/ONCOLOGICAL Hx Human Immunodeficiency Virus (HIV): No - INTEGUMENTARY Hx Dermatological Problems: Yes (scabies (treated 04/04)) - MUSCULOSKELETAL/RHEUMATOLOGICAL Hx Musculoskeletal Disorders: Yes (back pain/ hip pain) Hx Falls: Yes (recent fall) - GASTROINTESTINAL Hx Gastrointestinal Disorders: No Hx Fatty Liver Disease: Yes - GENITOURINARY/GYNECOLOGICAL Hx Genitourinary Disorders: Yes (Enlarged Prostate/Prostate surgery) Hx Prostate Problems: Yes - PSYCHIATRIC Hx Psychophysiologic Disorder: No Hx Substance Use: No - SURGICAL HISTORY Hx Coronary Stent: Yes - ANESTHESIA Hx Anesthesia: Yes Hx Anesthesia Reactions: No Hx Malignant Hyperthermia: No Meds Allergies/Adverse Reactions: Allergies Allergy/AdvReac Type Severity Reaction Status Date / Time aspirin Allergy URTICARIA Verified 05/28/17 17:21 Penicillins Allergy URTICARIA Verified 05/28/17 17:21 Physical Exam - Constitutional Appears: Non-toxic, No Acute Distress - Head Exam Head Exam: NORMOCEPHALIC - Eye Exam Eye Exam: Normal appearance - ENT Exam ENT Exam: Normal Exam - Neck Exam Neck exam: Positive for: Normal Inspection - Respiratory Exam Respiratory Exam: Clear to Auscultation Bilateral. absent: Rales, Rhonchi, Wheezes - Cardiovascular Exam Cardiovascular Exam: REGULAR RHYTHM, +S1, +S2 - GI/Abdominal Exam GI & Abdominal Exam: Normal Bowel Sounds, Soft. absent: Tenderness - Extremities Exam Extremities exam: Positive for: normal inspection. Negative for: pedal edema - Neurological Exam Neurological exam: Alert, Normal Gait, Oriented x3 Additional comments: slow gait, but not imbalance noted on ED room slow to standing up from sitting position, but able to do it w/o assistance - Expanded Neurological Exam Expanded Patient oriented to: person, place, time Cranial nerves: EOM's Intact: Normal, Nystagmus: Normal Ataxia: No Cerebellar Function: Finger to Nose: Normal Neuro motor strength exam: Left Upper Extremity: 5, Right Upper Extremity: 5, Left Lower Extremity: 5, Right Lower Extremity: 5 DTR: Patellar Left: 2+, Patellar Right: 2+ - Psychiatric Exam Psychiatric exam: Normal Affect, Normal Mood - Skin Skin Exam: Intact Results - Vital Signs Recent Vital Signs: Last Vital Signs Temp 96.7 F L 05/28/17 17:21 Pulse 74 05/28/17 21:42 Resp 17 05/28/17 17:21 BP 152/99 H 05/28/17 17:21 Pulse Ox 97 05/28/17 21:42 - Labs Result Diagrams: 05/28/17 19:16 05/28/17 19:16 Labs: Laboratory Results - last 24 hr 05/28/17 05/28/17 05/28/17 19:16 19:16 19:16 WBC 12.4 H D RBC 5.14 Hgb 14.9 Hct 45.0 MCV 87.6 MCH 29.0 MCHC 33.1 RDW 14.0 Plt Count 256 MPV 7.9 Neut % (Auto) 79.6 H Lymph % (Auto) 11.6 L Hendricks % (Auto) 7.7 Eos % (Auto) 0.8 Baso % (Auto) 0.3 Neut # (Auto) 9.8 H Lymph # (Auto) 1.4 Hendricks # (Auto) 0.9 H Eos # (Auto) 0.1 Baso # (Auto) 0.0 PT INR APTT Sodium 141 Potassium 3.9 Chloride 97 L Carbon Dioxide 25 Anion Gap 23 H BUN 15 Creatinine 1.0 Est GFR ( Amer) > 60 Est GFR (Non-Af Amer) > 60 POC Glucose (mg/dL) Random Glucose 114 H Calcium 9.4 Total Bilirubin 1.5 H AST 20 ALT 32 Alkaline Phosphatase 102 Total Protein 7.8 Albumin 4.5 Globulin 3.3 Albumin/Globulin Ratio 1.3 Urine Color Yellow Urine Clarity Clear Urine pH 5.0 Ur Specific [place] >= 1.030 Urine Protein >=300 Urine Glucose (UA) Neg Urine Ketones Trace Urine Blood Trace H Urine Nitrate Negative Urine Bilirubin Negative Urine Urobilinogen 0.2 Ur Leukocyte Esterase Negative Urine RBC (Auto) 6 H Urine Microscopic WBC < 1 Ur Squamous Epith Cells 1 Amorphous Sediment Few H Urine Bacteria Few H Hyaline Casts 1-2 05/28/17 05/28/17 19:16 19:21 WBC RBC Hgb Hct MCV MCH MCHC RDW Plt Count MPV Neut % (Auto) Lymph % (Auto) Hendricks % (Auto) Eos % (Auto) Baso % (Auto) Neut # (Auto) Lymph # (Auto) Hendricks # (Auto) Eos # (Auto) Baso # (Auto) PT 11.8 INR 1.1 APTT 31.4 Sodium Potassium Chloride Carbon Dioxide Anion Gap BUN Creatinine Est GFR ( Amer) Est GFR (Non-Af Amer) POC Glucose (mg/dL) 125 H Random Glucose Calcium Total Bilirubin AST ALT Alkaline Phosphatase Total Protein Albumin Globulin Albumin/Globulin Ratio Urine Color Urine Clarity Urine pH Ur Specific [place] Urine Protein Urine Glucose (UA) Urine Ketones Urine Blood Urine Nitrate Urine Bilirubin Urine Urobilinogen Ur Leukocyte Esterase Urine RBC (Auto) Urine Microscopic WBC Ur Squamous Epith Cells Amorphous Sediment Urine Bacteria Hyaline Casts Assessment & Plan - Assessment and Plan (Free Text) Plan: 67 yo ,m, Homeless, PMhx/o NIDDM, HTN, HLD, CAD( [place] s/p stent placement Mar 2016 ), A fib s/p dual chamber pacemaker 04/21/17 admitted in Observation for b/l leg weakness Asessment/Plan 1) Bilateral leg weakness -secondary to deconditioning -Homeless patient -no gait imbalance appreciated when walking on the ED room, but mild difficulty to stand up -consider PT evaluation if persists leg weakness or gait imbalance noted. -CT Head: Old Right basal ganglia lacunar infarct. Mod-sev white matter ischemia changes. No intracranial hemorrhage. 2) Abnormal Urine -Asymptomatic - UA:( proteinuria, hematuria, few bacteria) but no nitrate,leukocyte sterase and no leukocyturia -Noted hyaline cast seen urine. May be seen on dehydration. Pt homeless -Hydration NS 125 ml/h 3) DM -controlled -c/w home medications Metformin 500 mg daily 4) CAD - [place] s/p stent placement Mar 2016 - s/p dual chamber pacemaker 04/21/17 -c/ home meds Metoprolol Tartrate 25 mg BID 5) Hx/o Afib -on NSR now. Asymptomatic -EKG:NSR, troponin x 1 neg. - c/w Metoprolol Tartrate 25 mg BID 6) HTN -c/w home meds Lisinopril 20 mg daily , Metoprolol Tartrate 25 mg BID 7) HLD -c/w home meds Atorvastatin 40 mg daily 8) DVT Prophylaxis -Lovenox 40 mg sc daily <Lin Waldron - Last Filed: 05/29/17 09:44> History of Present Illness - History of Present Illness History of Present Illness: ATTESTATION, ATTENDING NOTE CASE DISCUSSED WITH RESIDENT. CHART REVIEWED. PATIENT SEEN AND EXAMINED. AGREE WITH PLAN. Results - Vital Signs Recent Vital Signs: Last Vital Signs Temp 97.8 F 05/29/17 08:12 Pulse 63 05/29/17 09:10 Resp 20 05/29/17 08:12 BP 123/92 H 05/29/17 09:10 Pulse Ox 97 05/29/17 08:12 - Labs Result Diagrams: 05/29/17 08:00 05/29/17 07:34 Labs: Laboratory Results - last 24 hr 05/28/17 05/28/17 05/28/17 19:16 19:16 19:16 WBC 12.4 H D RBC 5.14 Hgb 14.9 Hct 45.0 MCV 87.6 MCH 29.0 MCHC 33.1 RDW 14.0 Plt Count 256 MPV 7.9 Neut % (Auto) 79.6 H Lymph % (Auto) 11.6 L Hendricks % (Auto) 7.7 Eos % (Auto) 0.8 Baso % (Auto) 0.3 Neut # (Auto) 9.8 H Lymph # (Auto) 1.4 Hendricks # (Auto) 0.9 H Eos # (Auto) 0.1 Baso # (Auto) 0.0 PT INR APTT Sodium 141 Potassium 3.9 Chloride 97 L Carbon Dioxide 25 Anion Gap 23 H BUN 15 Creatinine 1.0 Est GFR ( Amer) > 60 Est GFR (Non-Af Amer) > 60 POC Glucose (mg/dL) Random Glucose 114 H Calcium 9.4 Total Bilirubin 1.5 H AST 20 ALT 32 Alkaline Phosphatase 102 Troponin I Total Protein 7.8 Albumin 4.5 Globulin 3.3 Albumin/Globulin Ratio 1.3 Urine Color Yellow Urine Clarity Clear Urine pH 5.0 Ur Specific [place] >= 1.030 Urine Protein >=300 Urine Glucose (UA) Neg Urine Ketones Trace Urine Blood Trace H Urine Nitrate Negative Urine Bilirubin Negative Urine Urobilinogen 0.2 Ur Leukocyte Esterase Negative Urine RBC (Auto) 6 H Urine Microscopic WBC < 1 Ur Squamous Epith Cells 1 Amorphous Sediment Few H Urine Bacteria Few H Hyaline Casts 1-2 05/28/17 05/28/17 05/28/17 19:16 19:21 22:24 WBC RBC Hgb Hct MCV MCH MCHC RDW Plt Count MPV Neut % (Auto) Lymph % (Auto) Hendricks % (Auto) Eos % (Auto) Baso % (Auto) Neut # (Auto) Lymph # (Auto) Hendricks # (Auto) Eos # (Auto) Baso # (Auto) PT 11.8 INR 1.1 APTT 31.4 Sodium Potassium Chloride Carbon Dioxide Anion Gap BUN Creatinine Est GFR ( Amer) Est GFR (Non-Af Amer) POC Glucose (mg/dL) 125 H Random Glucose Calcium Total Bilirubin AST ALT Alkaline Phosphatase Troponin I < 0.0120 Total Protein Albumin Globulin Albumin/Globulin Ratio Urine Color Urine Clarity Urine pH Ur Specific [place] Urine Protein Urine Glucose (UA) Urine Ketones Urine Blood Urine Nitrate Urine Bilirubin Urine Urobilinogen Ur Leukocyte Esterase Urine RBC (Auto) Urine Microscopic WBC Ur Squamous Epith Cells Amorphous Sediment Urine Bacteria Hyaline Casts 05/28/17 05/29/17 05/29/17 22:55 06:58 07:34 WBC RBC Hgb Hct MCV MCH MCHC RDW Plt Count MPV Neut % (Auto) Lymph % (Auto) Hendricks % (Auto) Eos % (Auto) Baso % (Auto) Neut # (Auto) Lymph # (Auto) Hendricks # (Auto) Eos # (Auto) Baso # (Auto) PT INR APTT Sodium 141 Potassium 3.5 L Chloride 105 Carbon Dioxide 24 Anion Gap 16 BUN 12 Creatinine 0.9 Est GFR ( Amer) > 60 Est GFR (Non-Af Amer) > 60 POC Glucose (mg/dL) 144 H 106 Random Glucose 114 H Calcium 8.6 Total Bilirubin 1.5 H AST 18 ALT 30 Alkaline Phosphatase 86 Troponin I Total Protein 6.6 Albumin 3.6 Globulin 3.0 Albumin/Globulin Ratio 1.2 Urine Color Urine Clarity Urine pH Ur Specific [place] Urine Protein Urine Glucose (UA) Urine Ketones Urine Blood Urine Nitrate Urine Bilirubin Urine Urobilinogen Ur Leukocyte Esterase Urine RBC (Auto) Urine Microscopic WBC Ur Squamous Epith Cells Amorphous Sediment Urine Bacteria Hyaline Casts 05/29/17 05/29/17 08:00 08:27 WBC 7.0 RBC 4.72 Hgb 13.6 Hct 41.2 MCV 87.2 MCH 28.8 MCHC 33.0 RDW 13.8 Plt Count 224 MPV 8.1 Neut % (Auto) 56.5 Lymph % (Auto) 29.3 Hendricks % (Auto) 11.2 H Eos % (Auto) 2.4 Baso % (Auto) 0.6 Neut # (Auto) 3.9 Lymph # (Auto) 2.0 Hendricks # (Auto) 0.8 Eos # (Auto) 0.2 Baso # (Auto) 0.0 PT INR APTT Sodium Potassium Chloride Carbon Dioxide Anion Gap BUN Creatinine Est GFR ( Amer) Est GFR (Non-Af Amer) POC Glucose (mg/dL) 107 Random Glucose Calcium Total Bilirubin AST ALT Alkaline Phosphatase Troponin I Total Protein Albumin Globulin Albumin/Globulin Ratio Urine Color Urine Clarity Urine pH Ur Specific [place] Urine Protein Urine Glucose (UA) Urine Ketones Urine Blood Urine Nitrate Urine Bilirubin Urine Urobilinogen Ur Leukocyte Esterase Urine RBC (Auto) Urine Microscopic WBC Ur Squamous Epith Cells Amorphous Sediment Urine Bacteria Hyaline Casts
[2017-05-28] MEDS ORDERED: Glucagon Recombinant 1 mg Inj IM PRN (22:16)
[2017-05-28] MEDS ORDERED: Dextrose 50% SYRINGE Inj (50 ml) IV PRN (22:16)
[2017-05-28] MEDS: Sodium Chloride 0.9% 1,000 ML IV SCH (22:23)
--- NOTE | 2017-05-29 07:50 | CP.PCM.PN ---
Subjective - Date & Time of Evaluation Date of Evaluation: 05/29/17 Time of Evaluation: 07:50 Objective - Vital Signs/Intake and Output Vital Signs (last 24 hours): Temp Pulse Resp BP Pulse Ox 98 F 65 16 130/91 H 95 05/29/17 07:04 05/29/17 07:04 05/29/17 07:04 05/29/17 07:04 05/29/17 07:04 - Medications Medications: Current Medications Acetaminophen (Tylenol 325mg Tab) 650 mg PO Q6 PRN PRN Reason: Pain, Mild (1-3) Atorvastatin Calcium (Lipitor) 40 mg PO HS [facility] Cyanocobalamin (Vitamin B12 1000 Mcg Tab) 1,000 mcg PO DAILY [facility] Dextrose (Dextrose 50% Inj) 0 ml IV STAT PRN; Protocol PRN Reason: Hypoglycemia Protocol Dextrose (Glutose 15) 0 gm PO ONCE PRN; Protocol PRN Reason: Hypoglycemia Protocol Enoxaparin Sodium (Lovenox) 40 mg SC DAILY [facility] PRN Reason: Protocol Glucagon (Glucagen Diagnostic Kit) 0 mg IM STAT PRN; Protocol PRN Reason: Hypoglycemia Protocol Sodium Chloride (Sodium Chloride 0.9%) 1,000 mls @ 125 mls/hr IV .Q8H [facility] Last Admin: 05/28/17 22:23 Dose: 125 mls/hr Lisinopril (Zestril) 20 mg PO DAILY [facility] Metformin HCl (Glucophage) 500 mg PO DAILY [facility] Metoprolol Tartrate (Lopressor) 25 mg PO Q12 [facility] - Labs Labs: 05/28/17 19:16 05/28/17 19:16 PT 11.8 Seconds (9.8-13.1) 05/28/17 19:16 INR 1.1 (0.9-1.2) 05/28/17 19:16 APTT 31.4 Seconds (25.6-37.1) 05/28/17 19:16
--- NOTE | 2017-05-29 08:11 | CP.PCM.PN ---
<Davide Hein - Last Filed: 05/29/17 13:07> Subjective - Date & Time of Evaluation Date of Evaluation: 05/29/17 Time of Evaluation: 08:45 - Subjective Subjective: Pt seen and examined at bedside. Pt states feeling fatigued. Denies any overnight problems or complaints. Denies fevers/chills, n/v/d, chest pain, SOB, dyspnea, or abdominal pain. Objective - Vital Signs/Intake and Output Vital Signs (last 24 hours): Temp Pulse Resp BP Pulse Ox 98 F 65 16 130/91 H 95 05/29/17 07:04 05/29/17 07:04 05/29/17 07:04 05/29/17 07:04 05/29/17 07:04 - Medications Medications: Current Medications Acetaminophen (Tylenol 325mg Tab) 650 mg PO Q6 PRN PRN Reason: Pain, Mild (1-3) Atorvastatin Calcium (Lipitor) 40 mg PO HS [facility] Cyanocobalamin (Vitamin B12 1000 Mcg Tab) 1,000 mcg PO DAILY [facility] Dextrose (Dextrose 50% Inj) 0 ml IV STAT PRN; Protocol PRN Reason: Hypoglycemia Protocol Dextrose (Glutose 15) 0 gm PO ONCE PRN; Protocol PRN Reason: Hypoglycemia Protocol Enoxaparin Sodium (Lovenox) 40 mg SC DAILY [facility] PRN Reason: Protocol Glucagon (Glucagen Diagnostic Kit) 0 mg IM STAT PRN; Protocol PRN Reason: Hypoglycemia Protocol Sodium Chloride (Sodium Chloride 0.9%) 1,000 mls @ 125 mls/hr IV .Q8H [facility] Last Admin: 05/28/17 22:23 Dose: 125 mls/hr Lisinopril (Zestril) 20 mg PO DAILY [facility] Metformin HCl (Glucophage) 500 mg PO DAILY [facility] Metoprolol Tartrate (Lopressor) 25 mg PO Q12 [facility] - Labs Labs: 05/28/17 19:16 05/28/17 19:16 PT 11.8 Seconds (9.8-13.1) 05/28/17 19:16 INR 1.1 (0.9-1.2) 05/28/17 19:16 APTT 31.4 Seconds (25.6-37.1) 05/28/17 19:16 - Additional Findings Additional findings: - Constitutional Appears: Non-toxic, No Acute Distress - Eye Exam Eye Exam: Normal appearance - ENT Exam ENT Exam: Normal Exam - Neck Exam Neck exam: Positive for: Normal Inspection - Respiratory Exam Respiratory Exam: Clear to Auscultation Bilateral. absent: Rales, Rhonchi, Wheezes - Cardiovascular Exam Cardiovascular Exam: REGULAR RHYTHM, +S1, +S2 - GI/Abdominal Exam GI & Abdominal Exam: Normal Bowel Sounds, Soft. absent: Tenderness - Extremities Exam Extremities exam: Positive for: normal inspection. Negative for: pedal edema - Neurological Exam Neurological exam: Alert, Normal Gait, Oriented x3 - Psychiatric Exam Psychiatric exam: Normal Affect, Normal Mood - Skin Skin Exam: Intact Assessment and Plan - Assessment and Plan (Free Text) Plan: 67 yo Homeless Male w PMXx of NIDDM, HTN, HLD, CAD ([place] s/p stent placement Mar 2016), A fib s/p dual chamber pacemaker 04/21/17 admitted for weakness 1) Stated weakness -Possible dehydration -Recently discharged from an outside acute rehab facility -no gait imbalance appreciated when walking on the ED room, but mild difficulty to stand up -CT Head: Old Right basal ganglia lacunar infarct. Mod-sev white matter ischemia changes. No intracranial hemorrhage. -continue fluids -f/u Vitals 2) DM -controlled -c/w home medications Metformin 500 mg daily 3) CAD - [place] s/p stent placement Mar 2016 - s/p dual chamber pacemaker 04/21/17 -c/ home meds Metoprolol Tartrate 25 mg BID 4) Hx/o Afib -on NSR now. Asymptomatic -EKG:NSR, troponin x 1 neg. - c/w Metoprolol Tartrate 25 mg BID 5) HTN -c/w home meds Lisinopril 20 mg daily , Metoprolol Tartrate 25 mg BID 6) HLD -c/w home meds Atorvastatin 40 mg daily 7) DVT Prophylaxis -Lovenox 40 mg sc daily <Lin Waldron - Last Filed: 05/30/17 08:48> Objective - Vital Signs/Intake and Output Vital Signs (last 24 hours): Temp Pulse Resp BP Pulse Ox 97.1 F L 61 20 116/68 97 05/30/17 07:59 05/30/17 07:59 05/30/17 07:59 05/30/17 07:59 05/30/17 07:59 - Medications Medications: Current Medications Acetaminophen (Tylenol 325mg Tab) 650 mg PO Q6 PRN PRN Reason: Pain, Mild (1-3) Atorvastatin Calcium (Lipitor) 40 mg PO HS [facility] Last Admin: 05/29/17 21:07 Dose: 40 mg Cyanocobalamin (Vitamin B12 1000 Mcg Tab) 1,000 mcg PO DAILY [facility] Last Admin: 05/29/17 09:10 Dose: 1,000 mcg Dextrose (Dextrose 50% Inj) 0 ml IV STAT PRN; Protocol PRN Reason: Hypoglycemia Protocol Dextrose (Glutose 15) 0 gm PO ONCE PRN; Protocol PRN Reason: Hypoglycemia Protocol Enoxaparin Sodium (Lovenox) 40 mg SC DAILY [facility] PRN Reason: Protocol Last Admin: 05/29/17 09:09 Dose: 40 mg Glucagon (Glucagen Diagnostic Kit) 0 mg IM STAT PRN; Protocol PRN Reason: Hypoglycemia Protocol Lisinopril (Zestril) 20 mg PO DAILY [facility] Last Admin: 05/29/17 09:10 Dose: 20 mg Metformin HCl (Glucophage) 500 mg PO DAILY [facility] Last Admin: 05/29/17 09:09 Dose: 500 mg Metoprolol Tartrate (Lopressor) 25 mg PO Q12 [facility] Last Admin: 05/29/17 21:08 Dose: 25 mg - Labs Labs: 05/29/17 08:00 05/29/17 07:34 PT 11.8 Seconds (9.8-13.1) 05/28/17 19:16 INR 1.1 (0.9-1.2) 05/28/17 19:16 APTT 31.4 Seconds (25.6-37.1) 05/28/17 19:16 Attending/Attestation - Attestation I have personally seen and examined this patient.: Yes I have fully participated in the care of the patient.: Yes I have reviewed all pertinent clinical information, including history, physical exam and plan: Yes Notes (Text): 05/30/17 08:47 ATTENDING NOTE - ATTESTATION PATIENT SEEN AND EXAMINED. CASE DISCUSSED WITH RESIDENT. AGREE WITH FINDINGS AND PLAN.
[2017-05-29] MEDS: Sodium Chloride 0.9% 1,000 ML IV SCH ×2 (08:29→14:15)
[2017-05-29 08:30] LABS: BASO % 0.6 % (0.0-2.0); EOS % 2.4 % (0.0-4.0); HEMOGLOBIN 13.6 g/dL (12.0-18.0); LYMPH % 29.3 % (20.0-40.0); MEAN CELL VOLUME 87.2 fl (80.0-94.0); MEAN CORPUSCULAR HEMOGLOBIN 28.8 pg (27.0-31.0); MEAN PLATELET VOLUME 8.1 fl (7.2-11.7); MONO # 0.8 K/uL (0.0-0.8); MONO % 11.2 % (0.0-10.0); NEUT # 3.9 K/uL (1.8-7.0); NEUT % 56.5 % (50.0-75.0); NRBC % 0.1 % (0.0-0.0); RBC 4.72 Mil/uL (4.40-5.90); RED CELL DISTRIBUTION WIDTH 13.8 % (11.5-14.5)
[2017-05-29 08:31] LABS: EOS # 0.2 K/uL (0.0-0.7)
[2017-05-29] MEDS: Enoxaparin 40 mg Syringe SC SCH (09:09)
[2017-05-29 09:24] LABS: ALB/GLOB RATIO 1.2 (1.0-2.1); ALBUMIN 3.6 g/dL (3.5-5.0); ALT/SGPT 30 U/L (21-72); AST/SGOT 18 U/L (17-59); BLOOD UREA NITROGEN 12 mg/dl (9-20); CALCIUM 8.6 mg/dL (8.4-10.2); GFR AFRICAN-AMERICAN > 60; GFR NON-AFRICAN AMERICAN > 60
--- NOTE | 2017-05-29 10:30 | CARD ---
APPROVED REPORT EKG Measurement Heart [id number] <Conclusion> Normal sinus rhythm Normal ECG
--- NOTE | 2017-05-29 12:22 | RAD ---
PROCEDURE: CHEST RADIOGRAPH, 1 VIEW HISTORY: Weakness COMPARISON: Comparison chest 04/20/2017 FINDINGS: LUNGS: Poor inspiration with low lung volumes, crowded bronchovascular markings and minor bibasilar atelectasis right greater than left PLEURA: No pneumothorax or pleural fluid seen. CARDIOVASCULAR: Cardiomegaly. No change bipolar pacer OSSEOUS STRUCTURES: No significant abnormalities. VISUALIZED UPPER ABDOMEN: Normal. OTHER FINDINGS: None. IMPRESSION: Poor inspiration with low lung volumes, crowded bronchovascular markings and minor bibasilar atelectasis right greater than left
--- NOTE | 2017-05-30 08:18 | CP.PCM.PN ---
Objective - Vital Signs/Intake and Output Vital Signs (last 24 hours): Temp Pulse Resp BP Pulse Ox 97.1 F L 61 20 116/68 97 05/30/17 07:59 05/30/17 07:59 05/30/17 07:59 05/30/17 07:59 05/30/17 07:59 - Medications Medications: Current Medications Acetaminophen (Tylenol 325mg Tab) 650 mg PO Q6 PRN PRN Reason: Pain, Mild (1-3) Atorvastatin Calcium (Lipitor) 40 mg PO HS [facility] Last Admin: 05/29/17 21:07 Dose: 40 mg Cyanocobalamin (Vitamin B12 1000 Mcg Tab) 1,000 mcg PO DAILY [facility] Last Admin: 05/29/17 09:10 Dose: 1,000 mcg Dextrose (Dextrose 50% Inj) 0 ml IV STAT PRN; Protocol PRN Reason: Hypoglycemia Protocol Dextrose (Glutose 15) 0 gm PO ONCE PRN; Protocol PRN Reason: Hypoglycemia Protocol Enoxaparin Sodium (Lovenox) 40 mg SC DAILY [facility] PRN Reason: Protocol Last Admin: 05/29/17 09:09 Dose: 40 mg Glucagon (Glucagen Diagnostic Kit) 0 mg IM STAT PRN; Protocol PRN Reason: Hypoglycemia Protocol Lisinopril (Zestril) 20 mg PO DAILY [facility] Last Admin: 05/29/17 09:10 Dose: 20 mg Metformin HCl (Glucophage) 500 mg PO DAILY [facility] Last Admin: 05/29/17 09:09 Dose: 500 mg Metoprolol Tartrate (Lopressor) 25 mg PO Q12 [facility] Last Admin: 05/29/17 21:08 Dose: 25 mg - Labs Labs: 05/29/17 08:00 05/29/17 07:34 PT 11.8 Seconds (9.8-13.1) 05/28/17 19:16 INR 1.1 (0.9-1.2) 05/28/17 19:16 APTT 31.4 Seconds (25.6-37.1) 05/28/17 19:16
[2017-05-30] MEDS: Enoxaparin 40 mg Syringe SC SCH (08:54)
--- NOTE | 2017-05-30 11:14 | CP.PCM.DIS ---
Provider - Provider Date of Admission: 05/28/17 21:58 Attending physician: Lin Waldron MD Time Spent in preparation of Discharge (in minutes): 25 Diagnosis - Discharge Diagnosis (1) Weakness Status: Acute Hospital Course - Lab Results Lab Results: Micro Results 05/28/17 22:31 Urine,Clean Catch Urine Culture - Final No Growth (<1,000 CFU/ML) Most Recent Lab Values WBC 7.0 K/uL (4.8-10.8) 05/29/17 08:00 RBC 4.72 Mil/uL (4.40-5.90) 05/29/17 08:00 Hgb 13.6 g/dL (12.0-18.0) 05/29/17 08:00 Hct 41.2 % (35.0-51.0) 05/29/17 08:00 MCV 87.2 fl (80.0-94.0) 05/29/17 08:00 MCH 28.8 pg (27.0-31.0) 05/29/17 08:00 MCHC 33.0 g/dL (33.0-37.0) 05/29/17 08:00 RDW 13.8 % (11.5-14.5) 05/29/17 08:00 Plt Count 224 K/uL (130-400) 05/29/17 08:00 MPV 8.1 fl (7.2-11.7) 05/29/17 08:00 Neut % (Auto) 56.5 % (50.0-75.0) 05/29/17 08:00 Lymph % (Auto) 29.3 % (20.0-40.0) 05/29/17 08:00 [place] % (Auto) 11.2 % (0.0-10.0) H 05/29/17 08:00 Eos % (Auto) 2.4 % (0.0-4.0) 05/29/17 08:00 Baso % (Auto) 0.6 % (0.0-2.0) 05/29/17 08:00 Neut # (Auto) 3.9 K/uL (1.8-7.0) 05/29/17 08:00 Lymph # (Auto) 2.0 K/uL (1.0-4.3) 05/29/17 08:00 [place] # (Auto) 0.8 K/uL (0.0-0.8) 05/29/17 08:00 Eos # (Auto) 0.2 K/uL (0.0-0.7) 05/29/17 08:00 Baso # (Auto) 0.0 K/uL (0.0-0.2) 05/29/17 08:00 PT 11.8 Seconds (9.8-13.1) 05/28/17 19:16 INR 1.1 (0.9-1.2) 05/28/17 19:16 APTT 31.4 Seconds (25.6-37.1) 05/28/17 19:16 Sodium 141 mmol/l (132-148) 05/29/17 07:34 Potassium 3.5 MMOL/L (3.6-5.0) L 05/29/17 07:34 Chloride 105 mmol/L (98-107) 05/29/17 07:34 Carbon Dioxide 24 mmol/L (22-30) 05/29/17 07:34 Anion Gap 16 (10-20) 05/29/17 07:34 BUN 12 mg/dl (9-20) 05/29/17 07:34 Creatinine 0.9 mg/dl (0.8-1.5) 05/29/17 07:34 Est GFR ( Amer) > 60 05/29/17 07:34 Est GFR (Non-Af Amer) > 60 05/29/17 07:34 POC Glucose (mg/dL) 105 mg/dL (65-110) 05/30/17 05:27 Random Glucose 114 mg/dL (75-110) H 05/29/17 07:34 Calcium 8.6 mg/dL (8.4-10.2) 05/29/17 07:34 Total Bilirubin 1.5 mg/dl (0.2-1.3) H 05/29/17 07:34 AST 18 U/L (17-59) 05/29/17 07:34 ALT 30 U/L (21-72) 05/29/17 07:34 Alkaline Phosphatase 86 U/L (38-126) 05/29/17 07:34 Troponin I < 0.0120 ng/mL (0.00-0.120) 05/28/17 22:24 Total Protein 6.6 G/DL (6.3-8.2) 05/29/17 07:34 Albumin 3.6 g/dL (3.5-5.0) 05/29/17 07:34 Globulin 3.0 gm/dL (2.2-3.9) 05/29/17 07:34 Albumin/Globulin Ratio 1.2 (1.0-2.1) 05/29/17 07:34 Urine Color Yellow (YELLOW) 05/28/17 19:16 Urine Clarity Clear (Clear) 05/28/17 19:16 Urine pH 5.0 (5.0-8.0) 05/28/17 19:16 Ur Specific [place] >= 1.030 (1.003-1.030) 05/28/17 19:16 Urine Protein >=300 mg/dL (NEGATIVE) 05/28/17 19:16 Urine Glucose (UA) Neg mg/dL (Normal) 05/28/17 19:16 Urine Ketones Trace mg/dL (NEGATIVE) 05/28/17 19:16 Urine Blood Trace (NEGATIVE) H 05/28/17 19:16 Urine Nitrate Negative (NEGATIVE) 05/28/17 19:16 Urine Bilirubin Negative (NEGATIVE) 05/28/17 19:16 Urine Urobilinogen 0.2 mg/dL (0.2-1.0) 05/28/17 19:16 Ur Leukocyte Esterase Negative Mago/uL (Negative) 05/28/17 19:16 Urine RBC (Auto) 6 /hpf (0-3) H 05/28/17 19:16 Urine Microscopic WBC < 1 /hpf (0-5) 05/28/17 19:16 Ur Squamous Epith Cells 1 /hpf (0-5) 05/28/17 19:16 Amorphous Sediment Few /ul (<OCC) H 05/28/17 19:16 Urine Bacteria Few (<OCC) H 05/28/17 19:16 Hyaline Casts 1-2 /hpf (0-2) 05/28/17 19:16 - Hospital Course Hospital Course: 67 yo homeless Male w PMHx of NIDDM, HTN, HLD, CAD ([place] s/p stent placement Mar 2016), A fib s/p dual chamber pacemaker (04/21/17) was admitted for weakness. EKG NSR, Trop negative x1, UA nitrate negative, leuk esterase negative. CTH showed no intracranial mass, hemorrhage or evidence of acute infarct. Moderate to severe chronic white matter ischemic change. Old right basal ganglia lacunar infarct. Patient to be discharged. Discharge Exam - Additional Findings Additional findings: - Constitutional Appears: Non-toxic, No Acute Distress - Head Exam Head Exam: NORMOCEPHALIC - Eye Exam Eye Exam: Normal appearance - Respiratory Exam Respiratory Exam: Clear to Auscultation Bilateral. absent: Rales, Rhonchi, Wheezes - Cardiovascular Exam Cardiovascular Exam: REGULAR RHYTHM, +S1, +S2 - GI/Abdominal Exam GI & Abdominal Exam: Normal Bowel Sounds, Soft. absent: Tenderness - Extremities Exam Extremities exam: Positive for: normal inspection. Negative for: pedal edema - Neurological Exam Neurological exam: Alert, Normal Gait, Oriented x3 Additional comments: strength 5/5 limbs x4; sensation intact throughout; patellar DTRs 2+ b/l - Psychiatric Exam Psychiatric exam: Normal Affect, Normal Mood - Skin Skin Exam: Intact Discharge Plan - Follow Up Plan Condition: FAIR Disposition: HOME/ ROUTINE Instructions: Weakness (ED), Weakness (GEN) Additional Instructions: Please follow up with Primary Care Doctor within 1 week of discharge. Continue home medications. Return to ED for evaluation if weakness returns.
[2017-05-30 13:21] VITALS: BP 125/64; PULSE 60; RESP 18; TEMP 98; O2SAT 98
== END 2017-05-30 13:45 | disposition home or self-care (01) ==
LOC: H.ER 17:15 → H.ERHOLD 21:58 → H.MEDSURG1 05-29 17:05
PROVIDERS: ADMIT Emergency Medicine; ATTEND Emergency Medicine
DX: E86.0 Dehydration (principal); R53.1 Weakness; N18.9 Chronic kidney disease, unspecified; I12.9 Hypertensive chronic kidney disease with stage 1 through stage 4 chronic kidney disease, or unspecified chronic kidney disease; E11.22 Type 2 diabetes mellitus with diabetic chronic kidney disease; E78.5 Hyperlipidemia, unspecified; E78.00 Pure hypercholesterolemia, unspecified; I25.10 Atherosclerotic heart disease of native coronary artery without angina pectoris; I48.91 Unspecified atrial fibrillation; J32.3 Chronic sphenoidal sinusitis; I25.2 Old myocardial infarction; Z86.73 Personal history of transient ischemic attack (TIA), and cerebral infarction without residual deficits; Z87.442 Personal history of urinary calculi; Z95.0 Presence of cardiac pacemaker; Z95.5 Presence of coronary angioplasty implant and graft; Z79.84 Long term (current) use of oral hypoglycemic drugs; Z88.6 Allergy status to analgesic agent; Z88.0 Allergy status to penicillin; Z59.0 Homelessness
CPT/HCPCS: 70450; 71045; 80053; 81003; 82948; 84484; 85025; 85610; 85730; 87086; 93005; 96360; 96361; 96372; 99285; G0378; J1650; J7040

== ENCOUNTER 2017-06-05 16:38 | Emergency (ER) | payer MEDICARE, MEDICAID ==
[2017-06-05 16:46] VITALS: BP 146/99; PULSE 111; RESP 16; TEMP 98.9; O2SAT 98
[2017-06-05 17:31] LABS: BASO # 0.1 K/uL (0.0-0.2); BASO % 0.8 % (0.0-2.0); EOS # 0.2 K/uL (0.0-0.7); EOS % 1.8 % (0.0-4.0); HEMOGLOBIN 14.9 g/dL (12.0-18.0); LYMPH # 2.1 K/uL (1.0-4.3); MEAN CELL VOLUME 87.5 fl (80.0-94.0); MEAN CORPUSCULAR HEMOGLOBIN 29.1 pg (27.0-31.0); MEAN CORPUSCULAR HGB CONC 33.2 g/dL (33.0-37.0); MEAN PLATELET VOLUME 8.4 fl (7.2-11.7); MONO # 1.1 K/uL (0.0-0.8); MONO % 10.2 % (0.0-10.0); NEUT % 67.2 % (50.0-75.0); RBC 5.11 Mil/uL (4.40-5.90); RED CELL DISTRIBUTION WIDTH 14.1 % (11.5-14.5); WHITE BLOOD COUNT 10.4 K/uL (4.8-10.8)
[2017-06-05 17:46] LABS: PARTIAL THROMBOPLASTIN TIME 31.7 Seconds (25.6-37.1); PROTHROMBIN TIME 10.8 Seconds (9.8-13.1)
--- NOTE | 2017-06-05 17:49 | ED PDOC ---
HPI: General Adult Time Seen by Provider: 06/05/17 16:48 Chief Complaint (Nursing): Weakness/Neurological Deficit Chief Complaint (Provider): Weakness History Per: Patient History/Exam Limitations: no limitations Onset/Duration Of Symptoms: Days (x1) Additional Complaint(s): 67 year old male presents to the ED complaining of generalized weakness which began yesterday morning. The patient states that although the weakness is generalized he mostly feels it in his legs. He states that he was previously seen in the hospital for similar symptoms. Patient goes on to state that yesterday while at a friends house he fell down but did not lose consciousness and his friend helped him up. denies head injury. patient reports that he is homeless and can no longer stay with his friend and while he was on his way to the homeless intermediate he decided to come to the hospital instead. Denies chest pain, shortness of breath, PMD: [facility] Past Medical History Reviewed: Historical Data, Nursing Documentation, Vital Signs Vital Signs: Last Vital Signs Temp 98.9 F 06/05/17 16:43 Pulse 111 H 06/05/17 16:43 Resp 16 06/05/17 16:43 BP 146/99 H 06/05/17 16:43 Pulse Ox 98 06/05/17 20:24 - Medical History PMH: Atrial Fibrillation, CAD, Cardia Arrhythmia, Diabetes, Deep Vein Thrombosis (treated in [facility]), HTN, Hypercholesterolemia, Kidney Stones, Chronic Kidney Disease (kidney stones/ lithotripsy), TIA Denies: CVA, HIV - Surgical History Surgical History: Coronary Stent, Pacemaker - Family History Family History: States: Unknown Family Hx, Hypertension - Living Arrangements Living Arrangements: With Family - Social History Current smoker - smoking cessation education provided: No Ex-Smoker (has not smoked in the last 12 months): No Alcohol: None Drugs: Denies - Home Medications Home Medications: Ambulatory Orders Medication Instructions Recorded Atorvastatin [Lipitor] 40 mg PO HS 30 Days #30 tab 04/29/17 Cyanocobalamin [Vitamin B12 1000 1,000 mcg PO DAILY #30 tab 04/29/17 mcg Tab] Lisinopril [Zestril] 20 mg PO DAILY 30 Days #30 tab 04/29/17 Metformin HCl [Glucophage] 500 mg PO DAILY #30 tablet 04/29/17 Metoprolol Tartrate [Lopressor] 25 mg PO Q12 30 Days #60 tab 04/29/17 - Allergies Allergies/Adverse Reactions: Allergies Allergy/AdvReac Type Severity Reaction Status Date / Time aspirin Allergy URTICARIA Verified 05/28/17 17:21 Penicillins Allergy URTICARIA Verified 05/28/17 17:21 Review of Systems ROS Statement: Except As Marked, All Systems Reviewed And Found Negative Constitutional: Positive for: Weakness (generalized) Cardiovascular: Negative for: Chest Pain Respiratory: Negative for: Shortness of Breath Physical Exam - Reviewed Nursing Documentation Reviewed: Yes Vital Signs Reviewed: Yes - Physical Exam Appears: Positive for: Non-toxic, No Acute Distress Head Exam: Positive for: ATRAUMATIC, NORMOCEPHALIC Skin: Positive for: Warm, Dry Eye Exam: Positive for: EOMI, PERRL ENT: Negative for: Pharyngeal Erythema, Tonsillar Exudate Neck: Positive for: Painless ROM, Supple Cardiovascular/Chest: Positive for: Regular Rate, Rhythm, Chest Non Tender. Negative for: Murmur Respiratory: Positive for: Normal Breath Sounds. Negative for: Wheezing Gastrointestinal/Abdominal: Positive for: Soft. Negative for: Tenderness Back: Positive for: Normal Inspection. Negative for: Decreased ROM Extremity: Positive for: Normal ROM. Negative for: Deformity Lymphatic: Negative for: Adenopathy Neurologic/Psych: Positive for: Alert. Negative for: Motor/Sensory Deficits - Laboratory Results Result Diagrams: 06/05/17 17:20 06/05/17 17:20 - ECG O2 Sat by Pulse Oximetry: 98 (RA) Pulse Ox Interpretation: Normal Medical Decision Making Medical Decision Makin Initial Impression 67 y/o male presenting with weakness Initial Plan: * Type and Screen * EKG * Alcohol Serum * B-type natriuretic * CMP * Drug Screen * Magnesium * Phosphorous * Thyroid Stimulating Hormone * Troponin * Udip * CBC * Partial Thromboplastin * Prothrombin Time * Accucheck * Reevaluation 7p Pt with no emergently significant clinical or laboratory findings. Exam essentially unchanged. Stable for discharge with follow up at [facility]. Dr Palm FP resident assisted with follow up next week. Scribe Attestation Documented by Miracle Lennon acting as a scribe for Tiffanie green MD. Provider Attestation All medical record entries made by the Scribe were at my direction and personally dictated by me. I have reviewed the chart and agree that the record accurately reflects my personal performance of the history, physical exam, medical decision making, and the department course for this patient. I have also personally directed, reviewed, and agree with the discharge instructions and disposition. Disposition - Clinical Impression Clinical Impression: Weakness Counseled Patient/Family Regarding: Studies Performed, Diagnosis - Disposition Referrals: [facility] [Outside] - 06/07/17 (GO TO CLINIC WEDNESDAY FOR FURTHER MANAGEMENT) Disposition: Routine/Home Disposition Time: 18:45 Condition: STABLE Instructions: Weakness (ED)
[2017-06-05 17:54] LABS: ALB/GLOB RATIO 1.2 (1.0-2.1); ALBUMIN 4.3 g/dL (3.5-5.0); ALT/SGPT 36 U/L (21-72); AST/SGOT 22 U/L (17-59); BLOOD UREA NITROGEN 18 mg/dl (9-20); CALCIUM 9.4 mg/dL (8.4-10.2); GFR AFRICAN-AMERICAN > 60; GFR NON-AFRICAN AMERICAN > 60
[2017-06-05 18:01] LABS: B-TYPE NATRIURETIC PEPTIDE 411 pg/ml (0-900)
--- NOTE | 2017-06-06 08:43 | RAD ---
HISTORY: weakness COMPARISON: No prior. FINDINGS: LUNGS: No active pulmonary disease. PLEURA: No significant pleural effusion identified, no pneumothorax apparent. CARDIOVASCULAR: Normal. OSSEOUS STRUCTURES: No significant abnormalities. VISUALIZED UPPER ABDOMEN: Normal. OTHER FINDINGS: None. IMPRESSION: No active disease.
--- NOTE | 2017-06-07 09:11 | CARD ---
APPROVED REPORT EKG Measurement Heart [id number] <Conclusion> Normal sinus rhythm Left axis deviation Abnormal ECG
== END 2017-06-05 19:45 | disposition home or self-care (01) ==
LOC: H.ER 16:38
DX: R53.1 Weakness (principal); E11.8 Type 2 diabetes mellitus with unspecified complications; I10 Essential (primary) hypertension; Z87.442 Personal history of urinary calculi; N18.9 Chronic kidney disease, unspecified; Z59.0 Homelessness
CPT/HCPCS: 71045; 80053; 82948; 83735; 83880; 84100; 84443; 84484; 85025; 85610; 85730; 86850; 86900; 93005; 99283; G0480

== ENCOUNTER 2017-06-20 20:14 | Emergency (ER) | payer MEDICARE, MEDICAID ==
[2017-06-20 20:23] VITALS: TEMP 98.1
[2017-06-20] MEDS ORDERED: Metoprolol 1 mg/ml Inj IVP STA (21:17)
--- NOTE | 2017-06-20 21:25 | ED PDOC ---
HPI: General Adult Time Seen by Provider: 06/20/17 20:35 Chief Complaint (Nursing): Weakness/Neurological Deficit Chief Complaint (Provider): Generalized Weakness History Per: Patient History/Exam Limitations: no limitations Onset/Duration Of Symptoms: Hrs Have you had recent travel within the past 21 days to any of the following countries: [place], [place], [place] or [place]?: No Severity: None Additional Complaint(s): 67 year old female presents to the ED post fall. The patient states that [place]. He reports that he was walking his legs began to feel weak and then he just fell. Denies loss of consciousness, head trauma. Patient states that he has been seen here in the ED multiple times for similar complaints. He reports that he has not taken his medications because they do not make him feel good. No regular PMD Past Medical History Reviewed: Historical Data, Nursing Documentation, Vital Signs Vital Signs: Last Vital Signs Temp 98.1 F 06/20/17 20:20 Pulse 73 06/20/17 23:21 Resp 16 06/20/17 23:21 BP 143/96 H 06/20/17 23:21 Pulse Ox 96 06/20/17 23:21 - Medical History PMH: Atrial Fibrillation, CAD, Cardia Arrhythmia, Diabetes, Deep Vein Thrombosis (treated in [facility]), HTN, Hypercholesterolemia, Kidney Stones, Chronic Kidney Disease (kidney stones/ lithotripsy), TIA Denies: CVA, HIV - Surgical History Surgical History: Coronary Stent, Pacemaker - Family History Family History: States: Unknown Family Hx, Hypertension - Social History Current smoker - smoking cessation education provided: No Ex-Smoker (has not smoked in the last 12 months): No Alcohol: None Drugs: Denies - Home Medications Home Medications: Ambulatory Orders Medication Instructions Recorded Atorvastatin [Lipitor] 40 mg PO HS 30 Days #30 tab 04/29/17 Cyanocobalamin [Vitamin B12 1000 1,000 mcg PO DAILY #30 tab 04/29/17 mcg Tab] Lisinopril [Zestril] 20 mg PO DAILY 30 Days #30 tab 04/29/17 Metformin HCl [Glucophage] 500 mg PO DAILY #30 tablet 04/29/17 Metoprolol Tartrate [Lopressor] 25 mg PO Q12 30 Days #60 tab 04/29/17 - Allergies Allergies/Adverse Reactions: Allergies Allergy/AdvReac Type Severity Reaction Status Date / Time aspirin Allergy URTICARIA Verified 06/05/17 22:04 Penicillins Allergy URTICARIA Verified 06/05/17 22:04 Review of Systems Constitutional: Positive for: Weakness Cardiovascular: Negative for: Chest Pain, Light Headedness Respiratory: Negative for: Shortness of Breath Physical Exam - Reviewed Nursing Documentation Reviewed: Yes Vital Signs Reviewed: Yes - Physical Exam Appears: Positive for: Well, No Acute Distress Head Exam: Positive for: ATRAUMATIC, NORMOCEPHALIC Skin: Positive for: Warm, Dry Eye Exam: Positive for: EOMI, PERRL ENT: Negative for: Pharyngeal Erythema, Tonsillar Exudate Neck: Positive for: Painless ROM, Supple Cardiovascular/Chest: Positive for: Tachycardia (regular rhythm). Negative for : Murmur Respiratory: Positive for: Normal Breath Sounds. Negative for: Accessory Muscle Use, Rales, Wheezing, Respiratory Distress Gastrointestinal/Abdominal: Positive for: Soft. Negative for: Tenderness Back: Positive for: Normal Inspection. Negative for: Decreased ROM Extremity: Positive for: Normal ROM. Negative for: Deformity Lymphatic: Negative for: Adenopathy Neurologic/Psych: Positive for: Alert, community service director II-XII (intact), Oriented (x3). Negative for: Motor/Sensory Deficits - Laboratory Results Result Diagrams: 06/20/17 21:12 06/20/17 21:12 - ECG O2 Sat by Pulse Oximetry: 96 (RA) Pulse Ox Interpretation: Normal Medical Decision Making Medical Decision Makin Initial Impression 67 year old male presenting with weakness Differentials: Electrolyte Abnormality, Arrhythmia, Hypertension,Dehydration, Malingering Initial Plan: * EKG * Alcohol serum * B-type natriuretic * CMP * Drug Screen * Magnesium * Phosphorous * TSH * Troponin * Udip * Partial * Thromboplastin * Prothrombin Time * Chest x-ray * Lopressor 50mg PO * Lopressor 5mg IVP * Accucheck * Reevaluation Labs unremarkable Metoprolol given in ER (IV and PO). EKG now normal. Pt sleeping comfortably. Stable for dc. Documented by Miracle Lennon acting as a scribe for Tiffanie Tracey MD. All medical record entries made by the Scribe were at my direction and personally dictated by me. I have reviewed the chart and agree that the record accurately reflects my personal performance of the history, physical exam, medical decision making, and the department course for this patient. I have also personally directed, reviewed, and agree with the discharge instructions and disposition. Disposition - Clinical Impression Clinical Impression: Tachycardia Counseled Patient/Family Regarding: Studies Performed, Diagnosis, Need For Followup - Disposition Referrals: [facility] [Outside] - 06/21/17 Disposition: Routine/Home Disposition Time: 23:00 Condition: IMPROVED Additional Instructions: TAKE YOUR MEDICATION PRESCRIBED FOLLOW UP AT CLINIC TOMORROW. Instructions: Tachycardia Forms: [facility] (Sami)
[2017-06-20 21:27] LABS: BASO # 0.1 K/uL (0.0-0.2); BASO % 0.7 % (0.0-2.0); EOS # 0.1 K/uL (0.0-0.7); HEMOGLOBIN 14.1 g/dL (12.0-18.0); LYMPH # 1.4 K/uL (1.0-4.3); MEAN CELL VOLUME 86.8 fl (80.0-94.0); MEAN CORPUSCULAR HEMOGLOBIN 29.5 pg (27.0-31.0); MEAN CORPUSCULAR HGB CONC 33.9 g/dL (33.0-37.0); MEAN PLATELET VOLUME 7.8 fl (7.2-11.7); MONO % 11.3 % (0.0-10.0); NEUT # 6.4 K/uL (1.8-7.0); RBC 4.79 Mil/uL (4.40-5.90)
[2017-06-20 21:29] LABS: PROTHROMBIN TIME 10.8 Seconds (9.8-13.1)
[2017-06-20 21:30] LABS: PARTIAL THROMBOPLASTIN TIME 28.3 Seconds (25.6-37.1)
[2017-06-20 21:42] LABS: BARBITURATES, UR NEGATIVE (NEGATIVE); BENZODIAZEPINES, UR NEGATIVE (NEGATIVE); OPIATES, UR NEGATIVE (NEGATIVE); PHENCYCLIDINE, UR NEGATIVE (NEGATIVE)
[2017-06-20 21:48] LABS: B-TYPE NATRIURETIC PEPTIDE 381 pg/ml (0-900)
[2017-06-20] MEDS ORDERED: Metoprolol 1 mg/ml Inj IVP ONE (21:51)
[2017-06-20 22:08] LABS: ALB/GLOB RATIO 1.3 (1.0-2.1); ALBUMIN 4.2 g/dL (3.5-5.0); ALT/SGPT 28 U/L (21-72); AST/SGOT 20 U/L (17-59); BLOOD UREA NITROGEN 17 mg/dl (9-20); CALCIUM 9.3 mg/dL (8.4-10.2); GFR AFRICAN-AMERICAN > 60; GFR NON-AFRICAN AMERICAN > 60; MAGNESIUM 1.8 MG/DL (1.6-2.3)
[2017-06-20 22:36] VITALS: O2SAT 96
[2017-06-20 23:22] VITALS: BP 143/96; PULSE 73; RESP 16
--- NOTE | 2017-06-21 08:09 | CARD ---
APPROVED REPORT EKG Measurement Heart [id number] <Conclusion> Normal sinus rhythm Normal ECG
--- NOTE | 2017-06-21 08:12 | CARD ---
APPROVED REPORT EKG Measurement Heart [id number] 140P [id number] <Conclusion> Sinus tachycardia Low voltage QRS Borderline ECG
--- NOTE | 2017-06-21 08:33 | RAD ---
HISTORY: tachycardia COMPARISON: Portable chest 06/05/2017. FINDINGS: Bipolar permanent cardiac pacemaker again appreciated. LUNGS: No acute infiltrate identified bilaterally. Limited delete diminished inspiratory volume noted which trace linear atelectasis identified at the right base laterally. PLEURA: No significant pleural effusion identified, no pneumothorax apparent. CARDIOVASCULAR: Normal. OSSEOUS STRUCTURES: No significant abnormalities. VISUALIZED UPPER ABDOMEN: Normal. OTHER FINDINGS: None. IMPRESSION: Diminished history volume somewhat. No acute infiltrate or pleural effusion identified bilaterally.
== END 2017-06-20 23:45 | disposition home or self-care (01) ==
LOC: H.ER 20:14
DX: R00.0 Tachycardia, unspecified (principal); E78.00 Pure hypercholesterolemia, unspecified; I12.9 Hypertensive chronic kidney disease with stage 1 through stage 4 chronic kidney disease, or unspecified chronic kidney disease; Z86.718 Personal history of other venous thrombosis and embolism; Z86.73 Personal history of transient ischemic attack (TIA), and cerebral infarction without residual deficits; Z88.0 Allergy status to penicillin; Z95.0 Presence of cardiac pacemaker; Z95.5 Presence of coronary angioplasty implant and graft
CPT/HCPCS: 71045; 80053; 82948; 83735; 83880; 84100; 84443; 84484; 85025; 85610; 85730; 93005; 96374; 99283; G0480

== ENCOUNTER 2017-06-29 12:25 | Emergency (ER) | payer MEDICARE, MEDICAID ==
[2017-06-29 12:32] VITALS: TEMP 98.2
[2017-06-29] MEDS ORDERED: Sodium Chloride 0.9% 500 ML IV STA (12:49)
--- NOTE | 2017-06-29 12:51 | ED PDOC ---
HPI: General Adult Time Seen by Provider: 06/29/17 12:35 Chief Complaint (Nursing): Weakness/Neurological Deficit Chief Complaint (Provider): Accidental fall History Per: Patient History/Exam Limitations: no limitations Onset/Duration Of Symptoms: Days (today) Current Symptoms Are (Timing): Still Present Additional Complaint(s): Pt. fell accidentally today while walking to fast. States hurt his face. No dizziness, weakness, palpitations, chest pain, or other symptoms prior to fall. He got back up with help and went to [employer]. States he did not take his meds today so his heart rate could be high from that. Pt. with no neck pain , arm pain, hand or finger pain, leg pain, abd pain, nausea, vomit, diarrhea. No loose teeth. No numbness, tingles, incontinence, constipation. Past Medical History Reviewed: Nursing Documentation, Vital Signs Vital Signs: Last Vital Signs Temp 98.2 F 06/29/17 12:30 Pulse 77 06/29/17 14:54 Resp 17 06/29/17 14:54 BP 145/105 H 06/29/17 14:54 Pulse Ox 96 06/29/17 14:54 - Medical History PMH: Atrial Fibrillation, CAD, Cardia Arrhythmia, Diabetes, Deep Vein Thrombosis (treated in [facility]), HTN, Hypercholesterolemia, Kidney Stones, Chronic Kidney Disease (kidney stones/ lithotripsy), TIA Denies: CVA, HIV - Surgical History Surgical History: Coronary Stent, Pacemaker - Family History Family History: States: Unknown Family Hx, Hypertension - Living Arrangements Living Arrangements: Other (homeless) - Social History Current smoker - smoking cessation education provided: No Alcohol: None Drugs: Denies - Home Medications Home Medications: Ambulatory Orders Medication Instructions Recorded Acetaminophen [Tylenol 325mg tab] 650 mg PO Q4 PRN 06/29/17 Atorvastatin [Lipitor] 40 mg PO HS 06/29/17 Cyanocobalamin [Vitamin B12 1000 1,000 mcg PO DAILY 06/29/17 mcg Tab] Lactulose [Generlac] 30 ml PO HS PRN 06/29/17 Lisinopril [Zestril] 20 mg PO DAILY 06/29/17 Magnesium Hydroxide [Milk Of 30 ml PO HS PRN 06/29/17 Magnesia] Metformin HCl [Glucophage] 500 mg PO DAILY 06/29/17 Metoprolol Tartrate [Lopressor] 25 mg PO Q12 06/29/17 Ondansetron [Zofran Tab] 4 mg PO Q6 PRN 06/29/17 - Allergies Allergies/Adverse Reactions: Allergies Allergy/AdvReac Type Severity Reaction Status Date / Time aspirin Allergy URTICARIA Verified 06/05/17 22:04 Penicillins Allergy URTICARIA Verified 06/05/17 22:04 Review of Systems ROS Statement: Except As Marked, All Systems Reviewed And Found Negative Neurological: Positive for: Headache Physical Exam - Reviewed Nursing Documentation Reviewed: Yes Vital Signs Reviewed: Yes - Physical Exam Appears: Positive for: Non-toxic, No Acute Distress Head Exam: Negative for: ATRAUMATIC (nasal abrasion, forehead abrasion and swelling; few scattered facial abrasions; all mild tender) Skin: Positive for: Normal Color, Warm, DRY Eye Exam: Positive for: Normal appearance, EOMI, PERRL. Negative for: Periorbital swelling ENT: Positive for: Other (no loose teeth or septal hematoma) Neck: Positive for: Normal, Painless ROM Cardiovascular/Chest: Positive for: Regular Rate, Rhythm. Negative for: Edema Respiratory: Positive for: CNT, Normal Breath Sounds Gastrointestinal/Abdominal: Positive for: Normal Exam, Bowel Sounds, Soft. Negative for: Tenderness Back: Positive for: Normal Inspection. Negative for: L CVA Tenderness, R CVA Tenderness Rectal: Positive for: Rectal Tone Is: Extremity: Positive for: Normal ROM, Other (abrasion tip left index finger; nontender). Negative for: Tenderness, Pedal Edema Neurologic/Psych: Positive for: Alert, associate spa director II-XII, Oriented. Negative for: Motor/Sensory Deficits - Laboratory Results Result Diagrams: 06/29/17 13:12 06/29/17 13:12 Interpretation Of Abn Labs: no acute - ECG ECG: Positive for: Interpreted By Me, Viewed By Me ECG Rhythm: Positive for: Sinus Tachycardia Interpretation Of Abn EKG: similar to old O2 Sat by Pulse Oximetry: 96 Pulse Ox Interpretation: Normal - Radiology X-Ray: Read By Radiologist X-Ray Interpretation: No Acute Disease - CT Scan/US ct Other Rad Studies (CT/US): Read By Radiologist Other Rad Interpretation: no acute - Progress ED Course And Treament: 1311: Pt. on no blood thinners. Pt. states he has not taken meds since being seen in ED 1-2 weeks ago. Was seen with HR being high at that time. Was given metoprol oral and IV and helped him. Pt. denies chest pain. Cardizem given 5mg IV and brought HR to 135. 1456: HR 70 without further meds. Will give oral metoprolol and hold IV. Stable. AAOx3. Pain free. Ambulated with no issues. Fu with pcp. Disposition - Clinical Impression Clinical Impression: Head injury, Tachycardia - Patient ED Disposition Is Patient to be Admitted: No Counseled Patient/Family Regarding: Studies Performed, Diagnosis, Need For Followup - Disposition Referrals: [facility] [Outside] - 06/30/17 Disposition: Routine/Home Disposition Time: 15:05 Condition: STABLE Additional Instructions: Return if not better in 3 days. Instructions: Closed Head Injury (DC), Sinus Tachycardia (DC)
[2017-06-29] MEDS ORDERED: Tdap Vaccine 0.5 ml Vial (10-64 yrs) IM ONE ×2 (12:54→14:20)
[2017-06-29 13:17] LABS: BASO # 0.1 K/uL (0.0-0.2); BASO % 1.2 % (0.0-2.0); EOS # 0.1 K/uL (0.0-0.7); EOS % 1.2 % (0.0-4.0); HEMOGLOBIN 14.5 g/dL (12.0-18.0); LYMPH # 1.7 K/uL (1.0-4.3); LYMPH % 20.4 % (20.0-40.0); MEAN CELL VOLUME 86.1 fl (80.0-94.0); MEAN CORPUSCULAR HEMOGLOBIN 29.2 pg (27.0-31.0); MEAN CORPUSCULAR HGB CONC 33.9 g/dL (33.0-37.0); MEAN PLATELET VOLUME 7.6 fl (7.2-11.7); MONO # 0.9 K/uL (0.0-0.8); MONO % 10.7 % (0.0-10.0); NEUT # 5.4 K/uL (1.8-7.0); NEUT % 66.5 % (50.0-75.0); NRBC % 0.1 % (0.0-0.0); RBC 4.97 Mil/uL (4.40-5.90); RED CELL DISTRIBUTION WIDTH 14.1 % (11.5-14.5); WHITE BLOOD COUNT 8.2 K/uL (4.8-10.8)
[2017-06-29 13:40] LABS: PROTHROMBIN TIME 11.1 Seconds (9.8-13.1)
[2017-06-29 13:43] LABS: ALB/GLOB RATIO 1.2 (1.0-2.1); ALT/SGPT 29 U/L (21-72); AST/SGOT 18 U/L (17-59); BLOOD UREA NITROGEN 11 mg/dl (9-20); GFR AFRICAN-AMERICAN > 60; GFR NON-AFRICAN AMERICAN > 60
--- NOTE | 2017-06-29 13:49 | CT ---
PROCEDURE: CT HEAD WITHOUT CONTRAST. HISTORY: headache COMPARISON: CT head dated 05/28/2017. TECHNIQUE: Axial computed tomography images were obtained through the head/brain without intravenous contrast. Radiation dose: Total exam DLP = 872.6 mGy-cm. This CT exam was performed using one or more of the following dose reduction techniques: Automated exposure control, adjustment of the mA and/or kV according to patient size, and/or use of iterative reconstruction technique. FINDINGS: HEMORRHAGE: No intracranial hemorrhage. BRAIN: No mass effect or edema. Cerebral atrophy. Chronic ventricular white matter microvascular ischemic changes. Bilateral basal ganglia lacunar infarctions. VENTRICLES: Prominent. No hydrocephalus. CALVARIUM: Unremarkable. PARANASAL SINUSES: Bilateral ethmoidectomies and antrectomies. Left sphenoid sinus mucosal thickening. MASTOID AIR CELLS: Unremarkable as visualized. No inflammatory changes. OTHER FINDINGS: None. IMPRESSION: No acute intracranial pathology. Stable findings as above.
--- NOTE | 2017-06-29 13:52 | CT ---
PROCEDURE: CT MAXILLOFACIAL BONES WITHOUT CONTRAST HISTORY: facial pain COMPARISON: None TECHNIQUE: Contiguous axial CT images of the maxillofacial bones were obtained. Coronal and sagittal reformats were generated. Radiation dose: Total exam DLP = 860.0 mGy-cm. This CT exam was performed using one or more of the following dose reduction techniques: Automated exposure control, adjustment of the mA and/or kV according to patient size, and/or use of iterative reconstruction technique. FINDINGS: NASAL BONES: Stable appearance of old bilateral nasal bone fractures. ORBITS: Left supraorbital soft tissue swelling. PARANASAL SINUSES/ MASTOIDS: Prior ethmoidectomies and antrectomies. Left sphenoid sinus mucosal thickening. MAXILLA: Unremarkable. MANDIBLE/ TEMPOROMANDIBULAR JOINTS: Unremarkable. SKULL BASE: Unremarkable. TEMPORAL BONES: Middle ears and mastoid grossly unremarkable. OTHER FINDINGS: None. IMPRESSION: No acute fracture. Stable findings as above.
--- NOTE | 2017-06-29 13:54 | CT ---
PROCEDURE: CT Cervical Spine without contrast HISTORY: Neck pain. COMPARISON: None available. TECHNIQUE: Axial computed tomography images were obtained of the cervical spine without the use of intravenous contrast. Coronal and sagittal reformatted images were created and reviewed. Radiation dose: Total exam DLP = 624.7 mGy-cm. This CT exam was performed using one or more of the following dose reduction techniques: Automated exposure control, adjustment of the mA and/or kV according to patient size, and/or use of iterative reconstruction technique. FINDINGS: VERTEBRAE: No fracture. Normal alignment. No destructive bony lesion. DISCS/SPINAL CANAL/NEURAL FORAMINA: Multilevel disc space narrowing with disc osteophyte complexes uncal vertebral hypertrophy. PARASPINAL SOFT TISSUES: Unremarkable. OTHER FINDINGS: Left sphenoid sinus mucosal thickening. IMPRESSION: No acute fracture. Multilevel degenerative changes.
--- NOTE | 2017-06-29 13:56 | RAD ---
HISTORY: dyspnea COMPARISON: Chest radiograph dated 06/20/2017. FINDINGS: LUNGS: No active pulmonary disease. PLEURA: No significant pleural effusion identified, no pneumothorax apparent. CARDIOVASCULAR: Left subclavian access to lead pacemaker redemonstrated. Atherosclerotic aortic calcifications. Cardiomediastinal silhouette within normal limits. OSSEOUS STRUCTURES: Unchanged. VISUALIZED UPPER ABDOMEN: Normal. OTHER FINDINGS: None. IMPRESSION: No active disease.
[2017-06-29] MEDS ORDERED: Metoprolol 1 mg/ml Inj IVP STA (14:39)
[2017-06-29] MEDS ORDERED: Metoprolol 1 mg/ml Inj IVP ONE (14:52)
--- NOTE | 2017-06-29 15:13 | CARD ---
APPROVED REPORT EKG Measurement Heart [id number] AL 162P [id number] <Conclusion> Sinus tachycardia with occasional premature ventricular complexes Left axis deviation Possible Anterior infarct, age undetermined Abnormal ECG
[2017-06-29 16:08] VITALS: BP 147/95; PULSE 77; RESP 16; O2SAT 97
== END 2017-06-29 16:00 | disposition home or self-care (01) ==
LOC: H.ER 12:25
DX: S09.90XA Unspecified injury of head, initial encounter (principal); W19.XXXA Unspecified fall, initial encounter; Y92.89 Other specified places as the place of occurrence of the external cause; R00.0 Tachycardia, unspecified; E78.00 Pure hypercholesterolemia, unspecified; I12.9 Hypertensive chronic kidney disease with stage 1 through stage 4 chronic kidney disease, or unspecified chronic kidney disease; Z86.718 Personal history of other venous thrombosis and embolism; Z86.73 Personal history of transient ischemic attack (TIA), and cerebral infarction without residual deficits; Z88.0 Allergy status to penicillin; Z95.0 Presence of cardiac pacemaker; Z95.5 Presence of coronary angioplasty implant and graft
CPT/HCPCS: 70450; 70486; 71045; 72125; 80053; 82140; 82948; 84484; 85025; 85610; 85730; 90471; 90715; 93005; 96374; 99285; J7040

== ENCOUNTER 2017-07-12 16:13 | Emergency (ER) | payer MEDICARE, MEDICAID ==
[2017-07-12 16:53] VITALS: BP 168/86; PULSE 76; RESP 16; TEMP 97.4; O2SAT 99
== END 2017-07-12 18:20 | disposition left against medical advice (07) ==
LOC: H.ER 16:13
DX: Z02.89 Encounter for other administrative examinations (principal)

== ENCOUNTER 2017-08-27 01:18 | Emergency (ER) | payer MEDICARE, MEDICAID ==
--- NOTE | 2017-08-27 02:09 | ED PDOC ---
HPI: General Adult Time Seen by Provider: 08/27/17 01:42 Chief Complaint (Nursing): Medical Clearance Chief Complaint (Provider): Medical Clearance History Per: Patient History/Exam Limitations: no limitations Current Symptoms Are (Timing): Still Present Additional Complaint(s): 67 year old male brought in by EMS presents to ED with complaints of feeling cold and is well known to this ED and provider for multiple visits and bed- seeking behavior. Patient has a past medical history of CAD, diabetes mellitus, AFIB, and DVT. Patient denies any medical complaints. PCP: None Past Medical History Reviewed: Historical Data, Nursing Documentation, Vital Signs Vital Signs: Last Vital Signs Temp 97.8 F 08/27/17 05:05 Pulse 84 08/27/17 05:05 Resp 16 08/27/17 05:05 BP 138/93 H 08/27/17 05:05 Pulse Ox 97 08/27/17 05:05 - Medical History PMH: Atrial Fibrillation, CAD, Cardia Arrhythmia, Diabetes, Deep Vein Thrombosis (treated in [facility]), HTN, Hypercholesterolemia, Kidney Stones, Chronic Kidney Disease (kidney stones/ lithotripsy), TIA Denies: CVA, HIV - Surgical History Surgical History: Coronary Stent, Pacemaker - Family History Family History: States: Unknown Family Hx, Hypertension - Living Arrangements Living Arrangements: Other (Undomiciled) - Immunization History Hx Tetanus Toxoid Vaccination: No Hx Influenza Vaccination: No Hx Pneumococcal Vaccination: No - Home Medications Home Medications: Ambulatory Orders Medication Instructions Recorded Acetaminophen [Tylenol 325mg tab] 650 mg PO Q4 PRN 06/29/17 Atorvastatin [Lipitor] 40 mg PO HS 06/29/17 Cyanocobalamin [Vitamin B12 1000 1,000 mcg PO DAILY 06/29/17 mcg Tab] Lactulose [Generlac] 30 ml PO HS PRN 06/29/17 Lisinopril [Zestril] 20 mg PO DAILY 06/29/17 Magnesium Hydroxide [Milk Of 30 ml PO HS PRN 06/29/17 Magnesia] Metformin HCl [Glucophage] 500 mg PO DAILY 06/29/17 Metoprolol Tartrate [Lopressor] 25 mg PO Q12 06/29/17 Ondansetron [Zofran Tab] 4 mg PO Q6 PRN 06/29/17 - Allergies Allergies/Adverse Reactions: Allergies Allergy/AdvReac Type Severity Reaction Status Date / Time aspirin Allergy URTICARIA Verified 08/27/17 01:45 Penicillins Allergy URTICARIA Verified 08/27/17 01:45 Review of Systems ROS Statement: Except As Marked, All Systems Reviewed And Found Negative ( Denies all medical complaints - notes feeling cold) Physical Exam - Reviewed Nursing Documentation Reviewed: Yes Vital Signs Reviewed: Yes - Physical Exam Appears: Positive for: Non-toxic, No Acute Distress Skin: Positive for: Normal Color, Warm, Dry Eye Exam: Positive for: Normal appearance, EOMI Neck: Positive for: Normal Respiratory: Negative for: Respiratory Distress Gastrointestinal/Abdominal: Positive for: Soft. Negative for: Tenderness Extremity: Positive for: Normal ROM. Negative for: Deformity Neurologic/Psych: Positive for: Alert, Oriented. Negative for: Motor/Sensory Deficits - ECG O2 Sat by Pulse Oximetry: 99 (RA) Pulse Ox Interpretation: Normal Medical Decision Making Medical Decision Makin Initial impression: malingering disorder Scribe Attestation: Documented by Araceli Alcala acting as a scribe for Percy Harden MD. Scribe Attestation: All medical record entries made by the Scribe were at my direction and personally dictated by me. I have reviewed the chart and agree that the record accurately reflects my personal performance of the history, physical exam, medical decision making, and the department course for this patient. I have also personally directed, reviewed, and agree with the discharge instructions and disposition. Disposition - Clinical Impression Clinical Impression: Malingerer - Disposition Disposition Time: 07:00 Condition: STABLE Instructions: General (DC) Forms: [employer] (Maltese)
[2017-08-27 05:17] VITALS: BP 138/93; PULSE 84; RESP 16; TEMP 97.8
[2017-08-27 20:28] VITALS: O2SAT 99
== END 2017-08-27 05:10 | disposition home or self-care (01) ==
LOC: H.ER 01:18
DX: Z76.5 Malingerer [conscious simulation] (principal); E11.22 Type 2 diabetes mellitus with diabetic chronic kidney disease; I12.9 Hypertensive chronic kidney disease with stage 1 through stage 4 chronic kidney disease, or unspecified chronic kidney disease; N18.9 Chronic kidney disease, unspecified; Z86.718 Personal history of other venous thrombosis and embolism; Z87.442 Personal history of urinary calculi; Z95.0 Presence of cardiac pacemaker; Z95.5 Presence of coronary angioplasty implant and graft; Z88.0 Allergy status to penicillin; Z86.73 Personal history of transient ischemic attack (TIA), and cerebral infarction without residual deficits

== ENCOUNTER 2017-08-29 21:23 | Emergency (ER) | payer MEDICARE, MEDICAID ==
[2017-08-29 21:36] VITALS: RESP 18
--- NOTE | 2017-08-29 21:54 | ED PDOC ---
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 Pt. states he is currently homeless. Reports that he has not taken his blood pressure meds >1 month as he thought it was no longer required. Of note, pt. states he does still have his Metoprolol 25mg and Lisinopril 20mg pills. Currently without any complaints. Denies chest pain, SOB, palpitations, fever, headache, visual changes. Past Medical History Reviewed: Historical Data, Nursing Documentation, Vital Signs Vital Signs: Last Vital Signs Temp 97.6 F 08/29/17 21:35 Pulse 75 08/29/17 23:56 Resp 18 08/29/17 21:35 BP 181/104 H 08/29/17 22:09 Pulse Ox 97 08/29/17 23:56 - Medical History PMH: Atrial Fibrillation, CAD, Cardia Arrhythmia, Diabetes, Deep Vein Thrombosis (treated in [facility]), HTN, Hypercholesterolemia, Kidney Stones, Chronic Kidney Disease (kidney stones/ lithotripsy), TIA Denies: CVA, HIV - Surgical History Surgical History: Coronary Stent, Pacemaker - Family History Family History: States: Hypertension - Immunization History Hx Tetanus Toxoid Vaccination: No Hx Influenza Vaccination: No Hx Pneumococcal Vaccination: No - Home Medications Home Medications: Ambulatory Orders Medication Instructions Recorded Acetaminophen [Tylenol 325mg tab] 650 mg PO Q4 PRN 06/29/17 Atorvastatin [Lipitor] 40 mg PO HS 06/29/17 Cyanocobalamin [Vitamin B12 1000 1,000 mcg PO DAILY 06/29/17 mcg Tab] Lactulose [Generlac] 30 ml PO HS PRN 06/29/17 Lisinopril [Zestril] 20 mg PO DAILY 06/29/17 Magnesium Hydroxide [Milk Of 30 ml PO HS PRN 06/29/17 Magnesia] Metformin HCl [Glucophage] 500 mg PO DAILY 06/29/17 Metoprolol Tartrate [Lopressor] 25 mg PO Q12 06/29/17 Ondansetron [Zofran Tab] 4 mg PO Q6 PRN 06/29/17 - Allergies Allergies/Adverse Reactions: Allergies Allergy/AdvReac Type Severity Reaction Status Date / Time aspirin Allergy URTICARIA Verified 08/27/17 01:45 Penicillins Allergy URTICARIA Verified 08/27/17 01:45 Review of Systems ROS Statement: Except As Marked, All Systems Reviewed And Found Negative Physical Exam - Physical Exam Appears: Positive for: Well, Non-toxic, No Acute Distress Head Exam: Positive for: ATRAUMATIC, NORMAL INSPECTION, NORMOCEPHALIC Skin: Positive for: Normal Color, Warm. Negative for: Rash Eye Exam: Positive for: Normal appearance ENT: Positive for: Normal ENT Inspection Neck: Positive for: Normal, Painless ROM Cardiovascular/Chest: Positive for: Regular Rate, Rhythm Respiratory: Positive for: Normal Breath Sounds Gastrointestinal/Abdominal: Positive for: Normal Exam, Soft. Negative for: Tenderness Extremity: Positive for: Normal ROM Neurologic/Psych: Positive for: Alert, Oriented. Negative for: Aphasia, Facial Droop - ECG ECG: Positive for: Interpreted By Me ECG Rhythm: Positive for: Sinus Rhythm. Negative for: ST/T Changes Rate: 75 O2 Sat by Pulse Oximetry: 97 - Progress ED Course And Treament: Labs, metoprolol 25mg PO, EKG ordered. Disposition - Clinical Impression Clinical Impression: Hypertension - Patient ED Disposition Is Patient to be Admitted: Transfer of Care (Signed out to Buzz BENTON pending labs, re-evaluation, and final disposition) - Disposition Disposition Time: 00:00 Condition: STABLE Instructions: General (DC) Forms: [employer] (Thai)
[2017-08-29 22:27] LABS: URINE BILIRUBIN NEGATIVE (NEGATIVE); URINE BLOOD NEGATIVE (NEGATIVE); URINE CLARITY CLEAR (Clear); URINE COLOR STRAW (YELLOW); URINE GLUCOSE (UA) 150 mg/dL (Normal); URINE LEUKOCYTE ESTERASE NEG Leu/uL (Negative); URINE PROTEIN 30 mg/dL (NEGATIVE); URINE UROBILINOGEN 0.2-1.0 mg/dL (0.2-1.0)
--- NOTE | 2017-08-30 00:03 | ED PDOC ---
- Laboratory Results Result Diagrams: 08/30/17 01:01 08/30/17 01:01 - ECG O2 Sat by Pulse Oximetry: 97 (RA) Pulse Ox Interpretation: Normal Medical Decision Making Medical Decision Making: Case endorsed to creative services writer, Buzz BENTON, at 0000 due to shift change. Pertinent details reviewed. Patient pending lab results, re-evaluation/repeat vitals, and further disposition. EKG reviewed: ECG Rhythm: Positive for: Sinus Rhythm. Negative for: ST/T Changes Rate: 75 0045 Repeat BP: 154/89 Repeat HR: 60 0140 Labs reviewed and grossly unremarkable. On re-evaluation, patient reports improvement of symptoms, denies any chest pain , SOB, palpitations, cough, abdominal pain. On exam, patient remains AAOx3, in no acute distress. Lungs clear to auscultation, cardiac RRR, abdomen soft, non- tender, repeat neuro exam shows no focal findings. Compliance with medications stressed to patient. Lab/Diagnostic results d/w the patient in great detail. Diagnosis of hypertension d/w the patient. Based on history, exam and diagnostic results, plan will be for outpatient follow up. Patient instructed to follow-up with pmd / referral provided / the clinic in 1- 2 days without fail. Advised to take medication as prescribed from PMD. Return to the emergency room at any time for any new or worsening symptoms. Patient states he fully agrees with and understands discharge instructions. States that he agrees with the plan and disposition. Verbalized and repeated discharge instructions and plan. I have given the patient opportunity to ask any additional questions. Disposition Counseled Patient/Family Regarding: Studies Performed, Diagnosis, Need For Followup - Clinical Impression Clinical Impression: Hypertension - POA Present On Arrival: Poor Glycemic Control - Disposition Referrals: [facility] [Outside] Disposition: Routine/Home Disposition Time: 01:41 Condition: FAIR Additional Instructions: FOLLOW UP WITH PMD OR CLINIC IN 1-2 DAYS FOR FURTHER EVALUATION. RETURN TO ED WITH ANY NEW OR WORSENING SYMPTOMS. TAKE YOUR MEDICINE PRESCRIBED BY PMD. Instructions: High Blood Pressure in Adults, DASH Diet, Controlling Your Blood Pressure Through Lifestyle, General (DC) Forms: [employer] (Korean) Print Language: LITHUANIAN Results - Lab Results Lab Results: 08/30/17 08/30/17 08/29/17 01:01 01:01 22:19 WBC 7.4 RBC 4.63 Hgb 13.5 Hct 40.0 MCV 86.3 MCH 29.1 MCHC 33.8 RDW 13.7 Plt Count 244 MPV 8.9 Neut % (Auto) 60.6 Lymph % (Auto) 26.9 [place] % (Auto) 8.8 Eos % (Auto) 2.5 Baso % (Auto) 1.2 Neut # (Auto) 4.5 Lymph # (Auto) 2.0 [place] # (Auto) 0.7 Eos # (Auto) 0.2 Baso # (Auto) 0.1 Sodium 138 Potassium 3.6 Chloride 102 Carbon Dioxide 22 Anion Gap 18 BUN 18 Creatinine 0.8 Est GFR ( Amer) > 60 Est GFR (Non-Af Amer) > 60 Random Glucose 138 H Calcium 8.8 Total Bilirubin 0.7 AST 19 ALT 32 Alkaline Phosphatase 90 Troponin I < 0.0120 Total Protein 7.1 Albumin 3.7 Globulin 3.4 Albumin/Globulin Ratio 1.1 Urine Color Straw Urine Clarity Clear Urine pH 6.0 Ur Specific [place] 1.014 Urine Protein 30 Urine Glucose (UA) 150 Urine Ketones Negative Urine Blood Negative Urine Nitrate Negative Urine Bilirubin Negative Urine Urobilinogen 0.2-1.0 Ur Leukocyte Esterase Neg Urine RBC (Auto) 2 Urine Microscopic WBC < 1
[2017-08-30 01:04] LABS: BASO # 0.1 K/uL (0.0-0.2); BASO % 1.2 % (0.0-2.0); EOS # 0.2 K/uL (0.0-0.7); EOS % 2.5 % (0.0-4.0); HEMOGLOBIN 13.5 g/dL (12.0-18.0); LYMPH % 26.9 % (20.0-40.0); MEAN CELL VOLUME 86.3 fl (80.0-94.0); MEAN CORPUSCULAR HEMOGLOBIN 29.1 pg (27.0-31.0); MEAN CORPUSCULAR HGB CONC 33.8 g/dL (33.0-37.0); MEAN PLATELET VOLUME 8.9 fl (7.2-11.7); MONO # 0.7 K/uL (0.0-0.8); MONO % 8.8 % (0.0-10.0); NEUT # 4.5 K/uL (1.8-7.0); NEUT % 60.6 % (50.0-75.0); NRBC % 0.1 % (0.0-0.0); RBC 4.63 Mil/uL (4.40-5.90); RED CELL DISTRIBUTION WIDTH 13.7 % (11.5-14.5); WHITE BLOOD COUNT 7.4 K/uL (4.8-10.8)
[2017-08-30 01:15] LABS: ALB/GLOB RATIO 1.1 (1.0-2.1); ALBUMIN 3.7 g/dL (3.5-5.0); ALT/SGPT 32 U/L (21-72); AST/SGOT 19 U/L (17-59); BLOOD UREA NITROGEN 18 mg/dl (9-20); CALCIUM 8.8 mg/dL (8.4-10.2); GFR AFRICAN-AMERICAN > 60; GFR NON-AFRICAN AMERICAN > 60
[2017-08-30 02:16] VITALS: BP 148/82; TEMP 98
[2017-08-30 04:51] VITALS: O2SAT 97
--- NOTE | 2017-08-30 10:10 | CARD ---
APPROVED REPORT EKG Measurement Heart [id number] <Conclusion> Normal sinus rhythm Septal infarct, age undetermined Abnormal ECG
[2017-08-30 12:17] VITALS: PULSE 75
== END 2017-08-30 02:23 | disposition home or self-care (01) ==
LOC: H.ER 21:23
DX: I10 Essential (primary) hypertension (principal); E78.00 Pure hypercholesterolemia, unspecified; I25.10 Atherosclerotic heart disease of native coronary artery without angina pectoris; I12.9 Hypertensive chronic kidney disease with stage 1 through stage 4 chronic kidney disease, or unspecified chronic kidney disease; Z86.73 Personal history of transient ischemic attack (TIA), and cerebral infarction without residual deficits; Z88.0 Allergy status to penicillin; Z95.0 Presence of cardiac pacemaker; Z95.5 Presence of coronary angioplasty implant and graft; Z59.0 Homelessness; Z86.718 Personal history of other venous thrombosis and embolism

== ENCOUNTER 2017-09-01 23:31 | Emergency (ER) | payer MEDICARE, MEDICAID ==
[2017-09-02 00:13] LABS: BASO # 0.1 K/uL (0.0-0.2); EOS # 0.2 K/uL (0.0-0.7); EOS % 1.9 % (0.0-4.0); HEMOGLOBIN 13.9 g/dL (12.0-18.0); LYMPH # 1.8 K/uL (1.0-4.3); LYMPH % 22.5 % (20.0-40.0); MEAN CELL VOLUME 85.7 fl (80.0-94.0); MEAN CORPUSCULAR HEMOGLOBIN 29.2 pg (27.0-31.0); MEAN CORPUSCULAR HGB CONC 34.1 g/dL (33.0-37.0); MEAN PLATELET VOLUME 7.7 fl (7.2-11.7); MONO # 0.7 K/uL (0.0-0.8); MONO % 9.1 % (0.0-10.0); NEUT # 5.3 K/uL (1.8-7.0); NEUT % 65.5 % (50.0-75.0); NRBC % 0.1 % (0.0-0.0); RBC 4.77 Mil/uL (4.40-5.90); RED CELL DISTRIBUTION WIDTH 13.8 % (11.5-14.5); WHITE BLOOD COUNT 8.1 K/uL (4.8-10.8)
[2017-09-02 00:19] LABS: PARTIAL THROMBOPLASTIN TIME 31.3 Seconds (25.6-37.1); PROTHROMBIN TIME 11.1 Seconds (9.8-13.1)
[2017-09-02 00:28] LABS: ALB/GLOB RATIO 1.2 (1.0-2.1); ALT/SGPT 30 U/L (21-72); AST/SGOT 18 U/L (17-59); BLOOD UREA NITROGEN 23 mg/dl (9-20); GFR AFRICAN-AMERICAN > 60; GFR NON-AFRICAN AMERICAN > 60
--- NOTE | 2017-09-02 01:08 | ED PDOC ---
HPI: General Adult Time Seen by Provider: 09/01/17 23:38 Chief Complaint (Nursing): Palpitations Chief Complaint (Provider): Palpitations History Per: Patient History/Exam Limitations: no limitations Have you had recent travel within the past 21 days to any of the following countries: [place], [place], [place] or [place]?: No Recently: Seen In ED Additional History Per: Patient Additional Complaint(s): 67 year old male brought in by EMS presents to ED with complaints of palpitation. Marcos is well known to this ED and provider for multiple visits and bed-seeking behavior. Patient has a past medical history of CAD, diabetes mellitus, AFIB, and DVT. Patient denies any other medical complaints. PCP: None Past Medical History Reviewed: Historical Data, Nursing Documentation, Vital Signs Vital Signs: Last Vital Signs Temp 98.1 F 09/01/17 23:35 Pulse 157 H 09/01/17 23:35 Resp 20 09/01/17 23:35 BP 157/108 H 09/01/17 23:35 Pulse Ox 96 09/02/17 01:10 - Medical History PMH: Atrial Fibrillation, CAD, Cardia Arrhythmia, Diabetes, Deep Vein Thrombosis (treated in [facility]), HTN, Hypercholesterolemia, Kidney Stones, Chronic Kidney Disease (kidney stones/ lithotripsy), TIA Denies: CVA, HIV - Surgical History Surgical History: Coronary Stent, Pacemaker - Family History Family History: States: Hypertension - Immunization History Hx Tetanus Toxoid Vaccination: No Hx Influenza Vaccination: No Hx Pneumococcal Vaccination: No - Home Medications Home Medications: Ambulatory Orders Medication Instructions Recorded Acetaminophen [Tylenol 325mg tab] 650 mg PO Q4 PRN 06/29/17 Atorvastatin [Lipitor] 40 mg PO HS 06/29/17 Cyanocobalamin [Vitamin B12 1000 1,000 mcg PO DAILY 06/29/17 mcg Tab] Lactulose [Generlac] 30 ml PO HS PRN 06/29/17 Lisinopril [Zestril] 20 mg PO DAILY 06/29/17 Magnesium Hydroxide [Milk Of 30 ml PO HS PRN 06/29/17 Magnesia] Metformin HCl [Glucophage] 500 mg PO DAILY 06/29/17 Metoprolol Tartrate [Lopressor] 25 mg PO Q12 06/29/17 Ondansetron [Zofran Tab] 4 mg PO Q6 PRN 06/29/17 - Allergies Allergies/Adverse Reactions: Allergies Allergy/AdvReac Type Severity Reaction Status Date / Time aspirin Allergy URTICARIA Verified 09/01/17 23:35 Penicillins Allergy URTICARIA Verified 09/01/17 23:35 Review of Systems ROS Statement: Except As Marked, All Systems Reviewed And Found Negative (as per HPI) Constitutional: Negative for: Fever, Chills Cardiovascular: Positive for: Palpitations. Negative for: Chest Pain Respiratory: Negative for: Shortness of Breath Physical Exam - Reviewed Nursing Documentation Reviewed: Yes Vital Signs Reviewed: Yes - Physical Exam Appears: Positive for: Non-toxic, No Acute Distress Head Exam: Positive for: ATRAUMATIC, NORMAL INSPECTION, NORMOCEPHALIC Skin: Positive for: Normal Color Neck: Positive for: Supple Cardiovascular/Chest: Positive for: Regular Rate, Rhythm Respiratory: Positive for: Normal Breath Sounds Gastrointestinal/Abdominal: Positive for: Soft. Negative for: Tenderness Extremity: Positive for: Normal ROM. Negative for: Deformity Neurologic/Psych: Positive for: Alert, Oriented - Laboratory Results Result Diagrams: 09/02/17 00:07 09/02/17 00:07 - ECG ECG: Positive for: Interpreted By Me, Viewed By Me ECG Rhythm: Positive for: Sinus Rhythm Rate: 80 (2344) O2 Sat by Pulse Oximetry: 96 (RA) Pulse Ox Interpretation: Normal Medical Decision Making Medical Decision Making: Impression: Palpitations Plan: -- Labs -- EKG -- Urinalysis Time: 228 Patient states upon arrival to ER his dizziness had resolved. He currently reports feeling much better. Patient has a history of SVT and per provider, patient's presentation could have been due to an episode of SVT with spontaneous resolution. Patient is stable for discharge home; instructed to follow up with PMD in 2-3 days. Scribe Attestation: Documented by Pauline Bhatia, acting as a scribe for Percy Harden MD. Provider Scribe Attestation: All medical record entries made by the Scribe were at my direction and personally dictated by me. I have reviewed the chart and agree that the record accurately reflects my personal performance of the history, physical exam, medical decision making, and the department course for this patient. I have also personally directed, reviewed, and agree with the discharge instructions and disposition. Disposition - Clinical Impression Clinical Impression: Dizziness - Disposition Disposition: Routine/Home Disposition Time: 02:31 Condition: STABLE Instructions: Dizziness, Nonvertigo, (DC) Forms: [employer] (Irish)
[2017-09-02 04:09] VITALS: RESP 17
[2017-09-02 06:34] VITALS: PULSE 80
[2017-09-02 06:36] VITALS: BP 136/81; TEMP 98; O2SAT 96
--- NOTE | 2017-09-02 14:04 | CARD ---
APPROVED REPORT EKG Measurement Heart [id number] <Conclusion> Sinus rhythm with occasional premature ventricular complexes Left axis deviation Abnormal ECG
== END 2017-09-02 06:29 | disposition home or self-care (01) ==
LOC: H.ER 23:31
DX: R42 Dizziness and giddiness (principal); E11.22 Type 2 diabetes mellitus with diabetic chronic kidney disease; E78.00 Pure hypercholesterolemia, unspecified; I12.9 Hypertensive chronic kidney disease with stage 1 through stage 4 chronic kidney disease, or unspecified chronic kidney disease; N18.9 Chronic kidney disease, unspecified; Z86.73 Personal history of transient ischemic attack (TIA), and cerebral infarction without residual deficits; Z95.0 Presence of cardiac pacemaker; Z95.5 Presence of coronary angioplasty implant and graft; Z88.0 Allergy status to penicillin; I25.10 Atherosclerotic heart disease of native coronary artery without angina pectoris; Z86.718 Personal history of other venous thrombosis and embolism; Z87.442 Personal history of urinary calculi

== ENCOUNTER 2017-09-09 09:36 | Emergency (ER) | payer MEDICARE, MEDICAID ==
[2017-09-09 09:47] VITALS: BMI 26.6
[2017-09-09 11:38] VITALS: RESP 14; TEMP 98
[2017-09-09 11:39] VITALS: O2SAT 97
--- NOTE | 2017-09-09 11:39 | ED PDOC ---
HPI: Dental Pain/Injury Time Seen by Provider: 09/09/17 10:19 Chief Complaint (Nursing): Dental Pain History Per: Patient Additional Complaint(s): Pt. states he developed R lower toothache x 1 day. Pt. attempted to go to a dentist today but as per pt. dentist refused to remove tooth. Has not taken any meds to help relieve symptoms. Denies fever, trauma. Of note, pt. states he did not take his metoprolol or enalapril this morning. Past Medical History Reviewed: Historical Data, Nursing Documentation, Vital Signs Vital Signs: Last Vital Signs Temp 98.2 F 09/09/17 09:47 Pulse 74 09/09/17 09:47 Resp 16 09/09/17 09:47 BP 166/108 H 09/09/17 09:47 Pulse Ox 97 09/09/17 09:47 - Medical History PMH: Atrial Fibrillation, CAD, Cardia Arrhythmia, Diabetes, Deep Vein Thrombosis (treated in [facility]), HTN, Hypercholesterolemia, Kidney Stones, Chronic Kidney Disease (kidney stones/ lithotripsy), TIA Denies: CVA, HIV - Surgical History Surgical History: Coronary Stent, Pacemaker - Family History Family History: States: Hypertension - Immunization History Hx Tetanus Toxoid Vaccination: No Hx Influenza Vaccination: No Hx Pneumococcal Vaccination: No - Home Medications Home Medications: Ambulatory Orders Medication Instructions Recorded Acetaminophen [Tylenol 325mg tab] 650 mg PO Q4 PRN 06/29/17 Atorvastatin [Lipitor] 40 mg PO HS 06/29/17 Cyanocobalamin [Vitamin B12 1000 1,000 mcg PO DAILY 06/29/17 mcg Tab] Lactulose [Generlac] 30 ml PO HS PRN 06/29/17 Lisinopril [Zestril] 20 mg PO DAILY 06/29/17 Magnesium Hydroxide [Milk Of 30 ml PO HS PRN 06/29/17 Magnesia] Metformin HCl [Glucophage] 500 mg PO DAILY 06/29/17 Metoprolol Tartrate [Lopressor] 25 mg PO Q12 06/29/17 Ondansetron [Zofran Tab] 4 mg PO Q6 PRN 06/29/17 Clindamycin [Cleocin] 300 mg PO TID #21 cap 09/09/17 - Allergies Allergies/Adverse Reactions: Allergies Allergy/AdvReac Type Severity Reaction Status Date / Time aspirin Allergy URTICARIA Verified 09/01/17 23:35 Penicillins Allergy URTICARIA Verified 09/01/17 23:35 Review of Systems ROS Statement: Except As Marked, All Systems Reviewed And Found Negative Physical Exam - Physical Exam Appears: Positive for: Well, Non-toxic, No Acute Distress Skin: Positive for: Normal Color, Warm. Negative for: Rash Eye Exam: Positive for: Normal appearance ENT: Positive for: Other (R mandibular premolar area with moderate erythema and minimal swelling; poor dentition) Neurologic/Psych: Positive for: Alert, Oriented. Negative for: Aphasia, Facial Droop - ECG O2 Sat by Pulse Oximetry: 97 - Progress ED Course And Treament: Tylenol 975mg PO, clindamycin 300mg PO ordered. Repeat BP: 141/94 Disposition - Clinical Impression Clinical Impression: Toothache - Patient ED Disposition Is Patient to be Admitted: No - Disposition Referrals: [facility] [Outside] Disposition: Routine/Home Disposition Time: 11:15 Condition: STABLE Additional Instructions: Follow up with dentist for further evaluation Return to ED immediately if symptoms worsen Prescriptions: Clindamycin [Cleocin] 300 mg PO TID #21 cap Instructions: Dental Pain (DC) Forms: [employer] (Romanian) Print Language: BELIZEAN
[2017-09-09 11:59] VITALS: BP 141/94; PULSE 70
== END 2017-09-09 12:50 | disposition home or self-care (01) ==
LOC: H.ER 09:36
DX: K08.89 Other specified disorders of teeth and supporting structures (principal); E78.00 Pure hypercholesterolemia, unspecified; I12.9 Hypertensive chronic kidney disease with stage 1 through stage 4 chronic kidney disease, or unspecified chronic kidney disease; Z86.73 Personal history of transient ischemic attack (TIA), and cerebral infarction without residual deficits; Z95.5 Presence of coronary angioplasty implant and graft; Z87.442 Personal history of urinary calculi; Z86.718 Personal history of other venous thrombosis and embolism; Z88.0 Allergy status to penicillin; Z95.0 Presence of cardiac pacemaker

== ENCOUNTER 2017-09-12 07:33 | Emergency (ER) | payer MEDICARE, MEDICAID ==
[2017-09-12 07:33] VITALS: BMI 26.6
[2017-09-12 07:43] VITALS: PULSE 78; TEMP 97; O2SAT 97
--- NOTE | 2017-09-12 08:09 | ED PDOC ---
HPI: Dental Pain/Injury Time Seen by Provider: 09/12/17 07:34 Chief Complaint (Nursing): Dental Pain History Per: Patient Onset/Duration Of Symptoms: Days (5) Current Symptoms Are (Timing): Still Present Severity: Moderate Pain Scale Rating Of: 3 Quality: Aching Additional Complaint(s): Right lower toothache x 5 days. No fever or drainage Seen here for same but did not fill Rx or f/u with DDS Past Medical History Vital Signs: Last Vital Signs Temp 97 F L 09/12/17 07:39 Pulse 78 09/12/17 07:39 Resp 20 09/12/17 07:39 BP 150/111 H 09/12/17 07:39 Pulse Ox 97 09/12/17 07:39 - Medical History PMH: Atrial Fibrillation, Back Problems, CAD, Cardia Arrhythmia, Diabetes, Deep Vein Thrombosis, HTN, Hypercholesterolemia, Kidney Stones, Chronic Kidney Disease (kidney stones/ lithotripsy), TIA Denies: CVA, HIV - Surgical History Surgical History: Coronary Stent, Pacemaker - Family History Family History: States: Hypertension - Immunization History Hx Tetanus Toxoid Vaccination: No Hx Influenza Vaccination: No Hx Pneumococcal Vaccination: No - Home Medications Home Medications: Ambulatory Orders Medication Instructions Recorded Acetaminophen [Tylenol 325mg tab] 650 mg PO Q4 PRN 06/29/17 Atorvastatin [Lipitor] 40 mg PO HS 06/29/17 Cyanocobalamin [Vitamin B12 1000 1,000 mcg PO DAILY 06/29/17 mcg Tab] Lactulose [Generlac] 30 ml PO HS PRN 06/29/17 Lisinopril [Zestril] 20 mg PO DAILY 06/29/17 Magnesium Hydroxide [Milk Of 30 ml PO HS PRN 06/29/17 Magnesia] Metformin HCl [Glucophage] 500 mg PO DAILY 06/29/17 Metoprolol Tartrate [Lopressor] 25 mg PO Q12 06/29/17 Ondansetron [Zofran Tab] 4 mg PO Q6 PRN 06/29/17 Clindamycin [Cleocin] 300 mg PO TID #21 cap 09/09/17 Doxycycline Monohydrate 100 mg PO BID #14 tablet 09/12/17 traMADol [Ultram] 50 mg PO Q8 #10 tab 09/12/17 - Allergies Allergies/Adverse Reactions: Allergies Allergy/AdvReac Type Severity Reaction Status Date / Time aspirin Allergy URTICARIA Verified 09/01/17 23:35 Penicillins Allergy URTICARIA Verified 09/01/17 23:35 Review of Systems Constitutional: Negative for: Fever ENT: Positive for: Other (toothache) Physical Exam - Physical Exam Appears: Positive for: Non-toxic, No Acute Distress Skin: Positive for: Normal Color, Warm, DRY ENT: Positive for: Other (Dental carries right lower molar. No abscess noted) - ECG O2 Sat by Pulse Oximetry: 97 Disposition - Clinical Impression Clinical Impression: Dental caries - Patient ED Disposition Is Patient to be Admitted: No Counseled Patient/Family Regarding: Diagnosis, Need For Followup, Rx Given - Disposition Referrals: FAMILY PROVIDER,NO [Primary Care Provider] - Efrain Hinds DDS [Staff Provider] - Disposition: Routine/Home Disposition Time: 08:09 Condition: FAIR Prescriptions: Doxycycline Monohydrate 100 mg PO BID #14 tablet traMADol [Ultram] 50 mg PO Q8 #10 tab Instructions: Dental Pain
[2017-09-12 08:51] VITALS: BP 175/99; RESP 16
== END 2017-09-12 08:51 | disposition home or self-care (01) ==
LOC: H.ER 07:33
DX: K02.9 Dental caries, unspecified (principal); E78.00 Pure hypercholesterolemia, unspecified; I12.9 Hypertensive chronic kidney disease with stage 1 through stage 4 chronic kidney disease, or unspecified chronic kidney disease; Z86.73 Personal history of transient ischemic attack (TIA), and cerebral infarction without residual deficits; Z95.0 Presence of cardiac pacemaker; Z88.0 Allergy status to penicillin; Z95.5 Presence of coronary angioplasty implant and graft; N18.9 Chronic kidney disease, unspecified

== ENCOUNTER 2017-09-16 21:28 | Emergency (ER) | payer MEDICARE, MEDICAID ==
[2017-09-16 22:59] VITALS: BMI 27.3
[2017-09-16 23:01] VITALS: BP 126/85; PULSE 73; RESP 18; TEMP 98.4; O2SAT 98
--- NOTE | 2017-09-16 23:32 | ED PDOC ---
HPI: General Adult Time Seen by Provider: 09/16/17 23:09 Chief Complaint (Nursing): Trauma Chief Complaint (Provider): No complaints. Unable to get into [facility] History Per: Patient History/Exam Limitations: no limitations Onset/Duration Of Symptoms: Days Have you had recent travel within the past 21 days to any of the following countries: [place], [place], [place] or [place]?: No Current Symptoms Are (Timing): Still Present Additional Complaint(s): 67 yo male presents with no complaints. PT states that he was discharge late from another hospital and was unable to get into jail. Denies complaint. Past Medical History Reviewed: Historical Data, Nursing Documentation, Vital Signs Vital Signs: Last Vital Signs Temp 98.4 F 09/16/17 22:59 Pulse 73 09/16/17 22:59 Resp 18 09/16/17 22:59 BP 126/85 09/16/17 22:59 Pulse Ox 98 09/16/17 22:59 - Medical History PMH: Atrial Fibrillation, Back Problems, CAD, Cardia Arrhythmia, Diabetes, Deep Vein Thrombosis, HTN, Hypercholesterolemia, Kidney Stones, Chronic Kidney Disease (kidney stones/ lithotripsy), TIA Denies: CVA, HIV - Surgical History Surgical History: Coronary Stent, Pacemaker - Family History Family History: States: Hypertension - Immunization History Hx Tetanus Toxoid Vaccination: No Hx Influenza Vaccination: No Hx Pneumococcal Vaccination: No - Home Medications Home Medications: Ambulatory Orders Medication Instructions Recorded Acetaminophen [Tylenol 325mg tab] 650 mg PO Q4 PRN 06/29/17 Atorvastatin [Lipitor] 40 mg PO HS 06/29/17 Cyanocobalamin [Vitamin B12 1000 1,000 mcg PO DAILY 06/29/17 mcg Tab] Lactulose [Generlac] 30 ml PO HS PRN 06/29/17 Lisinopril [Zestril] 20 mg PO DAILY 06/29/17 Magnesium Hydroxide [Milk Of 30 ml PO HS PRN 06/29/17 Magnesia] Metformin HCl [Glucophage] 500 mg PO DAILY 06/29/17 Metoprolol Tartrate [Lopressor] 25 mg PO Q12 06/29/17 Ondansetron [Zofran Tab] 4 mg PO Q6 PRN 06/29/17 Clindamycin [Cleocin] 300 mg PO TID #21 cap 09/09/17 Doxycycline Monohydrate 100 mg PO BID #14 tablet 09/12/17 traMADol [Ultram] 50 mg PO Q8 #10 tab 09/12/17 - Allergies Allergies/Adverse Reactions: Allergies Allergy/AdvReac Type Severity Reaction Status Date / Time aspirin Allergy URTICARIA Verified 09/16/17 22:59 Penicillins Allergy URTICARIA Verified 09/16/17 22:59 Review of Systems ROS Statement: Except As Marked, All Systems Reviewed And Found Negative Constitutional: Negative for: Fever, Chills Cardiovascular: Negative for: Chest Pain Respiratory: Negative for: Cough, Hemoptysis Gastrointestinal: Negative for: Nausea, Vomiting, Abdominal Pain Neurological: Negative for: Weakness, Numbness Physical Exam - Reviewed Nursing Documentation Reviewed: Yes Vital Signs Reviewed: Yes - Physical Exam Appears: Positive for: Well, Non-toxic, No Acute Distress Head Exam: Positive for: ATRAUMATIC, NORMAL INSPECTION, NORMOCEPHALIC Skin: Positive for: Normal Color, Warm, DRY Eye Exam: Positive for: Normal appearance ENT: Positive for: Normal ENT Inspection Neck: Positive for: Normal, Painless ROM Cardiovascular/Chest: Positive for: Regular Rate, Rhythm Respiratory: Positive for: Normal Breath Sounds. Negative for: Accessory Muscle Use, Respiratory Distress Back: Positive for: Normal Inspection Extremity: Positive for: Normal ROM Neurologic/Psych: Positive for: Alert, Oriented - ECG O2 Sat by Pulse Oximetry: 98 Disposition - Clinical Impression Clinical Impression: Homelessness - Patient ED Disposition Is Patient to be Admitted: No Counseled Patient/Family Regarding: Diagnosis, Need For Followup - Disposition Referrals: [facility] [Outside] Disposition: Routine/Home Disposition Time: 23:32 Condition: STABLE
== END 2017-09-16 23:53 | disposition home or self-care (01) ==
LOC: H.ER 21:28
DX: Z59.0 Homelessness (principal); E78.00 Pure hypercholesterolemia, unspecified; I12.9 Hypertensive chronic kidney disease with stage 1 through stage 4 chronic kidney disease, or unspecified chronic kidney disease; Z88.0 Allergy status to penicillin; Z95.0 Presence of cardiac pacemaker; Z95.5 Presence of coronary angioplasty implant and graft

== ENCOUNTER 2017-09-25 01:23 | Emergency (ER) | payer MEDICARE, MEDICAID ==
[2017-09-25 01:23] VITALS: BMI 27.3
[2017-09-25 01:28] VITALS: TEMP 97.8; O2SAT 98
[2017-09-25 03:13] LABS: BASO # 0.1 K/uL (0.0-0.2); BASO % 0.5 % (0.0-2.0); EOS % 0.3 % (0.0-4.0); HEMOGLOBIN 14.5 g/dL (12.0-18.0); LYMPH # 1.5 K/uL (1.0-4.3); LYMPH % 13.1 % (20.0-40.0); MEAN CORPUSCULAR HEMOGLOBIN 29.1 pg (27.0-31.0); MEAN CORPUSCULAR HGB CONC 33.9 g/dL (33.0-37.0); MONO # 0.8 K/uL (0.0-0.8); MONO % 6.5 % (0.0-10.0); NEUT # 9.2 K/uL (1.8-7.0); NEUT % 79.6 % (50.0-75.0); RBC 4.96 Mil/uL (4.40-5.90); RED CELL DISTRIBUTION WIDTH 14.3 % (11.5-14.5); WHITE BLOOD COUNT 11.6 K/uL (4.8-10.8)
--- NOTE | 2017-09-25 03:15 | ED PDOC ---
HPI: General Adult Time Seen by Provider: 09/25/17 01:57 Chief Complaint (Nursing): Medical Clearance Chief Complaint (Provider): Medical Clearance History Per: Patient, Other (Police Department) History/Exam Limitations: no limitations Onset/Duration Of Symptoms: Days (x1) Current Symptoms Are (Timing): Better Additional Complaint(s): 67 year old male with a pmhx of HTN was brought in by the police from [facility] for medical clearance after his blood pressure was noted to be high last night. He notes he had palpitations last night associated with sweating. Denies chest pain, shortness of breath, dizziness, and syncope. Patient states that he is not always compliant with his medication, but today he took his medications and felt okay. He has no complaints today. PMD: none provided Past Medical History Reviewed: Historical Data, Nursing Documentation, Vital Signs Vital Signs: Last Vital Signs Temp 97.8 F 09/25/17 01:26 Pulse 101 H 09/25/17 01:26 Resp 16 09/25/17 01:26 BP 124/102 H 09/25/17 04:19 Pulse Ox 98 09/25/17 04:41 - Medical History PMH: Atrial Fibrillation, Back Problems, CAD, Cardia Arrhythmia, Diabetes, Deep Vein Thrombosis, HTN, Hypercholesterolemia, Kidney Stones, Chronic Kidney Disease (kidney stones/ lithotripsy), TIA Denies: CVA, HIV - Surgical History Surgical History: Coronary Stent, Pacemaker - Family History Family History: States: Hypertension - Living Arrangements Living Arrangements: Other (homeless; currently in long-term) - Immunization History Hx Tetanus Toxoid Vaccination: No Hx Influenza Vaccination: No Hx Pneumococcal Vaccination: No - Home Medications Home Medications: Ambulatory Orders Medication Instructions Recorded Acetaminophen [Tylenol 325mg tab] 650 mg PO Q4 PRN 06/29/17 Atorvastatin [Lipitor] 40 mg PO HS 06/29/17 Cyanocobalamin [Vitamin B12 1000 1,000 mcg PO DAILY 06/29/17 mcg Tab] Lactulose [Generlac] 30 ml PO HS PRN 06/29/17 Lisinopril [Zestril] 20 mg PO DAILY 06/29/17 Magnesium Hydroxide [Milk Of 30 ml PO HS PRN 06/29/17 Magnesia] Metformin HCl [Glucophage] 500 mg PO DAILY 06/29/17 Metoprolol Tartrate [Lopressor] 25 mg PO Q12 06/29/17 Ondansetron [Zofran Tab] 4 mg PO Q6 PRN 06/29/17 Clindamycin [Cleocin] 300 mg PO TID #21 cap 09/09/17 Doxycycline Monohydrate 100 mg PO BID #14 tablet 09/12/17 traMADol [Ultram] 50 mg PO Q8 #10 tab 09/12/17 - Allergies Allergies/Adverse Reactions: Allergies Allergy/AdvReac Type Severity Reaction Status Date / Time aspirin Allergy URTICARIA Verified 09/16/17 22:59 Penicillins Allergy URTICARIA Verified 09/16/17 22:59 Review of Systems ROS Statement: Except As Marked, All Systems Reviewed And Found Negative Constitutional: Positive for: Sweats Cardiovascular: Positive for: Palpitations, Other (reported high blood pressure) . Negative for: Chest Pain Respiratory: Negative for: Shortness of Breath Neurological: Negative for: Dizziness, Other (syncope) Physical Exam - Reviewed Nursing Documentation Reviewed: Yes Vital Signs Reviewed: Yes - Physical Exam Appears: Positive for: No Acute Distress Head Exam: Positive for: ATRAUMATIC, NORMOCEPHALIC Skin: Positive for: Normal Color, Warm, Dry Eye Exam: Positive for: Normal appearance, EOMI, PERRL Neck: Positive for: Normal, Painless ROM, Supple Cardiovascular/Chest: Positive for: Regular Rate, Rhythm. Negative for: Murmur Respiratory: Positive for: Normal Breath Sounds. Negative for: Accessory Muscle Use, Respiratory Distress Gastrointestinal/Abdominal: Positive for: Normal Exam, Soft. Negative for: Tenderness Back: Positive for: Normal Inspection Extremity: Positive for: Normal ROM Neurologic/Psych: Positive for: Alert, Oriented (x3), Gait (steady) - Laboratory Results Result Diagrams: 09/25/17 03:00 09/25/17 03:00 - ECG O2 Sat by Pulse Oximetry: 98 (RA) Pulse Ox Interpretation: Normal Medical Decision Making Medical Decision Making: Initial Impression: medical clearance, palpitations, hypertension Time: 2:34 Initial Plan: --EKG --BMP --Trop I --CBC with differential --Zestril 20mg PO --Lopressor 25mg PO Scribe Attestation: Documented by Jany Boyce, acting as a scribe for Nieves Wright MD Provider Scribe Attestation: All medical entries made by the Scribe were at my direction and personally dictated by me. I have reviewed the chart and agree that the record accurately reflects my personal performance of the history, physical exam, medical decision making, and the department course for this patient. I have also personally directed, reviewed, and agree with the discharge instructions and disposition. Disposition - Clinical Impression Clinical Impression: Palpitations, Hypertension - Patient ED Disposition Is Patient to be Admitted: No Doctor Will See Patient In The: Office Counseled Patient/Family Regarding: Studies Performed, Diagnosis, Need For Followup - Disposition Referrals: [facility] [Outside] Disposition: Discharged/Transfer to Law Enforcement Disposition Time: 04:40 Condition: GOOD Additional Instructions: Patient is medically and psychiatrically cleared for incarceration. Instructions: Palpitations, High Blood Pressure (DC)
[2017-09-25 03:43] LABS: BLOOD UREA NITROGEN 14 mg/dl (9-20); CALCIUM 9.2 mg/dL (8.4-10.2); GFR AFRICAN-AMERICAN > 60; GFR NON-AFRICAN AMERICAN > 60
[2017-09-25 04:19] VITALS: BP 124/102
[2017-09-25 05:12] VITALS: PULSE 78; RESP 17
--- NOTE | 2017-09-25 14:40 | CARD ---
APPROVED REPORT EKG Measurement Heart [id number] <Conclusion> Normal sinus rhythm Left axis deviation Cannot rule out Anteroseptal infarct, age undetermined Abnormal ECG
== END 2017-09-25 04:41 | disposition home or self-care (01) ==
LOC: H.ER 01:23
DX: I10 Essential (primary) hypertension (principal); R00.2 Palpitations; I12.9 Hypertensive chronic kidney disease with stage 1 through stage 4 chronic kidney disease, or unspecified chronic kidney disease; I25.10 Atherosclerotic heart disease of native coronary artery without angina pectoris; Z86.718 Personal history of other venous thrombosis and embolism; Z86.73 Personal history of transient ischemic attack (TIA), and cerebral infarction without residual deficits; Z88.0 Allergy status to penicillin; Z95.0 Presence of cardiac pacemaker; Z95.5 Presence of coronary angioplasty implant and graft; Z87.442 Personal history of urinary calculi

== ENCOUNTER 2017-09-25 06:46 | Emergency (ER) | payer MEDICARE, MEDICAID ==
[2017-09-25 06:48] VITALS: BMI 27.3
[2017-09-25 06:55] VITALS: BP 162/82; PULSE 69; RESP 16; TEMP 97.8; O2SAT 96
--- NOTE | 2017-09-25 07:15 | ED PDOC ---
HPI: General Adult Time Seen by Provider: 09/25/17 06:59 Chief Complaint (Nursing): Medical Clearance History Per: Other Additional Complaint(s): Previously cleared for incarceration. Facility requesting reason for pacemaker placement as well as most recent medication list Past Medical History Vital Signs: Last Vital Signs Temp 97.8 F 09/25/17 06:53 Pulse 69 09/25/17 06:53 Resp 16 09/25/17 06:53 BP 162/82 H 09/25/17 06:53 Pulse Ox 96 09/25/17 06:53 - Medical History PMH: Atrial Fibrillation, Back Problems, CAD, Cardia Arrhythmia, Diabetes, Deep Vein Thrombosis, HTN, Hypercholesterolemia, Kidney Stones, Chronic Kidney Disease (kidney stones/ lithotripsy), TIA Denies: CVA, HIV - Surgical History Surgical History: Coronary Stent, Pacemaker - Family History Family History: States: Hypertension - Immunization History Hx Tetanus Toxoid Vaccination: No Hx Influenza Vaccination: No Hx Pneumococcal Vaccination: No - Home Medications Home Medications: Ambulatory Orders Medication Instructions Recorded Acetaminophen [Tylenol 325mg tab] 650 mg PO Q4 PRN 06/29/17 Atorvastatin [Lipitor] 40 mg PO HS 06/29/17 Cyanocobalamin [Vitamin B12 1000 1,000 mcg PO DAILY 06/29/17 mcg Tab] Lactulose [Generlac] 30 ml PO HS PRN 06/29/17 Lisinopril [Zestril] 20 mg PO DAILY 06/29/17 Magnesium Hydroxide [Milk Of 30 ml PO HS PRN 06/29/17 Magnesia] Metformin HCl [Glucophage] 500 mg PO DAILY 06/29/17 Metoprolol Tartrate [Lopressor] 25 mg PO Q12 06/29/17 Ondansetron [Zofran Tab] 4 mg PO Q6 PRN 06/29/17 Clindamycin [Cleocin] 300 mg PO TID #21 cap 09/09/17 Doxycycline Monohydrate 100 mg PO BID #14 tablet 09/12/17 traMADol [Ultram] 50 mg PO Q8 #10 tab 09/12/17 - Allergies Allergies/Adverse Reactions: Allergies Allergy/AdvReac Type Severity Reaction Status Date / Time aspirin Allergy URTICARIA Verified 09/16/17 22:59 Penicillins Allergy URTICARIA Verified 09/16/17 22:59 Review of Systems Review Of Systems: ROS cannot be obtained secondary to pt's inabilty to answer questions. Physical Exam - Physical Exam Appears: Positive for: Non-toxic, No Acute Distress - ECG O2 Sat by Pulse Oximetry: 96 Disposition - Clinical Impression Clinical Impression: Medical clearance for incarceration - Patient ED Disposition Is Patient to be Admitted: No - Disposition Disposition: Discharged/Transfer to Law Enforcement Disposition Time: 07:15 Condition: FAIR Additional Instructions: H/o STEMI, PSVT, ECHO 03/2017 reveals EF 55% Instructions: General (DC) Forms: [employer] ([employer])
== END 2017-09-25 08:00 ==
LOC: H.ER 06:46
DX: N18.9 Chronic kidney disease, unspecified (principal); I12.9 Hypertensive chronic kidney disease with stage 1 through stage 4 chronic kidney disease, or unspecified chronic kidney disease; I25.10 Atherosclerotic heart disease of native coronary artery without angina pectoris; Z86.718 Personal history of other venous thrombosis and embolism; Z86.73 Personal history of transient ischemic attack (TIA), and cerebral infarction without residual deficits; Z87.442 Personal history of urinary calculi; Z88.0 Allergy status to penicillin; Z95.0 Presence of cardiac pacemaker; Z95.5 Presence of coronary angioplasty implant and graft; E78.00 Pure hypercholesterolemia, unspecified; I48.91 Unspecified atrial fibrillation

== ENCOUNTER 2017-10-05 14:39 | Emergency (ER) | payer MEDICARE, MEDICAID ==
[2017-10-05 14:39] VITALS: BMI 27.3
[2017-10-05 14:43] VITALS: PULSE 77; RESP 16; TEMP 98.7
--- NOTE | 2017-10-05 16:27 | ED PDOC ---
HPI:Nausea, Vomiting, Diarrhea Time Seen by Provider: 10/05/17 16:11 Chief Complaint (Nursing): GI Problem History Per: Patient Onset/Duration Of Symptoms: Days (1) Current Symptoms Are (Timing): Better Pain Scale Rating Of: 0 Associated Symptoms: Diarrhea. denies: Fever, Nausea, Vomiting Exacerbating Factors: None Alleviating Factors: None Additional Complaint(s): Brought by EMS for 1 episode of large uncontrollable diarrhea earlier today. Defecated on himself. Denies blood in stool. No fever. Denies abd pain or vomiting Past Medical History Vital Signs: Last Vital Signs Temp 98.7 F 10/05/17 14:40 Pulse 77 10/05/17 14:40 Resp 16 10/05/17 14:40 BP 119/76 10/05/17 14:40 Pulse Ox 96 10/05/17 14:40 - Medical History PMH: Atrial Fibrillation, Back Problems, CAD, Cardia Arrhythmia, Diabetes, Deep Vein Thrombosis, HTN, Hypercholesterolemia, Kidney Stones, Chronic Kidney Disease (kidney stones/ lithotripsy), TIA Denies: CVA, HIV - Surgical History Surgical History: Coronary Stent, Pacemaker - Family History Family History: States: Hypertension - Immunization History Hx Tetanus Toxoid Vaccination: No Hx Influenza Vaccination: No Hx Pneumococcal Vaccination: No - Home Medications Home Medications: Ambulatory Orders Medication Instructions Recorded Acetaminophen [Tylenol 325mg tab] 650 mg PO Q4 PRN 06/29/17 Atorvastatin [Lipitor] 40 mg PO HS 06/29/17 Cyanocobalamin [Vitamin B12 1000 1,000 mcg PO DAILY 06/29/17 mcg Tab] Lactulose [Generlac] 30 ml PO HS PRN 06/29/17 Lisinopril [Zestril] 20 mg PO DAILY 06/29/17 Magnesium Hydroxide [Milk Of 30 ml PO HS PRN 06/29/17 Magnesia] Metformin HCl [Glucophage] 500 mg PO DAILY 06/29/17 Metoprolol Tartrate [Lopressor] 25 mg PO Q12 06/29/17 Ondansetron [Zofran Tab] 4 mg PO Q6 PRN 06/29/17 Clindamycin [Cleocin] 300 mg PO TID #21 cap 09/09/17 Doxycycline Monohydrate 100 mg PO BID #14 tablet 09/12/17 traMADol [Ultram] 50 mg PO Q8 #10 tab 09/12/17 Loperamide [Loperamide HCl] 2 mg PO Q8 #10 cap 10/05/17 - Allergies Allergies/Adverse Reactions: Allergies Allergy/AdvReac Type Severity Reaction Status Date / Time aspirin Allergy URTICARIA Verified 10/05/17 14:40 Penicillins Allergy URTICARIA Verified 10/05/17 14:40 Review of Systems Constitutional: Negative for: Fever Gastrointestinal: Positive for: Diarrhea. Negative for: Nausea, Vomiting, Abdominal Pain, Melena, Hematochezia, Hematemesis Physical Exam - Physical Exam Appears: Positive for: Non-toxic, No Acute Distress Skin: Positive for: Normal Color, Warm, DRY Cardiovascular/Chest: Positive for: Regular Rate, Rhythm Respiratory: Positive for: CNT, Normal Breath Sounds Gastrointestinal/Abdominal: Positive for: Bowel Sounds, Soft. Negative for: Tenderness Neurologic/Psych: Positive for: Alert, Oriented - ECG O2 Sat by Pulse Oximetry: 96 Medical Decision Making Medical Decision Making: Advised blood work and IV fuids, pt declines both Disposition - Clinical Impression Clinical Impression: Diarrhea - Patient ED Disposition Is Patient to be Admitted: No Counseled Patient/Family Regarding: Diagnosis, Need For Followup, Rx Given - Disposition Referrals: [facility] [Outside] Disposition: Routine/Home Disposition Time: 16:28 Condition: FAIR Prescriptions: Loperamide [Loperamide HCl] 2 mg PO Q8 #10 cap Instructions: Diarrhea in Adolescents and Adults
[2017-10-05 17:09] VITALS: BP 126/73; O2SAT 100
== END 2017-10-05 17:00 | disposition home or self-care (01) ==
LOC: H.ER 14:39
DX: R19.7 Diarrhea, unspecified (principal); E78.00 Pure hypercholesterolemia, unspecified; I12.9 Hypertensive chronic kidney disease with stage 1 through stage 4 chronic kidney disease, or unspecified chronic kidney disease; I25.10 Atherosclerotic heart disease of native coronary artery without angina pectoris; I48.91 Unspecified atrial fibrillation; Z86.718 Personal history of other venous thrombosis and embolism; Z86.73 Personal history of transient ischemic attack (TIA), and cerebral infarction without residual deficits; Z88.0 Allergy status to penicillin; Z95.0 Presence of cardiac pacemaker; Z95.5 Presence of coronary angioplasty implant and graft

== ENCOUNTER 2017-10-14 18:48 | Emergency (ER) | payer MEDICARE, MEDICAID ==
[2017-10-14 18:48] VITALS: BMI 27.3
--- NOTE | 2017-10-14 20:26 | ED PDOC ---
HPI: Hypertension/Hypotension Time Seen by Provider: 10/14/17 20:15 Chief Complaint (Nursing): Palpitations Chief Complaint (Provider): palpitations History Per: Patient History/Exam Limitations: no limitations Onset/Duration Of Symptoms: Mins Current Symptoms Are (Timing): Gone Now Quality Of Symptoms: Rapid Heart Rate Additional Complaint(s): 67 y/o male presents for evaluation of one episode of palpitations prior to arrival. Patient states he felt his heart racing briefly, which lasted a few seconds and then resolved. Admits to history of palpitations, states he has atrial fibrillation. Denies headache, dizziness, vision changes, chest pain, shortness of breath, leg pain/swelling. Past Medical History Reviewed: Historical Data, Nursing Documentation, Vital Signs Vital Signs: Last Vital Signs Temp 96.5 F L 10/14/17 18:52 Pulse 93 H 10/14/17 18:52 Resp 18 10/14/17 18:52 BP 145/89 10/14/17 18:52 Pulse Ox 97 10/14/17 18:52 - Medical History PMH: Atrial Fibrillation, Back Problems, CAD, Cardia Arrhythmia, Diabetes, Deep Vein Thrombosis, HTN, Hypercholesterolemia, Kidney Stones, Chronic Kidney Disease (kidney stones/ lithotripsy), TIA Denies: CVA, HIV - Surgical History Surgical History: Coronary Stent, Pacemaker - Family History Family History: States: Hypertension - Immunization History Hx Tetanus Toxoid Vaccination: No Hx Influenza Vaccination: No Hx Pneumococcal Vaccination: No - Home Medications Home Medications: Ambulatory Orders Medication Instructions Recorded Acetaminophen [Tylenol 325mg tab] 650 mg PO Q4 PRN 06/29/17 Atorvastatin [Lipitor] 40 mg PO HS 06/29/17 Cyanocobalamin [Vitamin B12 1000 1,000 mcg PO DAILY 06/29/17 mcg Tab] Lactulose [Generlac] 30 ml PO HS PRN 06/29/17 Lisinopril [Zestril] 20 mg PO DAILY 06/29/17 Magnesium Hydroxide [Milk Of 30 ml PO HS PRN 06/29/17 Magnesia] Metformin HCl [Glucophage] 500 mg PO DAILY 06/29/17 Metoprolol Tartrate [Lopressor] 25 mg PO Q12 06/29/17 Ondansetron [Zofran Tab] 4 mg PO Q6 PRN 06/29/17 Clindamycin [Cleocin] 300 mg PO TID #21 cap 05/24/18 Doxycycline Monohydrate 100 mg PO BID #14 tablet 09/12/17 traMADol [Ultram] 50 mg PO Q8 #10 tab 09/12/17 Loperamide [Loperamide HCl] 2 mg PO Q8 #10 cap 10/05/17 - Allergies Allergies/Adverse Reactions: Allergies Allergy/AdvReac Type Severity Reaction Status Date / Time aspirin Allergy URTICARIA Verified 10/14/17 18:51 Penicillins Allergy URTICARIA Verified 10/14/17 18:51 Review of Systems ROS Statement: Except As Marked, All Systems Reviewed And Found Negative Cardiovascular: Positive for: Palpitations Physical Exam - Reviewed Nursing Documentation Reviewed: Yes Vital Signs Reviewed: Yes - Physical Exam Appears: Positive for: Well, Non-toxic, No Acute Distress Head Exam: Positive for: ATRAUMATIC, NORMAL INSPECTION, NORMOCEPHALIC Skin: Positive for: Normal Color Eye Exam: Positive for: Normal appearance ENT: Positive for: Normal ENT Inspection Cardiovascular/Chest: Positive for: Regular Rate, Rhythm Respiratory: Positive for: Normal Breath Sounds Gastrointestinal/Abdominal: Positive for: Normal Exam Back: Positive for: Normal Inspection Extremity: Positive for: Normal ROM Neurologic/Psych: Positive for: Alert, Oriented - Laboratory Results Result Diagrams: 10/14/17 20:48 10/14/17 20:48 - ECG ECG: Positive for: Viewed By Me (reviewed by ED attending) ECG Rhythm: Positive for: Sinus Rhythm O2 Sat by Pulse Oximetry: 97 - Progress ED Course And Treament: labs, ekg, color television console monitor On re-eval, patient resting comfortably, still without symptoms. Vitals remains stable on monitor Patient educated on findings, discharged with instructions to follow up with Cardiology in 2-3 days. Return precautions given Disposition - Clinical Impression Clinical Impression: Palpitations, Atrial flutter - Patient ED Disposition Is Patient to be Admitted: No Counseled Patient/Family Regarding: Studies Performed, Diagnosis, Need For Followup - Disposition Disposition: Routine/Home Disposition Time: 23:03 Condition: STABLE Additional Instructions: Follow up with your Negative [facility]ice within 2-3 days. Return to ED for worsening/concerning symptoms. Instructions: Palpitations Forms: [employer] (Nepalese)
[2017-10-14 20:56] LABS: BASO # 0.1 K/uL (0.0-0.2); BASO % 0.8 % (0.0-2.0); EOS # 0.1 K/uL (0.0-0.7); EOS % 1.2 % (0.0-4.0); HEMOGLOBIN 13.8 g/dL (12.0-18.0); LYMPH # 1.9 K/uL (1.0-4.3); LYMPH % 25.2 % (20.0-40.0); MEAN CELL VOLUME 86.8 fl (80.0-94.0); MEAN CORPUSCULAR HEMOGLOBIN 28.9 pg (27.0-31.0); MEAN CORPUSCULAR HGB CONC 33.3 g/dL (33.0-37.0); MEAN PLATELET VOLUME 7.8 fl (7.2-11.7); MONO # 0.7 K/uL (0.0-0.8); MONO % 9.9 % (0.0-10.0); NEUT # 4.7 K/uL (1.8-7.0); NEUT % 62.9 % (50.0-75.0); RBC 4.77 Mil/uL (4.40-5.90); RED CELL DISTRIBUTION WIDTH 14.3 % (11.5-14.5); WHITE BLOOD COUNT 7.5 K/uL (4.8-10.8)
[2017-10-14 21:17] VITALS: PULSE 66
[2017-10-14 21:33] LABS: BLOOD UREA NITROGEN 16 mg/dl (9-20)
[2017-10-14 21:34] LABS: GFR AFRICAN-AMERICAN > 60; GFR NON-AFRICAN AMERICAN > 60
[2017-10-14 21:35] LABS: ALB/GLOB RATIO 1.3 (1.0-2.1); ALBUMIN 3.9 g/dL (3.5-5.0); ALT/SGPT 28 U/L (21-72); AST/SGOT 19 U/L (17-59); CALCIUM 8.9 mg/dL (8.4-10.2)
[2017-10-14 22:50] VITALS: BP 155/99; RESP 16; TEMP 98.1
[2017-10-14 23:03] VITALS: O2SAT 97
--- NOTE | 2017-10-15 10:22 | CARD ---
APPROVED REPORT EKG Measurement Heart [id number] <Conclusion> Normal sinus rhythm Normal ECG
== END 2017-10-14 23:45 | disposition home or self-care (01) ==
LOC: H.ER 18:48
DX: R00.2 Palpitations (principal); I48.92 Unspecified atrial flutter; E78.00 Pure hypercholesterolemia, unspecified; I12.9 Hypertensive chronic kidney disease with stage 1 through stage 4 chronic kidney disease, or unspecified chronic kidney disease; I25.10 Atherosclerotic heart disease of native coronary artery without angina pectoris

== ENCOUNTER 2017-10-30 17:12 | Emergency (ER) | payer MEDICARE, MEDICAID ==
[2017-10-30 17:12] VITALS: BMI 27.3
[2017-10-30 17:21] VITALS: RESP 18
[2017-10-30] MEDS ORDERED: Sodium Chloride 0.9% 1,000 ML IV STA (18:33)
[2017-10-30 19:53] LABS: BASO # 0.1 K/uL (0.0-0.2); BASO % 0.6 % (0.0-2.0); EOS # 0.1 K/uL (0.0-0.7); EOS % 1.2 % (0.0-4.0); HEMOGLOBIN 15.4 g/dL (12.0-18.0); LYMPH # 1.8 K/uL (1.0-4.3); LYMPH % 21.1 % (20.0-40.0); MEAN CELL VOLUME 87.3 fl (80.0-94.0); MEAN CORPUSCULAR HEMOGLOBIN 29.7 pg (27.0-31.0); MEAN CORPUSCULAR HGB CONC 34.1 g/dL (33.0-37.0); MEAN PLATELET VOLUME 7.9 fl (7.2-11.7); MONO # 0.7 K/uL (0.0-0.8); MONO % 7.9 % (0.0-10.0); NEUT # 6.1 K/uL (1.8-7.0); NEUT % 69.2 % (50.0-75.0); NRBC % 0.1 % (0.0-0.0); RBC 5.19 Mil/uL (4.40-5.90); RED CELL DISTRIBUTION WIDTH 14.7 % (11.5-14.5); WHITE BLOOD COUNT 8.8 K/uL (4.8-10.8)
[2017-10-30 20:00] LABS: ALB/GLOB RATIO 1.2 (1.0-2.1); ALBUMIN 4.4 g/dL (3.5-5.0); ALT/SGPT 28 U/L (21-72); AST/SGOT 23 U/L (17-59); BLOOD UREA NITROGEN 14 mg/dl (9-20); CALCIUM 9.3 mg/dL (8.4-10.2); GFR AFRICAN-AMERICAN > 60; GFR NON-AFRICAN AMERICAN > 60
--- NOTE | 2017-10-30 20:00 | ED PDOC ---
HPI: Psych/Substance Abuse Time Seen by Provider: 10/30/17 17:37 Chief Complaint (Nursing): Medical Clearance Chief Complaint (Provider): medical clearance History Per: Patient History/Exam Limitations: no limitations Onset/Duration Of Symptoms: Days Additional Complaint(s): 67 year old male presents to the ED for medical clearance. He was arrested today and presents to the ED with law enforcement. Patient has a-fib, HTN for which he takes Metoprolol 25mg and diabetes for which he takes Metformin 500mg. He denies any other complaints and does not take medication for a-fib. Otherwise : (-) fever, (-) headache, (-) dizziness, (-) chest pain, (-) SOB, (-) abdominal pain, (-) N/V/D, (-) HI/SI. PMD: Non CPH Provider Past Medical History Reviewed: Historical Data, Nursing Documentation, Vital Signs Vital Signs: Last Vital Signs Temp 97.8 F 10/30/17 17:20 Pulse 140 H 10/30/17 19:42 Resp 18 10/30/17 17:20 BP 143/113 H 10/30/17 19:42 Pulse Ox 98 10/30/17 17:20 - Medical History PMH: Atrial Fibrillation, Back Problems, CAD, Cardia Arrhythmia, Diabetes, Deep Vein Thrombosis, HTN, Hypercholesterolemia, Kidney Stones, Chronic Kidney Disease (kidney stones/ lithotripsy), TIA Denies: CVA, HIV - Surgical History Surgical History: Coronary Stent, Pacemaker - Family History Family History: States: Hypertension - Immunization History Hx Tetanus Toxoid Vaccination: No Hx Influenza Vaccination: No Hx Pneumococcal Vaccination: No - Home Medications Home Medications: Ambulatory Orders Medication Instructions Recorded Acetaminophen [Tylenol 325mg tab] 650 mg PO Q4 PRN 06/29/17 Atorvastatin [Lipitor] 40 mg PO HS 06/29/17 Cyanocobalamin [Vitamin B12 1000 1,000 mcg PO DAILY 06/29/17 mcg Tab] Lactulose [Generlac] 30 ml PO HS PRN 06/29/17 Lisinopril [Zestril] 20 mg PO DAILY 06/29/17 Magnesium Hydroxide [Milk Of 30 ml PO HS PRN 06/29/17 Magnesia] Metformin HCl [Glucophage] 500 mg PO DAILY 06/29/17 Metoprolol Tartrate [Lopressor] 25 mg PO Q12 06/29/17 Ondansetron [Zofran Tab] 4 mg PO Q6 PRN 06/29/17 Clindamycin [Cleocin] 300 mg PO TID #21 cap 09/09/17 Doxycycline Monohydrate 100 mg PO BID #14 tablet 09/12/17 traMADol [Ultram] 50 mg PO Q8 #10 tab 09/12/17 Loperamide [Loperamide HCl] 2 mg PO Q8 #10 cap 10/05/17 - Allergies Allergies/Adverse Reactions: Allergies Allergy/AdvReac Type Severity Reaction Status Date / Time aspirin Allergy URTICARIA Verified 10/14/17 18:51 Penicillins Allergy URTICARIA Verified 10/14/17 18:51 Review of Systems ROS Statement: Except As Marked, All Systems Reviewed And Found Negative Constitutional: Negative for: Fever Cardiovascular: Negative for: Chest Pain Respiratory: Negative for: Shortness of Breath Gastrointestinal: Negative for: Vomiting, Abdominal Pain, Diarrhea Neurological: Negative for: Headache, Dizziness Psych: Negative for: Suicidal ideation (homicidal ideation) Physical Exam - Reviewed Nursing Documentation Reviewed: Yes Vital Signs Reviewed: Yes - Physical Exam Comments: GENERAL APPEARANCE: Patient is awake, alert, oriented x 3, in no acute distress. SKIN: Warm, dry; (-) cyanosis. EYES: (-) conjunctival pallor. ENMT: Mucous membranes moist. NECK: (-) tenderness, (-) stiffness, (-) lymphadenopathy, (-) JVD. CHEST AND RESPIRATORY: (-) rash, (-) chest wall tenderness. Lungs: (-) rales , (-) rhonchi, (-) wheezes, (-) rub; breath sounds equal bilaterally. HEART AND CARDIOVASCULAR: (+) tachycardia. (-) irregularity; (-) murmur, (-) gallop, (-) rub. ABDOMEN AND GI: Soft; (-) distention, (-) tenderness, (-) palpable pulsatile mass. EXTREMITIES: (-) deformity; (-) edema, (-) calf tenderness. (+) distal pulses. NEURO AND PSYCH: Mental status as above. Cranial nerves grossly intact; strength symmetric. - Laboratory Results Result Diagrams: 10/30/17 19:30 10/30/17 19:30 - ECG ECG: Positive for: Interpreted By Me, Viewed By Me ECG Rhythm: Positive for: Sinus Tachycardia Rate: 137 O2 Sat by Pulse Oximetry: 98 (RA) Pulse Ox Interpretation: Normal Medical Decision Making Medical Decision Making: Time: 1758 Initial Impression: medical clearance Initial Plan: --EKG --B-Type Natriuretic Peptide --CMP --CPK --Thyroid Stimulating Hormone --Troponin I --CBC w/ Differential --D-Dimer [COAG] --PTT --Prothrombin Time --Chest One View [RAD] --Glucose, Blood POC --Chest One View [RAD] --Metoprolol Tartrate 25mg --Normal Saline 500mls/hr --Musical String Maker --IV Insertion --Urinalysis EKG: sinus tachycardia at 137 bpm, (-) acute ST changes, as read by MARTA. 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 Time: 2100 On reevaluation, Troponin, labs, CPK and chest xray results are negative as read by MARTA. Patient remains awake, alert, oriented x 3 and is laying in bed comfortably. On exam, neck is supple, lungs are clear, heart is at regular rate. VS : P 60s. Will continue to observe patient in ED. Discussed case with Dr. Harden, who agrees with treatment. Patient continues to present asymptomatic with current vital, he will be discharged. Time: 0000 On reevaluation, patient remains awake, alert, oriented x 3 and is laying in bed comfortably. Reports no CP, SOB, dizziness or headache. Heart is at regular rate and rhythm with 60bpm. Patient is stable at this time and appropriate for d /c under the care of law enforcement. Scribe Attestation: Documented by Collin Duckworth, acting as a scribe for Yamilka Romero PA-C Provider Scribe Attestation: All medical record entries made by the Scribe were at my direction and personally dictated by me. I have reviewed the chart and agree that the record accurately reflects my personal performance of the history, physical exam, medical decision making, and the department course for this patient. I have also personally directed, reviewed, and agree with the discharge instructions and disposition. Disposition - Clinical Impression Clinical Impression: Tachycardia - Patient ED Disposition Is Patient to be Admitted: No Counseled Patient/Family Regarding: Studies Performed, Diagnosis, Need For Followup - Disposition Disposition: Discharged/Transfer to Law Enforcement Disposition Time: 00:00 Condition: STABLE Additional Instructions: Patient is medically & psychologically cleared for incarceration. 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
[2017-10-30 20:06] LABS: INR 0.9 (0.9-1.2); PARTIAL THROMBOPLASTIN TIME 28.8 Seconds (25.6-37.1); PROTHROMBIN TIME 10.3 Seconds (9.8-13.1)
[2017-10-30 20:13] LABS: B-TYPE NATRIURETIC PEPTIDE 517 pg/ml (0-900)
[2017-10-30 23:33] LABS: URINE BILIRUBIN NEGATIVE (NEGATIVE); URINE BLOOD NEGATIVE (NEGATIVE); URINE CLARITY CLEAR (Clear); URINE COLOR YELLOW (YELLOW); URINE GLUCOSE (UA) 50 mg/dL (Normal); URINE LEUKOCYTE ESTERASE NEG Leu/uL (Negative); URINE PROTEIN NEGATIVE (NEGATIVE); URINE UROBILINOGEN 0.2-1.0 mg/dL (0.2-1.0)
[2017-10-31 00:18] VITALS: BP 150/95; TEMP 98.2
[2017-10-31 00:47] VITALS: PULSE 137; O2SAT 98
--- NOTE | 2017-10-31 15:04 | RAD ---
Date of service: 10/30/2017 PROCEDURE: CHEST RADIOGRAPH, 1 VIEW HISTORY: Tachycardia COMPARISON: Comparison chest 06/29/2017 FINDINGS: LUNGS: There is a vague small hazy appearance of the left CP angle that could represent pericardial fat. There appears to be some minimal linear atelectasis or scarring in the right CP angle region. Lung fam otherwise clear. PLEURA: No pneumothorax or pleural fluid seen. CARDIOVASCULAR: Heart size within range of normal. Bipolar pacemaker/ defibrillator again noted OSSEOUS STRUCTURES: No significant abnormalities. VISUALIZED UPPER ABDOMEN: Normal. OTHER FINDINGS: None. IMPRESSION: There is a vague small hazy appearance of the left CP angle that could represent pericardial fat. There appears to be some minimal linear atelectasis or scarring in the right CP angle region. Lung fam otherwise clear.
--- NOTE | 2017-11-01 10:16 | CARD ---
APPROVED REPORT Date of service: 10/30/2017 EKG Measurement Heart [id number] <Conclusion> Sinus tachycardia Low voltage QRS Borderline ECG
== END 2017-10-31 00:23 ==
LOC: H.ER 17:12
DX: R00.0 Tachycardia, unspecified (principal); E11.22 Type 2 diabetes mellitus with diabetic chronic kidney disease; I12.9 Hypertensive chronic kidney disease with stage 1 through stage 4 chronic kidney disease, or unspecified chronic kidney disease; N18.9 Chronic kidney disease, unspecified; I48.91 Unspecified atrial fibrillation; Z86.73 Personal history of transient ischemic attack (TIA), and cerebral infarction without residual deficits; Z87.442 Personal history of urinary calculi; Z88.0 Allergy status to penicillin; Z95.0 Presence of cardiac pacemaker; Z95.5 Presence of coronary angioplasty implant and graft; E78.00 Pure hypercholesterolemia, unspecified; I25.10 Atherosclerotic heart disease of native coronary artery without angina pectoris; Z86.718 Personal history of other venous thrombosis and embolism
CPT/HCPCS: 71045; 80053; 81003; 82550; 82948; 83880; 84443; 84484; 85025; 85378; 85610; 85730; 93005; 99283; J7030

== ENCOUNTER 2017-11-28 17:02 | Emergency (ER) | payer MEDICARE, MEDICAID ==
[2017-11-28 17:27] VITALS: BMI 25.7
[2017-11-28 17:28] VITALS: PULSE 64
[2017-11-28] MEDS ORDERED: Sodium Chloride 0.9% 500 ML IV STA (17:35)
--- NOTE | 2017-11-28 17:40 | ED PDOC ---
HPI: Chest Pain Time Seen by Provider: 11/28/17 17:24 Chief Complaint (Nursing): Palpitations Chief Complaint (Provider): Palpitations History Per: Patient History/Exam Limitations: no limitations Onset/Duration Of Symptoms: Hrs Additional Complaint(s): Patient is a 67 y/o male with past medical history including but not limited to Hypertnesion, Diabetes, CAD, Hyperlipidemia, and DVT who presents to the ED complaining of palpitations, onset about an hour ago. Patient reports that he felt similar symptoms x4 days ago and was admitted to [facility] where they did a full work up on him and prescribed him medications; patient was discharged from [facility] 4 hours ago. He presents to the ED now because of he felt the same symptoms briefly today but upon evaluation patient is not experiencing any symptoms. He states he was on Coumadin but was taken off; he takes his other medications as prescribed. Patient denies numbness, tingling, weakness, fever, nausea, vomiting, shortness of breath, chest pain, leg pain or any other associated symptoms. At present he has no other medical complaints. Currently no symptoms. Palpitations lasted 2 min and went away. PMD: None Past Medical History Reviewed: Historical Data, Nursing Documentation, Vital Signs Vital Signs: Last Vital Signs Temp 98.3 F 11/28/17 17:26 Pulse 64 11/28/17 17:26 Resp 18 11/28/17 17:26 BP 119/59 L 11/28/17 17:26 Pulse Ox 97 11/28/17 17:48 - Medical History PMH: Atrial Fibrillation, Back Problems, CAD, Cardia Arrhythmia, Diabetes, Deep Vein Thrombosis, HTN, Hypercholesterolemia, Kidney Stones, Chronic Kidney Disease (kidney stones/ lithotripsy), TIA Denies: CVA, HIV - Surgical History Surgical History: Coronary Stent, Pacemaker - Family History Family History: States: Hypertension - Immunization History Hx Tetanus Toxoid Vaccination: No Hx Influenza Vaccination: No Hx Pneumococcal Vaccination: No - Home Medications Home Medications: Ambulatory Orders Medication Instructions Recorded Acetaminophen [Tylenol 325mg tab] 650 mg PO Q4 PRN 06/29/17 Atorvastatin [Lipitor] 40 mg PO HS 06/29/17 Cyanocobalamin [Vitamin B12 1000 1,000 mcg PO DAILY 06/29/17 mcg Tab] Lactulose [Generlac] 30 ml PO HS PRN 06/29/17 Lisinopril [Zestril] 20 mg PO DAILY 06/29/17 Magnesium Hydroxide [Milk Of 30 ml PO HS PRN 06/29/17 Magnesia] Metformin HCl [Glucophage] 500 mg PO DAILY 06/29/17 Metoprolol Tartrate [Lopressor] 25 mg PO Q12 06/29/17 Ondansetron [Zofran Tab] 4 mg PO Q6 PRN 06/29/17 Clindamycin [Cleocin] 300 mg PO TID #21 cap 09/09/17 Doxycycline Monohydrate 100 mg PO BID #14 tablet 09/12/17 traMADol [Ultram] 50 mg PO Q8 #10 tab 09/12/17 Loperamide [Loperamide HCl] 2 mg PO Q8 #10 cap 10/05/17 - Allergies Allergies/Adverse Reactions: Allergies Allergy/AdvReac Type Severity Reaction Status Date / Time aspirin Allergy URTICARIA Verified 11/28/17 17:26 Penicillins Allergy URTICARIA Verified 11/28/17 17:26 Review of Systems ROS Statement: Except As Marked, All Systems Reviewed And Found Negative Constitutional: Negative for: Fever, Chills Cardiovascular: Positive for: Palpitations. Negative for: Chest Pain, Light Headedness Respiratory: Negative for: Shortness of Breath Gastrointestinal: Negative for: Nausea, Vomiting Musculoskeletal: Negative for: Arm Pain, Back Pain, Leg Pain Neurological: Negative for: Weakness, Numbness, Dizziness Physical Exam - Reviewed Nursing Documentation Reviewed: Yes Vital Signs Reviewed: Yes - Physical Exam Appears: Positive for: Non-toxic, No Acute Distress Head Exam: Positive for: ATRAUMATIC, NORMOCEPHALIC Skin: Positive for: Normal Color, Warm, Dry Eye Exam: Positive for: EOMI, Normal appearance, PERRL Neck: Positive for: Normal, Painless ROM, Supple Cardiovascular/Chest: Positive for: Regular Rate, Rhythm. Negative for: Murmur Respiratory: Positive for: Normal Breath Sounds. Negative for: Respiratory Distress Gastrointestinal/Abdominal: Positive for: Normal Exam, Soft. Negative for: Tenderness Back: Positive for: Normal Inspection. Negative for: L CVA Tenderness, R CVA Tenderness Extremity: Positive for: Normal ROM. Negative for: Pedal Edema, Deformity Neurologic/Psych: Positive for: Alert, Oriented. Negative for: Motor/Sensory Deficits - Laboratory Results Result Diagrams: 11/28/17 17:59 11/28/17 17:59 Interpretation Of Abn Labs: no acute - ECG ECG: Positive for: Interpreted By Me, Viewed By Me Interpretation Of Abn EKG: paced O2 Sat by Pulse Oximetry: 97 (RA) Pulse Ox Interpretation: Normal - Progress ED Course And Treament: 194: Stable. AAOx3. Tolerated Po. No symptoms currently. FU with pcp. Multiple ER visits. Medical Decision Making Medical Decision Making: Time: 17:34 Impression: Palpitations Initial Plan: --EKG --Alcohol serum --CMP --Drug screen --Magnesium --Phosphorous --Troponin I --CBC w/ diff --PTT --Prothrombin time --Sodium chloride 500 ml IV 100 mls/hr ----- Scribe Attestation: Documented by Eddie Peterson, acting as a scribe for Mookie Shahid MD. Provider Scribe Attestation: All medical record entries made by the Scribe were at my direction and personally dictated by me. I have reviewed the chart and agree that the record accurately reflects my personal performance of the history, physical exam, medical decision making, and the department course for this patient. I have also personally directed, reviewed, and agree with the discharge instructions and disposition. Disposition - Clinical Impression Clinical Impression: Palpitations - Patient ED Disposition Is Patient to be Admitted: No Counseled Patient/Family Regarding: Studies Performed, Diagnosis, Need For Followup - Disposition Referrals: [facility] [Outside] - 11/29/17 Disposition: Routine/Home Disposition Time: 19:41 Condition: STABLE Additional Instructions: Return if not better in 3 days. Instructions: Palpitations
[2017-11-28 18:05] LABS: BASO % 0.4 % (0.0-2.0); EOS # 0.1 K/uL (0.0-0.7); EOS % 0.6 % (0.0-4.0); HEMOGLOBIN 14.3 g/dL (12.0-18.0); LYMPH # 1.2 K/uL (1.0-4.3); LYMPH % 13.5 % (20.0-40.0); MEAN CELL VOLUME 87.4 fl (80.0-94.0); MEAN CORPUSCULAR HEMOGLOBIN 29.6 pg (27.0-31.0); MEAN CORPUSCULAR HGB CONC 33.9 g/dL (33.0-37.0); MEAN PLATELET VOLUME 8.1 fl (7.2-11.7); MONO # 0.6 K/uL (0.0-0.8); NEUT % 78.5 % (50.0-75.0); RBC 4.81 Mil/uL (4.40-5.90); RED CELL DISTRIBUTION WIDTH 14.4 % (11.5-14.5); WHITE BLOOD COUNT 8.9 K/uL (4.8-10.8)
[2017-11-28 18:10] LABS: PROTHROMBIN TIME 11.6 Seconds (9.8-13.1)
[2017-11-28 18:12] LABS: PARTIAL THROMBOPLASTIN TIME 33.6 Seconds (25.6-37.1)
[2017-11-28 18:25] LABS: ALBUMIN 4.3 g/dL (3.5-5.0); BLOOD UREA NITROGEN 17 mg/dl (9-20); CALCIUM 9.2 mg/dL (8.4-10.2); GFR NON-AFRICAN AMERICAN > 60
[2017-11-28 18:26] LABS: ALB/GLOB RATIO 1.4 (1.0-2.1); ALT/SGPT 24 U/L (21-72); AST/SGOT 24 U/L (17-59)
[2017-11-28 20:21] VITALS: BP 148/72; RESP 16; TEMP 98.5; O2SAT 98
--- NOTE | 2017-11-29 08:05 | CARD ---
APPROVED REPORT Date of service: 11/28/2017 EKG Measurement Heart [id number] [id number] <Conclusion> Atrial-paced rhythm Abnormal ECG
== END 2017-11-28 20:19 | disposition home or self-care (01) ==
LOC: H.ER 17:02
DX: R00.2 Palpitations (principal); I12.9 Hypertensive chronic kidney disease with stage 1 through stage 4 chronic kidney disease, or unspecified chronic kidney disease; E78.00 Pure hypercholesterolemia, unspecified; Z79.01 Long term (current) use of anticoagulants; Z86.718 Personal history of other venous thrombosis and embolism; Z86.73 Personal history of transient ischemic attack (TIA), and cerebral infarction without residual deficits; Z88.0 Allergy status to penicillin; Z95.5 Presence of coronary angioplasty implant and graft; Z95.0 Presence of cardiac pacemaker
CPT/HCPCS: 80053; 82948; 83735; 84100; 84484; 85025; 85610; 85730; 93005; 99283; G0480; J7040

== ENCOUNTER 2017-11-29 16:33 | Emergency (ER) | payer MEDICARE, MEDICAID ==
[2017-11-29 16:33] VITALS: BMI 25.7
--- NOTE | 2017-11-29 17:31 | ED PDOC ---
HPI: Psych/Substance Abuse Time Seen by Provider: 11/29/17 16:49 Chief Complaint (Nursing): Psychiatric Evaluation Chief Complaint (Provider): Psychiatric Evaluation History Per: Patient History/Exam Limitations: no limitations Onset/Duration Of Symptoms: Days (x2) Current Symptoms Are (Timing): Still Present Additional Complaint(s): 67 y/o homeless male with a PMHx of depression brought to the ED by [facility] for psychiatric evaluation [place]. Patient states he's had suicidal thoughts for the last two days. Patient reports he was recently admitted at another psychiatric facility but is unwilling to reveal further details. Otherwise: (-) hallucinations, (-) homicidal ideation. Patient has no physical complaints at present. PMD: No Provider Past Medical History Reviewed: Historical Data, Nursing Documentation, Vital Signs Vital Signs: Last Vital Signs Temp 98.4 F 11/29/17 16:41 Pulse 75 11/29/17 16:41 Resp 16 11/29/17 16:41 BP 161/106 H 11/29/17 16:41 Pulse Ox 97 11/29/17 16:41 - Medical History PMH: Atrial Fibrillation, Back Problems, CAD, Cardia Arrhythmia, Depression, Diabetes, Deep Vein Thrombosis, HTN, Hypercholesterolemia, Kidney Stones, Chronic Kidney Disease (kidney stones/ lithotripsy), TIA - Surgical History Surgical History: Coronary Stent, Pacemaker - Family History Family History: States: Hypertension - Home Medications Home Medications: Ambulatory Orders Medication Instructions Recorded Acetaminophen [Tylenol 325mg tab] 650 mg PO Q4 PRN 06/29/17 Atorvastatin [Lipitor] 40 mg PO HS 06/29/17 Cyanocobalamin [Vitamin B12 1000 1,000 mcg PO DAILY 06/29/17 mcg Tab] Lactulose [Generlac] 30 ml PO HS PRN 06/29/17 Lisinopril [Zestril] 20 mg PO DAILY 06/29/17 Magnesium Hydroxide [Milk Of 30 ml PO HS PRN 06/29/17 Magnesia] Metformin HCl [Glucophage] 500 mg PO DAILY 06/29/17 Metoprolol Tartrate [Lopressor] 25 mg PO Q12 06/29/17 Ondansetron [Zofran Tab] 4 mg PO Q6 PRN 06/29/17 Clindamycin [Cleocin] 300 mg PO TID #21 cap 09/09/17 Doxycycline Monohydrate 100 mg PO BID #14 tablet 09/12/17 traMADol [Ultram] 50 mg PO Q8 #10 tab 09/12/17 Loperamide [Loperamide HCl] 2 mg PO Q8 #10 cap 10/05/17 - Allergies Allergies/Adverse Reactions: Allergies Allergy/AdvReac Type Severity Reaction Status Date / Time aspirin Allergy URTICARIA Verified 11/28/17 17:26 Penicillins Allergy URTICARIA Verified 11/28/17 17:26 Review of Systems ROS Statement: Except As Marked, All Systems Reviewed And Found Negative Psych: Positive for: Suicidal ideation, Other (Psychiatric Evaluation) Physical Exam - Reviewed Nursing Documentation Reviewed: Yes Vital Signs Reviewed: Yes - Physical Exam Comments: GENERAL APPEARANCE: Patient is cooperative in the ED, awake, alert, oriented x 3 , in no acute distress. SKIN: Warm, dry; (-) cyanosis NECK: Supple, FROM ENT: Mucus membranes moist. Airway patent, (-) stridor. HEART AND CARDIOVASCULAR: (-) irregularity CHEST AND RESPIRATORY: (-) rales, (-) rhonchi, (-) wheezes; breath sounds equal. Respirations even and nonlabored. NEURO AND PSYCH: Mental status as above. 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 Pupils equal and reactive; EOMI; (-) facial asymmetry; Speech clear. - ECG O2 Sat by Pulse Oximetry: 97 (RA) Pulse Ox Interpretation: Normal Medical Decision Making Medical Decision Making: Time: 1713 Impression: Psychiatric Evaluation Plan: -- Crisis Evaluation -- 1:1 Observation -- Re-evaluation 1809 Patient requesting a dose of Tylenol at this time for a toothache after eating a food tray. Tylenol 650mg PO ordered. Per crisis evaluation, patient to be discharged with the diagnosis of depression per Dr Zaragoza. Repeat BP: 145/89 Patient remains AAOx3, in no acute distress. On exam, neck is supple, lungs CTA , cardiac RRR, abdomen is soft and non-tender, neuro exam shows no focal findings. VSS, stable for discharge. Diagnostic results d/w the patient in great detail. Dx of depression d/w the patient. Based on history, exam and diagnostic results plan will be for discharge and outpatient follow up. Advised to follow up with primary care physician in 1-2 days without fail. Advised to take medication as prescribed. Return to the emergency room at any time for any new or worsening symptoms. Patient states he fully agrees with and understands discharge instructions. States that he agrees with the plan and disposition. Verbalized and repeated discharge instructions and plan. I have given the patient opportunity to ask any additional questions. ___ Scribe Attestation: Documented by Reina Linn, acting as a scribe for Beatriz Gerber PA-C. Provider Scribe Attestation: All medical record entries made by the Scribe were at my direction and personally dictated by me. I have reviewed the chart and agree that the record accurately reflects my personal performance of the history, physical exam, medical decision making, and the department course for this patient. I have also personally directed, reviewed, and agree with the discharge instructions and disposition. Disposition - Clinical Impression Clinical Impression: Depression, Elevated blood pressure reading - Patient ED Disposition Is Patient to be Admitted: No Counseled Patient/Family Regarding: Studies Performed, Diagnosis, Need For Followup, Rx Given - Disposition Referrals: [facility] [Outside] [facility] [Outside] Disposition: Routine/Home Disposition Time: 18:14 Condition: FAIR Additional Instructions: The emergency medical care you received today was directed at your acute symptoms. If you were prescribed any medication, please fill it and take as directed. It may take several days for your symptoms to resolve. Return to the Emergency Department if your symptoms worsen, do not improve, or if you have any other problems. Please contact your doctor in 2 days for re-evaluation and follow up / or call one of the physicians/clinics you have been referred to that are listed on the Patient Visit Information form that is included in your discharge packet. Bring any paperwork you were given at discharge with you along with any medications you are taking to your follow up visit. Our treatment cannot replace ongoing medical care by a primary care provider (PCP) outside of the emergency department. Instructions: Depression, High Blood Pressure in Adults, Hypertension (ED) Forms: [facility] (Chinese) Print Language: BULGARIAN - POA Present On Arrival: None
[2017-11-29 18:35] VITALS: BP 145/89; PULSE 61; RESP 18; TEMP 98
[2017-11-30 14:38] VITALS: O2SAT 97
== END 2017-11-29 18:35 | disposition home or self-care (01) ==
LOC: H.ER 16:33
DX: F32.9 Major depressive disorder, single episode, unspecified (principal); I10 Essential (primary) hypertension

== ENCOUNTER 2018-07-31 15:08 | Inpatient (IN) | payer MEDICAID, MEDICARE ==
[2018-07-31 15:09] VITALS: BMI 25.7
--- NOTE | 2018-07-31 15:30 | ED PDOC ---
HPI:STROKE - Time Time: 15:30 - Historian Historian: Patient - Chief Complaint Chief Complaint: other (dizziness/light headedness) - Onset Onset: Weeks (1 week) - Timing Timing: Improved - TPA Positive for Contraindication: Yes Reason tPA is not being Administered: nih 0 - Notes: Notes:: Patient is a 68 year old male with a history of hypertension, FL, stent, HLD, diabetes and stroke, who presents to the emergency department complaining of dizziness, light headedness and blurry vision that started 1 week ago. Patient states he was fine x1 week ago and ever since has started to become symptomatic, complaining of dizziness. He further states that he also fell down x4 times yesterday due to unknown reasons with no LOC but does report to have hit his hea d. He states that he does have a history of vision problems. He denies having any chest pain, shortness of breath, headache, numbness or tingling, nausea or vomiting. Is homeless. PMD: No provider NIHSS Stroke Scale - Date/Time Evaluation Performed Date Performed: 07/31/18 Time Performed: 15:30 When Was NIHSS Performed: Baseline - How Severe is the Stroke Level of Consciousness: 0=Alert LOC to Questions: 0=Both comments correct LOC to commands: 0=Obeys both correctly Best Gaze: 0=Normal Visual: 0=No visual loss Facial: 0=Normal Motor Arm - Left: 0=No drift Motor Arm - Right: 0=No drift Motor Leg - Left: 0=No drift Motor Leg - Right: 0=No drift Limb Ataxia: 0=Absent Sensory: 0=Normal Best Language: 0=No aphasia Dysarthia: 0=Normal articulation Extinction & Inattention (Neglect): 0=Normal, no object Score: 0 rTPA Inclusion/Exclusion - Refusal of Treatment Patient Refused Treatment: No - Inclusion Criteria for Altepase All of the below criteria for inclusion were reviewed: Yes Patient is 18 years or Older: Yes The Clinical Diagnosis of Ischemic Stroke That is Causing a Potentially Disabling Neurological Deficit: No Time of Onset is Well Established to be Less Than 270 Minute Before Treatment Would Begin: No Risk/Benefit Discussed With Patient/Family Member Present: No Past Medical History Reviewed: Historical Data, Nursing Documentation, Vital Signs Vital Signs: Last Vital Signs Temp 98.2 F 07/31/18 15:15 Pulse 162 H 07/31/18 15:15 Resp 18 07/31/18 15:15 BP 153/94 H 07/31/18 15:15 Pulse Ox 99 07/31/18 15:15 - Medical History PMH: Atrial Fibrillation, Back Problems, CAD, Cardia Arrhythmia, Depression, Diabetes, Deep Vein Thrombosis, HTN, Hypercholesterolemia, Kidney Stones, Chronic Kidney Disease (kidney stones/ lithotripsy), TIA Denies: CVA, Hepatitis, HIV, Seizures, Sexually Transmitted Disease Other PMH: tachycardia - Surgical History Surgical History: Coronary Stent, Pacemaker - Family History Family History: States: Hypertension - Immunization History Hx Tetanus Toxoid Vaccination: No Hx Influenza Vaccination: No Hx Pneumococcal Vaccination: No - Home Medications Home Medications: Ambulatory Orders Medication Instructions Recorded Clopidogrel [Plavix] 75 mg PO DAILY 07/31/18 Lisinopril [Zestril] 20 mg PO DAILY 07/31/18 Metoprolol Tartrate [Lopressor] 25 mg PO BID 07/31/18 Mirtazapine [Remeron] 30 mg PO HS 07/31/18 Sertraline [Zoloft] 100 mg PO DAILY 07/31/18 Simvastatin [Zocor] 40 mg PO DAILY 07/31/18 diltiaZEM [Diltiazem HCl] 30 mg PO DAILY 07/31/18 metFORMIN [glucOPHAGE] 500 mg PO BID 07/31/18 - Allergies Allergies/Adverse Reactions: Allergies Allergy/AdvReac Type Severity Reaction Status Date / Time aspirin Allergy URTICARIA Verified 11/28/17 17:26 Penicillins Allergy URTICARIA Verified 11/28/17 17:26 Review of Systems ROS Statement: Except As Marked, All Systems Reviewed And Found Negative Eyes: Positive for: Vision Change (blurry vision) Cardiovascular: Positive for: Light Headedness. Negative for: Chest Pain Respiratory: Negative for: Shortness of Breath Gastrointestinal: Negative for: Nausea, Vomiting Neurological: Positive for: Dizziness. Negative for: Weakness, Numbness, Headache Physical Exam - Reviewed Nursing Documentation Reviewed: Yes Vital Signs Reviewed: Yes - Physical Exam Appears: Positive for: Uncomfortable Head Exam: Positive for: ATRAUMATIC, NORMOCEPHALIC Skin: Positive for: Normal Color, Warm, Dry Eye Exam: Positive for: Normal appearance, EOMI, PERRL ENT: Positive for: Normal ENT Inspection Neck: Positive for: Normal, Painless ROM, Supple Cardiovascular/Chest: Positive for: Tachycardia Respiratory: Positive for: Normal Breath Sounds. Negative for: Respiratory Distress Gastrointestinal/Abdominal: Positive for: Normal Exam, Soft. Negative for: Tenderness Back: Positive for: Normal Inspection. Negative for: L CVA Tenderness, R CVA Tenderness, Vertebral Tenderness Extremity: Positive for: Normal ROM. 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 Negative for: Gait, Facial Droop - Laboratory Results Result Diagrams: 07/31/18 15:53 07/31/18 15:53 Interpretation Of Abn Labs: 3.4 k - ECG ECG: Positive for: Interpreted By Me, Viewed By Me Interpretation Of Abn EKG: svt ? Interpretation Of ECnd ekg sinus tachy O2 Sat by Pulse Oximetry: 99 (RA) Pulse Ox Interpretation: Normal - Radiology X-Ray: Read By Radiologist X-Ray Interpretation: No Acute Disease - CT Scan/US ct Other Rad Studies (CT/US): Read By Radiologist Other Rad Interpretation: no acute - Progress ED Course And Treament: 1715: Stable. AAOx3. Pt. with multiple visits to the ER. Has multiple medical problems. Takes plavix, took today. Hx of tachycardia. Cardizem helped hr some. Will continue monitoring with fluids. Will ct to r/o pe. Spoke with Dr. Lu who will admit. - Critical Care Total Time (In Min): 30 Documented Critical Care: Time excludes all time spent performint seperately billable procedures Medical Decision Making Medical Decision Making: Code stroke called at: 1518 Time: 1526 Impression: TIA Plan: --Head CT without contrast --Chest xray --Type and screen BK --EKG --CMP --Hemoglobin A1C --Lipid panel --Troponin I --CBC with differential --PT --PTT --Glucose, Blood, POC --Vitals Signs Q15 min --Nursing Swallow screen --hydraulic spinner --Saline Lock --Sodium Chloride 1,000 ml Time: 1538 CT Head FINDINGS: HEMORRHAGE: No intracranial hemorrhage. BRAIN: No mass effect or edema. Atrophy. Chronic microvascular ischemic changes. Old right basal ganglia and thalamic lacunar infarctions. VENTRICLES: Prominent. No hydrocephalus. CALVARIUM: Unremarkable. PARANASAL SINUSES: Prior sinus surgery. No significant inflammatory changes. MASTOID AIR CELLS: Unremarkable as visualized. No inflammatory changes. OTHER FINDINGS: None. IMPRESSION: No acute intracranial pathology. Age-related changes. No significant interval change. Findings given to Dr. Shahid by Dr. Melchor at 3:38 p.m. on 07/31/2018. Time: 1548 --Patient states he gets tachycardic at times. --Patient states reports the 8 medications that he takes are in the bag with hi m. Cardiazem was found in bag. --Patient will be started on IV Cardiazem 10 mg. Time: 1550 Chest xray FINDINGS: LUNGS: No active pulmonary disease. PLEURA: No significant pleural effusion identified, no pneumothorax apparent. CARDIOVASCULAR: Aortic atherosclerotic calcifications. Cardiomediastinal silhouette stably prominent. OSSEOUS STRUCTURES: Changed. VISUALIZED UPPER ABDOMEN: Normal. OTHER FINDINGS: None. IMPRESSION: No active disease. Time: 1625 --On repeat EKG: Patient heart rate was found to have come down and found to be sinus tachycardia Scribe Attestation: Documented by Baljit Johns, acting as a scribe for Mookie Shahid MD. Provider Scribe Attestation: All medical record entries made by the Scribe were at my direction and personally dictated by me. I have reviewed the chart and agree that the record accurately reflects my personal performance of the history, physical exam, medical decision making, and the department course for this patient. I have also personally directed, reviewed, and agree with the discharge instructions and disposition. Disposition - Clinical Impression Clinical Impression: Dizziness, Tachycardia - Patient ED Disposition Is Patient to be Admitted: Yes Counseled Patient/Family Regarding: Studies Performed, Diagnosis - Disposition Disposition Time: 16:45 Condition: FAIR - Pt Status Changed To: Hospital Disposition Of: Observation - POA Present On Arrival: None
--- NOTE | 2018-07-31 15:42 | CT ---
Date of service: 07/31/2018 PROCEDURE: CT HEAD WITHOUT CONTRAST. HISTORY: TIA, initial exam COMPARISON: CT head dated 07/30/2017 TECHNIQUE: Axial computed tomography images were obtained through the head/brain without intravenous contrast. Radiation dose: Total exam DLP = 1054.4 mGy-cm. This CT exam was performed using one or more of the following dose reduction techniques: Automated exposure control, adjustment of the mA and/or kV according to patient size, and/or use of iterative reconstruction technique. FINDINGS: HEMORRHAGE: No intracranial hemorrhage. BRAIN: No mass effect or edema. Atrophy. Chronic microvascular ischemic changes. Old right basal ganglia and thalamic lacunar infarctions. VENTRICLES: Prominent. No hydrocephalus. CALVARIUM: Unremarkable. PARANASAL SINUSES: Prior sinus surgery. No significant inflammatory changes. MASTOID AIR CELLS: Unremarkable as visualized. No inflammatory changes. OTHER FINDINGS: None. IMPRESSION: No acute intracranial pathology. Age-related changes. No significant interval change. Findings given to Dr. Shahid by Dr. Melchor at 3:38 p.m. on 07/31/2018.
[2018-07-31] MEDS: Sodium Chloride 0.9% 1,000 ML IV SCH (15:53)
--- NOTE | 2018-07-31 15:54 | RAD ---
Date of service: 07/31/2018 HISTORY: Code Stroke COMPARISON: Chest radiograph dated 10/30/2017. TECHNIQUE: 1 view obtained. FINDINGS: LUNGS: No active pulmonary disease. PLEURA: No significant pleural effusion identified, no pneumothorax apparent. CARDIOVASCULAR: Aortic atherosclerotic calcifications. Cardiomediastinal silhouette stably prominent. OSSEOUS STRUCTURES: Changed. VISUALIZED UPPER ABDOMEN: Normal. OTHER FINDINGS: None. IMPRESSION: No active disease.
[2018-07-31 16:08] LABS: ALB/GLOB RATIO 1.3 (1.0-2.1); ALBUMIN 4.5 g/dL (3.5-5.0); ALT/SGPT 34 U/L (21-72); AST/SGOT 31 U/L (17-59); BLOOD UREA NITROGEN 15 mg/dl (9-20); CALCIUM 9.3 mg/dL (8.4-10.2); GFR NON-AFRICAN AMERICAN > 60; HDL CHOLESTEROL 24 MG/DL (30-70)
[2018-07-31 16:13] LABS: BASO # 0.1 K/uL (0.0-0.2); EOS # 0.2 K/uL (0.0-0.7); EOS % 4.2 % (0.0-4.0); LYMPH # 1.2 K/uL (1.0-4.3); LYMPH % 19.8 % (20.0-40.0); MEAN CELL VOLUME 85.9 fl (80.0-94.0); MEAN CORPUSCULAR HEMOGLOBIN 28.9 pg (27.0-31.0); MEAN CORPUSCULAR HGB CONC 33.6 g/dL (33.0-37.0); MEAN PLATELET VOLUME 8.3 fl (7.2-11.7); MONO # 0.8 K/uL (0.0-0.8); MONO % 13.4 % (0.0-10.0); NEUT # 3.6 K/uL (1.8-7.0); NEUT % 61.6 % (50.0-75.0); NRBC % 0.1 % (0.0-0.0); RBC 4.86 Mil/uL (4.40-5.90); RED CELL DISTRIBUTION WIDTH 14.6 % (11.5-14.5); WHITE BLOOD COUNT 5.9 K/uL (4.8-10.8)
[2018-07-31 16:18] LABS: LDL CHOLESTEROL 133 mg/dL (0-129)
[2018-07-31 17:19] LABS: PARTIAL THROMBOPLASTIN TIME 30.2 Seconds (25.6-37.1)
[2018-07-31] MEDS ORDERED: Sodium Chloride 0.9% 1,000 ML IV STA (17:24)
[2018-07-31] MEDS ORDERED: Iodixanol 320 MG/ML 100 ML BOTTLE IV ONE (17:45)
[2018-07-31] MEDS ORDERED: Sodium Chloride 0.9% 50 ML IV ONE (17:46)
[2018-07-31] MEDS ORDERED: Metoprolol 1 mg/ml Inj IVP PRN (21:06)
--- NOTE | 2018-07-31 21:13 | CARD ---
APPROVED REPORT Date of service: 07/31/2018 EKG Measurement Heart [id number] [place] 154P [id number] <Conclusion> Atrial tachycardia Left axis deviation Abnormal ECG
--- NOTE | 2018-07-31 21:15 | CARD ---
APPROVED REPORT Date of service: 07/31/2018 EKG Measurement Heart [id number] 138P [id number] <Conclusion> Atrial tachycardia Left axis deviation Abnormal ECG
[2018-07-31] MEDS: Potassium Chl 20 mEq in NS 1,000 ML IV SCH (21:57)
[2018-08-01] MEDS: Sodium Chloride 0.9% 1,000 ML IV SCH (02:08)
[2018-08-01 05:44] LABS: BASO % 0.8 % (0.0-2.0); EOS # 0.3 K/uL (0.0-0.7); EOS % 5.7 % (0.0-4.0); LYMPH # 1.3 K/uL (1.0-4.3); LYMPH % 22.8 % (20.0-40.0); MEAN CELL VOLUME 87.2 fl (80.0-94.0); MEAN CORPUSCULAR HEMOGLOBIN 28.7 pg (27.0-31.0); MEAN PLATELET VOLUME 8.2 fl (7.2-11.7); MONO # 0.8 K/uL (0.0-0.8); MONO % 13.8 % (0.0-10.0); NEUT # 3.3 K/uL (1.8-7.0); NEUT % 56.9 % (50.0-75.0); NRBC % 0.1 % (0.0-0.0); RBC 4.52 Mil/uL (4.40-5.90); RED CELL DISTRIBUTION WIDTH 14.4 % (11.5-14.5); WHITE BLOOD COUNT 5.9 K/uL (4.8-10.8)
[2018-08-01 05:58] LABS: ALB/GLOB RATIO 1.3 (1.0-2.1); ALBUMIN 3.7 g/dL (3.5-5.0); ALT/SGPT 29 U/L (21-72); AST/SGOT 28 U/L (17-59); BLOOD UREA NITROGEN 12 mg/dl (9-20); CALCIUM 8.3 mg/dL (8.4-10.2); GFR NON-AFRICAN AMERICAN > 60
[2018-08-01] MEDS: Potassium Chl 20 mEq in NS 1,000 ML IV SCH ×2 (09:56→16:51)
[2018-08-01] MEDS: Omega-3-Acid Ethyl Esters 1 GM Cap PO SCH ×2 (09:59→16:50)
--- NOTE | 2018-08-01 11:18 | CT ---
Date of service: 07/31/2018 PROCEDURE: CT Chest with contrast (Pulmonary Angiogram) HISTORY: chest pain COMPARISON: Unenhanced chest CT 04/10/2017. TECHNIQUE: Axial computed tomography images were obtained of the chest in the pulmonary arterial phase of enhancement. Coronal and sagittal reformatted images were created and reviewed. Intravenous contrast dose: Visipaque 320, 90 cc Radiation dose: Total exam DLP = 352.73 mGy-cm. This CT exam was performed using one or more of the following dose reduction techniques: Automated exposure control, adjustment of the mA and/or kV according to patient size, and/or use of iterative reconstruction technique. FINDINGS: PULMONARY ARTERIES: Unremarkable. No pulmonary embolism. AORTA: Calcific atherosclerotic changes are seen related to the thoracic aorta. Further, there is aneurysmal dilatation of the ascending thoracic aorta terminating at the mid arch. The root is normal in caliber at 3.8 cm with the proximal assess segment measuring 5.1 x 4.8 cm terminating by the mid arch which measures 3.7 cm. No dissection appreciated throughout the chest. LUNGS: Limited bilateral basilar dependent atelectasis as well as linear atelectasis or fibrosis. No consolidation. No definite mass including central airways. PLEURAL SPACES: Unremarkable. No effusion or pneumothorax. HEART: Two pacemaker leads are identified extending from the subclavian vein through inferior vena cava and into the right heart from a generator overlying the left pectoralis muscle. Extensive coronary artery atherosclerosis identified. No cardiomegaly. No significant pericardial effusion. LYMPH NODES: No lymphadenopathy. BONES, CHEST WALL: Small anterior thoracic vertebral wedge-shaped deformities appear mild at the T8, T9 and T10 vertebral body positions, possibly also T11. These may be chronic but clinical correlation is advised. OTHER FINDINGS: Cholelithiasis within the dependent portion of the neck of the gallbladder. Moderate gallbladder distension identified. IMPRESSION: 1. No CT evidence of pulmonary embolus. 2. No acute infiltrate although linear atelectasis/fibrosis and dependent atelectasis are identified the bilateral lower lobes inferiorly. No mass or central airway pathology appreciable. 3. Ascending thoracic aortic aneurysm up to 5.1 cm greatest dimension terminating at the mid arch with limited calcified mural atherosclerotic changes identified in various thoracic aortic segments. No evidence to suggest hemorrhagic leakage associated with the aneurysm. 4. Permanent pacemaker noted as discussed above. 5. Multiple mild anterior wedge compression fractures from T8 through T11 inclusively, probably chronic but clinical correlation is advised. 6. Incidental cholelithiasis and right upper quadrant of visualized abdomen sections. Concordant preliminary report from [facility], 07/31/2018, 6:24 p.m..
--- NOTE | 2018-08-01 13:41 | US ---
Date of service: 08/01/2018 PROCEDURE: Duplex ultrasound of the carotid and vertebral arteries. HISTORY: TIA COMPARISON: None available. TECHNIQUE: Grayscale and duplex Doppler evaluation of the cervical carotid and vertebral arteries were performed. The common carotid, carotid bifurcations and cervical ICA and proximal ECA were evaluated. The vertebral arteries were evaluated for gross patency and direction. FINDINGS: RIGHT CAROTID ARTERIES: Common Carotid Artery: Mild intimal thickening. Maximal flow velocity of 87.3 cm/s. Carotid Bifurcation: Small partially calcified atherosclerotic plaque right carotid bifurcation extending into the proximal right internal carotid artery. Internal Carotid Artery:Mild partially calcified plaque proximal right internal carotid artery. Maximal flow velocity of 92.1 cm/s. External Carotid Artery (proximal branches): Normal. Maximal flow velocity of 87.5 cm/s. ICA/CCA Ratio: 1.1 LEFT CAROTID ARTERIES: Common Carotid Artery: Mild intimal thickening. Maximal flow velocity of 78.9 cm/s. Carotid Bifurcation: Minor partially calcified atherosclerotic plaque seen extending distally into the proximal left internal carotid artery l. Internal Carotid Artery:Mild partially calcified atherosclerotic plaque. Maximal flow velocity of 63.8 cm/s. External Carotid Artery (proximal branches): Normal. Maximal flow velocity of 114 cm/s. ICA/CCA Ratio: 0.8 VERTEBRAL ARTERIES: Right Vertebral Artery: Patent. Antegrade flow. Left Vertebral Artery: Patent. Antegrade flow. OTHER FINDINGS: No atherosclerotic calcification present IMPRESSION: There is mild intimal thickening both common carotid arteries. Mild partially calcified atherosclerotic plaque present both carotid bifurcations right greater than left, extending into the proximal margins of both internal carotid arteries. No evidence of significant stepped up velocities to suggest hemodynamically significant stenosis.
--- NOTE | 2018-08-01 14:25 | HP ---
CHIEF COMPLAINT: Dizziness and lightheadedness. HISTORY OF PRESENT ILLNESS: This is a 68-year-old male with known case of coronary artery disease, hypertension, elevated cholesterol, diabetes and CVA who was feeling very dizzy and lightheaded with blurry vision for almost about a week, which did not get better, and the patient also had multiple episodes of fall, so the patient was brought to emergency room and was admitted for further management. REVIEW OF SYSTEMS: Positive for dizzy, lightheadedness, and fall. Review of systems; otherwise is negative for headache, loss of consciousness, chest pain, shortness of breath, nausea, vomiting, diarrhea, constipation, any new joint or extremity pain. Review of systems of all other organ system is unremarkable. PAST MEDICAL HISTORY: Significant for hypertension, diabetes, elevated cholesterol, coronary artery disease, atrial fibrillation, DVT, kidney stones, CKD, TIA. PAST SURGICAL HISTORY: Unremarkable except for stents and pacemaker. FAMILY HISTORY: Noncontributory. MEDICATIONS: The patient is on Plavix, Pletal, Zestril, Lopressor, Remeron, Zoloft, Zocor, diltiazem, and Glucophage. ALLERGIES: THE PATIENT IS ALLERGIC TO ASPIRIN AND PENICILLIN. PHYSICAL EXAMINATION: GENERAL: Well-built, well-nourished 68-year-old male, in no acute distress. VITAL SIGNS: Temperature 97.5, pulse 60, respirations 20, blood pressure 134/94, saturation 94%. HEENT: Pupils reacting to light. No JVD. No thyromegaly. No lymphadenopathy. No nystagmus. Normocephalic and atraumatic skull. HEART: S1 and S2. Normal and regular. LUNGS: Shows good bilateral air exchange. No rales or rhonchi. ABDOMEN: Soft and nontender. No organomegaly. No fluid. Bowel sounds are plus and normal. EXTREMITIES: No edema. No calf swelling. No tenderness. No acute ischemia. CENTRAL NERVOUS SYSTEM: Essentially unchanged and there is no sign of any acute gross focal motor or sensory neurological deficit. DIAGNOSTIC DATA: Available diagnostic data reviewed. Telemetry monitoring does not reveal significant arrhythmias. WBC 5.9, hemoglobin 13, hematocrit 39.4, platelets 252. Sodium 138, potassium 3.1, chloride 105, bicarbonate 25, BUN 12, creatinine 0.7. SMA-12 is unremarkable. TSH level is 1.5. Vitamin B12 level is 330. CAT scan of chest shows no evidence of pulmonary embolism. The patient has a 5.1 cm aortic aneurysm and osteoporosis-related compression fractures, also has cholelithiasis. EKG does not reveal any acute ST-T changes. CAT scan of head is unremarkable. Chest x-ray is clear. EKG shows sinus tachycardia or atrial tachycardia as reported. ADMITTING IMPRESSION: Near syncope, multiple falls, type 2 diabetes, hyperglycemia, elevated cholesterol, coronary artery disease, hypertension, atrial fibrillation, pacemaker status, cardiac arrhythmia. PLAN: Plan as ordered. Case and plan discussed with the patient. Imer Lu MD
--- NOTE | 2018-08-01 15:48 | CP.PCM.CON ---
History of Present Illness - History of Present Illness History of Present Illness: Neurology Consultation Note: Consult requested by Dr. Lu The patient is a 68-year-old man with a past medical history of hypertension, CO, stent, s/p pacemaker, HLD, diabetes and previous stroke, who presented to the ED with dizziness and light-headedness that started a week ago. BP was relatively normal. Non-contrast CT head showed previous lacunar infarcts in the basal ganglia and thalamus, but no acute findings. The patient states that he has had several falls over the past week, but no loss of consciousness, abnormal movements or any significant injuries reported. Review of Systems - Constitutional Constitutional: As Per HPI - EENT Eyes: absent: As Per HPI, Blind Spots, Blurred Vision, Change in Vision, Decrea sed Night Vision, Diplopia, Discharge, Dry Eye, Exophthalmos, Floaters, Irritation, Itchy Eyes, Loss of Peripheral Vision, Pain, Photophobia, Requires Corrective Lenses, Sees Flashes, Spots in Vision, Tunnel Vision, Other Visual Disturbances, Loss of Vision, Other Ears: absent: As Per HPI, Decreased Hearing, Ear Discharge, Ear Pain, Tinnitus, Abnormal Hearing, Disequilibrium, Dizziness, Other Nose/Mouth/Throat: absent: As Per HPI, Epistaxis, Nasal Congestion, Nasal Discharge, Nasal Obstruction, Nasal Trauma, Nose Pain, Post Nasal Drip, Sinus Pa in, Sinus Pressure, Bleeding Gums, Change in Voice, Dental Pain, Dry Mouth, Dysphagia, Halitosis, Hoarsness, Lip Swelling, Mouth Lesions, Mouth Pain, Odynophagia, Sore Throat, Throat Swelling, Tongue Swelling, Facial Pain, Neck Pain, Neck Mass, Other - Cardiovascular Cardiovascular: absent: As Per HPI, Acrocyanosis, Chest Pain, Chest Pain at Rest, Chest Pain with Activity, Claudication, Diaphoresis, Dyspnea, Dyspnea on Exertion, Edema, Irregular Heart Rhythm, Pain Radiating to Arm/Neck/Jaw, Leg Edema, Leg Ulcers, Lightheadedness, Orthopnea, Palpitations, Paroxysmal Nocturnal Dyspnea, Pedal Edema, Radiating Pain, Rapid Heart Rate, Slow Heart Rate, Syncope, Other - Respiratory Respiratory: absent: As Per HPI, Cough, Dyspnea, Hemoptysis, Dyspnea on Exertion, Wheezing, Snoring, Stridor, Pain on Inspiration, Chest Congestion, Excessive Mucous Production, Change in Mucous Color, Pain with Coughing, Other - Gastrointestinal Gastrointestinal: absent: As Per HPI, Abdominal Pain, Belching, Bloating, Change in Bowel Habits, Change in Stool Character, Coffee Ground Emesis, Constipation, Cramping, Diarrhea, Dyspepsia, Dysphagia, Early Satiety, Excessive Flatus, Fecal Incontinence, Heartburn, Hematemesis, Hematochezia, Loose Stools, Melena, Nausea, Odynophagia, Temesmus, Vomiting, Other - Integumentary Integumentary: absent: As Per HPI, Acne, Alopecia, Bleeding Lesions, Change in Hair, Change in Nails, Change in Pigmentation, Changing Lesions, Dry Skin, Erythema, Furuncle, Hirsutism, Lesions, New Lesions, Non-Healing Lesions, Photos ensitivity, Pruritus, Rash, Skin Pain, Skin Ulcer, Sores, Striae, Swelling, Unusual Bruising, Wounds, Jaundice, Other - Neurological Neurological: As Per HPI - Psychiatric Psychiatric: absent: As Per HPI, Abnormal Sleep Pattern, Anhedonia, Anxiety, Auditory Hallucinations, Behavioral Changes, Change in Appetite, Change in Libido, Confusion, Depression, Difficulty Concentrating, Hallucinations, Homicidal Ideation, Hopelessness, Irritability, Memory Loss, Mood Swings, Panic Attacks, Paranoia, Suicidal Ideation, Visual Hallucinations, Tactile Hallucinations, Other - Endocrine Endocrine: absent: As Per HPI, Change in Body Appearance, Change in Libido, Cold Intolorance, Deepening of Voice, Excessive Sweating, Fatigue, Flushing, Heat Intolorance, Increase in Ring/Shoe/Hat Size, Palpitations, Polydipsia, Polyphagia, Polyuria, Other - Hematologic/Lymphatic Hematologic: absent: As Per HPI, Easy Bleeding, Easy Bruising, Lymphadenopathy, Other Past Patient History - Infectious Disease Hx of Infectious Diseases: None - Past Medical History & Family History Past Medical History?: Yes - Past Social History Smoking Status: Never Smoked - CARDIAC Hx Cardiac Disorders: Yes Hx Atrial Fibrillation: Yes Hx Cardia Arrhythmia: Yes Hx Hypercholesterolemia: Yes Hx Hypertension: Yes Hx Pacemaker: Yes - PULMONARY Hx Tuberculosis: No - NEUROLOGICAL Hx Dizziness: Yes Hx Seizures: No Hx Transient Ischemic Attacks (TIA): Yes - HEENT Hx HEENT Problems: No - RENAL Hx Chronic Kidney Disease: Yes (kidney stones/ lithotripsy) Hx Kidney Stones: Yes - ENDOCRINE/METABOLIC Hx Endocrine Disorders: Yes Hx Diabetes Mellitus Type 2: Yes - HEMATOLOGICAL/ONCOLOGICAL Hx AIDS: No Hx Blood Transfusions: No Hx Human Immunodeficiency Virus (HIV): No - INTEGUMENTARY Hx Dermatological Problems: Yes (scabies (treated 04/04)) - MUSCULOSKELETAL/RHEUMATOLOGICAL Hx Musculoskeletal Disorders: Yes (back pain/ hip pain) Hx Back Pain: Yes Hx Falls: Yes - GASTROINTESTINAL Hx Fatty Liver Disease: Yes - GENITOURINARY/GYNECOLOGICAL Hx Sexually Transmitted Disorders: No - PSYCHIATRIC Hx Depression: Yes Hx Substance Use: No - SURGICAL HISTORY Hx Surgeries: Yes Hx Coronary Stent: Yes (x1) Other/Comment: Pacemaker - ANESTHESIA Hx Anesthesia: Yes Hx Anesthesia Reactions: No Hx Malignant Hyperthermia: No Meds Allergies/Adverse Reactions: Allergies Allergy/AdvReac Type Severity Reaction Status Date / Time aspirin Allergy URTICARIA Verified 11/28/17 17:26 Penicillins Allergy URTICARIA Verified 11/28/17 17:26 - Medications Medications: Current Medications Atorvastatin Calcium (Lipitor) 20 mg PO HS [facility] Last Admin: 07/31/18 21:59 Dose: 20 mg Clopidogrel Bisulfate (Plavix) 75 mg PO DAILY [facility] Last Admin: 08/01/18 09:59 Dose: 75 mg Diltiazem HCl (Cardizem) 30 mg PO TID [facility] Last Admin: 08/01/18 14:13 Dose: 30 mg Potassium Chloride/Sodium Chloride (Potassium Chl 20 Meq In Ns) 1,000 mls @ 100 mls/hr IV .Q10H [facility] Last Admin: 08/01/18 09:56 Dose: 100 mls/hr Lisinopril (Zestril) 20 mg PO DAILY [facility] Last Admin: 08/01/18 10:00 Dose: 20 mg Metformin HCl (Glucophage) 500 mg PO BID [facility] Last Admin: 08/01/18 09:58 Dose: 500 mg Metoprolol Tartrate (Lopressor) 25 mg PO BID [facility] Last Admin: 08/01/18 09:58 Dose: 25 mg Metoprolol Tartrate (Lopressor) 5 mg IVP Q6 PRN PRN Reason: Tachycardia [id number] Ethyl Esters (Lovaza) 2 gm PO BID [facility] Last Admin: 08/01/18 09:59 Dose: 2 gm Physical Exam - Constitutional Appears: Well - Head Exam Head Exam: ATRAUMATIC, NORMAL INSPECTION, NORMOCEPHALIC - Eye Exam Eye Exam: EOMI, Normal appearance, PERRL Pupil Exam: NORMAL ACCOMODATION, PERRL - ENT Exam ENT Exam: Mucous Membranes Moist, Normal Exam - Neck Exam Neck exam: Positive for: Normal Inspection - Respiratory Exam Respiratory Exam: Clear to Auscultation Bilateral, NORMAL BREATHING PATTERN - Cardiovascular Exam Cardiovascular Exam: REGULAR RHYTHM - GI/Abdominal Exam GI & Abdominal Exam: Normal Bowel Sounds, Soft. absent: Tenderness - Extremities Exam Extremities exam: Positive for: normal inspection - Back Exam Back exam: NORMAL INSPECTION - Neurological Exam Neurological exam: Alert, CN II-XII Intact, Normal Gait, Oriented x3, Reflexes Normal Additional comments: Coordination is slightly less on the left side as compared with the right. No ataxia on ambulation. - Psychiatric Exam Psychiatric exam: Normal Affect, Normal Mood - Skin Skin Exam: Dry, Intact, Normal Color, Warm Results - Vital Signs Recent Vital Signs: Last Vital Signs Temp 98.1 F 08/01/18 13:00 Pulse 73 08/01/18 14:13 Resp 20 08/01/18 14:13 BP 159/86 H 08/01/18 14:13 Pulse Ox 97 08/01/18 14:13 - Labs Result Diagrams: 08/01/18 04:30 08/01/18 04:30 Labs: Laboratory Results - last 24 hr 07/31/18 07/31/18 07/31/18 15:53 15:53 15:53 WBC 5.9 RBC 4.86 Hgb 14.0 Hct 41.7 MCV 85.9 MCH 28.9 MCHC 33.6 RDW 14.6 H Plt Count 285 MPV 8.3 Neut % (Auto) 61.6 Lymph % (Auto) 19.8 L [place] % (Auto) 13.4 H Eos % (Auto) 4.2 H Baso % (Auto) 1.0 Neut # (Auto) 3.6 Lymph # (Auto) 1.2 [place] # (Auto) 0.8 Eos # (Auto) 0.2 Baso # (Auto) 0.1 PT INR APTT Sodium 141 Potassium 3.4 L Chloride 106 Carbon Dioxide 23 Anion Gap 15 BUN 15 Creatinine 0.8 Est GFR ( Amer) > 60 Est GFR (Non-Af Amer) > 60 POC Glucose (mg/dL) Random Glucose 116 H Hemoglobin A1c 6.2 Calcium 9.3 Total Bilirubin 1.0 AST 31 ALT 34 Alkaline Phosphatase 103 Troponin I < 0.0120 Total Protein 7.8 Albumin 4.5 Globulin 3.3 Albumin/Globulin Ratio 1.3 Triglycerides 231 H D Cholesterol 218 H LDL Cholesterol Direct 133 H HDL Cholesterol 24 L Vitamin B12 TSH 3rd Generation Blood Type Antibody Screen BBK History Checked 07/31/18 07/31/18 08/01/18 16:45 16:45 01:03 WBC RBC Hgb Hct MCV MCH MCHC RDW Plt Count MPV Neut % (Auto) Lymph % (Auto) [place] % (Auto) Eos % (Auto) Baso % (Auto) Neut # (Auto) Lymph # (Auto) [place] # (Auto) Eos # (Auto) Baso # (Auto) PT 12.0 INR 1.0 APTT 30.2 Sodium Potassium Chloride Carbon Dioxide Anion Gap BUN Creatinine Est GFR ( Amer) Est GFR (Non-Af Amer) POC Glucose (mg/dL) 156 H Random Glucose Hemoglobin A1c Calcium Total Bilirubin AST ALT Alkaline Phosphatase Troponin I Total Protein Albumin Globulin Albumin/Globulin Ratio Triglycerides Cholesterol LDL Cholesterol Direct HDL Cholesterol Vitamin B12 TSH 3rd Generation Blood Type B POSITIVE Antibody Screen Negative BBK History Checked Patient has bt 08/01/18 08/01/18 08/01/18 04:30 04:30 05:50 WBC 5.9 RBC 4.52 Hgb 13.0 Hct 39.4 MCV 87.2 MCH 28.7 MCHC 33.0 RDW 14.4 Plt Count 252 MPV 8.2 Neut % (Auto) 56.9 Lymph % (Auto) 22.8 [place] % (Auto) 13.8 H Eos % (Auto) 5.7 H Baso % (Auto) 0.8 Neut # (Auto) 3.3 Lymph # (Auto) 1.3 [place] # (Auto) 0.8 Eos # (Auto) 0.3 Baso # (Auto) 0.0 PT INR APTT Sodium 138 Potassium 3.1 L Chloride 105 Carbon Dioxide 25 Anion Gap 11 BUN 12 Creatinine 0.7 L Est GFR ( Amer) > 60 Est GFR (Non-Af Amer) > 60 POC Glucose (mg/dL) 128 H Random Glucose 111 H Hemoglobin A1c Calcium 8.3 L Total Bilirubin 1.0 AST 28 ALT 29 Alkaline Phosphatase 81 Troponin I Total Protein 6.7 Albumin 3.7 Globulin 2.9 Albumin/Globulin Ratio 1.3 Triglycerides Cholesterol LDL Cholesterol Direct HDL Cholesterol Vitamin B12 TSH 3rd Generation Blood Type Antibody Screen BBK History Checked 08/01/18 08/01/18 06:00 10:50 WBC RBC Hgb Hct MCV MCH MCHC RDW Plt Count MPV Neut % (Auto) Lymph % (Auto) [place] % (Auto) Eos % (Auto) Baso % (Auto) Neut # (Auto) Lymph # (Auto) [place] # (Auto) Eos # (Auto) Baso # (Auto) PT INR APTT Sodium Potassium Chloride Carbon Dioxide Anion Gap BUN Creatinine Est GFR ( Amer) Est GFR (Non-Af Amer) POC Glucose (mg/dL) 202 H Random Glucose Hemoglobin A1c Calcium Total Bilirubin AST ALT Alkaline Phosphatase Troponin I Total Protein Albumin Globulin Albumin/Globulin Ratio Triglycerides Cholesterol LDL Cholesterol Direct HDL Cholesterol Vitamin B12 330 TSH 3rd Generation 1.53 Blood Type Antibody Screen BBK History Checked Assessment & Plan (1) Dizziness Assessment and Plan: This could be due to either vertebrobasilar insufficiency, cardiac disease, or other systemic causes. No nystagmus on exam and no evidence of vertigo per the patient. I recommend the followin. Telemetry 2. CTA of the head/neck. 3. Continue Plavix 75 mg daily 4. Lipitor 40 mg daily to keep LDL < 70 5. PT/OT eval and treatment 6. Echocardiogram 7. Fluids with NS at 100 mL/hr Thank you for this consultation. Status: Acute
[2018-08-02] MEDS: Potassium Chl 20 mEq in NS 1,000 ML IV SCH ×2 (01:44→14:22)
[2018-08-02 05:44] LABS: ALB/GLOB RATIO 1.2 (1.0-2.1); ALBUMIN 3.6 g/dL (3.5-5.0); ALT/SGPT 32 U/L (21-72); AST/SGOT 20 U/L (17-59); BLOOD UREA NITROGEN 12 mg/dl (9-20); CALCIUM 8.5 mg/dL (8.4-10.2); GFR NON-AFRICAN AMERICAN > 60
[2018-08-02 05:51] LABS: HEMOGLOBIN 12.8 g/dL (12.0-18.0); MEAN CELL VOLUME 87.1 fl (80.0-94.0); MEAN CORPUSCULAR HEMOGLOBIN 29.2 pg (27.0-31.0); MEAN CORPUSCULAR HGB CONC 33.5 g/dL (33.0-37.0); RBC 4.4 Mil/uL (4.40-5.90); RED CELL DISTRIBUTION WIDTH 13.8 % (11.5-14.5); WHITE BLOOD COUNT 5.5 K/uL (4.8-10.8)
[2018-08-02] MEDS ORDERED: Potassium Chloride 20 mEq/15 ml LIQ UD PO ONE (06:12)
--- NOTE | 2018-08-02 07:54 | CP.PCM.HP ---
Past Patient History - Infectious Disease Hx of Infectious Diseases: None - Past Medical History & Family History Past Medical History?: Yes - Past Social History Smoking Status: Never Smoked - CARDIAC Hx Cardiac Disorders: Yes Hx Atrial Fibrillation: Yes Hx Cardia Arrhythmia: Yes Hx Hypercholesterolemia: Yes Hx Hypertension: Yes Hx Pacemaker: Yes - PULMONARY Hx Tuberculosis: No - NEUROLOGICAL Hx Dizziness: Yes Hx Seizures: No Hx Transient Ischemic Attacks (TIA): Yes - HEENT Hx HEENT Problems: No - RENAL Hx Chronic Kidney Disease: Yes (kidney stones/ lithotripsy) Hx Kidney Stones: Yes - ENDOCRINE/METABOLIC Hx Endocrine Disorders: Yes Hx Diabetes Mellitus Type 2: Yes - HEMATOLOGICAL/ONCOLOGICAL Hx AIDS: No Hx Blood Transfusions: No Hx Human Immunodeficiency Virus (HIV): No - INTEGUMENTARY Hx Dermatological Problems: Yes (scabies (treated 04/04)) - MUSCULOSKELETAL/RHEUMATOLOGICAL Hx Musculoskeletal Disorders: Yes (back pain/ hip pain) Hx Back Pain: Yes Hx Falls: Yes - GASTROINTESTINAL Hx Fatty Liver Disease: Yes - GENITOURINARY/GYNECOLOGICAL Hx Sexually Transmitted Disorders: No - PSYCHIATRIC Hx Depression: Yes Hx Substance Use: No - SURGICAL HISTORY Hx Surgeries: Yes Hx Coronary Stent: Yes (x1) Other/Comment: Pacemaker - ANESTHESIA Hx Anesthesia: Yes Hx Anesthesia Reactions: No Hx Malignant Hyperthermia: No Meds Allergies/Adverse Reactions: Allergies Allergy/AdvReac Type Severity Reaction Status Date / Time aspirin Allergy URTICARIA Verified 11/28/17 17:26 Penicillins Allergy URTICARIA Verified 11/28/17 17:26 Results - Vital Signs Recent Vital Signs: Last Vital Signs Temp 98.2 F 08/02/18 07:47 Pulse 68 08/02/18 07:47 Resp 18 08/02/18 07:47 BP 125/78 08/02/18 07:47 Pulse Ox 96 08/02/18 07:47 - Labs Result Diagrams: 08/02/18 05:00 08/02/18 06:31 Labs: Laboratory Results - last 24 hr 07/31/18 08/01/18 08/01/18 15:53 06:00 10:50 WBC RBC Hgb Hct MCV MCH MCHC RDW Plt Count Sodium Potassium Chloride Carbon Dioxide Anion Gap BUN Creatinine Est GFR ( Amer) Est GFR (Non-Af Amer) POC Glucose (mg/dL) 202 H Random Glucose Hemoglobin A1c 6.2 Calcium Magnesium Total Bilirubin AST ALT Alkaline Phosphatase Total Protein Albumin Globulin Albumin/Globulin Ratio Vitamin B12 330 TSH 3rd Generation 1.53 08/01/18 08/01/18 08/02/18 15:54 21:10 05:00 WBC 5.5 RBC 4.40 Hgb 12.8 Hct 38.3 MCV 87.1 MCH 29.2 MCHC 33.5 RDW 13.8 Plt Count 226 Sodium Potassium Chloride Carbon Dioxide Anion Gap BUN Creatinine Est GFR ( Amer) Est GFR (Non-Af Amer) POC Glucose (mg/dL) 116 H 108 Random Glucose Hemoglobin A1c Calcium Magnesium Total Bilirubin AST ALT Alkaline Phosphatase Total Protein Albumin Globulin Albumin/Globulin Ratio Vitamin B12 TSH 3rd Generation 08/02/18 08/02/18 05:00 06:31 WBC RBC Hgb Hct MCV MCH MCHC RDW Plt Count Sodium 137 Potassium 3.4 L 3.5 L Chloride 106 Carbon Dioxide 21 L Anion Gap 13 BUN 12 Creatinine 0.7 L Est GFR ( Amer) > 60 Est GFR (Non-Af Amer) > 60 POC Glucose (mg/dL) Random Glucose 108 Hemoglobin A1c Calcium 8.5 Magnesium 1.8 Total Bilirubin 1.0 AST 20 ALT 32 Alkaline Phosphatase 80 Total Protein 6.5 Albumin 3.6 Globulin 2.9 Albumin/Globulin Ratio 1.2 Vitamin B12 TSH 3rd Generation
[2018-08-02] MEDS: Omega-3-Acid Ethyl Esters 1 GM Cap PO SCH ×2 (08:59→17:53)
[2018-08-02] MEDS ORDERED: Iohexol 300 100 ML IJ ONE (10:45)
[2018-08-02] MEDS ORDERED: Sodium Chloride 0.9% 50 ML IV ONE ×2 (10:46→11:47)
[2018-08-02] MEDS ORDERED: Iodixanol 320 MG/ML 100 ML BOTTLE IV ONE (11:47)
--- NOTE | 2018-08-02 12:36 | CP.PCM.PN ---
Subjective - Date & Time of Evaluation Date of Evaluation: 08/02/18 Time of Evaluation: 06:50 - Subjective Subjective: 68 y/o M was seen and examined by bedside with Dr Lu. Pt reports feeling tired, able to respond to tactile stimulation and requesting not to be bothered. Pt afebrile and tolerating PO with NO acute events overnight. Objective - Vital Signs/Intake and Output Vital Signs (last 24 hours): Temp Pulse Resp BP Pulse Ox 98.2 F 70 18 135/84 97 08/02/18 12:00 08/02/18 12:00 08/02/18 12:00 08/02/18 12:00 08/02/18 12:00 - Medications Medications: Current Medications Atorvastatin Calcium (Lipitor) 20 mg PO HS [facility] Last Admin: 08/01/18 21:52 Dose: 20 mg Clopidogrel Bisulfate (Plavix) 75 mg PO DAILY [facility] Last Admin: 08/02/18 08:59 Dose: 75 mg Diltiazem HCl (Cardizem) 30 mg PO TID [facility] Last Admin: 08/02/18 08:59 Dose: 30 mg Enoxaparin Sodium (Lovenox) 40 mg SC DAILY [facility]; Protocol Potassium Chloride/Sodium Chloride (Potassium Chl 20 Meq In Ns) 1,000 mls @ 100 mls/hr IV .Q10H [facility] Last Admin: 08/02/18 01:44 Dose: 100 mls/hr Lisinopril (Zestril) 20 mg PO DAILY [facility] Last Admin: 08/02/18 09:00 Dose: 20 mg Metformin HCl (Glucophage) 500 mg PO BID [facility] Last Admin: 08/02/18 08:59 Dose: 500 mg Metoprolol Tartrate (Lopressor) 25 mg PO BID [facility] Last Admin: 08/02/18 08:58 Dose: 25 mg Metoprolol Tartrate (Lopressor) 5 mg IVP Q6 PRN PRN Reason: Tachycardia [id number] Ethyl Esters (Lovaza) 2 gm PO BID [facility] Last Admin: 08/02/18 08:59 Dose: 2 gm - Labs Labs: 08/02/18 05:00 08/02/18 06:31 PT 12.0 Seconds (9.8-13.1) 07/31/18 16:45 INR 1.0 07/31/18 16:45 APTT 30.2 Seconds (25.6-37.1) 07/31/18 16:45 - Constitutional Appears: No Acute Distress - Head Exam Head Exam: ATRAUMATIC, NORMAL INSPECTION - Eye Exam Eye Exam: EOMI, PERRL - ENT Exam ENT Exam: Mucous Membranes Moist - Neck Exam Neck Exam: Full ROM, Normal Inspection. absent: Meningismus - Respiratory Exam Respiratory Exam: NORMAL BREATHING PATTERN. absent: Rales, Rhonchi, Wheezes, Respiratory Distress - Cardiovascular Exam Cardiovascular Exam: REGULAR RHYTHM, +S1, +S2 - GI/Abdominal Exam GI & Abdominal Exam: Soft. absent: Distended, Firm, Guarding, Tenderness - Extremities Exam Extremities Exam: absent: Pedal Edema - Neurological Exam Neurological Exam: Alert Assessment and Plan - Assessment and Plan (Free Text) Assessment: 68 y/o M with a PMHx of hypertension, HI, HLD, DM and CVA was admitted for trena luation and management dizziness, near syncope and frequent falls. PLAN: >Dizziness/near syncope/Multiple falss --Afebrile, vital signs stable --Neurology on board, Dr Carcamo --CT head and Doppler US of b/l carotids unremarkable. See full reports. --Psych meds on hold for now. --CTA of head and neck to be perfroemd today --Echocardiogram to be performed today. --Monitor vitals and neuro deficits >Depression --Chronic --Home meds on hold due to dizziness and falls --Psychiatry consult, Dr Fontana. >Hypokalemia --PO KCl replenished --Serum magnessium ordered. --F/U labs >DM2 with hyperglycemia --Chronic, controlled HbA1c 6.2 --C/w home meds >Hyperlipidemia --Chronic --C/w home meds >HTN --Chronic, controlled --C/w home meds >Hx of CAD (s/p stent placement 03/2016) and A fib (s/p dual chamber pacemaker 04/2017) --Chronic --C/w home meds >DVT Prophylaxis --SCD --Lovenox SC daily Case discussed with dr Aly Oneal PGY-2
[2018-08-02] MEDS: Enoxaparin 40 mg Syringe SC SCH (14:17)
--- NOTE | 2018-08-02 15:26 | CT ---
Date of service: 08/02/2018 PROCEDURE: CT Angiography of the Head and Neck. HISTORY: frequent falls COMPARISON: None available. TECHNIQUE: CT angiography of the head and neck was performed following intravenous contrast administration. Coronal and sagittal maximum intensity projection reformatted images were generated. Contrast Dose: Visipaque 320, 100 cc Radiation dose: Total exam DLP = 573.93 mGy-cm. This CT exam was performed using one or more of the following dose reduction techniques: Automated exposure control, adjustment of the mA and/or kV according to patient size, and/or use of iterative reconstruction technique. FINDINGS: INTERNAL CEREBRAL ARTERIES: Note is made of minimal calcified atherosclerosis of the bilateral cavernous internal carotid artery segments without significant stenosis. The skull base, petrous, and supraclinoid segments are bilaterally widely patent. ANTERIOR CEREBRAL ARTERIES: Unremarkable. A1 and A2 segments are widely patent. Smaller distal branches unremarkable, as visualized. MIDDLE CEREBRAL ARTERIES: Unremarkable. M1 and M2 segments are widely patent. Perisylvian branches grossly symmetric. POSTERIOR CIRCULATION: Basilar Artery: Unremarkable. Distal Vertebral Arteries: Distal left vertebral artery hypoplasia variation likely terminating proximal to the basilar artery with variant branch extending posteriorly. Widely patent distal right vertebral artery to its junction with the basilar artery. Posterior Cerebral Arteries: Unremarkable. Posterior Inferior Cerebellar Arteries: Unremarkable. NECK CTA: Aortic Arch: Normal three vessel arch identified. Common Carotid arteries: The bilateral common carotid appear widely patent from their origins to their bifurcations with no significant stenosis appreciated. No evidence to suggest common carotid artery dissection. Internal Carotid arteries: No significant stenosis is appreciated throughout the cervical internal carotid artery segments bilaterally and there is no evidence of dissection either. External Carotid arteries: Appear unremarkable bilaterally. Vertebral arteries: On the bilateral vertebral arteries appear patent, left vertebral artery appears hypoplastic no significant stenosis or definite pattern of dissection. ANEURYSM/ VASCULAR MALFORMATIONS: Incidental aneurysmal ascending thoracic aorta measuring up to 4.8 cm greatest transverse dimension terminating proximal to the anterior arch which measures 3.6 cm. Further, extensive coronary artery calcified atherosclerosis identified. OTHER FINDINGS: None. 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 The left cervical vertebral artery is also hypoplastic distally, but patent. Significant stenosis in the bilateral common or internal carotid arteries in the neck though mild atherosclerotic plaques identified at the bilateral carotid bulb regions extending into the proximal left internal carotid artery somewhat. Incidental ascending thoracic aortic aneurysm 4.8 cm greatest transverse dimension terminating at the proximal arch.
[2018-08-02] MEDS: Sodium Chloride 0.9% 1,000 ML IV SCH (19:30)
--- NOTE | 2018-08-02 20:46 | CARD ---
APPROVED REPORT Date of service: 08/02/2018 EXAM: Two-dimensional and M-mode echocardiogram with Doppler and color Doppler. Other Information Quality : GoodRhythm : NSR INDICATION Abnormal EKG/Arrhythmia Dizziness and Vertigo 2D DIMENSIONS IVSd1.60 (0.7-1.1cm)LVDd4.93 (3.9-5.9cm) LVOT Diameter2.40 (1.8-2.4cm)PWd1.27 (0.7-1.1cm) IVSs1.97 (0.8-1.2cm)LVDs3.72 (2.5-4.0cm) FS (%) 24.5 %PWs1.36 (0.8-1.2cm) M-Mode DIMENSIONS Left Atrium (MM)4.38 (2.5-4.0cm)IVSd1.35 (0.7-1.1cm) Aortic Root3.71 (2.2-3.7cm)LVDd5.71 (4.0-5.6cm) Aortic Cusp Exc.2.09 (1.5-2.0cm)PWd1.15 (0.7-1.1cm) IVSs2.29 cmFS (%) 57 % LVDs2.47 (2.0-3.8cm)PWs1.74 cm Aortic Valve AoV Peak Okqghlkc47.9cm/sAoV VTI19.1cmAO Peak GR.3mmHg LVOT Peak Xrhaaafo15.9cm/sLVOT VTI19.16cmAO Mean GR.2mmHg LALI (VMAX)1.12xf8BRC (VTI)2.42cm2 Mitral Valve MV E Jrqxngcs15.0cm/sMV DECEL [id number] A Phvtalyp04.6cm/s MV HRM94mlY/A ratio0.9MVA (PHT)2.44cm2 TDI Lateral E' Peak V11.16cm/sMedial E' Peak V6.27cm/sE/Lateral E'4.8 E/Medial E'8.6 Tricuspid Valve TR Peak Kpbuhlhq793ho/sRAP WDMPLVLI14utZtMY Peak Gr.19mmHg [id number] LEFT VENTRICLE The left ventricle is normal size. There is mild concentric left ventricular hypertrophy. The left ventricular systolic function is normal. The estimated ejection fraction is 60-65% No regional wall motion abnormalities noted.. Transmitral Doppler flow pattern is Grade I-abnormal relaxation pattern. No left ventricle thrombus noted on this study. There is no ventricular septal defect visualized. There is no left ventricular aneurysm. There is no mass noted in the left ventricle. RIGHT VENTRICLE The right ventricle is normal size. There is normal right ventricular wall thickness. The right ventricular systolic function is normal. A PPM lead is seen in the right ventricle. ATRIA The left atrium is mildly dilated. The right atrium size is normal. The interatrial septum is intact with no evidence for an atrial septal defect. AORTIC VALVE The aortic valve is normal in structure. Mild aortic regurgitation is present. There is no aortic valvular stenosis. There is no aortic valvular vegetation. MITRAL VALVE The mitral valve is normal in structure. There is no evidence of mitral valve prolapse. There is no mitral valve stenosis. There is mild mitral valve regurgitation noted. TRICUSPID VALVE The tricuspid valve is normal in structure. There is mild tricuspid valve regurgitation noted. RVSP is calculated at 23 mm Hg. There is no tricuspid valve prolapse or vegetation. There is no tricuspid valve stenosis. PULMONIC VALVE The pulmonary valve is normal in structure. There is no pulmonic valvular regurgitation. There is no pulmonic valvular stenosis. GREAT VESSELS The aortic root is normal in size. The ascending aorta is normal in size. The pulmonary artery is normal. The IVC is normal in size and collapses >50% with inspiration. PERICARDIAL EFFUSION There is no pericardial effusion. There is no pleural effusion. <Conclusion> There is mild concentric left ventricular hypertrophy. The estimated ejection fraction is 60-65% Transmitral Doppler flow pattern is Grade I-abnormal relaxation pattern. The left atrium is mildly dilated. Mild aortic regurgitation is present. There is mild mitral valve regurgitation noted. There is mild tricuspid valve regurgitation noted. RVSP is calculated at 23 mm Hg. A PPM lead is seen in the right ventricle.
--- NOTE | 2018-08-02 21:45 | CP.PCM.CON ---
History of Present Illness - History of Present Illness History of Present Illness: pt is a 68 ys old male presented to [facility] due to dizziness pt on evaluation reported history of depression which started about four months ago, resulted in hospitalization in [facility] and related to the of his girl friend, pt denied any prior psychiatric treatment or hospitalization pt reported at current time he has no changes in mood , denied any current suicidal or homicidal ideation, denied changes in sleep or appetite,denied perceptual disturbances,non elicited , alert awake oriented to person and place Past Patient History - Infectious Disease Hx of Infectious Diseases: None - Past Medical History & Family History Past Medical History?: Yes - Past Social History Smoking Status: Never Smoked - CARDIAC Hx Cardiac Disorders: Yes Hx Hypercholesterolemia: Yes Hx Hypertension: Yes - PULMONARY Hx Tuberculosis: No - NEUROLOGICAL HX Cerebrovascular Accident: No - HEENT Hx HEENT Problems: No - RENAL Hx Chronic Kidney Disease: Yes (kidney stones/ lithotripsy) Hx Kidney Stones: Yes - ENDOCRINE/METABOLIC Hx Diabetes Mellitus Type 2: Yes - HEMATOLOGICAL/ONCOLOGICAL Hx AIDS: No Hx Blood Transfusions: No Hx Human Immunodeficiency Virus (HIV): No - INTEGUMENTARY Hx Dermatological Problems: Yes (scabies (treated 04/04)) - MUSCULOSKELETAL/RHEUMATOLOGICAL Hx Musculoskeletal Disorders: Yes (back pain/ hip pain) Hx Back Pain: Yes Hx Falls: Yes - GASTROINTESTINAL Hx Fatty Liver Disease: Yes - GENITOURINARY/GYNECOLOGICAL Hx Sexually Transmitted Disorders: No - PSYCHIATRIC Hx Depression: Yes Hx Substance Use: No - SURGICAL HISTORY Hx Surgeries: Yes Hx Coronary Stent: Yes (x1) Other/Comment: Pacemaker - ANESTHESIA Hx Anesthesia: Yes Hx Anesthesia Reactions: No Hx Malignant Hyperthermia: No Meds Allergies/Adverse Reactions: Allergies Allergy/AdvReac Type Severity Reaction Status Date / Time aspirin Allergy URTICARIA Verified 11/28/17 17:26 Penicillins Allergy URTICARIA Verified 11/28/17 17:26 - Medications Medications: Current Medications Atorvastatin Calcium (Lipitor) 20 mg PO HS [facility] Last Admin: 08/02/18 21:27 Dose: 20 mg Clopidogrel Bisulfate (Plavix) 75 mg PO DAILY [facility] Last Admin: 08/02/18 08:59 Dose: 75 mg Diltiazem HCl (Cardizem) 30 mg PO TID [facility] Last Admin: 08/02/18 17:51 Dose: 30 mg Enoxaparin Sodium (Lovenox) 40 mg SC DAILY [facility]; Protocol Last Admin: 08/02/18 14:17 Dose: 40 mg Sodium Chloride (Sodium Chloride 0.9%) 1,000 mls @ 100 mls/hr IV .Q10H [facility] Stop: 08/03/18 18:45 Last Admin: 08/02/18 19:30 Dose: 100 mls/hr Lisinopril (Zestril) 20 mg PO DAILY [facility] Last Admin: 08/02/18 09:00 Dose: 20 mg Metformin HCl (Glucophage) 500 mg PO BID [facility] Last Admin: 08/02/18 17:53 Dose: 500 mg Metoprolol Tartrate (Lopressor) 25 mg PO BID [facility] Last Admin: 08/02/18 17:53 Dose: 25 mg Metoprolol Tartrate (Lopressor) 5 mg IVP Q6 PRN PRN Reason: Tachycardia Eahti-2-Wmxh Ethyl Esters (Lovaza) 2 gm PO BID [facility] Last Admin: 08/02/18 17:53 Dose: 2 gm Results - Vital Signs Recent Vital Signs: Last Vital Signs Temp 97.5 F L 08/02/18 19:30 Pulse 75 08/02/18 19:30 Resp 20 08/02/18 19:30 BP 133/80 08/02/18 19:30 Pulse Ox 95 08/02/18 19:30 - Labs Result Diagrams: 08/02/18 05:00 08/02/18 06:31 Labs: Laboratory Results - last 24 hr 08/02/18 08/02/18 08/02/18 05:00 05:00 06:31 WBC 5.5 RBC 4.40 Hgb 12.8 Hct 38.3 MCV 87.1 MCH 29.2 MCHC 33.5 RDW 13.8 Plt Count 226 Sodium 137 Potassium 3.4 L 3.5 L Chloride 106 Carbon Dioxide 21 L Anion Gap 13 BUN 12 Creatinine 0.7 L Est GFR ( Amer) > 60 Est GFR (Non-Af Amer) > 60 POC Glucose (mg/dL) Random Glucose 108 Calcium 8.5 Magnesium 1.8 Total Bilirubin 1.0 AST 20 ALT 32 Alkaline Phosphatase 80 Total Protein 6.5 Albumin 3.6 Globulin 2.9 Albumin/Globulin Ratio 1.2 08/02/18 08/02/18 08/02/18 10:45 16:09 20:50 WBC RBC Hgb Hct MCV MCH MCHC RDW Plt Count Sodium Potassium Chloride Carbon Dioxide Anion Gap BUN Creatinine Est GFR ( Amer) Est GFR (Non-Af Amer) POC Glucose (mg/dL) 155 H 107 110 Random Glucose Calcium Magnesium Total Bilirubin AST ALT Alkaline Phosphatase Total Protein Albumin Globulin Albumin/Globulin Ratio Assessment & Plan - Assessment and Plan (Free Text) Assessment: major depression mild to moderate Plan: recommend decrease the dose of remeron to 15 mg continue with zoloft pt would benefit from referal to outpatient psychiatric services on discharge
[2018-08-03 05:51] LABS: HEMOGLOBIN 13.4 g/dL (12.0-18.0); MEAN CORPUSCULAR HEMOGLOBIN 28.8 pg (27.0-31.0); MEAN CORPUSCULAR HGB CONC 33.2 g/dL (33.0-37.0); RBC 4.65 Mil/uL (4.40-5.90); RED CELL DISTRIBUTION WIDTH 14.3 % (11.5-14.5); WHITE BLOOD COUNT 5.3 K/uL (4.8-10.8)
[2018-08-03] MEDS: Sodium Chloride 0.9% 1,000 ML IV SCH ×2 (05:56→16:28)
[2018-08-03 06:00] LABS: BLOOD UREA NITROGEN 13 mg/dl (9-20); CALCIUM 8.7 mg/dL (8.4-10.2); GFR NON-AFRICAN AMERICAN > 60
[2018-08-03] MEDS: Omega-3-Acid Ethyl Esters 1 GM Cap PO SCH ×2 (09:05→16:28)
[2018-08-03] MEDS: Enoxaparin 40 mg Syringe SC SCH (09:05)
--- NOTE | 2018-08-03 09:05 | CP.PCM.PN ---
Subjective - Date & Time of Evaluation Date of Evaluation: 08/03/18 Time of Evaluation: 07:10 - Subjective Subjective: 68 y/o M was seen and examined by bedside with Dr Lu. Pt sleeping, responsive to tactile and verbal stimulation, reports no more dizziness. Pt afebrile and tolerating PO with NO acute events overnight. Pt denies chills, headache, chest pain, SOB, abdominal pain, N/V. Objective - Vital Signs/Intake and Output Vital Signs (last 24 hours): Temp Pulse Resp BP Pulse Ox 98.2 F 63 18 129/79 96 08/03/18 07:53 08/03/18 07:53 08/03/18 07:53 08/03/18 07:53 08/03/18 07:53 - Medications Medications: Current Medications Atorvastatin Calcium (Lipitor) 20 mg PO HS [facility] Last Admin: 08/02/18 21:27 Dose: 20 mg Clopidogrel Bisulfate (Plavix) 75 mg PO DAILY [facility] Last Admin: 08/02/18 08:59 Dose: 75 mg Diltiazem HCl (Cardizem) 30 mg PO TID [facility] Last Admin: 08/02/18 17:51 Dose: 30 mg Enoxaparin Sodium (Lovenox) 40 mg SC DAILY [facility]; Protocol Last Admin: 08/02/18 14:17 Dose: 40 mg Sodium Chloride (Sodium Chloride 0.9%) 1,000 mls @ 100 mls/hr IV .Q10H [facility] Stop: 08/03/18 18:45 Last Admin: 08/03/18 05:56 Dose: 100 mls/hr Lisinopril (Zestril) 20 mg PO DAILY [facility] Last Admin: 08/02/18 09:00 Dose: 20 mg Metformin HCl (Glucophage) 500 mg PO BID [facility] Last Admin: 08/02/18 17:53 Dose: 500 mg Metoprolol Tartrate (Lopressor) 25 mg PO BID [facility] Last Admin: 08/02/18 17:53 Dose: 25 mg Metoprolol Tartrate (Lopressor) 5 mg IVP Q6 PRN PRN Reason: Tachycardia Mshma-3-Bxdy Ethyl Esters (Lovaza) 2 gm PO BID [facility] Last Admin: 08/02/18 17:53 Dose: 2 gm Potassium Phosphate (Potassium Phosphate) 1,000 mg PO TID [facility] Stop: 08/03/18 17:01 - Labs Labs: 08/03/18 05:05 08/03/18 05:05 PT 12.0 Seconds (9.8-13.1) 07/31/18 16:45 INR 1.0 07/31/18 16:45 APTT 30.2 Seconds (25.6-37.1) 07/31/18 16:45 - Constitutional Appears: No Acute Distress - Head Exam Head Exam: ATRAUMATIC, NORMAL INSPECTION - Eye Exam Eye Exam: EOMI - ENT Exam ENT Exam: Mucous Membranes Moist - Neck Exam Neck Exam: Full ROM, Normal Inspection - Respiratory Exam Respiratory Exam: NORMAL BREATHING PATTERN. absent: Rales, Rhonchi, Wheezes, Respiratory Distress - Cardiovascular Exam Cardiovascular Exam: +S1, +S2 - GI/Abdominal Exam GI & Abdominal Exam: Soft. absent: Guarding, Rigid, Tenderness - Extremities Exam Extremities Exam: Normal Inspection. absent: Calf Tenderness, Pedal Edema - Neurological Exam Neurological Exam: Alert, Awake Assessment and Plan - Assessment and Plan (Free Text) Assessment: 68 y/o M with a PMHx of hypertension, MT, HLD, DM and CVA was admitted for evaluation and management dizziness, near syncope and frequent falls. PLAN: >Dizziness/near syncope/Multiple falss --Afebrile, vital signs stable --CT head and Doppler US of b/l carotids unremarkable. See full reports. --Psych meds on hold for now. --CTA of head and neck: significant stenosis of b/l common internal carotid arteries. --Echocardiogram: LVEF 60-65%, grade I abnormal relaxation, mild concentric LVH. --Neurology on board, Dr Carcamo --F/U Neurology recommendations, if any intervention is needed due to abnormal CTA. --Monitor vitals and neuro deficits. >Depression --Chronic --Home meds on hold due to dizziness and falls --Psychiatry consult: decrease Remeron to 15mg and c/w Zoloft. >Hypokalemia/Hypophosphatemia --PO Kphos ordered --F/U labs >DM2 with hyperglycemia --Chronic, controlled HbA1c 6.2 --C/w home meds >Hyperlipidemia --Chronic --C/w home meds >HTN --Chronic, controlled --C/w home meds >Hx of CAD (s/p stent placement 03/2016) and A fib (s/p dual chamber pacemaker 04/2017) --Chronic --C/w home meds >DVT Prophylaxis --SCD --Lovenox SC daily Case discussed with Dr Aly Oneal PGY-2
--- NOTE | 2018-08-03 11:13 | CP.PCM.PN ---
Subjective - Date & Time of Evaluation Date of Evaluation: 08/03/18 Time of Evaluation: 11:10 - Subjective Subjective: Neuro Follow-Up Note: Mr. Feldman was evaluated this morning at bedside. He states that he is feeling well and offers no complaints today. He denies any new falls or episodes of unsteadiness. Tolerating PT well. Denies h/a, dizziness, visual changes, chest pain, palpitations, sob, cough, abd pain, n/v/d, fever/chills, paresthesias. Objective - Vital Signs/Intake and Output Vital Signs (last 24 hours): Temp Pulse Resp BP Pulse Ox 98.2 F 63 18 129/79 96 08/03/18 07:53 08/03/18 09:07 08/03/18 09:04 08/03/18 09:07 08/03/18 09:04 - Medications Medications: Current Medications Atorvastatin Calcium (Lipitor) 20 mg PO HS [facility] Last Admin: 08/02/18 21:27 Dose: 20 mg Clopidogrel Bisulfate (Plavix) 75 mg PO DAILY [facility] Last Admin: 08/03/18 09:06 Dose: 75 mg Diltiazem HCl (Cardizem) 30 mg PO TID [facility] Last Admin: 08/03/18 09:04 Dose: 30 mg Enoxaparin Sodium (Lovenox) 40 mg SC DAILY [facility]; Protocol Last Admin: 08/03/18 09:05 Dose: 40 mg Sodium Chloride (Sodium Chloride 0.9%) 1,000 mls @ 100 mls/hr IV .Q10H [facility] Stop: 08/03/18 18:45 Last Admin: 08/03/18 05:56 Dose: 100 mls/hr Lisinopril (Zestril) 20 mg PO DAILY [facility] Last Admin: 08/03/18 09:07 Dose: 20 mg Metformin HCl (Glucophage) 500 mg PO BID [facility] Last Admin: 08/03/18 09:04 Dose: 500 mg Metoprolol Tartrate (Lopressor) 25 mg PO BID [facility] Last Admin: 08/03/18 09:05 Dose: 25 mg Metoprolol Tartrate (Lopressor) 5 mg IVP Q6 PRN PRN Reason: Tachycardia Xoldb-6-Soip Ethyl Esters (Lovaza) 2 gm PO BID [facility] Last Admin: 08/03/18 09:05 Dose: 2 gm Potassium Phosphate (Potassium Phosphate) 1,000 mg PO TID [facility] Stop: 08/03/18 17:01 - Labs Labs: 08/03/18 05:05 08/03/18 05:05 PT 12.0 Seconds (9.8-13.1) 07/31/18 16:45 INR 1.0 07/31/18 16:45 APTT 30.2 Seconds (25.6-37.1) 07/31/18 16:45 - Constitutional Appears: Well, Non-toxic, No Acute Distress - Head Exam Head Exam: ATRAUMATIC, NORMAL INSPECTION, NORMOCEPHALIC - Eye Exam Eye Exam: EOMI, Normal appearance, PERRL Pupil Exam: NORMAL ACCOMODATION, PERRL - ENT Exam ENT Exam: Mucous Membranes Moist - Neck Exam Neck Exam: Full ROM, Normal Inspection - Respiratory Exam Respiratory Exam: NORMAL BREATHING PATTERN - Extremities Exam Extremities Exam: Full ROM. absent: Calf Tenderness, Pedal Edema - Back Exam Back Exam: Full ROM - Neurological Exam Neurological Exam: Alert, Awake, CN II-XII Intact, Oriented x3, Reflexes Normal Neuro motor strength exam: Left Upper Extremity: 5, Right Upper Extremity: 5, Left Lower Extremity: 5, Right Lower Extremity: 5 Additional comments: Speech clear No focal motor or sensory deficits No tremors or abnormal movement - Psychiatric Exam Psychiatric exam: Normal Affect, Normal Mood - Skin Skin Exam: Normal Color Assessment and Plan (1) Dizziness Assessment & Plan: Imaging reviewed: -CTA Head and Neck (08/02/18): No large vessel occlusion or significant stenosis appreciated associated with the intracranial CT angiogram although 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 The left cervical vertebral artery is also hypoplastic distally, but patent. Significant stenosis in the bilateral common or internal carotid arteries in the neck though mild atherosclerotic plaques identified at the bilateral carotid bulb regions extending into the proximal left internal carotid artery somewhat. Incidental ascending thoracic aortic aneurysm 4.8 cm greatest transverse dimension terminating at the proximal arch. -Carotid U/S (08/01/18): There is mild intimal thickening both common carotid arteries. Mild partially calcified atherosclerotic plaque present both carotid bifurcations right greater than left, extending into the proximal margins of both internal carotid arteries. No evidence of significant stepped up velocities to suggest hemodynamically significant stenosis. -ECHO (08/02/18): EF 60-65%. -CT Head (07/31/18): No acute intracranial pathology. Age-related changes. No significant interval change. -Continue Plavix 75 mg PO daily and statin. -CTA discussed with Dr. Carcamo---no neurovascular intervention at this time. -Continue secondary stroke prevention, PT, supportive measures. -Recommend f/u with Dr. Lu in the office after d/c (pt as no PMD). He may also f/u with neuro as outpatient. -Reconsult prn. Thank you for this consultation. Kaleigh Holt, NOE, MACHINE CLERICAL VERIFIER d/w Dr. Carcamo Status: Acute
[2018-08-03 23:54] VITALS: RESP 18
[2018-08-04 05:29] LABS: MEAN CELL VOLUME 86.8 fl (80.0-94.0); MEAN CORPUSCULAR HGB CONC 33.4 g/dL (33.0-37.0); RBC 4.49 Mil/uL (4.40-5.90); WHITE BLOOD COUNT 5.6 K/uL (4.8-10.8)
[2018-08-04 05:49] LABS: BLOOD UREA NITROGEN 13 mg/dl (9-20); CALCIUM 8.8 mg/dL (8.4-10.2); GFR NON-AFRICAN AMERICAN > 60
[2018-08-04 07:53] VITALS: PULSE 60
[2018-08-04] MEDS: Enoxaparin 40 mg Syringe SC SCH (09:39)
[2018-08-04] MEDS: Omega-3-Acid Ethyl Esters 1 GM Cap PO SCH (09:39)
--- NOTE | 2018-08-04 11:33 | CP.PCM.DIS ---
Provider - Provider Date of Admission: 08/02/18 12:21 Attending physician: Imer Lu MD Primary care physician: None Consults: 07/31/18 20:42 Neurology Consult Routine Comment: Consulting Provider: Ian Carcamo Consulting Physician: Ian Carcamo Reason for Consult: TIA; code stroke 08/02/18 07:51 Psychiatry Consult Routine Comment: Consulting Provider: Danny Fontana Consulting Physician: Danny Fontana Reason for Consult: Hx of depression. Dizziness/blurry vision while on meds. Time Spent in preparation of Discharge (in minutes): 35 Diagnosis - Discharge Diagnosis (1) Dizziness Status: Acute Hospital Course - Lab Results Lab Results: Most Recent Lab Values WBC 5.6 K/uL (4.8-10.8) 08/04/18 04:15 RBC 4.49 Mil/uL (4.40-5.90) 08/04/18 04:15 Hgb 13.0 g/dL (12.0-18.0) 08/04/18 04:15 Hct 39.0 % (35.0-51.0) 08/04/18 04:15 MCV 86.8 fl (80.0-94.0) 08/04/18 04:15 MCH 29.0 pg (27.0-31.0) 08/04/18 04:15 MCHC 33.4 g/dL (33.0-37.0) 08/04/18 04:15 RDW 14.0 % (11.5-14.5) 08/04/18 04:15 Plt Count 253 K/uL (130-400) 08/04/18 04:15 MPV 8.2 fl (7.2-11.7) 08/01/18 04:30 Neut % (Auto) 56.9 % (50.0-75.0) 08/01/18 04:30 Lymph % (Auto) 22.8 % (20.0-40.0) 08/01/18 04:30 Daggett % (Auto) 13.8 % (0.0-10.0) H 08/01/18 04:30 Eos % (Auto) 5.7 % (0.0-4.0) H 08/01/18 04:30 Baso % (Auto) 0.8 % (0.0-2.0) 08/01/18 04:30 Neut # (Auto) 3.3 K/uL (1.8-7.0) 08/01/18 04:30 Lymph # (Auto) 1.3 K/uL (1.0-4.3) 08/01/18 04:30 Daggett # (Auto) 0.8 K/uL (0.0-0.8) 08/01/18 04:30 Eos # (Auto) 0.3 K/uL (0.0-0.7) 08/01/18 04:30 Baso # (Auto) 0.0 K/uL (0.0-0.2) 08/01/18 04:30 PT 12.0 Seconds (9.8-13.1) 07/31/18 16:45 INR 1.0 07/31/18 16:45 APTT 30.2 Seconds (25.6-37.1) 07/31/18 16:45 Sodium 135 mmol/l (132-148) 08/04/18 04:15 Potassium 3.8 MMOL/L (3.6-5.0) 08/04/18 04:15 Chloride 103 mmol/L (98-107) 08/04/18 04:15 Carbon Dioxide 24 mmol/L (22-30) 08/04/18 04:15 Anion Gap 12 (10-20) 08/04/18 04:15 BUN 13 mg/dl (9-20) 08/04/18 04:15 Creatinine 0.8 mg/dl (0.8-1.5) 08/04/18 04:15 Est GFR ( Amer) > 60 08/04/18 04:15 Est GFR (Non-Af Amer) > 60 08/04/18 04:15 POC Glucose (mg/dL) 131 mg/dL (65-110) H 08/04/18 05:09 Random Glucose 112 mg/dL (75-110) H 08/04/18 04:15 Hemoglobin A1c 6.2 % (4.2-6.5) 07/31/18 15:53 Calcium 8.8 mg/dL (8.4-10.2) 08/04/18 04:15 Phosphorus 2.9 mg/dl (2.5-4.5) 08/04/18 04:15 Magnesium 1.7 MG/DL (1.6-2.3) 08/04/18 04:15 Total Bilirubin 1.0 mg/dl (0.2-1.3) 08/02/18 05:00 AST 20 U/L (17-59) 08/02/18 05:00 ALT 32 U/L (21-72) 08/02/18 05:00 Alkaline Phosphatase 80 U/L (38-126) 08/02/18 05:00 Troponin I < 0.0120 ng/mL (0.00-0.120) 07/31/18 15:53 Total Protein 6.5 G/DL (6.3-8.2) 08/02/18 05:00 Albumin 3.6 g/dL (3.5-5.0) 08/02/18 05:00 Globulin 2.9 gm/dL (2.2-3.9) 08/02/18 05:00 Albumin/Globulin Ratio 1.2 (1.0-2.1) 08/02/18 05:00 Triglycerides 231 mg/DL (0-149) H D 07/31/18 15:53 Cholesterol 218 mg/dL (0-199) H 07/31/18 15:53 LDL Cholesterol Direct 133 mg/dL (0-129) H 07/31/18 15:53 HDL Cholesterol 24 MG/DL (30-70) L 07/31/18 15:53 Vitamin B12 330 pg/mL (239-931) 08/01/18 06:00 TSH 3rd Generation 1.53 mIU/ML (0.46-4.68) 08/01/18 06:00 Blood Type B POSITIVE 07/31/18 16:45 Antibody Screen Negative 07/31/18 16:45 BBK History Checked Patient has bt 07/31/18 16:45 - Hospital Course Hospital Course: 68 y/o M with a PMHx of hypertension, [place], HLD, DM and CVA was admitted for evaluation and management dizziness, near syncope and frequent falls. CT head and Doppler US of b/l carotids unremarkable. Pt was evaluated by neurology who recommended echocardiogram and CTA of head and neck. Psychiatry evaluated patienr and recommended decreasing Remeron to 15mg and continue with Zoloft. --CTA head and neck: Significant stenosis in the bilateral common or internal carotid arteries in the neck though mild atherosclerotic plaques identified at the bilateral carotid bulb regions extending into the proximal left internal carotid artery somewhat. --Echocardiogram was unremarkable. neuroogy re-evaluated patient and recommended NO neurosurgical intervention, continue Plavix 75 mg PO daily and statin. Physical therapy evaluated patient and recommended discharged home with skilled PT. TCU and Sub-acute rehab were offered to patient; and after discussion of benefits pt decided to return to [facility]. Pt was seen adn examined with Dr Lu by bedside, is afebrile, tolerating PO and stable for discharged. - Date & Time of H&P Date of H&P: 08/01/18 Time of H&P: 11:42 Discharge Exam - Head Exam Head Exam: ATRAUMATIC, NORMAL INSPECTION, NORMOCEPHALIC - Eye Exam Eye Exam: EOMI, Normal appearance - ENT Exam ENT Exam: Mucous Membranes Moist - Neck Exam Neck exam: Full Rom, Normal Inspection - Respiratory Exam Respiratory Exam: NORMAL BREATHING PATTERN. absent: Rhonchi, Wheezes, Respiratory Distress, Stridor - Cardiovascular Exam Cardiovascular Exam: REGULAR RHYTHM, +S1, +S2 - GI/Abdominal Exam GI & Abdominal Exam: Soft, Unremarkable. absent: Distended, Guarding, Rebound, Tenderness - Extremities Exam Extremities exam: full ROM, normal capillary refill, pedal pulses present - Neurological Exam Neurological exam: Alert, Oriented x3 Discharge Plan - Discharge Medications Prescriptions: Mirtazapine [Remeron] 15 mg PO HS #30 tablet - Follow Up Plan Condition: FAIR Disposition: HOME/ ROUTINE
[2018-08-04 11:48] VITALS: BP 133/79; TEMP 97.7; O2SAT 94
== END 2018-08-04 14:28 | disposition home or self-care (01) | DRG 312 ==
LOC: H.ER 15:08 → H.ERHOLD 17:22 → H.TEL 18:58 → OBSVTOIN 08-02 12:21
PROVIDERS: ADMIT Internal Medicine; ATTEND Internal Medicine
DX: R55 Syncope and collapse (principal); F32.1 Major depressive disorder, single episode, moderate; E87.6 Hypokalemia; E83.39 Other disorders of phosphorus metabolism; E11.65 Type 2 diabetes mellitus with hyperglycemia; R29.6 Repeated falls; I12.9 Hypertensive chronic kidney disease with stage 1 through stage 4 chronic kidney disease, or unspecified chronic kidney disease; N18.9 Chronic kidney disease, unspecified; E11.22 Type 2 diabetes mellitus with diabetic chronic kidney disease; I25.10 Atherosclerotic heart disease of native coronary artery without angina pectoris; I48.91 Unspecified atrial fibrillation; R42 Dizziness and giddiness; I71.2 Thoracic aortic aneurysm, without rupture; E78.5 Hyperlipidemia, unspecified; E78.00 Pure hypercholesterolemia, unspecified; Z95.0 Presence of cardiac pacemaker; Z95.5 Presence of coronary angioplasty implant and graft; Z86.73 Personal history of transient ischemic attack (TIA), and cerebral infarction without residual deficits; Z87.442 Personal history of urinary calculi; Z79.02 Long term (current) use of antithrombotics/antiplatelets; Z59.0 Homelessness; Z79.84 Long term (current) use of oral hypoglycemic drugs; Z88.6 Allergy status to analgesic agent; Z88.0 Allergy status to penicillin